=== PATIENT | male | born 1960 | race Caucasian/White ===

== ENCOUNTER 2020-06-16 15:20 | Emergency (ER) | payer BC, OTHER ==
[~2020-06-16] VITALS: Ht 190.5 cm; Wt 176.9 kg
--- OUTSIDE RECORDS SUMMARY | ~2020-06-16 | XMS | Encounter Summary ---
Demographics + + + | Address | [address] | | | [place] [address] | + + + | Home Phone | | + + + | Preferred Language | Unknown | + + + | Marital Status | Single | + + + | Jew Affiliation | CAT | + + + | Race | or | + + + | Ethnic Group | Not or | + + + Author + + + | Author | [facility] | + + + | Organization | [facility] | + + + | Address | Unknown | + + + | Phone | Unavailable | + + + Support + + + + + | Name | Relationship | Address | Phone | + + + + + | Ayde Benoit | ECON | Unknown | | + + + + + | Brian Benoit | ECON | [address] | | | | | [place] | | | | | [address] | | + + + + + Care Team Providers + +------+ + | Care Gritting Machine Operator Name | Role | Phone | + +------+ + | Dhruv Villalpando MD | PCP | Unavailable | + +------+ + Reason for Visit +--------+--------+ + | Reason | Onset | Comments | | | Date | | +--------+--------+ + | Fever | 03/25/ | | | | 2007 | | +--------+--------+ + Encounter Details +--------+ + + + + | Date | Type | Department | Care Team | Description | +--------+ + + + + | 03/25/ | Telephone | Dig[facility]ive Health | Omid Marie | Fever | | 2007 | | [place] [address] | MD [place] | | | | | [place] Mailcode: [address] | [place] [address] | | | | | [facility] | [address] | | | | | and Healing, | [place] [address] | | | | | [place] [address] | [phone] | | | | | [place], [place] | | | | | | [address] | | | | | | [phone] | | | +--------+ + + + + Social History + +-------+ +--------+------+ | Tobacco Use | Types | Packs/Day | Years | Date | | | | | Used | | + +-------+ +--------+------+ | Never Smoker | | | | | + +-------+ +--------+------+ + + +---------+ + | Alcohol Use | Drinks/Week | oz/Week | Comments | + + +---------+ + | Yes | | | 1 beer a day. | + + +---------+ + + + + | Sex Assigned at | Date Recorded | | | | + + + | Not on file | | + + + documented as of this encounter Miscellaneous Notes Telephone Encounter - Omid Marie V - 03/25/2008 8:56 PM JAZMYNMr Benoit called yessica at 20:08 with concern of the fever at 101. He also has some burning pain at the MATTHIEU drain si te. The drain output was about 150 cc, bloody as before the discharge per patient's report. Pain is under control, no nausea. Advised to take Tylenol 1000 mg now and 4-6 hrs later if t he fever persists. I asked him to let me know if his condition gets worse. He was asked to c all me anytime and in the am to report any changes. documented in this en counter Plan of Treatment Not on filedocumented as of this encounter Visit Diagnoses Not on filedocumented in this encounter"
--- OUTSIDE RECORDS SUMMARY | ~2020-06-16 | XMS | Encounter Summary ---
Demographics + + + | Address | [address] | | | [place] [address] | + + + | Home Phone | | + + + | Preferred Language | Unknown | + + + | Marital Status | Single | + + + | Holiness Affiliation | CAT | + + + | Race | or | + + + | Ethnic Group | Not or | + + + Author + + + | Author | [facility] | + + + | Organization | [facility] | + + + | [...] [address] | | | | | [address] | | | | | [address] | | + + + + + Care Team Providers + +------+ + | Care Systems Software Engineer Name | Role | Phone | + +------+ + PCP | Unavailable | + +------+ + Reason for Visit PROC - Inpatient Surgery (Routine) +--------+--------+ + + + + | Status | Reason | Specialty | Diagnoses / | Referred By | Referred To | | | | | Procedures | Contact | Contact | +--------+--------+ + + + + | Closed | | Gastroenterol | Diagnoses | Non-[facility] | Devjesus, | | | | ogy | | Epic Dept | MD Grey | | | | | Posttraumati | | [address] | | | | | c wound | | [address] | | | | | infection | | [address] [place], | | | | | not | | [place] | | | | | elsewhere | | [address] | | | | | classified | | Phone: | | | | | Procedures | | [phone] | | | | | [place] | | Fax: | | | | | ADJ GST | | [phone] | | | | | BND/[place] | | | +--------+--------+ + + + + Encounter Details +--------+---------+ + + + | Date | Type | Department | Care Team | Description | +--------+---------+ + + + | 09/10/ | Office | Dig[facility]ive Health | Deveney, Grey, | Morbid Obesity | | 2006 | Visit | Center [address] | [address] | ([facility]); DVT of Leg | | | | Ave Mail[address]: [address] | [address] | (Deep Venous | | | | [place] for [facility] | [place], [place] | Thrombosis) ([facility]); | | | | and Healing, | [address] | Follow-Up | | | | Building | [phone] | Examination | | | | Floor [place], [place] | | Following Surgery | | | | [address] | | | | | | [phone] | | | +--------+---------+ + + + Social History + +-------+ +--------+------+ | Tobacco Use | Types | Packs/Day | Years | Date | | | | | Used | | + +-------+ +--------+------+ | Never Assessed | | | | | + +-------+ +--------+------+ + + + | Sex Assigned at | Date Recorded | | | | + + + | Not on file | | + + + documented as of this encounter Last Filed Vital Signs + + + + + | Vital Sign | Reading | Time Taken | Comments | + + + + + | Blood Pressure | 151/77 | 09/10/2007 2:50 PM | | | | | PST | | + + + + + | Pulse | 90 | 09/10/2007 2:50 PM | | | | | PST | | + + + + + | Temperature | 36.5 C (97.7 F) | 09/10/2007 2:50 PM | | | | | PST | | + + + + + | Respiratory Rate | 16 | 09/10/2007 2:50 PM | | | | | PST | | + + + + + | Oxygen Saturation | - | - | | + + + + + | Inhaled Oxygen | - | - | | | Concentration | | | | + + + + + | Weight | 175.3 kg (386 lb 8 | 09/10/2007 2:50 PM | | | | oz) | PST | | + + + + + | Height | - | - | | + + + + + | Body Mass Index | 49.62 | 08/13/2007 4:32 PM | | | | | PST | | + + + + + documented in this encounter Progress Notes Grey Gaspar - 10/16/2007 2:22 PM PSTI performed a history and physical examination o f the patient and discussed his management with the resident. I reviewed the resident s n ote and agree with the documented findings and plan of care. ichael Conway - 12/2006 3:44 PM PST Cc: f/u lap band removal S: Pt is a 47 yo M s/p Lap-Band removal on 08/27/2007 for an infected lap band that had be en performed in [place]. His surgery was complicated by post-op L rectus bleed which was reex plored and ligated on 08/30/07 . He initially complained of one day of night sweats/chills a fter discharge, but this resolved after that night. He continues to pack his three wounds BI D, and states that the discharge is becoming progressively less "pus-like." He completed a c ourse of augmentin. His blood sugars have been managed (115-130s) taking only 6 U of fast ac ting insulin TID before meals, without taking his 44U of lantus qHS. He is eating well, and is disappointed to learn that he is gaining some weight. His bowel movements are normal, and he denies nausea. Denies fevers/chills currently. O: Filed Vitals: 09/10/2007 2:50 PM BP: 151/77 Pulse: 90 Temp: 97.7 F (36.5 C) TempSrc: Oral Resp: 16 Weight: 175.315 kg (386 lbs 8.0 oz) PEx: Gen: NAD, alert Neuro: A&Ox3, normal gait Psych: normal affect, speech HEENT: Anicteric Cor: RRR no murmurs Pulm: Clear to Auscultation Bilaterally Abd: soft, nt, nondistended, 3 abd wounds open with good granulation tissue on removal of d ressing. Dressing with mostly serosanguinous drainage. No erythema. + resolving ecchymosis o jessica mid-abd incision. Extr: warm, no edema A: 47 yo M s/p lap band removal and exploration of wounds for post-op hematoma, healing wel l, afebrile. CBGs well controlled with pre-meal short acting insulin. --Cont wet to dry dressings BID --RTC in 2-4 weeks --Cont fast acting insulin with meals, continue to hold long-acting insulin at present. 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 documented in this enco unter Plan of Treatment Not on filedocumented as of this encounter Visit Diagnoses + + | Diagnosis | + + | Morbid obesity (HCC) Morbid obesity | + + | DVT of leg (deep venous thrombosis) (HCC) Acute venous embolism and thrombosis of | | unspecified deep vessels of lower extremity | + + | Follow-up examination following surgery Follow-up examination, following unspecified | | surgery | + + documented in this encounter
--- OUTSIDE RECORDS SUMMARY | ~2020-06-16 | XMS | Encounter Summary ---
Demographics + + + | Address | [address] | | | [place] [address] | + + + | Home Phone | | + + + | Preferred Language | Unknown | + + + | Marital Status | Single | + + + | Episcopalian Affiliation | CAT | + + + | Race | or | + + + | Ethnic Group | Not or | + + + Author + + + | Author | [facility] | + + + | Organization | [facility] | + + + | Address | [...] [address] | | | | | [address] | | + + + + + Care Team Providers + +------+ + | Care Circuit Breaker Assembler Name | Role | Phone | + [...] + + + | Closed | | Surgery | Diagnoses | [facility] | [place], | | | | | Morbid | Epic Dept | MD Grey | | | | | obesity | | [address] | | | | | ([facility]) | | [address] | | | | | Procedures | | [address] [place], | | | | | [place] | | [place] | | | | | GASTRIC | | [address] | | | | | [address]- | | Phone: | | | | | EN-Y | | [phone] | | | | | | | Fax: | | | | | | | [phone] | +--------+--------+ + + + + Encounter Details +--------+---------+ + + + | Date | Type | Department | Care Team | Description | +--------+---------+ + + + | 03/31/ | Office | Dig[facility]ive Health | Deveney, Grey, | DVT of Leg (Deep | | 2007 | Visit | [place] [address] | [address] [facility] | Venous Thrombosis) | | | | Ave Mailcode: [address] | [address] | ([facility]); Morbid | | | | [facility] | [place], [place] | Obesity ([facility]); | | | | and Healing, | [address] | Status Post Gastric | | | | Building | [phone] | Bypass for Obesity | | | | Floor [place], [place] | | | | | | [address] | | | | | | [phone] | | | +--------+---------+ + + + [...] + + + | Blood Pressure | 146/66 | 03/31/2008 2:49 PM | | | | | PDT | | + + + + + | Pulse | 84 | 03/31/2008 2:49 PM | | | | | PDT | | + + + + + | Temperature | 36.9 C (98.4 F) | 03/31/2008 2:49 PM | | | | | PDT | | + + + + + | Respiratory Rate | 16 | 03/31/2008 2:49 PM | | | | | PDT | | + + + + + | Oxygen Saturation | - | - | | + + + + + | Inhaled Oxygen | - | - | | | Concentration | | | | + + + + + | Weight | 199.2 kg (439 lb 1.6 | 03/31/2008 2:49 PM | | | | oz) | PDT | | + + + + + | Height | - | - | | + + + + + | Body Mass Index | 58.2 | 03/19/2008 6:00 AM | | | | | PDT | | + + + + + documented in this encounter Progress Notes Camille Martin, Kaylan Lawrence - 04/01/2008 12:46 PM PDTFormatting of this note might be different from ole degroot. 04/01/2008 BARIATRIC FOLLOW-UP Ghassan Benoit is a 48 y.o. male who underwent a gastric bypass procedure on 03/19/08. Hx Lap Band removal s/t infection. Pt states he is doing well. Pain controlled with oxycodone 5 mg two tablets every 4-6 hrs. Was given 80 a week ago and believes he has ~16 left--request s another Rx. Drain with minimal output. Tolerating clear liquids well. Is off Lovenox an d therapeutic on coumadin. Protime drawn here today at request of managing PCP. Medications: MVI: yes Calcium supplement: yes Vit D: yes B12: yes Actigall: yes Ranitidine : yes Narcotics: yes Symptoms: Nausea: None Dysphagia: None Vomiting: None Heartburn: None Abd Pain: See above Constipation: None Diarrhea: None Physical exam: Last 1 Encounter Wt Readings: Date Wt 03/31/2008 199.174 kg (439 lbs 1.6 oz) There is no height on file for this encounter. General appearance: healthy, alert and cooperative Lungs: negative Cardiac: Rate, rhythm, regular, no murmur, gallop or bruits. No peripheral edema. Abdomen:obese, soft, mild tender, nondistended, no masses Incision: healing well without signs of infection Impression: 1 wk s/p gastric bypass doing well Plan: Dr. Gaspar in to see pt and remove MATTHIEU drain. Mobile removed. Reviewed s/s of infection for pt to call or return to clinic. Reviewed activity limitations. Will remain off work fo r next week. Will remain on [place] diet for next week and be seen next week with plan to advanc e diet at that time. Rx given for oxycodone 5 mg x 60 with instructions for how to wean off of them as pain lessons. PT/INR elevated at 3.5. Pt has been taking 10 mg warfarin daily. Instructed him to try to reach his PCP for directions. If unable to reach PCP, he is to t reji 5 mg tonight then reduce dose to 7.5 mg daily and recheck PT/INR in 3-4 days. documented in this encoun ter Plan of Treatment Not on filedocumented as of this encounter Visit Diagnoses + + | Diagnosis | + + | DVT of leg (deep venous thrombosis) (HCC) Acute venous embolism and thrombosis of | | unspecified deep vessels of lower extremity | + + | Morbid obesity (HCC) Morbid obesity | + + | Status post gastric bypass for obesity Bariatric surgery status | + + documented in this encounter"
--- OUTSIDE RECORDS SUMMARY | ~2020-06-16 | XMS | Encounter Summary ---
Demographics + + + | Address | [address] | | | [place] [address] | + + + | Home Phone | | + + + | Preferred Language | Unknown | + + + | Marital Status | Single | + + + | Religion Affiliation | CAT | + + + | Race | or | + + + | Ethnic Group | Not or | + + + Author + + + | Author | [facility] [employer] [facility] | + + + | Organization | [facility] | + + + | Address | [...] [address] [place] | | | | | [address] | | + + + + + Care Team Providers + +------+ + | Care Retail Department Supervisor Name | Role | Phone | + +------+ + | Dhruv Villalpando MD | PCP | Unavailable | + +------+ + Reason for Referral Consultation (Routine) +--------+--------+ + + + + | Status | Reason | Specialty | Diagnoses / | Referred By | Referred To | | | | | Procedures | Contact | Contact | +--------+--------+ + + + + | Closed | | Gastroenterol | Diagnoses | Ruthy Castorena, | Gas Endo | | | | ogy | Status post | MD [address] | | | | | gastric | [address] | [address] | | | | | bypass for | [address] | [place] | | | | | obesity | [place], [place] | [address] | | | | | Procedures | [address] | floor | | | | | CONSULT TO | Phone: | [place], [place] | | | | | GI PROCEDURE | [phone] | [address] | | | | | UNIT: EGD | Fax: | Phone: | | | | | [facility] | [phone] | [phone] | | | | | ENDOSCOPY | | Fax: | | | | | | | [phone] | +--------+--------+ + + + + Reason for Visit AUTH/CERT +--------+--------+ + + + + | Status | Reason | Specialty | Diagnoses / | Referred By | Referred To | | | | | Procedures | Contact | Contact | +--------+--------+ + + + + | Closed | | | | | [address] | | | | | | | Short Stay | | | | | | | [address] | | | | | | | [address] | | | | | | | [address] | | | | | | | [address] | | | | | | | [place] | | | | | | | [facility] | | | | | | | ([facility]) | | | | | | | [place], | | | | | | | [place] [address] | | | | | | | Phone: | | | | | | | [phone] | | | | | | | Fax: | | | | | | | [phone] | +--------+--------+ + + + + Encounter Details +--------+ + + + + | Date | Type | Department | Care Team | Description | +--------+ + + + + | 08/18/ | Hospital | [facility] [address] | Ruthy Castorena MD | | | 2007 | Encounter | [address] | [address] | | | | | [address] | [address] [place], | | | | | Christy [place] | [place] [address] | | | | | ([facility]) | [phone] | | | | | [place], [place] | | | | | | [address] | Dhruv Graves | | | | | [phone] | MD [address] | | | | | | [address] [place], | | | | | | [place] [address] | | | | | | [phone] | | | | | | | | +--------+ + + + [...] + + + | Blood Pressure | 109/71 | 08/18/2008 12:26 PM | | | | | PST | | + + + + + | Pulse | 58 | 08/18/2008 12:26 PM | | | | | PST | | + + + + + | Temperature | 36.2 C (97.2 F) | 08/18/2008 12:07 PM | | | | | PST | | + + + + + | Respiratory Rate | 16 | 08/18/2008 12:26 PM | | | | | PST | | + + + + + | Oxygen Saturation | 100% | 08/18/2008 12:26 PM | | | | | PST | | + + + + + | Inhaled Oxygen | - | - | | | Concentration | | | | + + + + + | Weight | 161 kg (354 lb 15.1 | 08/18/2008 11:33 AM | | | | oz) | PST | | + + + + + | Height | 188 cm (6' 2") | 08/18/2008 8:12 AM | | | | | PST | | + + + + + | Body Mass Index | 45.57 | 08/18/2008 8:12 AM | | | | | PST | | + + + + + documented in this encounter Discharge Summaries Bhakti, Faculty - 08/18/2008 12:50 PM PST documented in this encounter Discharge Instructions Instructions Misti Steinberg RN - 08/18/2008Formatting of this note might be different from t ivon degroot. [facility] [address] Toll Free ext: [phone] Home Care Instructions after EGD (Upper Endoscopy) Medications You have received sedation medications. These medications can cause you to be forgetful and drowsy and will take the remainder of the day to wear off. DO NOT drink alcohol, drive, ope rate heavy machinery, sign legal documents, or make major decisions until tomorrow. Common After Effects Mild abdominal pain, bloating, and gas. Sore throat. You may treat it with throat lozenges and/or gargle with warm salt water. You may bruise at your IV site. If you have pain, redness, or swelling at your IV site, amrit ly a warm compress. Diet You may resume eating, but start with small meals of soft foods and liquids. Scrambled eggs and mashed potatoes are good examples. If you tolerate small, soft meals, then you may res ume your usual diet. Activity With the exception of driving and operating heavy machinery, you may resume your usual leve l of activity. Complications Call your GI doctor if you have: Abnormal pain or any new unexplained symptoms. Shortness of breath, chest or neck pain. Vomiting blood or rectal bleeding. Fever above 101.5 Redness, pain, or swelling at your IV site that is not relieved with warm compress. For any questions related to your procedure, call: Monday- Monday 8:00- 4:30 Endoscopy After business hours, or on weekends and holidays Hospital Biomedical Technician and have the GI doctor auto adjudication specialist paged. The provider who performed your procedure is: Dr. Castorena You have a stricture which will require dilation. We were unable to perform this dilation at this time due to the fact that you still have food in your stomach. Follow up Appointments with: Your primary care provider Your primary care provider or referring provider will receive copies of the procedure repor t and all pathology reports with recommendations for treatment Current Medication List Name Sig CALCIUM 500 WITH D ORAL None Entered FLONASE 50 MCG/ACTUATION NASAL SPRAY as needed INSULIN REGULAR (HUMAN) BUFFERED 100 UNIT/ML INJECTION inject by subcutaneous route per ins ulin sliding scale protocol as needed LISINOPRIL 40 MG TAB take 1 tablet (40 mg) by oral route once daily METOPROLOL 25 MG TAB 1 Tab Oral TWO TIMES DAILY MULTIVITAMIN TAB take 1 tablet by oral route once daily with food OMEPRAZOLE 20 MG TAB, DELAYED RELEASE one by mouth once daily 30 minutes before breakfast ZANTAC OR 2x daily documented in this encounter Medications at Time of Discharge + + + +---------+ + + | Medication | Sig | Dispensed | Refills | Start | End Date | | | | | | Date | | + + + +---------+ + + | CALCIUM 500 WITH D | None Entered | | 0 | | | | ORAL | | | | | | + + + +---------+ + + | fluticasone | as needed | | 0 | | | | (FLONASE) 50 | | | | | | | mcg/Actuation Nasal | | | | | | | [place], Suspension | | | | | | + + + +---------+ + + | Insulin Reg | inject by | | 0 | | | | (Human) Buffered 100 | subcutaneous route | | | | | | unit/mL Injection | per insulin sliding | | | | | | Solution | scale protocol as | | | | | | | needed | | | | | + + + +---------+ + + | lisinopril 40 mg | take 1 tablet (40 | | 0 | | | | Oral Tablet | mg) by oral route | | | | | | | once daily | | | | | + + + +---------+ + + | metoprolol 25 mg | 1 Tab Oral TWO TIMES | 60 | 0 | 03/20/20 | | | Oral Tablet | DAILY | | | 08 | | + + + +---------+ + + | multivitamin Oral | take 1 tablet by | | 0 | | | | Tablet | oral route once | | | | | | | daily with food | | | | | + + + +---------+ + + | Omeprazole 20 mg | one by mouth once | 30 | 2 | 06/30/20 | | | Oral Tablet, Delayed | daily 30 minutes | | | 08 | | | Release (E.C.) | before breakfast | | | | | + + + +---------+ + + | ZANTAC OR | 2x daily | | 0 | | | + + + +---------+ + + documented as of this encounter Procedure Notes Other, Faculty - 08/18/2008 12:50 PM PST Other, Faculty - 08/18/2008 12:50 PM PST Other, Faculty - 08/18/2008 12:50 PM PSTAssociated Order(s): ANESTHESIA/SEDATION; ANESTHESIA/SEDATI ON Other, Faculty - 08/18/2008 12:50 PM PSTAssociated Order(s): ANESTHESIA/SEDATION; ANESTH ESIA/SEDATION Ruthy Castorena - 08/18/2008 8:40 AM PSTAssociated Order(s): PROCEDURE NOTEFormatt ing of this note might be different from the original. PROCEDURE NOTE: Subjective: Ghassan Benoit is a 48 y.o. male MR# [id number] presents today for EGD with suzanne fam. PARQ held and all questions addressed. Objective: Vital Signs: Blood pressure 108/48, pulse 55, temperature 36.1 C (97 F), resp. rate 16, height 1.88 m (6' 2"), weight 161.027 kg (355 lb), SpO2 99%. Neuro: patient is Patient oriented X3. Mental status clear and intact Mallampati Score: II Neck negative Respiratory Lungs clear to auscultation bilaterally with good air exchange Cardiac Regular Rate and Rhythm. Abdomen: soft, normal active bowel sounds, nontender, no masses, no organomegaly Medications: Meds reviewed Allergies: Allergies as of 08/15/2008 - reviewed 08/05/2008 Allergen Reaction Noted Adhesive tape Hives 08/13/2007 See procedure note 08/18/2008 documented in this encounter Miscellaneous Notes Scan - Other, Faculty - 08/18/2008 12:50 PM PST Scan - Other, Faculty - 08/18/2008 12:50 P M PST documented in this encounter Plan of Treatment Not on filedocumented as of this encounter Procedures + +--------+ + + + | Procedure Name | Priori | Date/Time | Associated Diagnosis | Comments | | | ty | | | | + +--------+ + + + | PROCEDURE NOTE | Routin | 11/13/2015 | | Results for this | | | e | 2:27 PM | | procedure are in the | | | | PST | | results section. | + +--------+ + + + | ANESTHESIA/SEDATION | | 08/18/2008 | | Results for this | | | | 12:50 PM | | procedure are in the | | | | PST | | results section. | + +--------+ + + + | ANESTHESIA/SEDATION | | 08/18/2008 | | Results for this | | | | 12:50 PM | | procedure are in the | | | | PST | | results section. | + +--------+ + + + documented in this encounter Results PROCEDURE NOTE (11/13/2015 2:27 PM PST)ANESTHESIA/SEDATION (08/18/2008 12:50 PM PST) + + + | Narrative | Performed At | + + + | | | + + + + + | Procedure Note | + + | Other, Faculty - 08/18/2008 12:50 PM PST | + + ANESTHESIA/SEDATION (08/18/2008 12:50 PM PST) + + + | Narrative | Performed At | + + + | | | + + + + + | Procedure Note | + + | Mayela Ya - 08/18/2008 12:50 PM PST | + + documented in this encounter Visit Diagnoses + + | Diagnosis | + + | Status post gastric bypass for obesity Bariatric surgery status | + + documented in this encounter Administered Medications + +--------+ +---------+------+--------+ | Medication Order | MAR | Action | Dose | Rate | Site | | | Action | Date | | | | + +--------+ +---------+------+--------+ | fentanyl (aka SUBLIMAZE) | Given | 08/18/20 | 100 mcg | | Right | | injection 1 dose, Starting Mon | | 08 8:15 | | | Hand | | 08/18/08 at 0801, Until Mon | | AM PST | | | | | 08/18/08 at 0908 | | | | | | + +--------+ +---------+------+--------+ +---+---+ | | | +---+---+ + +-------+ +------+---+--------+ | midazolam (aka VERSED) | Given | 08/18/20 | 4 mg | | Right | | injection 1 dose, Starting Mon | | 08 8:15 | | | Hand | | 08/18/08 at 0800, Until Mon | | AM PST | | | | | 08/18/08 at 0909 | | | | | | + +-------+ +------+---+--------+ +---+---+ | | | +---+---+ documented in this encounter
--- OUTSIDE RECORDS SUMMARY | ~2020-06-16 | XMS | Encounter Summary ---
Demographics + + + | Address | [address] | | | [place] [address] | + + + | Home Phone | | + + + | Preferred Language | Unknown | + + + | Marital Status | Single | + + + | Zoroastrianism Affiliation | CAT | + + + | Race | or | + + + | Ethnic Group | Not or | + + + Author + + + | Author | [facility] | + + + | Organization | [...] [address] [place] | | | | | [address] | | + + + + + Care Team Providers + +------+ + | Care Psychiatric Arnp Name | Role | Phone | + +------+ + | Dhruv Villalpando MD | PCP | Unavailable | + +------+ + Reason for Visit AUTH/CERT +--------+--------+ + [...] | | | | | | | [facility] | | | | | | | [place] | | | | | | | [facility] | | | | | | | ([facility]) | | | | | | | [place], | | | | | | | [place] [address] | | | | | | | Phone: | | | | | | | [phone] | | | | | | | Fax: | | | | | | | [phone] | +--------+--------+ + + + + Encounter Details +--------+ + + + + | Date | Type | Department | Care Team | Description | +--------+ + + + + | 11/07/ | Hospital | [facility] [address] | Yvette Wolfe, | | | 2008 | Encounter | [address] | MD | | | | | [facility] | | | | | | [facility] | | | | | | ([facility]) | | | | | | [place], [place] | | | | | | [address] | | | | | | [phone] | | | +--------+ + + + + Social History + +-------+ +--------+------+ | Tobacco Use | Types | Packs/Day | Years | Date | | | | | Used | | + +-------+ +--------+------+ | Never Smoker | | | | | + +-------+ +--------+------+ + + | Comments: snuff | + + + + +---------+ + | Alcohol Use [...] + + + | Blood Pressure | 128/74 | 11/07/2008 3:57 PM | | | | | PST | | + + + + + | Pulse | 61 | 11/07/2008 3:57 PM | | | | | PST | | + + + + + | Temperature | 35.9 C (96.6 F) | 11/07/2008 3:29 PM | | | | | PST | | + + + + + | Respiratory Rate | 16 | 11/07/2008 3:57 PM | | | | | PST | | + + + + + | Oxygen Saturation | 100% | 11/07/2008 3:57 PM | | | | | PST | | + + + + + | Inhaled Oxygen | - | - | | | Concentration | | | | + + + + + | Weight | 154 kg (339 lb 8.1 | 11/07/2008 11:30 AM | | | | oz) | PST | | + + + + + | Height | 185.4 cm (6' 1") | 11/07/2008 11:30 AM | | | | | PST | | + + + + + | Body Mass Index | 44.79 | 11/07/2008 11:30 AM | | | | | PST | | + + + + + documented in this encounter Discharge Summaries Bhakti, Faculty - 11/07/2008 4:05 PM PST documented in this encounter Discharge Instructions Instructions Arelis Triplett RN - 11/07/2008Formatting of this note might be different from venu degroot. [facility] End[facility] [place] [address] Toll Free ext: [phone] Home Care Instructions after EGD (Upper Endoscopy) [...] hours, or on weekends and holidays Hospital Residential Support Specialist and have the GI doctor fellmongering machine operator paged. The provider who performed your procedure is: Dr Yung Your primary care provider or referring provider [...] mouth once daily 30 minutes before breakfast SYRINGE WITH NEEDLE (DISP) 3 ML 22 X 1 1/2" to be used with vitamin B12 injections ZANTAC OR 2x daily documented in this [...] | | | | | | | [place], Suspension | | | | | | [...] + + + +---------+ + + | Syringe with | to be used with | 1 | 11 | /08/28 | | | Needle (Disp) 3 mL | vitamin B12 | | | 08 | | | 22 x 1 1/2" Syringe | injections | | | | | + + + +---------+ + + | ZANTAC OR | 2x daily | | 0 | | | + + + +---------+ + + documented as of this encounter Procedure Notes Other, Faculty - 11/07/2008 4:05 PM PST Other, Faculty - 11/07/2008 4:05 PM PSTAssociate d Order(s): ANESTHESIA/SEDATION; ANESTHESIA/SEDATION Other, Faculty - 11/07/2008 2:[address] documented in this encounter Miscellaneous Notes Scan - Other, Faculty - 11/07/2008 4:05 PM PST Scan - Other, Faculty - 11/07/2008 4:05 P M PST Scan - Other, Faculty - 11/07/2008 4:05 PM PST documented in this encounter Plan of Treatment Not on filedocumented as of this encounter Procedures + +--------+ + + + | Procedure Name | Priori | Date/Time | Associated Diagnosis | Comments | | | ty | | | | + +--------+ + + + | ANESTHESIA/SEDATION | | 11/07/2008 | | Results for this | | | | 4:05 PM | | procedure are in the | | | | PST | | results section. | + +--------+ + + + documented in this encounter Results ANESTHESIA/SEDATION (11/07/2008 4:05 PM PST) + + + | Narrative | Performed At | + + + | | | + + + + + | Procedure Note | + + | Mayela Ya - 11/07/2008 4:05 PM PST | + + documented in this encounter Visit Diagnoses Not on filedocumented in this encounter
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
--- OUTSIDE RECORDS SUMMARY | ~2020-06-16 | XMS | Encounter Summary ---
Demographics + + + | Address | [address] | | | [place] [address] | + + + | Home Phone | | + + + | Preferred Language | Unknown | + + + | Marital Status | Single | + + + | Zoroastrian Affiliation | CAT | + + + | Race | or | + + + | Ethnic Group | Not or | + + + Author + + + | Author | [facility] | + + + | Organization | [facility] | + + + | Address [...] [address] [place] | | | | | [address] | | + + + + + Care Team Providers + +------+ + | Care Tunnel Elastic Operator Lockstitch Name | Role | Phone | + +------+ + | Dhruv Villalpando MD | PCP | Unavailable | + +------+ + Encounter Details +--------+ + + + + | Date | Type | Department | Care Team | Description | +--------+ + + + + | 03/17/ | Hospital | Cardiac | Sjh, Car Ecg Tech | | | 2008 | Encounter | Non-Invasive Testing | [address] | | | | | at [facility] | [facility] | | | | | [address] | [place] [address] | | | | | [address] [facility] [place] | | | | | | [place] floor | | | | | | [place], [place] | | | | | | [address] | | | | | | [phone] | | | +--------+ + + + [...] + + documented as of this encounter Medications at Time of Discharge [...] + + + +---------+ + + | cyanocobalamin | once a month | 1 | 6 | 03/24/20 | | | (VITAMIN B-12) 1,000 | injection | | | 08 | 8 | | mcg/mL Injection | subcutaneously or | | | | | | Solution | intramuscular | | | | | + + + +---------+ + + documented as of this encounter Plan of Treatment Not on filedocumented as of this encounter Procedures + +--------+ + + + | Procedure Name | Priori | Date/Time | Associated Diagnosis | Comments | | | ty | | | | + +--------+ + + + | 12 LEAD ECG | Routin | 03/17/2008 | Other specified | Results for this | | | e | 2:55 PM | pre-operative | procedure are in the | | | | PDT | examination | results section. | + +--------+ + + + documented in this encounter Results 12 LEAD ECG (03/17/2008 2:55 PM PDT) + + + + + + | Component | Value | Ref Range | Performed | Pathologist | | | | | At | Signature | + + + + + + | VENTRICULAR | 75 | BPM | [facility] | | | RATE | | | OF | | | | | | CARDIOLOGY | | + + + + + + | ATRIAL RATE | 75 | BPM | [facility] | | | | | | OF | | | | | | CARDIOLOGY | | + + + + + + | P-R | 154 | ms | [facility] | | | INTERVAL | | | OF | | | | | | CARDIOLOGY | | + + + + + + | QRS | 84 | ms | [facility] | | | DURATION | | | OF | | | | | | CARDIOLOGY | | + + + + + + | QT | 374 | ms | [facility] | | | | | | OF | | | | | | CARDIOLOGY | | + + + + + + | QTC | 418 | ms | [facility] | | | | | | OF | | | | | | CARDIOLOGY | | + + + + + + | P AXIS | 27 | degrees | [facility] | | | | | | OF | | | | | | CARDIOLOGY | | + + + + + + | R AXIS | 8 | degrees | [facility] | | | | | | OF | | | | | | CARDIOLOGY | | + + + + + + | T AXIS | 9 | degrees | [facility] | | | | | | OF | | | | | | CARDIOLOGY | | + + + + + + | EKG | Normal sinus | | [facility] | | | DIAGNOSIS | rhythmNormal ECG"I have | | OF | | | | personally interpreted | | CARDIOLOGY | | | | this report, either | | | | | | alone or with a | | | | | | trainee."Confirmed by | | | | | | SHANTI MARS ([id number]) on | | | | | | 20-Mar-2008 10:00:57 | | | | + + + + + + | LINK TO | | | [facility] | | | [facility] | | | OF | | | (ECG | | | CARDIOLOGY | | | VIEWER) | | | | | + + + + + + + + | Specimen | + + | | + + + + + | Narrative | Performed At | + + + | Please click | [facility] | | on view image for the detailed interpretation from [employer] results. | CARDIOLOGY | | | | + + + + + + + + | Performing | Address | City/State/Zipcode | Phone Number | | Organization | | | | + + + + + | [facility] | [address] | [place], [place] | | | CARDIOLOGY | [facility] | [phone] | | + + + + + | [facility] | [address] | [place], [place] | | | CARDIOLOGY | [facility] | [address] | | + + + + + documented in this encounter Visit Diagnoses + + | Diagnosis | + + | Other specified pre-operative examination | + + documented in this encounter
--- OUTSIDE RECORDS SUMMARY | ~2020-06-16 | XMS | Encounter Summary ---
Demographics + + + | Address | [address] | | | [place] [address] | + + + | Home Phone | | + + + | Preferred Language | Unknown | + + + | Marital Status | Single | + + + | Congregation Affiliation | CAT | + + + | Race | or | + + + | Ethnic Group | Not or | + + + Author + + + | Author | [facility] | + + + | Organization | [facility] | + + + | Address [...] [address] | | | | | [address] | | + + + + + Care Team Providers + +------+ + | Care Warehouse Representative Name | Role | Phone | + +------+ + | Dhruv Villalpando MD | PCP | Unavailable | + +------+ + Encounter Details +--------+ + + + + | Date | Type | Department | Care Team | Description | +--------+ + + + + | 08/05/ | Procedure - | [facility] Division of | Endoscopy, Gi | EGD | | 2007 | | Gastroenterology/Hep | | (esophagogastroduode | | | Transcribed | atology [address] | | noscopy) | | | | [address] | | | | | | Mailcode: [id number] | | | | | | [facility] | | | | | | [address] | | | | | | [place], [place] | | | | | | [address] | | | | | | [phone] | | | +--------+ + + + [...] documented as of this encounter Procedure Notes Endoscopy, Gi - 08/05/2008 8:41 AM PDTAssociated Order(s): EGD PROCEDURES:PANENDOSCOPY (EGD) CPT: 33342. WITH BALLOON DILATION. CPT: 98483. PERSONNEL:THE ATTENDING PHYSICIAN WAS PRESENT DURING THE ENTIRE PROCEDURE. ENDOSCOPIST: EMBER DREW MD. MANAGER TRANSPORTATION PLANNING: KENDRA GOOD. NURSE: EMILIA YAÑEZ R.N. REFERRED BY:GETACHEW GIANG MD. EXAM LOCATION:EXAM PERFORMED IN ENDOSCOPY SUITE. OUTPATIENT PATIENT CONSENT:PROCEDURE, ALTERNATIVES, RISKS AND BENEFITS DISCUSSED, CONSENT OBTAINED, FROM PATIENT. CONSENT WAS OBTAINED BY THE PHYSICIAN. CONSENT TO BE CONTACTED WAS NOT REQUESTED. SYMPTOMS:VOMITING. CURRENT MEDICATIONS:PATIENT IS NOT CURRENTLY TAKING COUMADIN. MEDICAL/SURGICAL HISTORY:GASTRIC BYPASS, ALLERGIES:NO KNOWN ALLERGIES. COMMENTS:S/P RUTH ANN-Y GASTRIC BYPASS WITH N&V PRE-EXAM PHYSICAL:PERFORMED AUG 05, 2008 CARDIO-PULMONARY EXAM, HEENT EXAM, ABDOMINAL EXAM, MENTAL STATUS EXAM WNL. ABNORMAL PE FINDINGS INCLUDE: MORBID OBESITY. EXAM INFO:MAXIMUM DEPTH OF INSERTION JEJUNUM, INTENDED JEJUNUM. PATIENT POSITION: ON LEFT SIDE. DURATION OF EXAM: 30 MINUTES. VOCAL CORDS NOT VISUALIZED. GASTRIC RETROFLEXION PERFORMED. IMAGES TAKEN. ASA CLASSIFICATION: III. TOLERANCE: EXCELLENT. SEDATION MEDS:PATIENT ASSESSED AND FOUND TO BE APPROPRIATE FOR MODERATE (CONSCIOUS) SEDATION. SEDATION WAS MANAGED BY THE ENDOSCOPIST. MIDAZOLAM 5 MG. GIVEN IV. FENTANYL 100 MCG. GIVEN IV. HURRICAINE SPRAY 1 SPRAYS GIVEN AEROSOLIZED. MONITORING:BP AND PULSE MONITORING DONE. OXIMETRY USED. INSTRUMENT(S):GIF 140. - FOREIGN BODY / RETAINED FOOD: RETAINED FOOD, FOUND IN FUNDUS. NOT REMOVED. ICD9: FOREIGN BODY, GI NOS: 938. STRICTURE / STENOSIS: BODY. CONSTRICTION: PARTIAL. THIS AN ANASTAMOSIS SITE. LUMEN DIAMETER IS 8 MM. - DILATION: BODY. FOR ANASTAMOTIC STRICTURE. BALLOON/MICROVASIVE DILATOR USED, DIAMETER: 10 MM, BALLOON/MICROVASIVE DILATOR USED, DIAMETER: 11 MM, BALLOON/MICROVASIVE DILATOR USED, DIAMETER: 12 MM, 3 TOTAL DILATORS USED. PATIENT TOLERANCE EXCELLENT. OUTCOME: SUCCESSFUL. - PRIOR SURGERY: GASTRIC BYPASS. COMMENTS:THERE IS A LARGE AMOUNT OF RETAINED FOOD IN THE GASTRIC POUCH. THERE IS ALSO GE REFLUX. THERE IS ANASTAMOTIC STRICTURE MEASURIONG ABOUT 6-8 MM IN DIAMATER. THE SCOPE COULD NOT BE PASSED THROUGH THE STRICTURE. A 10-12 MM CRE BALLOON WAS USED TO DILATE THE STRICTURE. FOLLOWING DILATION, THE SCOPE COULD BE PASSED INTO NORMAL SMALL BOWEL. NO ULCER SEEN. DUE TO THE RETAINED FOOD IN THE STOMACH, ELECTED NOT TO PERFORM ADDITIONAL DILATION AT THIS TIME. ABNORMAL EXAMINATION, SEE FINDINGS ABOVE. DIAGNOSES: 938: FOREIGN BODY, GI NOS. COMMENTS:ANASTAMOTIC STRICTURE CAUSING GASTRIC OUTLET OBSTRUCTION, S/P SUCCESSFUL DILATION TO 12 MM. UNPLANNED INTERVENTION:NO UNPLANNED INTERVENTIONS WERE REQUIRED. UNPLANNED EVENTS:THERE WERE NO COMPLICATIONS. INSTRUCTIONS:POST SEDATION INSTRUCTIONS GIVEN. COMMENTS:REPEAT EGD WITH DILATION TO 15 MM IN 2 WEEKS. NEEDS TO BE ON CLEAR LIQUIDS FOR 24 HOURS PRIOR TO NEXT EGD. DISPOSITION:AFTER PROCEDURE PATIENT SENT TO SHORT STAY UNIT. AFTER RECOVERY PATIENT SENT HOME. SCHEDULING:EGD, AROUND AUG 19, 2008. REPORT ENTERED BY: EMBER DREW, MDdocumented in this encounter Plan of Treatment Not on filedocumented as of this encounter Procedures + +--------+ + + + | Procedure Name | Priori | Date/Time | Associated Diagnosis | Comments | | | ty | | | | + +--------+ + + + | EGD | | 08/05/2008 | | Results for this | | | | 8:41 AM | | procedure are in the | | | | PDT | | results section. | + +--------+ + + + documented in this encounter Results EGD (08/05/2008 8:41 AM PDT) + + + | Narrative | Performed At | + + + | PROCEDURES:PANENDOSCOPY (EGD) CPT: 79660. WITH BALLOON | | | DILATION. CPT: 53948. PERSONNEL:THE ATTENDING PHYSICIAN WAS PRESENT | | | DURING THE ENTIRE PROCEDURE. ENDOSCOPIST: EMBER DREW MD. | | | MANAGER TRANSPORTATION PLANNING: KENDRA GOOD. NURSE: EMILIA YAÑEZ R.N. REFERRED | | | BY:GETACHEW GIANG MD. EXAM LOCATION:EXAM PERFORMED IN ENDOSCOPY | | | SUITE. OUTPATIENT PATIENT CONSENT:PROCEDURE, ALTERNATIVES, RISKS AND | | | BENEFITS DISCUSSED, CONSENT OBTAINED, FROM PATIENT. CONSENT WAS | | | OBTAINED BY THE PHYSICIAN. CONSENT TO BE CONTACTED WAS NOT | | | REQUESTED. SYMPTOMS:VOMITING. CURRENT MEDICATIONS:PATIENT IS NOT | | | CURRENTLY TAKING COUMADIN. MEDICAL/SURGICAL HISTORY:GASTRIC BYPASS, | | | ALLERGIES:NO KNOWN ALLERGIES. COMMENTS:S/P RUTH ANN-Y GASTRIC BYPASS WITH | | | N&V PRE-EXAM PHYSICAL:PERFORMED AUG 05, 2008 CARDIO-PULMONARY | | | EXAM, HEENT EXAM, ABDOMINAL EXAM, MENTAL STATUS EXAM WNL. ABNORMAL | | | PE FINDINGS INCLUDE: MORBID OBESITY. EXAM INFO:MAXIMUM DEPTH OF | | | INSERTION JEJUNUM, INTENDED JEJUNUM. PATIENT POSITION: ON LEFT | | | SIDE. DURATION OF EXAM: 30 MINUTES. VOCAL CORDS NOT VISUALIZED. | | | GASTRIC RETROFLEXION PERFORMED. IMAGES TAKEN. ASA CLASSIFICATION: | | | III. TOLERANCE: EXCELLENT. SEDATION MEDS:PATIENT ASSESSED AND FOUND | | | TO BE APPROPRIATE FOR MODERATE (CONSCIOUS) SEDATION. SEDATION WAS | | | MANAGED BY THE ENDOSCOPIST. MIDAZOLAM 5 MG. GIVEN IV. FENTANYL 100 | | | MCG. GIVEN IV. HURRICAINE SPRAY 1 SPRAYS GIVEN AEROSOLIZED. | | | MONITORING:BP AND PULSE MONITORING DONE. OXIMETRY USED. | | | INSTRUMENT(S):GIF 140. - FOREIGN BODY / RETAINED FOOD: RETAINED FOOD, | | | FOUND IN FUNDUS. NOT REMOVED. ICD9: FOREIGN BODY, GI NOS: 938. | | | STRICTURE / STENOSIS: BODY. CONSTRICTION: PARTIAL. THIS AN | | | ANASTAMOSIS SITE. LUMEN DIAMETER IS 8 MM. - DILATION: BODY. FOR | | | ANASTAMOTIC STRICTURE. BALLOON/MICROVASIVE DILATOR USED, DIAMETER: | | | 10 MM, BALLOON/MICROVASIVE DILATOR USED, DIAMETER: 11 MM, | | | BALLOON/MICROVASIVE DILATOR USED, DIAMETER: 12 MM, 3 TOTAL | | | DILATORS USED. PATIENT TOLERANCE EXCELLENT. OUTCOME: SUCCESSFUL. - | | | PRIOR SURGERY: GASTRIC BYPASS. COMMENTS:THERE IS A LARGE AMOUNT OF | | | RETAINED FOOD IN THE GASTRIC POUCH. THERE IS ALSO GE REFLUX. THERE | | | IS ANASTAMOTIC STRICTURE MEASURIONG ABOUT 6-8 MM IN DIAMATER. THE | | | SCOPE COULD NOT BE PASSED THROUGH THE STRICTURE. A 10-12 MM CRE | | | BALLOON WAS USED TO DILATE THE STRICTURE. FOLLOWING DILATION, THE | | | SCOPE COULD BE PASSED INTO NORMAL SMALL BOWEL. NO ULCER SEEN. DUE | | | TO THE RETAINED FOOD IN THE STOMACH, ELECTED NOT TO PERFORM | | | ADDITIONAL DILATION AT THIS TIME. ABNORMAL EXAMINATION, SEE FINDINGS | | | ABOVE. DIAGNOSES: 938: FOREIGN BODY, GI NOS. COMMENTS:ANASTAMOTIC | | | STRICTURE CAUSING GASTRIC OUTLET OBSTRUCTION, S/P SUCCESSFUL | | | DILATION TO 12 MM. UNPLANNED INTERVENTION:NO UNPLANNED INTERVENTIONS | | | WERE REQUIRED. UNPLANNED EVENTS:THERE WERE NO COMPLICATIONS. | | | INSTRUCTIONS:POST SEDATION INSTRUCTIONS GIVEN. COMMENTS:REPEAT EGD | | | WITH DILATION TO 15 MM IN 2 WEEKS. NEEDS TO BE ON CLEAR LIQUIDS FOR | | | 24 HOURS PRIOR TO NEXT EGD. DISPOSITION:AFTER PROCEDURE PATIENT SENT | | | TO SHORT STAY UNIT. AFTER RECOVERY PATIENT SENT HOME. | | | SCHEDULING:EGD, AROUND AUG 19, 2008. REPORT ENTERED BY: EMBER Lennon | | | MD VIKI | | + + + + + | Procedure Note | + + | 08/05/2008 8:41 AM PDT | | PROCEDURES:PANENDOSCOPY (EGD) CPT: [id number]. | | WITH BALLOON DILATION. CPT: 81202. | | PERSONNEL:THE ATTENDING PHYSICIAN WAS PRESENT DURING THE ENTIRE PROCEDURE. | | ENDOSCOPIST: EMBER DREW MD. MANAGER TRANSPORTATION PLANNING: KENDRA GOOD. NURSE: | | EMILIA YAÑEZ R.N. | | REFERRED BY:GETACHEW GIANG MD. | | EXAM LOCATION:EXAM PERFORMED IN ENDOSCOPY SUITE. OUTPATIENT | | PATIENT CONSENT:PROCEDURE, ALTERNATIVES, RISKS AND BENEFITS DISCUSSED, | | CONSENT OBTAINED, FROM PATIENT. CONSENT WAS OBTAINED BY THE PHYSICIAN. | | CONSENT TO BE CONTACTED WAS NOT REQUESTED. | | SYMPTOMS:VOMITING. | | CURRENT MEDICATIONS:PATIENT IS NOT CURRENTLY TAKING COUMADIN. | | MEDICAL/SURGICAL HISTORY:GASTRIC BYPASS, | | ALLERGIES:NO KNOWN ALLERGIES. | | COMMENTS:S/P RUTH ANN-Y GASTRIC BYPASS WITH N&V | | PRE-EXAM PHYSICAL:PERFORMED AUG 05, 2008 CARDIO-PULMONARY EXAM, HEENT | | EXAM, ABDOMINAL EXAM, MENTAL STATUS EXAM WNL. ABNORMAL PE FINDINGS | | INCLUDE: MORBID OBESITY. | | EXAM INFO:MAXIMUM DEPTH OF INSERTION JEJUNUM, INTENDED JEJUNUM. PATIENT | | POSITION: ON LEFT SIDE. DURATION OF EXAM: 30 MINUTES. VOCAL CORDS NOT | | VISUALIZED. GASTRIC RETROFLEXION PERFORMED. IMAGES TAKEN. ASA | | CLASSIFICATION: III. TOLERANCE: EXCELLENT. | | SEDATION MEDS:PATIENT ASSESSED AND FOUND TO BE APPROPRIATE FOR MODERATE | | (CONSCIOUS) SEDATION. SEDATION WAS MANAGED BY THE ENDOSCOPIST. MIDAZOLAM | | 5 MG. GIVEN IV. FENTANYL 100 MCG. GIVEN IV. HURRICAINE SPRAY 1 SPRAYS | | GIVEN AEROSOLIZED. | | MONITORING:BP AND PULSE MONITORING DONE. OXIMETRY USED. | | INSTRUMENT(S):GIF 140. | | - FOREIGN BODY / RETAINED FOOD: RETAINED FOOD, FOUND IN FUNDUS. NOT | | REMOVED. ICD9: FOREIGN BODY, GI NOS: 938. | | STRICTURE / STENOSIS: BODY. CONSTRICTION: PARTIAL. THIS AN ANASTAMOSIS | | SITE. LUMEN DIAMETER IS 8 MM. | | - DILATION: BODY. FOR ANASTAMOTIC STRICTURE. BALLOON/MICROVASIVE DILATOR | | USED, DIAMETER: 10 MM, BALLOON/MICROVASIVE DILATOR USED, DIAMETER: 11 MM, | | BALLOON/MICROVASIVE DILATOR USED, DIAMETER: 12 MM, 3 TOTAL DILATORS USED. | | PATIENT TOLERANCE EXCELLENT. OUTCOME: SUCCESSFUL. | | - PRIOR SURGERY: GASTRIC BYPASS. | | COMMENTS:THERE IS A LARGE AMOUNT OF RETAINED FOOD IN THE GASTRIC POUCH. | | THERE IS ALSO GE REFLUX. THERE IS ANASTAMOTIC STRICTURE MEASURIONG ABOUT | | 6-8 MM IN DIAMATER. THE SCOPE COULD NOT BE PASSED THROUGH THE STRICTURE. | | A 10-12 MM CRE BALLOON WAS USED TO DILATE THE STRICTURE. FOLLOWING | | DILATION, THE SCOPE COULD BE PASSED INTO NORMAL SMALL BOWEL. NO ULCER | | SEEN. | | DUE TO THE RETAINED FOOD IN THE STOMACH, ELECTED NOT TO PERFORM ADDITIONAL | | DILATION AT THIS TIME. | | ABNORMAL EXAMINATION, SEE FINDINGS ABOVE. | | DIAGNOSES: 938: FOREIGN BODY, GI NOS. | | COMMENTS:ANASTAMOTIC STRICTURE CAUSING GASTRIC OUTLET OBSTRUCTION, S/P | | SUCCESSFUL DILATION TO 12 MM. | | UNPLANNED INTERVENTION:NO UNPLANNED INTERVENTIONS WERE REQUIRED. | | UNPLANNED EVENTS:THERE WERE NO COMPLICATIONS. | | INSTRUCTIONS:POST SEDATION INSTRUCTIONS GIVEN. | | COMMENTS:REPEAT EGD WITH DILATION TO 15 MM IN 2 WEEKS. NEEDS TO BE ON | | CLEAR LIQUIDS FOR 24 HOURS PRIOR TO NEXT EGD. | | DISPOSITION:AFTER PROCEDURE PATIENT SENT TO SHORT STAY UNIT. AFTER | | RECOVERY PATIENT SENT HOME. | | SCHEDULING:EGD, AROUND AUG 19, 2008. | | REPORT ENTERED BY: EMBER DREW MD | + + documented in this encounter Visit Diagnoses Not on filedocumented in this encounter"
--- OUTSIDE RECORDS SUMMARY | ~2020-06-16 | XMS | Encounter Summary ---
Demographics + + + | Address | [address] | | | [place] [address] | + + + | Home Phone | | + + + | Preferred Language | Unknown | + + + | Marital Status | Single | + + + | Restorationism Affiliation | CAT | + + + | Race | or | + + + | Ethnic Group | Not or | + + + Author + + + | Author | [facility] | + + + | Organization | [facility] | + + + | [...] [address] | | | | | [address] [place] | | | | | [address] | | + + + + + Care Team Providers + +------+ + | Care Hazardous Materials Tanker Driver Name | Role | Phone | + +------+ + PCP | Unavailable | + +------+ + Reason for Visit + + + | Reason | Comments | + + + | Return Patient | | + + + Office Visit - E/M Services (Routine) +--------+--------+ + + + + | Status | Reason | Specialty | Diagnoses / | Referred By | Referred To | | | | | Procedures | Contact | Contact | +--------+--------+ + + + + | Closed | | Surgery | Diagnoses | Non-[facility] | [facility] | | | | | Morbid | Epic Dept | MD Grey | | | | | obesity | | [address] | | | | | ([facility]) | | [address] | | | | | | | [place], | | | | | | | [place] | | | | | | | [address] | | | | | | | Phone: | | | | | | | [phone] | | | | | | | Fax: | | | | | | | [phone] | +--------+--------+ + + + + Encounter Details +--------+---------+ + + + | Date | Type | Department | Care Team | Description | +--------+---------+ + + + | 12/16/ | Office | Digestive Health | EfrainjesusGrey, | DVT of Leg (Deep | | 2007 | Visit | Center [address] | [address] | Venous Thrombosis) | | | | Ave Mailcode: CH4S | [address] | ([facility]); Morbid | | | | [place] for [facility] | [place], [place] | Obesity ([facility]) | | | | and Healing, | [address] | | | | | [facility] | [phone] | | | | | Floor [place], [place] | | | | | | [address] | | | | | | [phone] | | | +--------+---------+ + + + [...] + + + | Blood Pressure | 162/75 | 12/17/2007 3:42 PM | | | | | PDT | | + + + + + | Pulse | 76 | 12/17/2007 3:42 PM | | | | | PDT | | + + + + + | Temperature | 36 C (96.8 F) | 12/17/2007 3:42 PM | | | | | PDT | | + + + + + | Respiratory Rate | 16 | 12/17/2007 3:42 PM | | | | | PDT | | + + + + + | Oxygen Saturation | - | - | | + + + + + | Inhaled Oxygen | - | - | | | Concentration | | | | + + + + + | Weight | 196 kg (432 lb) | 12/17/2007 3:42 PM | | | | | PDT | | + + + + + | Height | 189.2 cm (6' 2.5") | 12/17/2007 3:42 PM | | | | | PDT | | + + + + + | Body Mass Index | 54.72 | 12/17/2007 3:42 PM | | | | | PDT | | + + + + + documented in this encounter Progress Notes Camille Martin, Kaylan Lawrence - 12/18/2007 10:28 AM PDT~ 3.5 mos s/p removal of infected lap band system. Wounds now completely closed and healed. Pt has now regained almost all of the 177 lbs he lost with the lap band. He is pursuing gastric bypass, but has not been able to get insura nce auth. Comorbidities include insulin dependent type 2 diabetes mellitus, hypertension an d hyperlipidemia. His current weight is 432 with BMI of 55. He has gained 28 lbs since 10/15 office visit. States his appetite is never satisfied. Tries to make good food choices, but eats too much. Is limited in exercise due to pain and swelling it causes in LLE which has DVT. Request appetite suppressant. A&O 47 yo man in NAD, BP 162/75, HR 76, WT 432 BMI 55 Abd: obese, soft, NT, all surgical scars well healed Morbid obesity s/p removal of infected lap band, DVT Letter sent to insurer re: necessity of surgery. Pt encouraged to keep a food journal and try to stay at 1800 tiara/day. Be as active as possible. Cont f/u with anticoag clinic. F/u here 3/6 mos. documented i n this encounter Plan of Treatment Not on filedocumented as of this encounter Visit Diagnoses + + | Diagnosis | + + | DVT of leg (deep venous thrombosis) (HCC) Acute venous embolism and thrombosis of | | unspecified deep vessels of lower extremity | + + | Morbid obesity (HCC) Morbid obesity | + + documented in this encounter
--- OUTSIDE RECORDS SUMMARY | ~2020-06-16 | XMS | Encounter Summary ---
Demographics + + + | Address | [address] | | | [place] [address] | + + + | Home Phone | | + + + | Preferred Language | Unknown | + + + | Marital Status | Single | + + + | Anabaptism Affiliation | CAT | + + + | Race | or | + + + | Ethnic Group | Not or | + + + Author + + + | Author | [facility] | + + + | Organization | [facility] | + + + | Address [...] [address] [place] | | | | | [address] | | + + + + + Care Team Providers + +------+ + | Care Solar System Installer Name | Role | Phone | + +------+ + | Dhruv Villalpando MD | PCP | Unavailable | + +------+ + Reason for Visit + + + | Reason | Comments | + + + | Discussion | | + + + Encounter Details +--------+ + + + + | Date | Type | Department | Care Team | Description | +--------+ + + + + | 03/27/ | Telephone | Dig[facility]ive Health | Grey [place], | Discussion | | 2007 | | [place] [address] | [address] [facility] | | | | | [place] Mailcode: CH4S | [facility] | | | | | [facility] | [place], [place] | | | | | and [place], | [address] | | | | | [place] [address], [facility] | [phone] | | | | | [place], [place] | | | | | | [address] | | | | | | [phone] | | | +--------+ + + + [...] this encounter Miscellaneous Notes Telephone Encounter - ElsakanuBlairOmid V - 03/28/2008 9:52 AM PDTI have talked to the sophia spann last night about his care. He is followed by PCP. His last INR on 03/27/08 was 3.2 and h e has stopped his lovenox and decreased coumadin to 10mg from 15mg daily. He will have an ap pointment with us on Monday and we can have his INR levels checked in the clinic and have it sent to the PCP. The patient states that he is feeling well. Ambulates. Tolerates his diet. No fevers. elephone E nicole - Michelle Reardon - 03/27/2008 3:[address] Marie. Electronical ly signed by Michelle Reardon at 03/27/2008 3:43 PM PDTTelephone Encounter - Kavita Myrick - 03/27/2008 1:12 PM PDTDOS 03-19-08. Clarify where levels should be for therapeutic range o n blood thinners, etc. Protime is going up since taking Coumadin and Lovenox. Als if bloodwo rk is needed over the weekend, needs orders for [facility] in [place] (if he sh ould continue). , Attn: Dr. Helms. Scheduled for another blood test today at 2pm, and f/u with Mario on 03-31. 08 1:13 PM PDTdocumented in this encounter Plan of Treatment Not on filedocumented as of this encounter Visit Diagnoses Not on filedocumented in this encounter"
--- OUTSIDE RECORDS SUMMARY | ~2020-06-16 | XMS | Encounter Summary ---
Demographics + + + | Address | [address] | | | [place] [address] | + + + | Home Phone | | + + + | Preferred Language | Unknown | + + + | Marital Status | Single | + + + | Protestant Affiliation | CAT | + + + | Race | or | + + + | Ethnic Group | Not or | + + + Author + + + | Author | [facility] [employer] [facility] | + + + | Organization | [facility] | + + + | Address [...] [address] [place] | | | | | [address] | | + + + + + Care Team Providers + +------+ + | Care Drafter Electronic Name | Role | Phone | + +------+ + | Dhruv Villalpando MD | PCP | Unavailable | + +------+ + Encounter Details +--------+ + + + + | Date | Type | Department | Care Team | Description | +--------+ + + + + | 03/14/ | Education Consultant | Dig[facility]ive Health | Kaylan Obrien ANP | DVT of Leg (Deep | | 2007 | | Center [address] | | Venous Thrombosis) | | | | [address] | | (HCC); Morbid | | | | Mailcode: PGW960 | | Obesity (HCC); [facility] | | | | [facility] | | (Obstructive Sleep | | | | [place], [place] | | Apnea) | | | | [address] | | | | | | [phone] | | | +--------+ + + + [...] this encounter Miscellaneous Notes Telephone Encounter - Kaylan Obrien Rn - 03/17/2008 2:08 PM PDT Addended by: KAYLAN OBRIEN n: 03/17/2008 2:08:59 PM Modules accepted: Orders documented in this enco unter Plan of Treatment Not on filedocumented as of this encounter Visit Diagnoses + + | Diagnosis | + + | DVT of leg (deep venous thrombosis) (HCC) Acute venous embolism and thrombosis of | | unspecified deep vessels of lower extremity | + + | Morbid obesity (HCC) Morbid obesity | + + | SOC[facility] (obstructive sleep apnea) Obstructive sleep apnea (adult) (pediatric) | + + documented in this encounter"
--- OUTSIDE RECORDS SUMMARY | ~2020-06-16 | XMS | Encounter Summary ---
Demographics + + + | Address | [address] | | | [place] [address] | + + + | Home Phone [...] + + + | Author | [facility] | + + + | Organization | [facility] | + + + | [...] [address] | | | | | [address] | | + + + + + Care Team Providers + +------+ + | Care Supervisor Hot Dip Tinning Name | Role | Phone | + +------+ + | Dhruv Villalpando MD | PCP | Unavailable | + +------+ + Encounter Details +--------+------+ + + + | Date | Type | Department | Care Team | Description | +--------+------+ + + + | 03/31/ | Lab | Laboratory at [facility] | | DVT of Leg (Deep | | 2007 | | [address] | | Venous Thrombosis) | | | | [facility] | | ([facility]) | | | | and Healing, | | | | | | [address] | | | | | | [place], [place] | | | | | | [address] | | | | | | [phone] | | | +--------+------+ + + + Social History + +-------+ [...] | + +--------+ + + + | [facility] - INR | Routin | 03/31/2008 | DVT of Leg (Deep | Results for this | | FINGERSTICK | e | 1:48 PM | Venous Thrombosis) | procedure are in the | | | | PDT | ([facility]) | results section. | + +--------+ + + + documented in this encounter Results [facility] - INR (PROTHROMBINTIME) (03/31/2008 1:48 PM PDT) + + + + + + | Component | Value | Ref Range | Performed | Pathologist | | | | | At | Signature | + + + + + + | INR-[facility] | 3.50 (H)Comment: | 0.98 - 1.20 INR | [facility] | | | | PT INR Therapeutic | | DEPARTMENT | | | | ranges for full | | OF | | | | anticoagulation: | | PATHOLOGY | | | | INR for | | | | | | Venous Thromboembolism | | | | | | | | | | | | (2.0-3.0) INR | | | | | | INR for most | | | | | | patients with mech. | | | | | | valves (2.5-3.5) | | | | | | INR | | | | + + + + + + + + | Specimen | + + | Blood | + + + + + + + | Performing | Address | City/State/Zipcode | Phone Number | | Organization | | | | + + + + + | [facility] DEPARTMENT | [address] [facility] | [place] [address] | | | PATHOLOGY | [address] | | | + + + + + | [facility] DEPARTMENT OF | [facility] [facility] | [place] [address] | | | PATHOLOGY | [address] | | | + + + + + documented in this encounter Visit Diagnoses + + | Diagnosis | + + | DVT of leg (deep venous thrombosis) (HCC) Acute venous embolism and thrombosis of | | unspecified deep vessels of lower extremity | + + documented in this encounter"
--- OUTSIDE RECORDS SUMMARY | ~2020-06-16 | XMS | Encounter Summary ---
Demographics + + + | Address | [address] | | | [place] [address] | + + + | Home Phone | | + + + | Preferred Language | Unknown | + + + | Marital Status | Single | + + + | Confucianism Affiliation | CAT | + + + | Race | or | + + + | Ethnic Group | Not or | + + + Author + + + | Author | [facility] [employer] [facility] | + + + | Organization | [facility] | + + + | Address [...] [address] | | | | | [address] | | + + + + + Care Team Providers + +------+ + | Care Offal Trimmer Name | Role | Phone | + +------+ + | Dhruv Villalpando MD | PCP | Unavailable | + +------+ + Reason for Visit + +--------+ + | Reason | Onset | Comments | | | Date | | + +--------+ + | Vomiting | 05/01/ | | | | 2007 | | + +--------+ + | Abdominal pain | | | + +--------+ + Encounter Details +--------+ + + + + | Date | Type | Department | Care Team | Description | +--------+ + + + + | 05/01/ | Telephone | [facility] | Grey Gaspar, | Vomiting; Abdominal | | 2007 | | Center [address] | [address] | pain | | | | Ave Mailcode: CH4S | [facility] | | | | | [place] [facility] | [place], [place] | | | | | and Healing, | [address] | | | | | [facility] | [phone] | | | | | Floor [place], [place] | | | | | | [address] | | | | | | [phone] | | | +--------+ + + + [...] this encounter Miscellaneous Notes Telephone Encounter - Michael Jarrell - 04/23/2012 10:51 AM PDTThis encounter has been admin istratively closed with the authorization of the [employer] Committee. elephone Encounter - Mercedez Heredia - 05/02/2008 5:42 PM PDTBilly is reporting a fullness in his pouch, some naus ea. We discussed that eating a hot dog over 25 minutes is too much volume most likely for h is gastric pouch. He is afraid that he is not getting enough fluids. We discussed decreasi ng his portions to 1/3 and having smaller meals more ofte. He will most likely be able to i ncrease his fluid intake, looking to not drink 15" before and 30" after eating. He was comf ortable with these instructions. He will call back to see if he is tolerating his new food p ortions and selection of food. elephone Encounter - Kaylan Obrien Rn - 05/01/2008 5:54 PM PDTSpoke with mother. Pt at work. Hard, red, tender spot where surgical drain was. No fevers. Vomits once a night, clear saliva, after work. Could not reach pt on cell phone. Advised mother to have him ca rigo Mao in the morning, may need to be seen in clinic on Monday. Natasha Mao not ified. elephone Encounter - Kavita Myrick - 05/01/2008 10:36 AM PDTPatient c/o pain by drainage tube incision, and v omiting x3-4 days. Dos 03-19-08, discharged 03-26-08. Mostly clear watery vomit. Patient appro ves confidential and detailed messages left on answering machine and voicemail. documented in this encoun ter Plan of Treatment Not on filedocumented as of this encounter Visit Diagnoses Not on filedocumented in this encounter
--- OUTSIDE RECORDS SUMMARY | ~2020-06-16 | XMS | Encounter Summary ---
Demographics + + + | Address | [address] | | | [place] [address] | + + + | Home Phone | | + + + | Preferred Language | Unknown | + + + | Marital Status | Single | + + + | Christian Affiliation | CAT | + + + | Race | or | + + + | Ethnic Group | Not or | + + + Author + + + | Author | [facility] | + + + | Organization | [facility] | + + + | [...] [address] | | | | | [address] | | + + + + + Care Team Providers + +------+ + | Care Manager Hris Name | Role | Phone | + +------+ + | Dhruv Villalpando MD | PCP | Unavailable | + +------+ + Reason for Visit + +--------+ + | Reason | Onset | Comments | | | Date | | + +--------+ + | Management Of | 03/29/ | | | Anticoagulation | 2007 | | + +--------+ + Encounter Details +--------+ + + + + | Date | Type | Department | Care Team | Description | +--------+ + + + + | 03/29/ | Telephone | [facility] | Omid Marie | Management Of | | 2007 | | [place] [address] | [facility] | Anticoagulation | | | | [place] Mailcode: CH4S | [address] [place] [address] | | | | | [facility] | [address] | | | | | and Healing, | [place] [address] | | | | | [place] [address] | [phone] | | | | | [place], [place] | | | | | | [address] | | | | | | [phone] | | | +--------+ + + + [...] this encounter Miscellaneous Notes Telephone Encounter - Cynthia Omid V - 03/29/2008 3:33 PM Sloan Benoit called today w ith the report that his INR today was 1.8. His INR was reported 3.7 yesterday abd 3.2 the da y before yesterday. He has taken 10mg of coumadin in the last two days and was on 15mg befor e that. Advised to continue on 10mg through the weekend and have his INR rechecked on Monday before clinic's appointment. documented in this encounter Plan of Treatment Not on filedocumented as of this encounter Visit Diagnoses Not on filedocumented in this encounter"
--- OUTSIDE RECORDS SUMMARY | ~2020-06-16 | XMS | Encounter Summary ---
Demographics + + + | Address | [address] | | | [place] [address] | + + + | Home Phone | | + + + | Preferred Language | Unknown | + + + | Marital Status | Single | + + + | Gnosticist Affiliation | CAT | + + + | Race | or | + + + | Ethnic Group | Not or | + + + Author + + + | Author | [facility] | + + + | Organization | [facility] | + + + | Address [...] [address] | | | | | [address] | | + + + + + Care Team Providers + +------+ + | Care Barley Steeper Name | Role | Phone | + [...] Closed | | Gastroenterol | Diagnoses | Deveney, | Gas Endo | | | | ogy | Status post | MD Grey | [facility] | | | | | gastric | [address] | | | | | bypass for | [place] | [place] | | | | | obesity N&V | [address] | [address] | | | | | - nausea | [place], [place] | floor | | | | | and vomiting | [address] | [place], [place] | | | | | Procedures | Phone: | [phone] | | | | | CONSULT TO | [phone] | Phone: | | | | | GI | Fax: | [phone] | | | | | PROCEDURE | [phone] | Fax: | | | | | UNIT: EGD | | [phone] | +--------+--------+ + + + + Reason for Visit + + + | Reason | Comments | + + + | Follow-up visit | | + + + Encounter Details +--------+---------+ + + + | Date | Type | Department | Care Team | Description | +--------+---------+ + + + | 06/30/ | Office | [facility] | Grey Gaspar, | Status Post Gastric | | 2007 | Visit | [place] [address] | [address] | Bypass for Obesity; | | | | Ave Mailcode: [facility] | [address] | N&V - Nausea and | | | | [place] [facility] | [place], [place] | Vomiting | | | | and Healing, | [address] | | | | | [place] [address] [facility] | [phone] | | | | | Floor [place], [place] | | | | | | [address] | | | | | | [phone] | | | +--------+---------+ + + + [...] + + + | Blood Pressure | 143/68 | 06/30/2008 2:40 PM | | | | | PDT | | + + + + + | Pulse | 64 | 06/30/2008 2:40 PM | | | | | PDT | | + + + + + | Temperature | 36.6 C (97.8 F) | 06/30/2008 2:40 PM | | | | | PDT | | + + + + + | Respiratory Rate | 16 | 06/30/2008 2:40 PM | | | | | PDT | | + + + + + | Oxygen Saturation | - | - | | + + + + + | Inhaled Oxygen | - | - | | | Concentration | | | | + + + + + | Weight | 171.5 kg (378 lb) | 06/30/2008 2:40 PM | | | | | PDT | | + + + + + | Height | - | - | | + + + + + | Body Mass Index | 50.1 | 03/19/2008 6:00 AM | | | | | PDT | | + + + + + documented in this encounter Progress Grey Weiss - 07/05/2008 12:00 PM PDTSaw the patietn with MS Berry. Patient should have endoscopy and possible dilitation. 08 12:00 PM PDTJosemanuel Berry - 06/30/2008 5:00 PM PDTFormatting of this note might be diffe rent from the original. June 30, 2008 Colorectal Surgery Clinic Follow-up Patient Consultation Reason for consultation: GERD with projectile vomiting secondary to open danette-en-Y gastric bypass. HPI: The patient has lifelong weight problems. He weighed 100 lbs. in Kindergarten and began hi s first diet in grade school. His maximum weight was 752 lbs. on 12-07-1990. In 1994, he was diagnosed with diabetes mellitus. In 2004, Dr. Zarate in [place] conducted laparoscopic band surgery. His body reacted to the port incisions. He required multiple follow-up surgeries , and he developed infection. In August 2007, he had surgery for band removal and infecti on treatment. He developed DVT on 10-03-2007. He still occasionally has leg swelling and n eeds to wear prophylactic stockings. He was on warfarin until May 2008. On 03-19-2008, burt bond had open danette-en-Y gastric bypass. His diabetes and sleep apnea resolved. He still check s his blood sugar daily, and they are in the 97-101 range. Since the surgery he has had pro jectile vomiting 3-4 times per week. It is aggrevated by larger meals and spicy food. It h appens with liquid consumption. He vomits the liquid first. Finally, he vomits the food, a nd then the nausea and vomiting resolves. He associates this with his chronic GERD. He als o thinks that when he has flatulence, which is seldom, he has less GERD and vomiting. He sl eeps on an incline 1-2 times per week for his GERD. He has had for 2 weeks a small painless sore at the bottom of his danette-en-Y incision without active bleeding, but with a ronnie of bl ood and a clear discharge (not sweat). Overall, he feels better since his surgery with more energy. He weighs 378 lbs., is 6'2", and has a BMI of 48.5. He is still losing 2-3 lbs. p er week. He eats a regular diet, including beef, mashed potatoes, tuna, and chicken. He ju st started working out at a gym. He could not exercise before because the surgeries gave hi m chronic fatigue, which has resolved recently. He denies dizziness, pain, syncope, fever, chills, headaches, and shortness of breath. He has not had endoscopy since his surgeries. PMH: He has joint pain, and would like to restart tramadol for [place]. Past Medical History Diagnosis Date Morbid Obesity (BMI 40.0 or Higher) DM (Diabetes Mellitus) HTN (Hypertension) Hyperlipidemia DVT (Deep Venous Thrombosis) Chronic Sinusitis PSH: He had right elbow surgery in 1984 with a complication of ulnar nerve damage and chron ic pain radiating to his shoulder. Also in 1984, he had his tonsills removed. MED: Current outpatient prescriptions prior to encounter Medication Sig Dispense Refill CALCIUM 500 WITH D ORAL None Entered fluticasone (FLONASE) 50 mcg/Actuation Nasal [place], Suspension as needed lisinopril 40 mg Oral Tablet take 1 tablet (40 mg) by oral route once daily metoprolol 25 mg Oral Tablet 1 Tab Oral TWO TIMES DAILY 60 0 multivitamin Oral Tablet take 1 tablet by oral route once daily with food ranitidine 150 mg Oral Tablet one tab twice per day for 3 months 60 2 He gets B-12 shots each month. ALL: adhesive tape, seasonal SH: He lives alone in [place]. He has never or had children. He runs a [employer]. He never smoked. He does not currently drink alcohol. He used cocaine in the . H e only used methamphetamines once very long ago. He never used heroin. FH: His parents are alive. His mother has diabetes mellitus. His father had renal cell ca rcinoma. His 2 brothers had morbid obesity and danette-en-Y gastric bypass surgeries. His gra ndmother from lung cancer. ROS: All others negative other than HPI Exam BP 143/68 | Pulse 64 | Temp (Src) 36.6 C (97.8 F) (Oral) | Resp 16 | Wt 171.46 kg (378 lbs) Gen: Alert, energetic, NAD Neuro: A&O, normal gait Psych: normal affect, speech HEENT: Anicteric Cor: RRR, without murmur Pulm: CTAB Abd: soft, nt. He has a small sore on his lower abdomen midline. Extr: warm Impression: 48 yo man with possible stricture secondary to danette-en-Y gastric bypass. Recommendations: 1. Begin omeprazole 30 minutes before breakfast daily. 2. Have an EGD with possible stricture dilation on 08-05-2008 at 7:30 am. 3. Continue exercise, medications, and moderate diet. Josemanuel Berry [id number] signed by Josemanuel Berry at 06/30/2008 5:00 PM PDTdocumented in this enc nter Plan of Treatment Not on filedocumented as of this encounter Visit Diagnoses + + | Diagnosis | + + | Status post gastric bypass for obesity Bariatric surgery status | + + | N&V - nausea and vomiting Nausea with vomiting | + + documented in this encounter
--- OUTSIDE RECORDS SUMMARY | ~2020-06-16 | XMS | Encounter Summary ---
Demographics + + + | Address | [address] | | | [place] [address] | + + + | Home Phone | | + + + | Preferred Language | Unknown | + + + | Marital Status | Single | + + + | Buddhist Affiliation | CAT | + + + | Race | or | + + + | Ethnic Group | Not or | + + + Author + + + | Author | [facility] | + + + | Organization | [facility] | + + [...] [address] | | | | | [address] | | + + + + + Care Team Providers + +------+ + | Care Manager Drug Safety Name | Role | Phone | + [...] | +--------+ + + + + | 03/12/ | Telephone | [facility] | Grey Gaspar, | Fever | | 2007 | | [place] [address] | [address] [facility] | | | | | [place] Mailcode: CH4S | [address] | | | | | [facility] | [place], [place] | | | | | and Healing, | [address] | | | | | [place] [address] [facility] | [phone] | | | | | [place], [place] | | | | | | [address] | | | | | | [phone] | | | +--------+ + + + [...] Encounter - Omid Marie V - 03/25/2008 8:53 PM Sloan Benoit called yessica at 20:08 with concern [...] in the am to report any changes. elephone Encounter - Kaylan Obrien Rn - 03/12/2008 6:09 PM PDT Pt will use cpap every night. Will hold coumadin starting 03/15. elephone Encounter - Alyssa Negrete - 03/12/2008 2:1 7 PM PDTBilly Benoit calling to speak with Kaylan Sampson Patient states he is currently taking " 15mg of coumadin", should he discontinue the coumadin and when, he is also being fitted for a cpap - should he start using the cpap, please call Pain Scale: na Recent Surgery or Procedure: future Pharmacy: Pharmacy Preferences: No preferred pharmacy on file. Contact information: [phone] (home) documented in this encoun ter Plan of Treatment Not on filedocumented as of this encounter Visit Diagnoses Not on filedocumented in this encounter
--- OUTSIDE RECORDS SUMMARY | ~2020-06-16 | XMS | Encounter Summary ---
Demographics + + + | Address | [address] | | | [place] [address] | + + + | Home Phone | | + + + | Preferred Language | Unknown | + + + | Marital Status | Single | + + + | Voodoo Affiliation | CAT | + + + | Race | or | + + + | Ethnic Group | Not or | + + + Author + + + | Author | [facility] | + + + | Organization | [facility] | + + + | Address [...] [address] | | | | | [address] | | + + + + + Care Team Providers + +------+ + | Care Cutting Table Operator First Name | Role | Phone | + +------+ + | Dhruv Villalpando MD | PCP | Unavailable | + +------+ + Encounter Details +--------+ + + + + | Date | Type | Department | Care Team | Description | +--------+ + + + + | 10/16/ | Telephone | Dig[facility] | Grey Gaspar, | | | 2007 | | Center [address] | [address] | | | | | [place] Mailcode: CH6D | [address] | | | | | [facility] | [place], [place] | | | | | and Healing, | [address] | | | | | [facility] | [phone] | | | | | Floor [place], [place] | | | | | | [address] | | | | | | [phone] | | | +--------+ + + + [...] Telephone Encounter - Kaylan Obrien Rn - 10/16/2007 5:02 PM PSTSpoke with pt to let him debeatrice freedman request in review with lpn medical assistant at [facility]. elephone Encounter - Kingston Smith - 10/16/2007 2:39 PM PSTP T can be reached at [phone] pt calling returning kaylan mitchell call not sure what the call was about please call him at home. documented in this encounter Plan of Treatment Not on filedocumented as of this encounter Visit Diagnoses Not on filedocumented in this encounter"
--- OUTSIDE RECORDS SUMMARY | ~2020-06-16 | XMS | Encounter Summary ---
Demographics + + + | Address | [address] | | | [place] [address] | + + + | Home Phone | | + + + | Preferred Language | Unknown | + + + | Marital Status | Single | + + + | Jainism Affiliation | CAT | + + + | Race | or | + + + | Ethnic Group | Not or | + + + Author + + + | Author | [facility] | + + + | Organization | [facility] | + + + | [...] [address] | | | | | [address] | | + + + + + Care Team Providers + +------+ + | Care Safety Engineer Pressure Vessels Name | Role | Phone | + +------+ + | Dhruv Villalpando MD | PCP | Unavailable | + +------+ + Reason for Visit + + + | Reason | Comments | + + + | Return Patient | | + + + PROC - Inpatient Surgery (Routine) +--------+--------+ + + + + | Status | Reason | Specialty | Diagnoses / | Referred By | Referred To | | | | | Procedures | Contact | Contact | +--------+--------+ + + + + | Closed | | Surgery | Diagnoses | Non-[facility] | Hubert, | | | | | Morbid | Epic Dept | MD Getachew | | | | | obesity | | [address] | | | | | ([facility]) | | [address] | | | | | Procedures | | [address] [place], | | | | | [place] | | [place] | | | | | GASTRIC | | [address] | | | | | [address]- | | Phone: | | | | | EN-Y | | [phone] | | | | | | | Fax: | | | | | | | [phone] | +--------+--------+ + + + + Encounter Details +--------+---------+ + + + | Date | Type | Department | Care Team | Description | +--------+---------+ + + + | 05/12/ | Office | Dig[facility]ive Health | Getachew Giang, | Status Post | | 2007 | Visit | [place] [address] | [address] | Bariatric Surgery | | | | [place] Mailcode: CH[address] | [address] | (Primary Dx) | | | | [facility] | [place], [place] | | | | | and [place], | [address] | | | | | [facility] | [phone] | | | | | [place], [place] | | | | | | [address] | | | | | | [phone] | | | +--------+---------+ + + + [...] + + + | Blood Pressure | 128/72 | 05/12/2008 3:35 PM | | | | | PDT | | + + + + + | Pulse | 68 | 05/12/2008 3:35 PM | | | | | PDT | | + + + + + | Temperature | 36.9 C (98.4 F) | 05/12/2008 3:35 PM | | | | | PDT | | + + + + + | Respiratory Rate | 16 | 05/12/2008 3:35 PM | | | | | PDT | | + + + + + | Oxygen Saturation | - | - | | + + + + + | Inhaled Oxygen | - | - | | | Concentration | | | | + + + + + | Weight | 180 kg (396 lb 14.4 | 05/12/2008 3:35 PM | | | | oz) | PDT | | + + + + + | Height | - | - | | + + + + + | Body Mass Index | 52.6 | 03/19/2008 6:00 AM | | | | | PDT | | + + + + + documented in this encounter Progress Getachew Weiss - 05/13/2008 11:40 AM JAZMYNI performed a history and physical examination o f the patient and discussed his management with the resident. I reviewed the resident kanchan poole and agree with the documented findings and plan of care. GETACHEW GIANG MD [facility] [address] [place] [address] And [facility], [address] [place] [address] ill Matthew - 05/12 3:55 PM PDT Pt is here 2 months postop gastric bypass. He is now off coumadin from a DVT. He is back to work. Gets tired at the end of the week. He has been swimming. Was having a lot of heart bu rn a week ago and stopped the actigall, which has resolved the symptoms. Has been having a l ot of burping and not having a lot of flatus. Having normal bowel movements, well formed. PE: Filed Vitals: 05/12/2008 3:35 PM BP: 128/72 Pulse: 68 Temp: 36.9 C (98.4 F) TempSrc: Oral Resp: 16 Weight: 180.033 kg (396 lbs 14.4 oz) PainSc: 0 - Zero Abdominal incision well healed. There are no incisional hernias. A/P: Pt is 2 months s/p gastric bypass. Has lost about 65 lbs. Will see him in about 4 week s. documented in this encou nter Plan of Treatment Not on filedocumented as of this encounter Visit Diagnoses + + | Diagnosis | + + | Status post bariatric surgery - Primary Bariatric surgery status | + + documented in this encounter"
--- OUTSIDE RECORDS SUMMARY | ~2020-06-16 | XMS | Encounter Summary ---
Demographics + + + | Address | [address] | | | [place] [address] | + + + | Home Phone | | + + + | Preferred Language | Unknown | + + + | Marital Status | Single | + + + | Christianity Affiliation | CAT | + + + | Race | or | + + + | Ethnic Group | Not or | + + + Author + + + | Author | [facility] | + + + | Organization | [facility] | + + + | Address | [...] [address] [place] | | | | | [address] | | + + + + + Care Team Providers + +------+ + | Care Continuous Mining Machine Coal Miner Name | Role | Phone | + +------+ + | Dhruv Villalpando MD | PCP | Unavailable | + +------+ + Reason for Visit + + + | Reason | Comments | + + + | Pre-op evaluation | | + + + AUTH/CERT +--------+--------+ + + + + | [...] | | | | | | | [facility] | | | | | | | [facility] | | | | | | | [facility] | | | | | | | ([facility]) | | | | | | | [place], | | | | | | | [place] [address] | | | | | | | Phone: | | | | | | | [phone] | | | | | | | Fax: | | | | | | | [phone] | +--------+--------+ + + + + Encounter Details +--------+---------+ + + + | Date | Type | Department | Care Team | Description | +--------+---------+ + + + | 11/07/ | Office | Preoperative | Geovanna Sahni, | Status Post Gastric | | 2008 | Visit | Medicine Clinic at | ANP [address] | Bypass for Obesity; | | | | MPV 4th Floor Day | [address] | DVT of Leg (Deep | | | | Stay [address] | [place], [place] | Venous Thrombosis) | | | | [address] | [address] | ([facility]); SOCO | | | | Mailcode: [id number] | [phone] | (Obstructive Sleep | | | | [facility] | | Apnea); HTN; Other | | | | [address] [place], [place] | | Specified | | | | [address] | | Pre-Operative | | | | [phone] | | Examination | +--------+---------+ + + + Social History [...] + + + | Blood Pressure | 124/75 | 11/07/2008 8:50 AM | | | | | PST | | + + + + + | Pulse | 68 | 11/07/2008 8:50 AM | | | | | PST | | + + + + + | Temperature | 36.3 C (97.3 F) | 11/07/2008 8:50 AM | | | | | PST | | + + + + + | Respiratory Rate | 16 | 11/07/2008 8:50 AM | | | | | PST | | + + + + + | Oxygen Saturation | 96% | 11/07/2008 8:50 AM | | | | | PST | | + + + + + | Inhaled Oxygen | - | - | | | Concentration | | | | + + + + + | Weight | 154.2 kg (340 lb) | 11/07/2008 8:50 AM | | | | | PST | | + + + + + | Height | 188 cm (6' 2") | 11/07/2008 8:50 AM | | | | | PST | | + + + + + | Body Mass Index | 43.65 | 11/07/2008 8:50 AM | | | | | PST | | + + + + + documented in this encounter Progress Geovanna Marquez - 11/07/2008 8:51 AM PSTSee Scanned H&P. documented in this e ncounter Plan of Treatment Not on filedocumented as of this encounter Procedures + +--------+ + + + | Procedure Name | Priori | Date/Time | Associated Diagnosis | Comments | | | ty | | | | + +--------+ + + + | 12 LEAD ECG | Routin | 11/07/2008 | Other specified | Results for this | | | e | 8:58 AM | pre-operative | procedure are in the | | | | PST | examination | results section. | + +--------+ + + + documented in this encounter Results 12 LEAD ECG (11/07/2008 8:58 AM PST) + + + + + + | Component | Value | Ref Range | Performed | Pathologist | | | | | At | Signature | + + + + + + | VENTRICULAR | 60 | BPM | [facility] | | | RATE | | | OF | | | | | | CARDIOLOGY | | + + + + + + | ATRIAL RATE | 60 | BPM | [facility] | | | | | | OF | | | | | | CARDIOLOGY | | + + + + + + | P-R | 150 | ms | [facility] | | | INTERVAL | | | OF | | | | | | CARDIOLOGY | | + + + + + + | QRS | 80 | ms | [facility] | | | DURATION | | | OF | | | | | | CARDIOLOGY | | + + + + + + | QT | 410 | ms | [facility] | | | | | | OF | | | | | | CARDIOLOGY | | + + + + + + | QTC | 410 | ms | [facility] | | | | | | OF | | | | | | CARDIOLOGY | | + + + + + + | P AXIS | 41 | degrees | [facility] | | | | | | OF | | | | | | CARDIOLOGY | | + + + + + + | R AXIS | 9 | degrees | [facility] | | | | | | OF | | | | | | CARDIOLOGY | | + + + + + + | T AXIS | 0 | degrees | [facility] | | | | | | OF | | | | | | CARDIOLOGY | | + + + + + + | EKG | Normal sinus | | [facility] | | | DIAGNOSIS | rhythmPossible Inferior | | OF | | | | infarct , age | | CARDIOLOGY | | | | undeterminedAbnormal | | | | | | ECG"I have personally | | | | | | interpreted this report, | | | | | | either alone or with a | | | | | | trainee."Confirmed by | | | | | | GAYATRI BARR ([id number]) on | | | | | | 07-Nov-2008 21:49:40 | | | | + + + [...] view image for the detailed interpretation from [employer] results. | CARDIOLOGY | | | | + + + + + + + + | Performing | Address | City/State/Zipcode | Phone Number | | Organization | | | | + + + + + | [facility] | [address] | [place] | | | CARDIOLOGY | [facility] | [address] | | + + + + + | [facility] | [address] | [place], [place] | | | CARDIOLOGY | [facility] | [address] | | + + + + + documented in this encounter Visit Diagnoses + + | Diagnosis | + + | Status post gastric bypass for obesity Bariatric surgery status | + + | DVT of leg (deep venous thrombosis) (HCC) Acute venous embolism and thrombosis of | | unspecified deep vessels of lower extremity | + + | SOCO (obstructive sleep apnea) Obstructive sleep apnea (adult) (pediatric) | + + | HTN Unspecified essential hypertension | + + | Other specified pre-operative examination | + + documented in this encounter
--- OUTSIDE RECORDS SUMMARY | ~2020-06-16 | XMS | Encounter Summary ---
Demographics + + + | Address | [address] | | | [place] [address] | + + + | Home Phone | | + + + | Preferred Language | Unknown | + + + | Marital Status | Single | + + + | Yazdanism Affiliation | CAT | + + + | Race | or | + + + | Ethnic Group | Not or | + + + Author + + + | Author | [facility] [employer] [facility] | + + + | Organization | [facility] | + + + | [...] [address] | | | | | [address] | | + + + + + Care Team Providers + +------+ + | Care Subsea Engineer Name | Role | Phone | + +------+ + PCP | Unavailable | + +------+ + Encounter Details +--------+ + + + + | Date | Type | Department | Care Team | Description | +--------+ + + + + | 08/24/ | Results | [facility] | Efrainjesus Grey, | | | 2006 | Only | Center at [facility] [address] | MD [address] | | | | | [facility] | [facility] | | | | | [facility] and | [place], [place] | | | | | [facility] [address] | [address] | | | | | [place], [place] | [phone] | | | | | [address] | | | | | | [phone] | | | +--------+ + + + [...] as of this encounter Plan of Treatment + +---------+--------+ + + | Name | Type | Priori | Associated Diagnoses | Date/Time | | | | ty | | | + +---------+--------+ + + | ENDOSCOP[facility] | Imaging | Routin | | 08/24/2007 1:29 PM | | | | e | | PST | + +---------+--------+ + + documented as of this encounter Procedures + +--------+ + + + | Procedure Name | Priori | Date/Time | Associated Diagnosis | Comments | | | ty | | | | + +--------+ + + + | TYPE AND SCREEN | Routin | 08/30/2007 | | Results for this | | | e | 8:55 AM | | procedure are in the | | | | PST | | results section. | + +--------+ + + + | PRODUCT - RED CELLS | Routin | 08/30/2007 | | Results for this | | LEUKOREDUCED | e | 8:21 AM | | procedure are in the | | | | PST | | results section. | + +--------+ + + + | PRODUCT - RED CELLS | Routin | 08/29/2007 | | Results for this | | LEUKOREDUCED | e | 6:08 PM | | procedure are in the | | | | PST | | results section. | + +--------+ + + + | PRODUCT - RED CELLS | Routin | 08/29/2007 | | Results for this | | LEUKOREDUCED | e | 12:27 PM | | procedure are in the | | | | PST | | results section. | + +--------+ + + + | TYPE AND SCREEN | Routin | 08/27/2007 | | Results for this | | | e | 11:54 AM | | procedure are in the | | | | PST | | results section. | + +--------+ + + + documented in this encounter Results TYPE AND SCREEN (08/30/2007 8:55 AM PST) + + + + + + | Component | Value | Ref Range | Performed | Pathologist | | | | | At | Signature | + + + + + + | ABO GROUP | O | | [facility] | | | | | | DEPARTMENT | | | | | | OF | | | | | | PATHOLOGY | | + + + + + + | RH TYPE | Positive | | [facility] | | | | | | DEPARTMENT | | | | | | OF | | | | | | PATHOLOGY | | + + + + + + | Antibody | Negative | | [facility] | | | Screen | | | DEPARTMENT | | | | | | OF | | | | | | PATHOLOGY | | + + + + + + + + | Specimen | + + | | + + + + + + + | Performing | Address | City/State/Zipcode | Phone Number | | Organization | | | | + + + + + | [facility] | [address] | [place] [address] | | | PATHOLOGY | [address] | | | + + + + + | [facility] | [address] | [place] [address] | | | PATHOLOGY | [address] | | | + + + + + RED CELLS, LEUKOREDUCED (08/30/2007 8:21 AM PST) + + + + + + | Component | Value | Ref Range | Performed | Pathologist | | | | | At | Signature | + + + + + + | PRODUCT | -1 RED BLOOD | | [facility] | | | DESCRIPTION | CELLS,ADENINE-SALINE | | DEPARTMENT | | | | ADDED,LEUKOCYTES REDUCED | | OF | | | | | | PATHOLOGY | | + + + + + + | PRODUCT | [id number] | | [facility] | | | UNIT # | | | DEPARTMENT | | | | | | OF | | | | | | PATHOLOGY | | + + + + + + | UNIT ABO | O | | [facility] | | | | | | DEPARTMENT | | | | | | OF | | | | | | PATHOLOGY | | + + + + + + | UNIT RH | POS | | [facility] | | | | | | DEPARTMENT | | | | | | OF | | | | | | PATHOLOGY | | + + + + + + | CROSSMATCH | Compatible | | [facility] | | | ANALYSIS | | | DEPARTMENT | | | | | | OF | | | | | | PATHOLOGY | | + + + + + + | STATUS OF | Released | | [facility] | | | UNIT | | | DEPARTMENT | | | | | | OF | | | | | | PATHOLOGY | | + + + + + + + + | Specimen | + + | | + + + + + + + | Performing | Address | City/State/Zipcode | Phone Number | | Organization | | | | + + + + + | [facility] | [address] | [place] [address] | | | PATHOLOGY | [address] | | | + + + + + | [facility] DE[facility] | [address] | [place] [address] | | | PATHOLOGY | [address] | | | + + + + + RED CELLS, LEUKOREDUCED (08/29/2007 6:08 PM PST) + + + + + + | Component | Value | Ref Range | Performed | Pathologist | | | | | At | Signature | + + + + + + | PRODUCT | -1 RED BLOOD | | [facility] | | | DESCRIPTION | CELLS,ADENINE-SALINE | | DEPARTMENT | | | | ADDED,LEUKOCYTES REDUCED | | OF | | | | | | PATHOLOGY | | + + + + + + | PRODUCT | [id number] | | [facility] | | | UNIT # | | | DEPARTMENT | | | | | | OF | | | | | | PATHOLOGY | | + + + + + + | UNIT ABO | O | | [facility] | | | | | | DEPARTMENT | | | | | | OF | | | | | | PATHOLOGY | | + + + + + + | UNIT RH | POS | | [facility] | | | | | | DEPARTMENT | | | | | | OF | | | | | | PATHOLOGY | | + + + + + + | CROSSMATCH | Compatible | | [facility] | | | ANALYSIS | | | DEPARTMENT | | | | | | OF | | | | | | PATHOLOGY | | + + + + + + | STATUS OF | Released | | [facility] | | | UNIT | | | DEPARTMENT | | | | | | OF | | | | | | PATHOLOGY | | + + + + + + + + | Specimen | + + | | + + + + + + + | Performing | Address | City/State/Zipcode | Phone Number | | Organization | | | | + + + + + | [facility] | [address] | [place] [address] | | | PATHOLOGY | [address] | | | + + + + + | [facility] | [facility] | [place] [address] | | | PATHOLOGY | [address] | | | + + + + + RED CELLS, LEUKOREDUCED (08/29/2007 12:27 PM PST) + + + + + + | Component | Value | Ref Range | Performed | Pathologist | | | | | At | Signature | + + + + + + | PRODUCT | -1 RED BLOOD | | [facility] | | | DESCRIPTION | CELLS,ADENINE-SALINE | | DEPARTMENT | | | | ADDED,LEUKOCYTES REDUCED | | OF | | | | | | PATHOLOGY | | + + + + + + | PRODUCT | [id number] | | [facility] | | | UNIT # | | | DEPARTMENT | | | | | | OF | | | | | | PATHOLOGY | | + + + + + + | UNIT ABO | O | | [facility] | | | | | | DEPARTMENT | | | | | | OF | | | | | | PATHOLOGY | | + + + + + + | UNIT RH | POS | | [facility] | | | | | | DEPARTMENT | | | | | | OF | | | | | | PATHOLOGY | | + + + + + + | CROSSMATCH | Compatible | | [facility] | | | ANALYSIS | | | DEPARTMENT | | | | | | OF | | | | | | PATHOLOGY | | + + + + + + | STATUS OF | Presumed Transfused | | [facility] | | | UNIT | | | DEPARTMENT | | | | | | OF | | | | | | PATHOLOGY | | + + + + + + + + | Specimen | + + | | + + + + + + + | Performing | Address | City/State/Zipcode | Phone Number | | Organization | | | | + + + + + | [facility] | [address] | [place] [address] | | | PATHOLOGY | [address] | | | + + + + + | [facility] | [address] | [place] [address] | | | PATHOLOGY | [address] | | | + + + + + TYPE AND SCREEN (08/27/2007 11:54 AM PST) + + + + + + | Component | Value | Ref Range | Performed | Pathologist | | | | | At | Signature | + + + + + + | ABO GROUP | O | | [facility] | | | | | | DEPARTMENT | | | | | | OF | | | | | | PATHOLOGY | | + + + + + + | RH TYPE | Positive | | [facility] | | | | | | DEPARTMENT | | | | | | OF | | | | | | PATHOLOGY | | + + + + + + | Antibody | Negative | | [facility] | | | Screen | | | DEPARTMENT | | | | | | OF | | | | | | PATHOLOGY | | + + + + + + + + | Specimen | + + | | + + + + + + + | Performing | Address | City/State/Zipcode | Phone Number | | Organization | | | | + + + + + | [facility] | [address] | [place] [address] | | | PATHOLOGY | [address] | | | + + + + + | [facility] | [address] | [place] [address] | | | PATHOLOGY | [address] | | | + + + + + documented in this encounter Visit Diagnoses Not on filedocumented in this encounter"
--- OUTSIDE RECORDS SUMMARY | ~2020-06-16 | XMS | Encounter Summary ---
Demographics + + + | Address | [address] | | | [place] [address] | + + + | Home Phone | | + + + | Preferred Language | Unknown | + + + | Marital Status | Single | + + + | Uatsdin Affiliation | CAT | + + + | Race | or | + + + | Ethnic Group | Not or | + + + Author + + + | Author | [facility] | + + + | Organization | [facility] | + + + | Address [...] [address] [place] | | | | | [address] | | + + + + + Care Team Providers + +------+ + | Care Machine Set Up Name | Role | Phone | + +------+ + | Dhruv Villalpando MD | PCP | Unavailable | + +------+ + Encounter Details +--------+ + + + + | Date | Type | Department | Care Team | Description | +--------+ + + + + | 08/18/ | Procedure - | [facility] Division of | Endoscopy, Gi | EGD | | 2007 | | Gastroenterology/Hep | | (esophagogastroduode | | | Transcribed | atology [address] | | noscopy) | | | | [address] | | | | | | Mailcode: [id number] | | | | | | [facility] | | | | | | [address] | | | | | | [place], [place] | | | | | | [address] | | | | | | [phone] | | | +--------+ + + + [...] this encounter Procedure Notes Endoscopy, Gi - 08/18/2008 11:15 AM PSTAssociated Order(s): EGD PROCEDURES:PANENDOSCOPY (EGD) CPT: 20818. WITH BALLOON DILATION. CPT: 36180. PERSONNEL:ENDOSCOPIST: DESIRAE MEADOWS MD. SOAPING DEPARTMENT SUPERVISOR: HAMILTON CLARKE. REFERRED BY:GETACHEW GIANG MD. EVALUATION PERSONNELASA CLASS ASSESSMENT BY DESIRAE MEADOWS MD ON AUG 18, 2008 EXAM LOCATION:EXAM PERFORMED IN ENDOSCOPY SUITE. OUTPATIENT PATIENT CONSENT:PROCEDURE, ALTERNATIVES, RISKS AND BENEFITS DISCUSSED, CONSENT OBTAINED, FROM PATIENT. CONSENT WAS OBTAINED BY THE PHYSICIAN. CONSENT TO BE CONTACTED WAS NOT REQUESTED. THERAPEUTICS:REASON FOR EXAM: DILATION OF ANASTOMOTIC STRICTURE. COMMENTS:PATIENT WAS ENDOSCOPED EARLIER BUT THE PROCEDURE WAS ABORTED DUE TO VOMITING OF RETAINED FOOD. NOW HAVING PROCEDURE PERFORMED WITH ANESTHESIA ASSISTANCE. CURRENT MEDICATIONS:PATIENT IS NOT CURRENTLY TAKING COUMADIN. MEDICAL/SURGICAL HISTORY:GASTRIC BYPASS, ALLERGIES:NO KNOWN ALLERGIES. PRE-EXAM PHYSICAL:PERFORMED AUG 05, 2008 CARDIO-PULMONARY EXAM, HEENT EXAM, ABDOMINAL EXAM, MENTAL STATUS EXAM WNL. ABNORMAL PE FINDINGS INCLUDE: MORBID OBESITY. EXAM INFO:MAXIMUM DEPTH OF INSERTION JEJUNUM, INTENDED JEJUNUM. PATIENT POSITION: ON LEFT SIDE. DURATION OF EXAM: 15 MINUTES. VOCAL CORDS NOT VISUALIZED. GASTRIC RETROFLEXION PERFORMED. IMAGES TAKEN. ASA CLASSIFICATION: II. TOLERANCE: EXCELLENT. SEDATION MEDS:PATIENT ASSESSED AND FOUND TO BE APPROPRIATE FOR GENERAL ANESTHESIA. SEDATION WAS MANAGED BY THE ANESTHESIOLOGIST. THE PATIENT WAS INTUBATED. MONITORING:BP AND PULSE MONITORING DONE. OXIMETRY USED. INSTRUMENT(S):GIF Q160. SERIAL #[id number]. - PRIOR SURGERY: GASTROENTEROSTOMY. ANASTAMOSIS: BODY. REASON FOR ANASTAMOSIS: GASTROENTEROSTOMY. 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 CONSTRICTION: PARTIAL. ETIOLOGY: BENIGN OTHER, SEE COMMENTS. THIS AN ANASTAMOSIS SITE. 50 CM FROM MOUTH. LUMEN DIAMETER IS 9 MM. COMMENT: THE ANASTOMOTIC SITE WAS AGAIN SEEN, AT AN ANGLE ALONG THE GASTRIC POUCH WHICH MAY INTUBATION OF THIS LUMEN DIFFICULT. MULTIPLE ATTEMPTS WERE MADE TO TRAVERSE THE LUMEN, BUT COULD NOT OVERCOME THE MINIMAL RESISTANCE, GIVEN THE ANGLE REQUIRED TO APPROACH THE LUMEN. THE LUMEN DIAMETER WAS LIKELY SIMILAR TO DIAMETER OF THE SCOPE. . - DILATION: BODY. FOR ANASTAMOTIC STRICTURE. BALLOON/MICROVASIVE DILATOR USED, DIAMETER: 10 MM, 2 TOTAL DILATORS USED. PATIENT TOLERANCE EXCELLENT. OUTCOME: SUCCESSFUL. COMMENTS: AFTER DILATION UP TO 12 MM, THE SCOPE WAS ABLE TO BE PASSED WITH SOME DIFFICULTY GIVEN THE POSITION OF THE LUMEN. AFTER DILATION TO UP TO 15 MM, ABLE TO PASS THE SCOPE FREELY THROUGH THE LUMEN. HOWEVER, THERE WAS STILL SOME MANEUVERING THAT HAD TO BE PERFORMED TO CROSS THIS ANGLE. NORMAL: JEJUNUM. COMMENTS: BLIND LOOP AND LUMEN OF ALIMENTARY LIMB WAS EXAMINED AND WAS GROSSLY NORMAL. ABNORMAL EXAMINATION, SEE FINDINGS ABOVE. UNPLANNED INTERVENTION:NO UNPLANNED INTERVENTIONS WERE REQUIRED. UNPLANNED EVENTS:THERE WERE NO COMPLICATIONS. COMMENTS:REPEAT EGD WITH ANESTHESIA IN 2 WEEKS (GIVEN THE POSSIBILITY OF RETAINED FOOD ON NEXT EXAM AGAIN). ASSESS LUMEN AND THAT TIME AND NEED FOR REPEAT ENDOSCOPY. PATIENT INSTRUCTED TO STAY UPRIGHT AFTER EATING TO ALLOW POSITION-RELATED DOWNFLOW OF PO INTAKE. DISPOSITION:AFTER PROCEDURE PATIENT SENT TO SHORT STAY UNIT. AFTER RECOVERY PATIENT SENT HOME. REPORT ENTERED BY: DESIRAE MEADOWS MDEndoscopy, Gi - 08/18/2008 10:39 AM PSTAssociated Order(s): EGD PROCEDURES:PANENDOSCOPY (EGD) CPT: [id number]. PERSONNEL:ENDOSCOPIST: DESIRAE MEADOWS MD. SOAPING DEPARTMENT SUPERVISOR: HAMILTON CLARKE. NURSE: EMILIA YAÑEZ R.N. NURSE: MIKI BURRELL. REFERRED BY:GETACHEW GIANG MD. EVALUATION PERSONNELASA CLASS ASSESSMENT BY DESIRAE MEADOWS MD ON AUG 18, 2008 EXAM LOCATION:EXAM PERFORMED IN ENDOSCOPY SUITE. OUTPATIENT PATIENT CONSENT:PROCEDURE, ALTERNATIVES, RISKS AND BENEFITS DISCUSSED, CONSENT OBTAINED, FROM PATIENT. CONSENT WAS OBTAINED BY THE PHYSICIAN. CONSENT TO BE CONTACTED WAS NOT REQUESTED. THERAPEUTICS:REASON FOR EXAM: DILATION OF ANASTOMOTIC STRICTURE. SYMPTOMS:NAUSEA. VOMITING. CURRENT MEDICATIONS:PATIENT IS NOT CURRENTLY TAKING COUMADIN. MEDICAL/SURGICAL HISTORY:GASTRIC BYPASS, ALLERGIES:NO KNOWN ALLERGIES. PRE-EXAM PHYSICAL:PERFORMED AUG 05, 2008 CARDIO-PULMONARY EXAM, HEENT EXAM, ABDOMINAL EXAM, MENTAL STATUS EXAM WNL. ABNORMAL PE FINDINGS INCLUDE: MORBID OBESITY. EXAM INFO:MAXIMUM DEPTH OF INSERTION STOMACH, INTENDED JEJUNUM. PATIENT POSITION: ON LEFT SIDE. DURATION OF EXAM: 10 MINUTES. VOCAL CORDS NOT VISUALIZED. GASTRIC RETROFLEXION PERFORMED. IMAGES TAKEN. ASA CLASSIFICATION: II. TOLERANCE: FAIR, EXAM COMPROMISED. SEDATION MEDS:PATIENT ASSESSED AND FOUND TO BE APPROPRIATE FOR MODERATE (CONSCIOUS) SEDATION. SEDATION WAS MANAGED BY THE ENDOSCOPIST. FENTANYL 100 MCG. GIVEN IV. MIDAZOLAM 4 MG. GIVEN IV. HURRICAINE SPRAY 1 SPRAYS GIVEN IV. MONITORING:BP AND PULSE MONITORING DONE. OXIMETRY USED. FLUOROSCOPY:FLUOROSCOPY WAS NOT USED. INSTRUMENT(S):GIF Q160. SERIAL #[id number]. NORMAL: DISTAL ESOPHAGUS. COMMENTS: GEJ AT 45 CM. - FOREIGN BODY / RETAINED FOOD: RETAINED FOOD, FOUND IN CARDIA. COMMENTS: MUCH RETAINED FOOD IN STOMACH DESPITE PATIENT BEING ON CLEARS FOR 24 HOURS. WE WERE ATTEMPTING DILATION, THE PATIENT BEGAN TO VOMITING THIS RETAINED FOOD, AND THEREFORE THE SCOPE WAS REMOVED AND PROCEDURE WAS ABORTED. 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 CONSTRICTION: PARTIAL. ETIOLOGY: BENIGN OTHER, SEE COMMENTS. THIS AN ANASTAMOSIS SITE. 50 CM FROM MOUTH. LUMEN DIAMETER IS 7 MM. COMMENT: ANASTOMOTIC STRICTURE, UNABLE TO PASS SCOPE THROUGH THE LUMEN DUE TO ANGLE OF OPENING. ABNORMAL EXAMINATION, SEE FINDINGS ABOVE. UNPLANNED INTERVENTION:NO UNPLANNED INTERVENTIONS WERE REQUIRED. UNPLANNED EVENTS:THERE WERE NO COMPLICATIONS. COMMENTS:REPEAT UPPER ENDOSCOPY FOR DILATION WITH ANESTHESIA ASSISTANCE TO MONITOR AIRWAY. DISPOSITION:AFTER PROCEDURE PATIENT SENT TO SHORT STAY UNIT. AFTER RECOVERY PATIENT SENT HOME. REPORT ENTERED BY: DESIRAE MEADOWS MDdocumented in this encounter Plan of Treatment Not on filedocumented as of this encounter Procedures + +--------+ + + + | Procedure Name | Priori | Date/Time | Associated Diagnosis | Comments | | | ty | | | | + +--------+ + + + | EGD | | 08/18/2008 | | Results for this | | | | 11:15 AM | | procedure are in the | | | | PST | | results section. | + +--------+ + + + | EGD | | 08/18/2008 | | Results for this | | | | 10:39 AM | | procedure are in the | | | | PST | | results section. | + +--------+ + + + documented in this encounter Results EGD (08/18/2008 11:15 AM PST) + + + | Narrative | Performed At | + + + | PROCEDURES:PANENDOSCOPY (EGD) CPT: [id number]. WITH BALLOON | | | DILATION. CPT: [id number]. PERSONNEL:ENDOSCOPIST: DESIRAE MEADOWS MD. SOAPING DEPARTMENT SUPERVISOR: | | | HAMILTON CLARKE. REFERRED BY:GETACHEW GIANG MD. EVALUATION | | | PERSONNELASA CLASS ASSESSMENT BY DESIRAE MEADOWS MD ON AUG 18, 2008 EXAM | | | LOCATION:EXAM PERFORMED IN ENDOSCOPY SUITE. OUTPATIENT PATIENT | | | CONSENT:PROCEDURE, ALTERNATIVES, RISKS AND BENEFITS DISCUSSED, | | | CONSENT OBTAINED, FROM PATIENT. CONSENT WAS OBTAINED BY THE | | | PHYSICIAN. CONSENT TO BE CONTACTED WAS NOT REQUESTED. | | | THERAPEUTICS:REASON FOR EXAM: DILATION OF ANASTOMOTIC STRICTURE. | | | COMMENTS:PATIENT WAS ENDOSCOPED EARLIER BUT THE PROCEDURE WAS | | | ABORTED DUE TO VOMITING OF RETAINED FOOD. NOW HAVING PROCEDURE | | | PERFORMED WITH ANESTHESIA ASSISTANCE. CURRENT MEDICATIONS:PATIENT | | | IS NOT CURRENTLY TAKING COUMADIN. MEDICAL/SURGICAL HISTORY:GASTRIC | | | BYPASS, ALLERGIES:NO KNOWN ALLERGIES. PRE-EXAM PHYSICAL:PERFORMED | | | AUG 05, 2008 CARDIO-PULMONARY EXAM, HEENT EXAM, ABDOMINAL EXAM, | | | MENTAL STATUS EXAM WNL. ABNORMAL PE FINDINGS INCLUDE: MORBID | | | OBESITY. EXAM INFO:MAXIMUM DEPTH OF INSERTION JEJUNUM, INTENDED | | | JEJUNUM. PATIENT POSITION: ON LEFT SIDE. DURATION OF EXAM: 15 | | | MINUTES. VOCAL CORDS NOT VISUALIZED. GASTRIC RETROFLEXION | | | PERFORMED. IMAGES TAKEN. ASA CLASSIFICATION: II. TOLERANCE: | | | EXCELLENT. SEDATION MEDS:PATIENT ASSESSED AND FOUND TO BE APPROPRIATE | | | FOR GENERAL ANESTHESIA. SEDATION WAS MANAGED BY THE | | | ANESTHESIOLOGIST. THE PATIENT WAS INTUBATED. MONITORING:BP AND | | | PULSE MONITORING DONE. OXIMETRY USED. INSTRUMENT(S):GIF Q160. SERIAL | | | #[id number]. - PRIOR SURGERY: GASTROENTEROSTOMY. ANASTAMOSIS: BODY. | | | REASON FOR ANASTAMOSIS: GASTROENTEROSTOMY. STRICTURE / STENOSIS: | | | STRICTURE IN BODY. CONSTRICTION: PARTIAL. ETIOLOGY: BENIGN OTHER, | | | SEE COMMENTS. THIS AN ANASTAMOSIS SITE. 50 CM FROM MOUTH. LUMEN | | | DIAMETER IS 9 MM. COMMENT: THE ANASTOMOTIC SITE WAS AGAIN SEEN, AT | | | AN ANGLE ALONG THE GASTRIC POUCH WHICH MAY INTUBATION OF THIS LUMEN | | | DIFFICULT. MULTIPLE ATTEMPTS WERE MADE TO TRAVERSE THE LUMEN, BUT | | | COULD NOT OVERCOME THE MINIMAL RESISTANCE, GIVEN THE ANGLE REQUIRED | | | TO APPROACH THE LUMEN. THE LUMEN DIAMETER WAS LIKELY SIMILAR TO | | | DIAMETER OF THE SCOPE. . - DILATION: BODY. FOR ANASTAMOTIC | | | STRICTURE. BALLOON/MICROVASIVE DILATOR USED, DIAMETER: 10 MM, 2 | | | TOTAL DILATORS USED. PATIENT TOLERANCE EXCELLENT. OUTCOME: | | | SUCCESSFUL. COMMENTS: AFTER DILATION UP TO 12 MM, THE SCOPE WAS | | | ABLE TO BE PASSED WITH SOME DIFFICULTY GIVEN THE POSITION OF THE | | | LUMEN. AFTER DILATION TO UP TO 15 MM, ABLE TO PASS THE SCOPE | | | FREELY THROUGH THE LUMEN. HOWEVER, THERE WAS STILL SOME MANEUVERING | | | THAT HAD TO BE PERFORMED TO CROSS THIS ANGLE. NORMAL: JEJUNUM. | | | COMMENTS: BLIND LOOP AND LUMEN OF ALIMENTARY LIMB WAS EXAMINED AND | | | WAS GROSSLY NORMAL. ABNORMAL EXAMINATION, SEE FINDINGS ABOVE. | | | UNPLANNED INTERVENTION:NO UNPLANNED INTERVENTIONS WERE REQUIRED. | | | UNPLANNED EVENTS:THERE WERE NO COMPLICATIONS. COMMENTS:REPEAT EGD | | | WITH ANESTHESIA IN 2 WEEKS (GIVEN THE POSSIBILITY OF RETAINED FOOD | | | ON NEXT EXAM AGAIN). ASSESS LUMEN AND THAT TIME AND NEED FOR | | | REPEAT ENDOSCOPY. PATIENT INSTRUCTED TO STAY UPRIGHT AFTER EATING TO | | | ALLOW POSITION-RELATED DOWNFLOW OF PO INTAKE. DISPOSITION:AFTER | | | PROCEDURE PATIENT SENT TO SHORT STAY UNIT. AFTER RECOVERY PATIENT | | | SENT HOME. REPORT ENTERED BY: DESIRAE MEADOWS MD | | + + + + + | Procedure Note | + + | 08/18/2008 11:15 AM PST | | PROCEDURES:PANENDOSCOPY (EGD) CPT: [id number]. | | WITH BALLOON DILATION. CPT: 30902. | | PERSONNEL:ENDOSCOPIST: DESIRAE MEADOWS MD. SOAPING DEPARTMENT SUPERVISOR: HAMILTON CLARKE. | | REFERRED BY:GETACHEW GIANG MD. | | EVALUATION PERSONNELASA CLASS ASSESSMENT BY DESIRAE MEADOWS MD ON AUG 18, 2008 | | EXAM LOCATION:EXAM PERFORMED IN ENDOSCOPY SUITE. OUTPATIENT | | PATIENT CONSENT:PROCEDURE, ALTERNATIVES, RISKS AND BENEFITS DISCUSSED, | | CONSENT OBTAINED, FROM PATIENT. CONSENT WAS OBTAINED BY THE PHYSICIAN. | | CONSENT TO BE CONTACTED WAS NOT REQUESTED. | | THERAPEUTICS:REASON FOR EXAM: DILATION OF ANASTOMOTIC STRICTURE. | | COMMENTS:PATIENT WAS ENDOSCOPED EARLIER BUT THE PROCEDURE WAS ABORTED DUE | | TO VOMITING OF RETAINED FOOD. NOW HAVING PROCEDURE PERFORMED WITH | | ANESTHESIA ASSISTANCE. | | CURRENT MEDICATIONS:PATIENT IS NOT CURRENTLY TAKING COUMADIN. | | MEDICAL/SURGICAL HISTORY:GASTRIC BYPASS, | | ALLERGIES:NO KNOWN ALLERGIES. | | PRE-EXAM PHYSICAL:PERFORMED AUG 05, 2008 CARDIO-PULMONARY EXAM, HEENT | | EXAM, ABDOMINAL EXAM, MENTAL STATUS EXAM WNL. ABNORMAL PE FINDINGS | | INCLUDE: MORBID OBESITY. | | EXAM INFO:MAXIMUM DEPTH OF INSERTION JEJUNUM, INTENDED JEJUNUM. PATIENT | | POSITION: ON LEFT SIDE. DURATION OF EXAM: 15 MINUTES. VOCAL CORDS NOT | | VISUALIZED. GASTRIC RETROFLEXION PERFORMED. IMAGES TAKEN. ASA | | CLASSIFICATION: II. TOLERANCE: EXCELLENT. | | SEDATION MEDS:PATIENT ASSESSED AND FOUND TO BE APPROPRIATE FOR GENERAL | | ANESTHESIA. SEDATION WAS MANAGED BY THE ANESTHESIOLOGIST. THE PATIENT WAS | | INTUBATED. | | MONITORING:BP AND PULSE MONITORING DONE. OXIMETRY USED. | | INSTRUMENT(S):GIF Q160. SERIAL #[id number]. | | - PRIOR SURGERY: GASTROENTEROSTOMY. | | ANASTAMOSIS: BODY. REASON FOR ANASTAMOSIS: GASTROENTEROSTOMY. 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 CONSTRICTION: PARTIAL. ETIOLOGY: | | BENIGN OTHER, SEE COMMENTS. THIS AN ANASTAMOSIS SITE. 50 CM FROM MOUTH. | | LUMEN DIAMETER IS 9 MM. COMMENT: THE ANASTOMOTIC SITE WAS AGAIN SEEN, AT | | AN ANGLE ALONG THE GASTRIC POUCH WHICH MAY INTUBATION OF THIS LUMEN | | DIFFICULT. MULTIPLE ATTEMPTS WERE MADE TO TRAVERSE THE LUMEN, BUT COULD | | NOT OVERCOME THE MINIMAL RESISTANCE, GIVEN THE ANGLE REQUIRED TO APPROACH | | THE LUMEN. THE LUMEN DIAMETER WAS LIKELY SIMILAR TO DIAMETER OF THE | | SCOPE. . | | - DILATION: BODY. FOR ANASTAMOTIC STRICTURE. BALLOON/MICROVASIVE DILATOR | | USED, DIAMETER: 10 MM, 2 TOTAL DILATORS USED. PATIENT TOLERANCE | | EXCELLENT. OUTCOME: SUCCESSFUL. COMMENTS: AFTER DILATION UP TO 12 MM, THE | | SCOPE WAS ABLE TO BE PASSED WITH SOME DIFFICULTY GIVEN THE POSITION OF | | THE LUMEN. AFTER DILATION TO UP TO 15 MM, ABLE TO PASS THE SCOPE FREELY | | THROUGH THE LUMEN. HOWEVER, THERE WAS STILL SOME MANEUVERING THAT HAD TO | | BE PERFORMED TO CROSS THIS ANGLE. | | NORMAL: JEJUNUM. COMMENTS: BLIND LOOP AND LUMEN OF ALIMENTARY LIMB WAS | | EXAMINED AND WAS GROSSLY NORMAL. | | ABNORMAL EXAMINATION, SEE FINDINGS ABOVE. | | UNPLANNED INTERVENTION:NO UNPLANNED INTERVENTIONS WERE REQUIRED. | | UNPLANNED EVENTS:THERE WERE NO COMPLICATIONS. | | COMMENTS:REPEAT EGD WITH ANESTHESIA IN 2 WEEKS (GIVEN THE POSSIBILITY OF | | RETAINED FOOD ON NEXT EXAM AGAIN). ASSESS LUMEN AND THAT TIME AND NEED | | FOR REPEAT ENDOSCOPY. | | PATIENT INSTRUCTED TO STAY UPRIGHT AFTER EATING TO ALLOW POSITION-RELATED | | DOWNFLOW OF PO INTAKE. | | DISPOSITION:AFTER PROCEDURE PATIENT SENT TO SHORT STAY UNIT. AFTER | | RECOVERY PATIENT SENT HOME. | | REPORT ENTERED BY: DESIRAE MEADOWS MD | + + EGD (08/18/2008 10:39 AM PST) + + + | Narrative | Performed At | + + + | PROCEDURES:PANENDOSCOPY (EGD) CPT: [id number]. | | | PERSONNEL:ENDOSCOPIST: DESIRAE MEADOWS MD. SOAPING DEPARTMENT SUPERVISOR: HAMILTON CLARKE. | | | NURSE: EMILIA YAÑEZ R.N. NURSE: MIKI BURRELL. REFERRED BY:GETACHEW | | | MD RAHAT. EVALUATION PERSONNELASA CLASS ASSESSMENT BY DESIRAE MEADOWS MD | | | ON AUG 18, 2008 EXAM LOCATION:EXAM PERFORMED IN ENDOSCOPY SUITE. | | | OUTPATIENT PATIENT CONSENT:PROCEDURE, ALTERNATIVES, RISKS AND | | | BENEFITS DISCUSSED, CONSENT OBTAINED, FROM PATIENT. CONSENT WAS | | | OBTAINED BY THE PHYSICIAN. CONSENT TO BE CONTACTED WAS NOT | | | REQUESTED. THERAPEUTICS:REASON FOR EXAM: DILATION OF ANASTOMOTIC | | | STRICTURE. SYMPTOMS:NAUSEA. VOMITING. CURRENT MEDICATIONS:PATIENT IS | | | NOT CURRENTLY TAKING COUMADIN. MEDICAL/SURGICAL HISTORY:GASTRIC | | | BYPASS, ALLERGIES:NO KNOWN ALLERGIES. PRE-EXAM PHYSICAL:PERFORMED | | | AUG 05, 2008 CARDIO-PULMONARY EXAM, HEENT EXAM, ABDOMINAL EXAM, | | | MENTAL STATUS EXAM WNL. ABNORMAL PE FINDINGS INCLUDE: MORBID | | | OBESITY. EXAM INFO:MAXIMUM DEPTH OF INSERTION STOMACH, INTENDED | | | JEJUNUM. PATIENT POSITION: ON LEFT SIDE. DURATION OF EXAM: 10 | | | MINUTES. VOCAL CORDS NOT VISUALIZED. GASTRIC RETROFLEXION | | | PERFORMED. IMAGES TAKEN. ASA CLASSIFICATION: II. TOLERANCE: FAIR, | | | EXAM COMPROMISED. SEDATION MEDS:PATIENT ASSESSED AND FOUND TO BE | | | APPROPRIATE FOR MODERATE (CONSCIOUS) SEDATION. SEDATION WAS MANAGED | | | BY THE ENDOSCOPIST. FENTANYL 100 MCG. GIVEN IV. MIDAZOLAM 4 MG. | | | GIVEN IV. HURRICAINE SPRAY 1 SPRAYS GIVEN IV. MONITORING:BP AND | | | PULSE MONITORING DONE. OXIMETRY USED. FLUOROSCOPY:FLUOROSCOPY WAS NOT | | | USED. INSTRUMENT(S):GIF Q160. SERIAL #[id number]. NORMAL: DISTAL | | | ESOPHAGUS. COMMENTS: GEJ AT 45 CM. - FOREIGN BODY / RETAINED FOOD: | | | RETAINED FOOD, FOUND IN CARDIA. COMMENTS: MUCH RETAINED FOOD IN | | | STOMACH DESPITE PATIENT BEING ON CLEARS FOR 24 HOURS. WE WERE | | | ATTEMPTING DILATION, THE PATIENT BEGAN TO VOMITING THIS RETAINED | | | FOOD, AND THEREFORE THE SCOPE WAS REMOVED AND PROCEDURE WAS | | | ABORTED. 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 CONSTRICTION: | | | PARTIAL. ETIOLOGY: BENIGN OTHER, SEE COMMENTS. THIS AN ANASTAMOSIS | | | SITE. 50 CM FROM MOUTH. LUMEN DIAMETER IS 7 MM. COMMENT: | | | ANASTOMOTIC STRICTURE, UNABLE TO PASS SCOPE THROUGH THE LUMEN DUE | | | TO ANGLE OF OPENING. ABNORMAL EXAMINATION, SEE FINDINGS ABOVE. | | | UNPLANNED INTERVENTION:NO UNPLANNED INTERVENTIONS WERE REQUIRED. | | | UNPLANNED EVENTS:THERE WERE NO COMPLICATIONS. COMMENTS:REPEAT UPPER | | | ENDOSCOPY FOR DILATION WITH ANESTHESIA ASSISTANCE TO MONITOR | | | AIRWAY. DISPOSITION:AFTER PROCEDURE PATIENT SENT TO SHORT STAY UNIT. | | | AFTER RECOVERY PATIENT SENT HOME. REPORT ENTERED BY: DESIRAE MEADOWS MD | | + + + + + | Procedure Note | + + | 08/18/2008 10:39 AM PST | | PROCEDURES:PANENDOSCOPY (EGD) CPT: [id number]. | | PERSONNEL:ENDOSCOPIST: DESIRAE MEADOWS MD. SOAPING DEPARTMENT SUPERVISOR: HAMILTON CLARKE. NURSE: | | EMILIA YAÑEZ R.N. NURSE: MIKI BURRELL. | | REFERRED BY:GETACHEW GIANG MD. | | EVALUATION PERSONNELASA CLASS ASSESSMENT BY DESIRAE MEADOWS MD ON AUG 18, 2008 | | EXAM LOCATION:EXAM PERFORMED IN ENDOSCOPY SUITE. OUTPATIENT | | PATIENT CONSENT:PROCEDURE, ALTERNATIVES, RISKS AND BENEFITS DISCUSSED, | | CONSENT OBTAINED, FROM PATIENT. CONSENT WAS OBTAINED BY THE PHYSICIAN. | | CONSENT TO BE CONTACTED WAS NOT REQUESTED. | | THERAPEUTICS:REASON FOR EXAM: DILATION OF ANASTOMOTIC STRICTURE. | | SYMPTOMS:NAUSEA. VOMITING. | | CURRENT MEDICATIONS:PATIENT IS NOT CURRENTLY TAKING COUMADIN. | | MEDICAL/SURGICAL HISTORY:GASTRIC BYPASS, | | ALLERGIES:NO KNOWN ALLERGIES. | | PRE-EXAM PHYSICAL:PERFORMED AUG 05, 2008 CARDIO-PULMONARY EXAM, HEENT | | EXAM, ABDOMINAL EXAM, MENTAL STATUS EXAM WNL. ABNORMAL PE FINDINGS | | INCLUDE: MORBID OBESITY. | | EXAM INFO:MAXIMUM DEPTH OF INSERTION STOMACH, INTENDED JEJUNUM. PATIENT | | POSITION: ON LEFT SIDE. DURATION OF EXAM: 10 MINUTES. VOCAL CORDS NOT | | VISUALIZED. GASTRIC RETROFLEXION PERFORMED. IMAGES TAKEN. ASA | | CLASSIFICATION: II. TOLERANCE: FAIR, EXAM COMPROMISED. | | SEDATION MEDS:PATIENT ASSESSED AND FOUND TO BE APPROPRIATE FOR MODERATE | | (CONSCIOUS) SEDATION. SEDATION WAS MANAGED BY THE ENDOSCOPIST. FENTANYL | | 100 MCG. GIVEN IV. MIDAZOLAM 4 MG. GIVEN IV. HURRICAINE SPRAY 1 SPRAYS | | GIVEN IV. | | MONITORING:BP AND PULSE MONITORING DONE. OXIMETRY USED. | | FLUOROSCOPY:FLUOROSCOPY WAS NOT USED. | | INSTRUMENT(S):GIF Q160. SERIAL #[id number]. | | NORMAL: DISTAL ESOPHAGUS. COMMENTS: GEJ AT 45 CM. | | - FOREIGN BODY / RETAINED FOOD: RETAINED FOOD, FOUND IN CARDIA. COMMENTS: | | MUCH RETAINED FOOD IN STOMACH DESPITE PATIENT BEING ON CLEARS FOR 24 | | HOURS. WE WERE ATTEMPTING DILATION, THE PATIENT BEGAN TO VOMITING | | THIS RETAINED FOOD, AND THEREFORE THE SCOPE WAS REMOVED AND PROCEDURE WAS | | ABORTED. 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 CONSTRICTION: PARTIAL. | | ETIOLOGY: BENIGN OTHER, SEE COMMENTS. THIS AN ANASTAMOSIS SITE. 50 CM | | FROM MOUTH. LUMEN DIAMETER IS 7 MM. COMMENT: ANASTOMOTIC STRICTURE, | | UNABLE TO PASS SCOPE THROUGH THE LUMEN DUE TO ANGLE OF OPENING. | | ABNORMAL EXAMINATION, SEE FINDINGS ABOVE. | | UNPLANNED INTERVENTION:NO UNPLANNED INTERVENTIONS WERE REQUIRED. | | UNPLANNED EVENTS:THERE WERE NO COMPLICATIONS. | | COMMENTS:REPEAT UPPER ENDOSCOPY FOR DILATION WITH ANESTHESIA ASSISTANCE TO | | MONITOR AIRWAY. | | DISPOSITION:AFTER PROCEDURE PATIENT SENT TO SHORT STAY UNIT. AFTER | | RECOVERY PATIENT SENT HOME. | | REPORT ENTERED BY: DESIRAE MEADOWS MD | + + documented in this encounter Visit Diagnoses Not on filedocumented in this encounter"
--- OUTSIDE RECORDS SUMMARY | ~2020-06-16 | XMS | Encounter Summary ---
Demographics + + + | Address | [address] | | | [place] [address] | + + + | Home Phone | | + + + | Preferred Language | Unknown | + + + | Marital Status | Single | + + + | Islam Affiliation | CAT | + + + | Race | or | + + + | Ethnic Group | Not or | + + + Author + + + | Author | [facility] [employer] [facility] | + + + | Organization | [facility] | + + + | Address [...] [address] [place] | | | | | [address] | | + + + + + Care Team Providers + +------+ + | Care Commercial Construction Project Manager Name | Role | Phone | + [...] Closed | | Gastroenterol | Diagnoses | Fee, Kaylan | Gas Endo | | | | ogy | 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, 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 | [id number] | [place] | | | | | Procedures | | [address] | | | | | CONSULT TO | | floor | | | | | GI PROCEDURE | | [place], [place] | | | | | UNIT: EGD | | [address] | | | | | | | Phone: | | | | | | | [phone] | | | | | | | Fax: | | | | | | | [phone] | +--------+--------+ + + + + Encounter Details +--------+ + + + + | Date | Type | Department | Care Team | Description | +--------+ + + + + | 09/18/ | Press Machine Operator | [facility] | Kaylan Obrien ANP | Gastric Anastomotic | | 2007 | | [address] | | Stricture (Primary | | | | [address] | | Dx) | | | | Mailcode: [id number] | | | | | | [facility] | | | | | | [place], [place] | | | | | | [address] | | | | | | [phone] | | | +--------+ + + + [...] + | Diagnosis | + + | 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
--- OUTSIDE RECORDS SUMMARY | ~2020-06-16 | XMS | Encounter Summary ---
Demographics + + + | Address | [address] | | | [place] [address] | + + + | Home Phone | | + + + | Preferred Language | Unknown | + + + | Marital Status | Single | + + + | Denominational Affiliation | CAT | + + + | Race | or | + + + | Ethnic Group | Not or | + + + Author + + + | Author | [facility] [employer] [facility] | + + + | Organization | [facility] | + + + | Address [...] [address] | | | | | [address] | | + + + + + Care Team Providers + +------+ + | Care Sports Fitness And Wellness Director Name | Role | Phone | + +------+ + | Dhruv Villalpando MD | PCP | Unavailable | + +------+ + Encounter Details +--------+ + + + + | Date | Type | Department | Care Team | Description | +--------+ + + + + | 07/19/ | Ancillary | Registration [id number] | | | | 2006 | Registratio | [address] | | | | | [address] | [address] Mailcode: [id number] | | | | | | [place], [place] | | | | | | [address] | | | | | | [phone] | | | +--------+ + + + [...]
--- OUTSIDE RECORDS SUMMARY | ~2020-06-16 | XMS | Encounter Summary ---
Demographics + + + | Address | [address] | | | [place] [address] | + + + | Home Phone [...] Author + + + | Author | Pending [facility] To [facility] | + + + | Organization | [facility] | + + + | Address [...] [address] [place] | | | | | [address] | | + + + + + Care Team Providers + +------+ + | Care Full Roll Inspector Name | Role | Phone | + +------+ + | Dhruv Villalpando MD | PCP | Unavailable | + +------+ + Reason for Visit + +--------+ + | Reason | Onset | Comments | | | Date | | + +--------+ + | Management Of | 03/28/ | | | Anticoagulation | 2007 | | + +--------+ + Encounter Details +--------+ + + + + | Date | Type | Department | Care Team | Description | +--------+ + + + + | 03/28/ | Telephone | [facility] | Omid Marie | Management Of | | 2007 | | [address] | MD [facility] | Anticoagulation | | | | [place] Mailcode: CH4S | [facility] [address] | | | | | [facility] | [address] | | | | | and Healing, | [place] [address] | | | | | [place] [address] | [phone] | | | | | [place], [place] | | | | | | [address] | | | | | | [phone] | | | +--------+ + + + [...] this encounter Miscellaneous Notes Telephone Encounter - ElsacareyJohn pruittbrandan Pruitt - 03/28/2008 9:56 AM PDTI have talked to the pat zana last night about his care. He is followed by PCP. His last INR on 03/27/08 was 3.2 and burt bond has stopped his lovenox and decreased coumadin to 10mg from 15mg daily following advice of his PCP. He will have an appointment with us on Monday and we can have his INR levels check ed in the clinic and have it sent to the PCP. The patient states that he is feeling well. Am bulates. Tolerates his diet. No fevers. documented in this en counter Plan of Treatment Not on filedocumented as of this encounter Visit Diagnoses Not on filedocumented in this encounter"
--- OUTSIDE RECORDS SUMMARY | ~2020-06-16 | XMS | Clinical Summary ---
Demographics + + + | Address | [address] | | | [place] [address] | + + + | Home Phone | | + + + | Preferred Language | Unknown | + + + | Marital Status | Unknown | + + + | Restorationism Affiliation | Unknown | + + + | Race | Unknown | + + + | Ethnic Group | Unknown | + + + Author + + + | Author | [facility] | | | [facility] | + + + | Organization | [facility] | | | and [place] | + + + | Address | Unknown | + + + | Phone | Unavailable | + + + Care Team Providers + +------+ + | Care Ehs Manager Name | Role | Phone | + +------+ + PCP | Unavailable | + +------+ + Allergies Not on File Medications Not on file Active Problems Not on file Social History + +-------+ +--------+------+ | Tobacco [...] on file | | + + + Last Filed Vital Signs Not on file Plan of Treatment + + +-------+ + | Health Maintenance | Due Date | Last | Comments | | | | Done | | + + +-------+ + | Vaccine: | | | | | Dtap/Tdap/Td (1 - | 1 | | | | Tdap) | | | | + + +-------+ + | Vaccine: Zoster (1 | | | | | of 2) | 2 | | | + + +-------+ + | Vaccine: Influenza | | | | | (#1) | 0 | | | + + +-------+ + Results Not on filefrom Last 3 Months"
--- OUTSIDE RECORDS SUMMARY | ~2020-06-16 | XMS | Encounter Summary ---
Demographics + + + | Address | [address] | | | [place] [address] | + + + | Home Phone | | + + + | Preferred Language | Unknown | + + + | Marital Status | Single | + + + | Mu-Ism Affiliation | CAT | + + + | Race | or | + + + | Ethnic Group | Not or | + + + Author + + + | Author | [facility] | + + + | Organization [...] [address] [place] | | | | | [address] | | + + + + + Care Team Providers + +------+ + | Care Record Keeper Name | Role | Phone | + +------+ + | Dhruv Villalpando MD | PCP | Unavailable | + +------+ + Encounter Details +--------+------+ + + + | Date | Type | Department | Care Team | Description | +--------+------+ + + + | 02/18/ | Lab | Laboratory at [facility] | | Morbid Obesity | | 2007 | | [address] | | ([facility]); DVT of Leg | | | | [facility] | | (Deep Venous | | | | and Healing, | | Thrombosis) ([facility]) | | | | [address] | | | | | | [place], [place] | | | | | | [address] | | | | | | [phone] | | | +--------+------+ + + + [...] + documented as of this encounter Progress Kaylan Garcia Rn - 02/22/2008 4:23 PM PDT Quick Note: Please call pt and ask him to start vitamin D 800 IU twice daily documented in this enco unter Plan of Treatment Not on filedocumented as of this encounter Procedures + +--------+ + + + | Procedure Name | Priori | Date/Time | Associated Diagnosis | Comments | | | ty | | | | + +--------+ + + + | INR | Routin | 02/19/2008 | Morbid Obesity | Results for this | | | e | 4:38 PM | ([facility]) DVT of Leg | procedure are in the | | | | PDT | (Deep Venous | results section. | | | | | Thrombosis) ([facility]) | | + +--------+ + + + | VITAMIN D, | Routin | 02/19/2008 | Morbid Obesity | Results for this | | 25-HYDROXY, SERUM | e | 4:38 PM | ([facility]) DVT of Leg | procedure are in the | | | | PDT | (Deep Venous | results section. | | | | | Thrombosis) ([facility]) | | + +--------+ + + + | PTH, SERUM | Routin | 02/19/2008 | Morbid Obesity | Results for this | | | e | 4:38 PM | ([facility]) DVT of Leg | procedure are in the | | | | PDT | (Deep Venous | results section. | | | | | Thrombosis) ([facility]) | | + +--------+ + + + documented in this encounter Results VITAMIN D, 25-HYDROXY, SERUM (02/19/2008 4:38 PM PDT) + + + + + + | Component | Value | Ref Range | Performed | Pathologist | | | | | At | Signature | + + + + + + | VITAMIN D | 13 (L)Comment: TEST | 30 - 80 ng/mL | | | | 25 HYDROXY | INFORMATION: VITAMIN D, | | | | | | 25-HYDROXYThis assay | | | | | | accurately quantifies | | | | | | the sum of vitamin | | | | | | D3,25-hydroxy and | | | | | | vitamin D2, 25-hydroxy. | | | | | | Deficiency: Less than | | | | | | 20 ng/mLInsufficiency: | | | | | | 20-29 ng/mLOptimum | | | | | | Level: 30-80 | | | | | | ng/mLPossible Toxicity: | | | | | | Greater than 80 | | | | | | ng/mLPerformed by [facility] | | | | | | [facility], | | | | | | | | | | | | [address], | | | | | | [place] [address] | | | | | | [phone] | | | | | | | | | | | | [email or web address], | | | | | | Zack Real MD | | | | | | - Lab. Director | | | | | | Reference range change | | | | | | effective 10/22/07. | | | | + + + + + + + + | Specimen | + + | Blood - Blood | + + + + + + + | Performing | Address | City/State/Zipcode | Phone Number | | Organization | | | | + + + + + | [facility] | [address] | [place], [place] | | | [facility] | | [address] | | + + + + + PTH, SERUM (02/19/2008 4:38 PM PDT) + + + + + + | Component | Value | Ref Range | Performed | Pathologist | | | | | At | Signature | + + + + + + | PTH, SERUM | 44.0Comment: Test | 15.0 - 75.0 | | | | | performed by [facility] | pg/mL | | | | | [facility]. | | | | + + + + + + + + | Specimen | + + | Blood - Blood | + + + + + + + | Performing | Address | City/State/Zipcode | Phone Number | | Organization | | | | + + + + + | [facility] | [address] | [place] [address] | | | LABORATORY | | | | + + + + + INR (PT) (02/19/2008 4:38 PM PDT) + + + + + + | Component | Value | Ref Range | Performed | Pathologist | | | | | At | Signature | + + + + + + | INR | 3.14 (H)Comment: | 0.90 - 1.20 INR | [facility] | | [...] | Specimen | + + | Blood - Blood | + + + + + + + | Performing | Address | City/State/Zipcode | Phone Number | | Organization | | | | + + + + + | [facility] | [facility] | [place] [address] | | | PATHOLOGY | [address] | | | + + + + + | [facility] DEPARTMENT [facility] | [facility] | [place] [address] | | | PATHOLOGY | [address] [...]
--- OUTSIDE RECORDS SUMMARY | ~2020-06-16 | XMS | Encounter Summary ---
Demographics + + + | Address | [address] | | | [place] [address] | + + + | Home Phone | | + + + | Preferred Language | Unknown | + + + | Marital Status | Single | + + + | Orthodox Affiliation | CAT | + + + | Race | or | + + + | Ethnic Group | Not or | + + + Author + + + | Author | [facility] | + + + | Organization | [facility] | + + + | Address | [...] [address] | | | | | [place] | | | | | [address] | | + + + + + Care Team Providers + +------+ + | Care Cash Management Associate Name | Role | Phone | + +------+ + PCP | Unavailable | + +------+ + Encounter Details +--------+ + + + + | Date | Type | Department | Care Team | Description | +--------+ + + + + | 08/30/ | Procedure - | UNKNOWN DEPARTMENT | Record, Operation | Operative Report | | 2006 | | [address] | | | | | Transcribed | [address] | | | | | | [place], [place] | | | | | | [address] | | | +--------+ + + + [...] documented as of this encounter Procedure Notes Record, Operation - 08/30/2007 12:00 AM PSTAssociated Order(s): OPERATION RECORD [id number] CH[place]IS [place] [id number] Date: 08/30/2007 Attending Surgeon: Surendra Escobar M.D. Wind Tunnel Engineer(s): Jarek Orellana M.D. Preoperative Diagnosis(es): Postoperative bleeding. Postoperative Diagnosis(es): Postoperative bleeding. Procedures Performed: Exploration of surgical wound and ligation of bleeding vessel. Anesthesia: General endotracheal. Estimated Blood Loss: Minimal during the time of the procedure. Indications: Mr. Benoit is a 47-year-old man who underwent a Lap-Band removal on 08/27/2007 which was uncomplicated at that time. One day postoperatively, he was noted to have a drop in hematocrit which did not respond appropriately to 2 units of packed red blood cells. CT scan was obtained which showed possible collection in the anterior abdominal wall, so we are taking him to the operating room for exploration of his wounds with presumed diagnosis of bleeding vessel in the anterior abdominal wall. Procedure: The patient was brought to the operating room, placed supine on the operating table and general anesthesia was induced without incident. The abdomen was prepped and draped in the usual sterile fashion. A left upper quadrant incision from his previous surgery was opened with a scalpel, and there was some old blood noted immediately under the wound. The wound was extended 1 cm in either direction. The subcutaneous tissue was divided electrocautery. We found the fascial defect created by the trocar from the previous surgery. At the base of this, there was a pumping vessel noted. It was grasped with a grasper and a fnrzet-un-[id number] suture was placed in the tissue which subsequently stopped bleeding. We then oversew the fascial edges and closed the fascial defect and did not notice any more bleeding from the site. The overlying tissues were also approximated with a 0 Vicryl suture, and the wound was left open. He had ecchymosis noted at one of the 12 mm port sites. This port site was opened and also clearly explored. We did not notice any active bleeding at the base of this wound. This wound was also left open and packed with wet Kerlix. The patient was awakened from general anesthesia without any incident and was brought to the PACU in stable condition. Needle and sponge counts were correct at the end of the case. Dr. Surendra Escobar was present throughout the surgical procedure and directed the surgical care of Mr. Benoit. Italo Freeman M.D. Surendra Escobar M.D. / [id number] / [id number] / [id number] / Reviewed or Edited By Italo Freeman on 09-05-2007 Electronically signed by Surendra Escobar 09-16-2007 08:07:35 AM documented in this encou nter Plan of Treatment Not on filedocumented as of this encounter Procedures + +--------+ + + + | Procedure Name | Priori | Date/Time | Associated Diagnosis | Comments | | | ty | | | | + +--------+ + + + | OPERATION RECORD | | 08/30/2007 | | Results for this | | | | 12:00 AM | | procedure are in the | | | | PST | | results section. | + +--------+ + + + documented in this encounter Results OPERATION RECORD (08/30/2007 12:00 AM PST) + + | Procedure Note | + + | 08/30/2007 12:00 AM PST | | [id number] | | [id number] CHRIS MCKINNON [id number] | | | | Date: 08/30/2007 | | | | Attending Surgeon: Surendra Escobar M.D. | | | | Wind Tunnel Engineer(s): Italo Freeman M.D. | | Daren Peña M.D. | | | | Preoperative Diagnosis(es): | | Postoperative bleeding. | | | | Postoperative Diagnosis(es): | | Postoperative bleeding. | | | | Procedures Performed: | | Exploration of surgical wound and ligation of bleeding vessel. | | | | Anesthesia: | | General endotracheal. | | | | Estimated Blood Loss: | | Minimal during the time of the procedure. | | | | Indications: | | Mr. Benoit is a 47-year-old man who underwent a Lap-Band removal on | | 08/27/2007 which was uncomplicated at that time. One day postoperatively, | | he was noted to have a drop in hematocrit which did not respond | | appropriately to 2 units of packed red blood cells. CT scan was obtained | | which showed possible collection in the anterior abdominal wall, so we are | | taking him to the operating room for exploration of his wounds with | | presumed diagnosis of bleeding vessel in the anterior abdominal wall. | | | | Procedure: | | The patient was brought to the operating room, placed supine on the | | operating table and general anesthesia was induced without incident. The | | abdomen was prepped and draped in the usual sterile fashion. A left upper | | quadrant incision from his previous surgery was opened with a scalpel, and | | there was some old blood noted immediately under the wound. The wound was | | extended 1 cm in either direction. The subcutaneous tissue was divided | | electrocautery. We found the fascial defect created by the trocar from the | | previous surgery. At the base of this, there was a pumping vessel noted. | | It was grasped with a grasper and a trvlno-uv-hqacj suture was placed in | | the tissue which subsequently stopped bleeding. We then oversew the | | fascial edges and closed the fascial defect and did not notice any more | | bleeding from the site. The overlying tissues were also approximated with | | a 0 Vicryl suture, and the wound was left open. He had ecchymosis noted at | | one of the 12 mm port sites. This port site was opened and also clearly | | explored. We did not notice any active bleeding at the base of this wound. | | This wound was also left open and packed with wet Kerlix. The patient was | | awakened from general anesthesia without any incident and was brought to | | the PACU in stable condition. Needle and sponge counts were correct at the | | end of the case. Dr. Surendra Escobar was present throughout the surgical | | procedure and directed the surgical care of Mr. Benoit. | | | | | | | | | | Italo Freeman M.D. | | | | | | | | Surendra Escobar M.D. | | | | CV / HS | | [id number] / [id number] / [id number] / | | | | | | | | | | | | Reviewed or Edited By Italo Freeman on 09-05-2007 | | Electronically signed by Surendra Escobar 09-16-2007 08:07:35 AM | | | | | + + documented in this encounter Visit Diagnoses Not on filedocumented in this encounter"
--- OUTSIDE RECORDS SUMMARY | ~2020-06-16 | XMS | Encounter Summary ---
Demographics + + + | Address | [address] | | | [place] [address] | + + + | Home Phone | | + + + | Preferred Language | Unknown | + + + | Marital Status | Single | + + + | Rastafari Affiliation | CAT | + + + | Race | or | + + + | Ethnic Group | Not or | + + + Author + + + | Author | [facility] | + + + | Organization | [facility] | + + + | Address | Unknown | + + + | Phone | Unavailable | + + + Support + + + + + | Name | Relationship | Address | Phone | + + + + + | Ayde Perez | ECON | Unknown | | + + + + + | Brian Perez | ECON | [address] | | | | | [place] | | | | | [address] | | + + + + + Care Team Providers + +------+ + | Care [employer] Machine Operator Name | Role | Phone [...] | Closed | | | | | [facility] | | | | | | | General Surg | | | | | | | [address] | | | | | | | [address] | | | | | | | [place], | | | | | | | [place] | | | | | | | [address] | | | | | | | Phone: | | | | | | | [phone] | | | | | | | Fax: | | | | | | | [phone] | +--------+--------+ + + + + Encounter Details +--------+ + + + + | Date | Type | Department | Care Team | Description | +--------+ + + + + | 03/19/ | Hospital | [facility] [address] | Grey Gaspar, | | | 2007 - | Encounter | [address] | MD [address] | | | | | [place], [place] | [address] | | | 03/24/ | | [address] | [place], [place] | | | 2007 | | [phone] | [address] | | | | | | [phone] | | | | | | | [...] + + + | Blood Pressure | 149/68 | 03/24/2008 8:46 AM | | | | | PDT | | + + + + + | Pulse | 78 | 03/24/2008 8:46 AM | | | | | PDT | | + + + + + | Temperature | 36.6 C (97.9 F) | 03/24/2008 8:46 AM | | | | | PDT | | + + + + + | Respiratory Rate | 18 | 03/24/2008 8:46 AM | | | | | PDT | | + + + + + | Oxygen Saturation | 98% | 03/24/2008 8:46 AM | | | | | PDT | | + + + + + | Inhaled Oxygen | - | - | | | Concentration | | | | + + + + + | Weight | 207.5 kg (457 lb 7.3 | 03/19/2008 6:00 AM | | | | oz) | PDT | | + + + + + | Height | 185 cm (6' 0.84") | 03/19/2008 6:00 AM | | | | | PDT | | + + + + + | Body Mass Index | 60.63 | 03/19/2008 6:00 AM | | | | | PDT | | + + + + + documented in this encounter Discharge Summaries Other, Faculty - 03/24/2008 12:34 PM PDT Other, Faculty - 03/24/2008 12:34 PM PDT Omid Marie V - 03/24/2008 10:16 AM PDTINPATIENT PROVIDER DISCHARGE SUMMARY Admission Date: March 14, 2008 Discharge Date: March 24, 2008 Service: Green You or your family member have been primarily hospitalized for: Weight loss surgery Principal Final Diagnosis: Morbid obesity, s/p lap band removal for erosion. Additional diagnoses: prior h/o LLE DVT on coumadin, hypertension, hyperlipidemia, Type 2 Diabetes You or your family had the following procedures: Open gastric bypass Principal Procedure: Open gastric bypass Additional Procedures: Insulin infusion, PT/OT, vascular duplex, BLOW TORCH OPERATOR, nutrition consult, Reason for Admission, Significant Findings, Treatment, and Complications Brief Hospital Course: 48 year old gentleman with BMI 60, weight 207 kg, with weight related comorbidities, wit h history of lap band removal for erosion. He presents for open danette en Ygastric bypass. He had no intraoperative complications, MATTHIEU was placed, no leak on dye study. Insulin drip cont inued and transitioned to SSI. Vascular duplex done of LE to assess DVT, prior LLE. Restar keith on Coumadin, INR checked, and received 150 mg Lovenox subcu q 12 hours. He tolerated hi s diet and was advanced slowly from clears to satya full liquids. Diet: Satya full liquids Activity: No driving for 10 days, while on narcotics, Limit lifting to 10 ounds for 6 weeks , Weight bearing limiting 10 pounds and Bathing limited to shower Special Instructions: (Treatment, Equipment, Supplies, Dressings, LAB follow-up) Weigh daily: no Willie Caballero drain care - empty and record twice daily, as needed. Keep a log of the amou nts out and bring to clinic. Keep the incision clean and dry. Your hosea and drain will be removed in the clinic during your next visit. Call: [facility] at If you have any of the following: Difficulty breathing or unusual shortness of breath Excessive bleeding, drainage at the operative site Fevers, chills, increased pain that is not relieved by pain medications Persistent nausea or vomiting Other SPECIFIC concerns, such as: Unable to drink 48-64 fluid ounces and feels dehydrated Follow Up Appointments: PCP: Dhruv Villalpando MD When, daily INR as needed for coumadin then less frequent, 1-2 weeks for medication management Other: Dr. Gaspar, March 31, 2008 at 2:20 Follow Up Tests: (Tests at [facility] must be entered into Epic) INR with your PCP Condition On Discharge: Good Vital Signs at discharge as appropriate: BP: 189/94 mmHg Pulse: 97 Resp: 18 Wt - Scale: 207.5 kg (457 lbs 7.3 oz) Discharge Patient To: Home Does patient have a planned readmission: No Discharge Summary Completed?: No Discharging Provider: MERCEDEZ STANLEY [facility] Date Completed: March 24, 2008 Time Completed: 10:00 Discharging Attending: Grey GasparElectronically signed by Grey Gaspar at 008 10:27 AM Mercedez Odom - 03/24/2008 12:00 AM JAZMYN [id number] CHRIS MCKINNON [id number] Admission Date: 03/19/2008 Discharge Date: 03/24/2008 Staff Physician: Grey Gaspar M.D. ADDENDUM This is a hospital addendum for medications. Discharge Medication(s): 1. Calcium citrate 500 mg b.i.d. 2. Vitamin B12, 500 mcg sublingual daily. 3. Colace 100 mg one twice daily, hold if loose stools. 4. Flonase 50 mcg actuation, one spray in each nostril by intranasal route daily. 5. Insulin regular, subcu before meals and bedtime as instructed. 6. Lisinopril 40 mg daily. 7. Metoprolol 25 mg b.i.d. 8. Multivitamins 2 p.o. daily. 9. Oxycodone 5 mg 2 tablets by oral route every 4 to 6 hours as needed for pain. 10. Ranitidine 150 mg twice per day for 3 months. 11. Tramadol 50 mg one tablet by oral route every 6 hours as needed. 12. Actigall 300 mg one twice daily for 6 months to prevent gallstones. 13. Warfarin 5 mg 1-1/2 tablets daily. 14. Lovenox 100 twenty mg subcu q.12 hours until therapeutic and as directed. Sohail Torres M.D. VJ / HS [id number] / [id number] / [id number] / documented in this en counter Discharge Instructions Instructions Marina Zhang - 2008 INPATIENT PROVIDER DISCHARGE AND INTERDISCIPLIN VERONIKA INSTRUCTIONS Discharge Date: March 24, 2008 Service: Jesús You or your family member have been primarily hospitalized for: Weight loss surgery Principal Final Diagnosis: Morbid obesity, s/p lap band removal for erosion. Additional diagnoses: prior h/o LLE DVT on coumadin, hypertension, hyperlipidemia, Type 2 Diabetes You or your family had the following procedures: Open gastric bypass Principal Procedure: Open gastric bypass Additional Procedures: Insulin infusion, PT/OT, vascular duplex, BLOW TORCH OPERATOR, nutrition consult, Reason for Admission, Significant Findings, Treatment, and Complications Brief Hospital Course: 48 year old gentleman with BMI 60, weight 207 kg, with weight related comorbidities, wi th history of lap band removal for erosion. He presents for open danette en Ygastric bypass. H e had no intraoperative complications, MATTHIEU was placed, no leak on dye study. Insulin drip con tinued and transitioned to SSI. Vascular duplex done of LE to assess DVT, prior LLE. Resta rted on Coumadin, INR checked, and received 150 mg Lovenox subcu q 12 hours. He tolerated h is diet and was advanced slowly from clears to satya full liquids. Diet: Satya full liquids Activity: No driving for 10 days, while on narcotics, Limit lifting to 10 ounds for 6 week s, Weight bearing limiting 10 pounds and Bathing limited to shower Special Instructions: (Treatment, Equipment, Supplies, Dressings, LAB follow-up) Weigh daily: no Willie Caballero drain care - empty and record twice daily, as needed. Keep a log of the mala unts out and bring to clinic. Keep the incision clean and dry. Your hosea and drain will b e removed in the clinic during your next visit. Call: [facility] at If you have any of the following: Difficulty breathing or unusual shortness of breath Excessive bleeding, drainage at the operative site Fevers, chills, increased pain that is not relieved by pain medications Persistent nausea or vomiting Other SPECIFIC concerns, such as: Unable to drink 48-64 fluid ounces and feels dehydrated Follow Up Appointments: PCP: Dhruv Villalpando MD When, daily INR as needed for coumadin then less frequent, 1- 2 weeks for medication management Other: Dr. Gaspar, March 31, 2008 at 2:20 Follow Up Tests: (Tests at [facility] must be entered into Epic) INR with your PCP Condition On Discharge: Good Vital Signs at discharge as appropriate: BP: 189/94 mmHg Pulse: 97 Resp: 18 Wt - Scale: 207.5 kg (457 lbs 7.3 oz) Discharge Patient To: Home Does patient have a planned readmission: No Discharge Summary Completed?: No Discharging Provider: MERCEDEZ STANLEY ACNP Date Completed: March 24, 2008 Time Completed: 10:00 Discharging Attending: Grey Gaspar INPATIENT NURSE ORDER FOR DISCHARGE AND INTERDISCIPLINARY INSTRUCTIONS DISCHARGE DATE: 03/24/2008 PATIENT EDUCATION: Patient given the following printed education materials Patient has the Bariatic packet Review with patient/family: Understanding of disease/injury/surgical repair Yes Signs/symptoms that they should report Yes Understanding of medications and side effects Yes Activity and diet instructions Yes Follow-up appointments Yes Any concerns/fears N/A Smoking Cessation Counseling/Information was given: N/A Additional Instructions: (ex: wound care, tube feeding, trach care, CBG monitoring etc.) Cover incision and drain if not in family home for showers. Do not soak in water. Personal Effects/Medications: Admit belongings list verified Discharged Via: Wheelchair Mode of Transportation: Car Accompanied by: Parents Transport Company Name: (when applicable) Discharge Nurse: Marina Zhang Date: 03/24/2008 Discharge Time: 11:07 AM documented in this encounter Medications at Time [...] documented as of this encounter Progress Notes Other, Faculty - 03/24/2008 12:34 PM PDT Italo Freeman - 03/24/2008 8:28 AM Rosalba carreon overnight. Comfortable, taking POs. AFVSS Abd soft, incision clean Stable --home today on lovenox --bariatric full liquid diet A M Major, Faculty - 03/24/2008 12:00 AM PDT Ghassan Perez [id number] [facility] REC NUMBER: [id number] NAME : Ghassan Perez DATE : 1960 DISCHARGE ASSESSMENT AND CASE MANAGEMENT NOTES Chart Reviewed: 2008 00:00:00 Initial assessment completed by: HEMANT Nicole Preadmission living situation: If facilty, name: Additional needs assessment: Case Management Initial Assessment and Ongoing Notes: Omid Marie V - 03/22/2008 1:01 PM PDTFormatting of this note might be different f rom the original. INPATIENT PROGRESS NOTE Hospital Day:3 Author; OMID MARIE MD Attending Physician: Grey Gaspar Hx: Tolerates clears, no nausea. Ambulates. Physical Exam: Last Vitals: BP 156/75 | Pulse 80 | Temp 36.6 C (97.9 F) | Resp 20 | Ht 1.85 m (6' 1") | Wt 207.5 kg (457 lbs 7.3 oz) | SpO2 96% O2 Delivery Device: None (room air) 24 Hour Vital Min/Max: Systolic (24hrs), Av mmHg, Min:135 mmHg, Max:167 mmHg Diastolic (24hrs), Av mmHg, Min:61 mmHg, Max:82 mmHg Pulse Av.5 Min: 80 Max: 90 Temp Av.8 C (98.3 F) Min: 36.6 C (97.9 F) Max: 37 C (98.6 F) Resp Av.0 Min: 20 Max: 20 SpO2 Av.8 % Min: 96 % Max: 98 % Intake/Output Summary (Last 24 hours) at 03/22 1301 Last data filed at 03/22 1000 Gross per 24 hour Intake 1770 ml Output 2192 ml Net -422 ml CBG Result Av.5 Min: 137 Max: 150 Last CBG Result: 150 CBC with diff last 72 hours (or 3 results) Recent Labs Basename 03/22/08 0100 03/21/08 0100 03/20/08 0430 WBC 6.7 9.5 12.4* HB 10.4* 11.5* 13.6 HCT 30.0* 32.5* 39.2* PLT 182 178 212 NEUTROPERC -- -- -- BANDPCT -- -- -- LYMPHPERC -- -- -- MONOPERC -- -- -- BASOPERC -- -- -- EOSPERC -- -- -- Chemistries: Last 72 Hours (or 3 results): Recent Labs Basename 03/22/08 0100 03/21/08 0100 03/20/08 0430 NA 137 135* 138 K 3.9 4.3 4.2 CL 102 101 102 BICARB 31* 29 31* BUN 15 14 19 CR 0.9 1.0 1.2 CA 7.9* 8.4* 8.3* MG 1.8 1.8 1.5* PO4 2.3* 1.9* 3.3 General Appearance: No distress Respiratory: CTAB s WRR Cardiovascular: RRR s MRG Gastrointestinal: Soft, NT, ND, incision is clean. There is drainage of the serosang fluid around the MATTHIEU drain. Neurologic: A&O, Grossly intact Tubes/lines/drips: MATTHIEU 70 cc, serosang. Assessment:48 yo m POD 3, s/p lap danette en Y. INR is still subtherapeutic. Pain is under co ntrol. Tolerates clears without nausea. Plan: Ambulate, Advance diet to fulls. Continue lovenox and warfarin. Italo Bhatia - 0 03/22/2008 9:55 AM PDTHaving trouble sleeping, but otherwise well. Taking clears without di fficulty, pain well controlled. Abdomen soft, wound clean, MATTHIEU with some serosanguinous drai nage. Bariatric fulls Saline lock IV OOB Cont coumadin, re-check INR tomorrow Deepak Ventura 2008 2:12 PM PDT03/21/08 Initial Case Management Asssessm ent and Plan: Reviewed medical record: yes Interviewed patient and/or caregiver: Yes, pt. Pre-hospital functional status: Independent living in [facility]. Pre-hospital services in place: none Anticipated discharge needs: none Family/Caregiver wishes: Stay with parents upon discharge. Transportation plans upon discharge: Parents to transport in private car. Met with pt. He will stay with his parents for a few days upon discharge in their single l evel home. 2-3 steps into house with handrails. Mother is a retired RN. Parents will vail sport home. No discharge needs identified at this time. Will continue to follow and update if needs arise. JENIFER Solorzano [id number]. MEDICATION UPDATE: Rx faxed to Yuliya @ [facility] for Lovenox 15 0 mg sc q 12 hours. She will get MD to approve this rx and get it to [facility] in [facility]. Pt should brick picker his rx @ [facility] in [place] upon discharge.Electronically si gned by Deepak Morse at 2008 4:08 PM Mercedez Odom - 2008 10:12 AM PDTFo rmatting of this note might be different from the original. INPATIENT PROGRESS NOTE Hospital Day:2 Author; MERCEDEZ STANLEY ACNP Attending Physician: Grey Gaspar Interval Hx: Feeling better, no flatus, no nausea. See prior note this morning for additio nal history, including pain rating. Has intermittent saliva that goes up into his mouth. J ust taking water for now, broth is too salty. Has thick phlegm at times, taking in more serena er and IS Physical Exam: Last Vitals: BP 140/83 | Pulse 110 | Temp 36.7 C (98.1 F) | Resp 18 | Ht 1.85 m (6' 1") | Wt 207.5 kg (457 lbs 7.3 oz) | SpO2 93% O2 Delivery Device: None (room air) 24 Hour Vital Min/Max: Systolic (24hrs), Av mmHg, Min:140 mmHg, Max:207 mmHg Diastolic (24hrs), Av mmHg, Min:70 mmHg, Max:100 mmHg Pulse Av.9 Min: 86 Max: 110 Temp Av.9 C (98.4 F) Min: 36.7 C (98.1 F) Max: 37 C (98.6 F) Resp Av.7 Min: 16 Max: 18 SpO2 Av.2 % Min: 92 % Max: 100 % Intake/Output Summary (Last 24 hours) at 03/21 1012 Last data filed at 03/21 0900 Gross per 24 hour Intake 6296.6 ml Output 3130 ml Net 3166.6 ml General Appearance: alert and oriented X3 HEENT: eomi's, PERRLA, moist mucosa Neck: central line has no erythema right neck, no swelling Respiratory: CTA bilaterally Cardiovascular: RRR Gastrointestinal: Obese, soft, ND, slightly tender midline stapled incision Lymphatic: left leg with swelling, prior DVT markings on leg Musculoskeletal: DELA CRUZ's, up in room, 5/5 strength Skin: warm, well perfused. Left lower leg with venous stasis and pigmentation changes, rig ht LE with ecchymosis, stasis changes. DVT marked on leg for extension, lower leg to mid - inner thigh, slightly cool feet, circulation intact, nailbeds pink Neurologic: intact Psychiatric: no problems noted Assessment and Plan: POD 2 Heme - plan for therapeutic DVT prophylaxis until therapeutic on restart of Coumadin last n ite, 15 mg. Did not have preop Lovenox after stopping the Coumadin. Lovenox 150 mg q 12 ho urs. - urinating in good amts after Rousseau d/c, creatinine normal Pain - keep BLOW TORCH OPERATOR going at lower dose as needed, start Oxycodne elixer today, no preop pain m eds taken. Ketoralac ordered IV (last outpt pain med was percocet in October) GI - post of ileus, continue with clears today, start satya fulls in a.m. Elec - give oral phosphorous today. Decrease IV fluid to 75 mls per hour, d/c LR and go to D5.45 NS with 20 meq KCL. Mercedez Odom - 9:57 AM PDTINPATIENT progress note Author: MERCEDEZ STANLEY ACNP Attending Physician: Grey Gaspar HPI: Slept so good last nite with the new bed. Gets tired more easily. Taking water due t o nausea yesterday (due to the salt in the soup, few bites of jello). Rousseau out, doing wel l and urinating a lot. Burping, no flatus yet. Is not uncomfortable with gas in his belly. Was off of Coumadin for 3 days before surgery, INR was 1.7 going into surgery, no Lovenox at home while he was off the Coumadin. The BLOW TORCH OPERATOR is helping to lower the incisional pain, 3/4 rating now, it was 8-9/10 first couple of days, but now is better. Back pain is better. H e likes really cold milk so satya full liquids tomorrow is a good plan Physical Exam: BP 140/83 | Pulse 110 | Temp 36.7 C (98.1 F) | Resp 18 | Ht 1.85 m (6' 1") | Wt 207.5 k g (457 lbs 7.3 oz) | SpO2 93% Systolic (24hrs), Av mmHg, Min:140 mmHg, Max:207 mmHg Diastolic (24hrs), Av mmHg, Min:70 mmHg, Max:100 mmHg Pulse Av.9 Min: 86 Max: 110 Temp Av.9 C (98.4 F) Min: 36.7 C (98.1 F) Max: 37 C (98.6 F) Resp Av.7 Min: 16 Max: 18 SpO2 Av.2 % Min: 92 % Max: 100 % LymphatiData: Assessment and Plan: See next note for assess and plan ; Italo Bhatia - 3:49 PM PDTSome pain overnight along with itching. Highly motivated, ambulating. Urine output is OK, but Hct is at pre-op level and Cr is slightly up, so I suspect he is in travascularly dry. Abd soft, wound OK, minimal output from MATTHIEU. Doing well --fluid bolus --cont BLOW TORCH OPERATOR --begin Coumadin --therapeutic Lovenox to begin tomorrow --begin Toradol tomorrow if Cr lower --sips of clears Rochelle Jin - 03/20/2008 12:02 PM PDTFormatting of this note might be different from the orig inal. INPATIENT PROGRESS NOTE Hospital Day:1 Author; MERCEDEZ STANLEY ACNP Attending Physician: Deveney,Grey Interval Hx: POD 1, after open danette en Y gastric bypass, s/p lap band removal August 15 f or lap band port infection. Complaints of back pain, ready to get the rousseau out. Has kaitlin ble itching with the BLOW TORCH OPERATOR pain medication, on Hydromorphone. On insulin drip, 3 units per ho ur now - on Lanuts 32 units once a day at 1600. Coumadin was held on Monday, he had Loven ox bridging preop Physical Exam: Last Vitals: BP 207/83 | Pulse 98 | Temp 36.9 C (98.4 F) | Resp 16 | Ht 1.85 m (6' 1") | Wt 207.5 kg (457 lbs 7.3 oz) | SpO2 93% O2 Delivery Device: Nasal cannula 24 Hour Vital Min/Max: Systolic (24hrs), Av mmHg, Min:130 mmHg, Max:207 mmHg Diastolic (24hrs), Av mmHg, Min:46 mmHg, Max:94 mmHg Pulse Av.8 Min: 69 Max: 119 Temp Av.7 C (98.0 F) Min: 36 C (96.8 F) Max: 37.1 C (98.8 F) Resp Av.2 Min: 14 Max: 20 SpO2 Av.9 % Min: 93 % Max: 100 % Intake/Output Summary (Last 24 hours) at 03/20 1202 Last data filed at 03/20 1057 Gross per 24 hour Intake 6099 ml Output 1960 ml Net 4139 ml General Appearance: alert and oriented, up in large cardiac bariatric chair HEENT: central line in right neck has no erythema, mild drainage, dressing intact, no swell ing Respiratory: clear to auscultation, 93 % O2 Sat on Room air Cardiovascular: 104 beats per minute, regular Gastrointestinal: Obese, soft, dressing changed due to mild bleeding, MATTHIEU bulb with S/S drai nage, tender midline incision. Musculoskeletal: Walked with PT, DELA CRUZ's Skin: brawny skin changes LE's, 2+ edema, swellling LLE with clot present, WWP Neurologic: intact Psychiatric: no abnormalties noted Assessment and Plan: POD 1 - open Gastric bypass for weight loss, history of weight regain after removal of infe cted lap band port and gastric band 7 months ago Endo - continues on drip at 3.5 units per hour, 170-180 range, on lantus subcu at home once daily Heme- surgical dressing changed for mod bleeding at incisional site, Hct 39.4, WBC 12.4 Car - BP elevated last measurement - upper extrem large amt redundant skin, recheck for acc uracy IV's running at 250 mls per hour (dextrose for insulin drip 50 mls per hr, 200 on MIV w ith 20 meq KCL History of LLE DVT (thigh to calf extensive) - was on coumadin 15 mg at 4 pm daily. Res tart Coumadin per Dr. Gaspar. He took his Lisinopril 40 mg day before surgery, may hav e intravascular spacing, and hence lower output. Will check on necessary IV hydration rates . Pulm - has CPAP at bedside, on pulse ox (will keep since on BLOW TORCH OPERATOR, has some drops in Saturati ons) Gu - ready for cath removal, is walking, adequate output (400-500 out) Pain - currently on BLOW TORCH OPERATOR Hydromorphone, itching, needs Benadryl IV, consider changing to Fen tanyl. Will talk to Dr. Torres. hiteLee - 03/20 10:52 AM PDT Nutrition Consult Consult received for Ghassan Chris pereira 47 y.o. Male s/p open Danette en Y Gastric Bypass PMH DM2, HTN, Lap Band removal 08/27/07 Diet:Satya CL I/O 3259/1959 BMx 0 CBG 64-170 Pert Meds : Insulin gtt Lab Results Lab Test Name Results Date/Time NA 138 03/20/08 K 4.2 03/20/08 CL 102 03/20/08 BICARB 31 03/20/08 BUN 19 03/20/08 CR 1.2 03/20/08 GLU 130 03/20/08 CA 8.3 03/20/08 MG 1.5 03/20/08 PO4 3.3 03/20/08 AST 44 03/17/08 ALT 38 03/17/08 AP 66 03/17/08 TBILI 1.2 03/17/08 ALB 3.4 03/17/08 Nutrition Diagnosis Problem: Pt with food and nutrition knowledge deficit and potential for inadequate nutrient utilization Etiology r/t need for modified diet and bypass nutrient absorption site As shown by in ability to millicent large portions after gastric bypass Nutrition Goals Ht. 74" Wt 207.5 kg AdjBW 116.7 kg UBW 147.7 kg DBW 86.4 k BMI 58.6 wt gain 82 # Over 7 Months Unintentional Energy needs:8159-5961 Kcal( 18-22 Kcal/kgABW) Protein needs: 130-173 Gm Pro ( 1.5-2 Gm pro/kg DBW) Assessment Pt well known from prior hospitalization when former Lap Band removed. Pt has regained 82 # . Said he was"in it to win it" when he got his Lap Band and was compliant and had success of 175# wt loss. Pt has all recommmended ingredients and supplements, but says he would rather have monthly B12 shots than take pills. Reviewed all diet principles eventhough he and his mother received same ed last Nov. Seems to understand diet principles and motivated to follo w. Plan Rec follow up with outpt RD in 3-4 weeks for reinforcement of diet principles Has handout x [address] info. Note pt with low Mg and rec repletion. #[id number] Electronically sign ed by Lee Day at 03/20/2008 11:12 AM PDTdocumented in this encounter Procedure Notes Other, Faculty - 03/24/2008 12:34 PM PDTAssociated Order(s): ANESTHESIA/SEDATION OtherDaniel - 03/24/2008 12:34 PM PDTAssociated Order(s): ANESTHESIA/SEDATION Other, Faculty - 12:34 PM PDT Other, Faculty - 03/23/2008 4:54 PM PDTAssociated Order(s): ANESTHES IA/SEDATION Italo Freeman E - 03/19/2008 12:00 AM PDTAssociated Order(s): OPERATION RECOR D [id number] CHRIS MCKINNON [id number] Date: 03/19/2008 Attending Surgeon: Grey Gaspar M.D. Protective Signal Repairer Helper(s): Italo Freeman M.D. Preoperative Diagnosis(es): Morbid obesity. Postoperative Diagnosis(es): Morbid obesity. Procedures Performed: Attempted laparoscopic converted to open gastric bypass. Estimated Blood Loss: Approximately 300 mL. Complications: None. Specimens: None. Drains: A #10 MATTHIEU drain was placed in the upper abdomen. Indications: Mr. Perez is a 47-year-old man with a BMI of 61 and other comorbidities associated with morbid obesity including diabetes, hypertension, he has a chronic deep venous thrombosis in his left lower extremity. He is here to undergo a gastric bypass in an attempt to lose weight. The risks and benefits of the procedure were explained to him, and he agrees to proceed. Procedure: The patient was brought to the operating room and placed supine on the operating room table. General anesthesia was induced without incident. The patient was brought lower on the table and his feet were secured to the table footboards. His ankles were taped for support. His arms were thoroughly secured to the armboards. A reverse Trendelenburg test was performed on the table to ensure that he was adequately secured. The abdomen was prepped and draped in the usual sterile fashion. A surgical pause was then performed to ensure the correct procedure was being done on the patient. We gained access to the abdomen using a Veress needle and inserted in the midline above the umbilicus. The placement was tested with a water drop test, and the abdomen was insufflated to 15 mm of CO2 pressure. We placed an 11 mm trocar to the right of the umbilicus approximately 15 cm below the xiphoid process and inserted a 30 degree laparoscope in the abdomen. There were extensive adhesions from his previous operations. We spent approximately 20 minutes taking down the adhesions, but once we approached the upper abdomen, it was felt that there were too many dense adhesions to safely create a gastric pouch laparoscopically. Given that we had very little visualization, so the decision was made to complete the operation as an open operation. We then made an incision from the xiphoid process to the top of the umbilicus, divided the flap tissues with electrocautery. We entered the abdomen sharply and then extended our division of the fascia with electrocautery. We placed an Omni retractor in the upper abdomen to assist in visualization of the surgical field. We then elevated the transverse mesocolon and identified the ligament of Treitz. We marched approximately 50 cm along the small intestine and divided it with two firings of an Endo EFRN white load stapler. We then marked the distal end with a 4 Czech Elton drain and then marched to approximately 150 cm below this. At this point, the proximal end of the small intestine was attached to this distal most point. We then using 2 interrupted 0 Vicryl sutures, we then made 2 small enterotomies in either limb, inserted each limb of a white Endo-FERN load stapler into each limb of the suture anastomosis and fired it, thus creating jejunojejunostomy. We closed the anterior defect using a running 2-0 Maxon and then placed serial interrupted 2-0 Vicryl Lemberts. We then turned our attention to the upper abdomen and the creation of the gastric pouch. Due to his previous Lap-Band placement, there was extensive scarring and adhesions. We created a window along the lesser curvature of the stomach in order to make a 20 mL pouch. This area was very firm and scarred. Because we could not enter the lesser sac easily from this point, we then created a window along the greater curvature of the stomach and entered the lesser sac that way, and then we were able to connect our dissection on the lesser curvature to the lesser sac using a window on the greater curvature as a guide. We then used serial firings of an Endo-FERN green-load stapler to create gastric pouch which was approximately 20 cc in volume. Because the tissue was so inflamed and scarred, we oversewed the staple line of the gastric remnant with a running 2-0 Maxon suture to reinforce it. We then brought up the Danette limb, ensuring it was not twisted, and joined the Danette limb to good gastric pouch using interrupted 2-0 silk sutures. Using electrocautery, we then opened the stomach and the small intestine, and then created a handsewn anastomosis using first a running 2-0 Maxon and then reinforcing with interrupted 2-0 silk sutures. This was done over an orogastric tube to ensure a patent lumen was created. We then withdrew the orogastric tube to just proximal to the anastomosis, clamped the Danette, and infused approximately 75 mL of methylene blue. No spillage was noted into the surgical field. The tube was then withdrawn, and then we placed a #10 MATTHIEU in the area of the anastomosis and brought it out through the anterior abdominal wall. We briefly inspected the abdomen for any bleeding or injury, none were noted, and the fascia was then closed with a running #1 PDS, and the skin was closed with hosea after irrigation with normal saline. The incision was then sterile dressed. The patient was awakened from general anesthesia and brought to the recovery room in stable condition. All sponge, needle, and instrument counts were all correct at the end of the case, and Dr. Grey Gaspar was present throughout the entire case and made all surgical decisions regarding Mr. Perez. Italo Freeman M.D. Grey Gaspar M.D. / [id number] / [id number] / [id number] / ther, Faculty - 03/09 3:57 PM PDT Other, Faculty - 03/17/2008 7:39 PM PDT Other, - 03/17/2008 7:39 PM PDT Other, - 03/17/2008 7:39 PM PDT documented in this encounter Miscellaneous Notes Scan - Other, Faculty - 03/24/2008 12:34 PM PDT Scan - Other, - 03/24/2008 12:34 P M PDT Scan - Other, - 03/24/2008 12:34 PM PDT Scan - Other, - 03/24/2008 1 2:34 PM PDT Scan - Other, - 03/24/2008 12:34 PM PDT Scan - Other, - 2007 12:34 PM PDT Scan - Other, - 03/24/2008 12:34 PM PDT Scan - Other, - 03/24/2008 12:34 PM PDT Scan - Other, - 03/24/2008 12:34 PM PDT documented in this encounter Plan of Treatment Not on filedocumented as of this encounter Procedures + +--------+ + + + | Procedure Name | Priori | Date/Time | Associated Diagnosis | Comments | | | ty | | | | + +--------+ + + + | ANESTHESIA/SEDATION | | 03/24/2008 | | Results for this | | | | 12:34 PM | | procedure are in the | | | | PDT | | results section. | + +--------+ + + + | ANESTHESIA/SEDATION | | 03/24/2008 | | Results for this | | | | 12:34 PM | | procedure are in the | | | | PDT | | results section. | + +--------+ + + + | RESP CARE THERAPY | Routin | 03/24/2008 | | Results for this | | | e | 5:19 AM | | procedure are in the | | | | PDT | | results section. | + +--------+ + + + | INR | Routin | 03/24/2008 | | Results for this | | | e | 3:30 AM | | procedure are in the | | | | PDT | | results section. | + +--------+ + + + | CBC ONLY | Routin | 03/24/2008 | | Results for this | | | e | 3:30 AM | | procedure are in the | | | | PDT | | results section. | + +--------+ + + + | PHOSPHORUS, PLASMA | Routin | 03/24/2008 | | Results for this | | | e | 3:30 AM | | procedure are in the | | | | PDT | | results section. | + +--------+ + + + | MAGNESIUM, PLASMA | Routin | 03/24/2008 | | Results for this | | | e | 3:30 AM | | procedure are in the | | | | PDT | | results section. | + +--------+ + + + | ANESTHESIA/SEDATION | | 03/23/2008 | | Results for this | | | | 4:54 PM | | procedure are in the | | | | PDT | | results section. | + +--------+ + + + | RESP CARE THERAPY | Routin | 03/23/2008 | | Results for this | | | e | 3:00 AM | | procedure are in the | | | | PDT | | results section. | + +--------+ + + + | INR | Routin | 03/23/2008 | | Results for this | | | e | 2:00 AM | | procedure are in the | | | | PDT | | results section. | + +--------+ + + + | BASIC METABOLIC SET | Urgent | 03/23/2008 | | Results for this | | (NA, K, CL, TCO2, | | 2:00 AM | | procedure are in the | | BUN, CR, GLU, CA) | | PDT | | results section. | + +--------+ + + + | CBC ONLY | Routin | 03/23/2008 | | Results for this | | | e | 2:00 AM | | procedure are in the | | | | PDT | | results section. | + +--------+ + + + | PHOSPHORUS, PLASMA | Urgent | 03/23/2008 | | Results for this | | | | 2:00 AM | | procedure are in the | | | | PDT | | results section. | + +--------+ + + + | MAGNESIUM, PLASMA | Urgent | 03/23/2008 | | Results for this | | | | 2:00 AM | | procedure are in the | | | | PDT | | results section. | + +--------+ + + + | RESP CARE THERAPY | Routin | 03/23/2008 | | Results for this | | | e | 1:44 AM | | procedure are in the | | | | PDT | | results section. | + +--------+ + + + | RESP CARE THERAPY | Routin | 03/22/2008 | | Results for this | | | e | 11:40 PM | | procedure are in the | | | | PDT | | results section. | + +--------+ + + + | RESP CARE THERAPY | Routin | 03/22/2008 | | Results for this | | | e | 3:10 AM | | procedure are in the | | | | PDT | | results section. | + +--------+ + + + | RESP CARE THERAPY | Routin | 03/22/2008 | | Results for this | | | e | 2:55 AM | | procedure are in the | | | | PDT | | results section. | + +--------+ + + + | INR | Routin | 03/22/2008 | | Results for this | | | e | 1:00 AM | | procedure are in the | | | | PDT | | results section. | + +--------+ + + + | BASIC METABOLIC SET | Urgent | 03/22/2008 | | Results for this | | (NA, K, CL, TCO2, | | 1:00 AM | | procedure are in the | | BUN, CR, GLU, CA) | | PDT | | results section. | + +--------+ + + + | CBC ONLY | Routin | 03/22/2008 | | Results for this | | | e | 1:00 AM | | procedure are in the | | | | PDT | | results section. | + +--------+ + + + | PHOSPHORUS, PLASMA | Urgent | 03/22/2008 | | Results for this | | | | 1:00 AM | | procedure are in the | | | | PDT | | results section. | + +--------+ + + + | MAGNESIUM, PLASMA | Urgent | 03/22/2008 | | Results for this | | | | 1:00 AM | | procedure are in the | | | | PDT | | results section. | + +--------+ + + + | RESP CARE THERAPY | Routin | 2008 | | Results for this | | | e | 10:30 PM | | procedure are in the | | | | PDT | | results section. | + +--------+ + + + | VASC LAB VENOUS | Routin | 2008 | | Results for this | | DUPLEX LOWER | e | 3:04 PM | | procedure are in the | | EXTREMITY BILAT COMP | | PDT | | results section. | + +--------+ + + + | RESP CARE THERAPY | Routin | 2008 | | Results for this | | | e | 2:27 AM | | procedure are in the | | | | PDT | | results section. | + +--------+ + + + | BASIC METABOLIC SET | Urgent | 2008 | | Results for this | | (NA, K, CL, TCO2, | | 1:00 AM | | procedure are in the | | BUN, CR, GLU, CA) | | PDT | | results section. | + +--------+ + + + | CBC ONLY | Routin | 2008 | | Results for this | | | e | 1:00 AM | | procedure are in the | | | | PDT | | results section. | + +--------+ + + + | PHOSPHORUS, PLASMA | Urgent | 2008 | | Results for this | | | | 1:00 AM | | procedure are in the | | | | PDT | | results section. | + +--------+ + + + | MAGNESIUM, PLASMA | Urgent | 2008 | | Results for this | | | | 1:00 AM | | procedure are in the | | | | PDT | | results section. | + +--------+ + + + | BASIC METABOLIC SET | Urgent | 03/20/2008 | | Results for this | | (NA, K, CL, TCO2, | | 4:30 AM | | procedure are in the | | BUN, CR, GLU, CA) | | PDT | | results section. | + +--------+ + + + | CBC ONLY | Urgent | 03/20/2008 | | Results for this | | | | 4:30 AM | | procedure are in the | | | | PDT | | results section. | + +--------+ + + + | PHOSPHORUS, PLASMA | Urgent | 03/20/2008 | | Results for this | | | | 4:30 AM | | procedure are in the | | | | PDT | | results section. | + +--------+ + + + | MAGNESIUM, PLASMA | Urgent | 03/20/2008 | | Results for this | | | | 4:30 AM | | procedure are in the | | | | PDT | | results section. | + +--------+ + + + | RESP CARE THERAPY | Routin | 03/20/2008 | | Results for this | | | e | 4:14 AM | | procedure are in the | | | | PDT | | results section. | + +--------+ + + + | RESP CARE THERAPY | Routin | 03/20/2008 | | Results for this | | | e | 4:14 AM | | procedure are in the | | | | PDT | | results section. | + +--------+ + + + | RESP CARE THERAPY | Routin | 03/19/2008 | | Results for this | | | e | 11:00 PM | | procedure are in the | | | | PDT | | results section. | + +--------+ + + + | X-RAY PORTABLE CHEST | Urgent | 03/19/2008 | | Results for this | | 1 VIEW | | 1:32 PM | | procedure are in the | | | | PDT | | results section. | + +--------+ + + + | INR | Urgent | 03/19/2008 | | Results for this | | | | 6:20 AM | | procedure are in the | | | | PDT | | results section. | + +--------+ + + + | OPERATION RECORD | | 03/19/2008 | | Results for this | | | | 12:00 AM | | procedure are in the | | | | PDT | | results section. | + +--------+ + + + documented in this encounter Results ANESTHESIA/SEDATION (03/24/2008 12:34 PM PDT) + + + | Narrative | Performed At | + + + | | | + + + + + | Procedure Note | + + | [facility] Faculty - 03/24/2008 12:34 PM PDT | + + ANESTHESIA/SEDATION (03/24/2008 12:34 PM PDT) + + + | Narrative | Performed At | + + + | | | + + + + + | Procedure Note | + + | Other, Faculty - 03/24/2008 12:34 PM PDT | + + RESP CARE THERAPY (03/24/2008 5:19 AM PDT) + + + + + + | Component | Value | Ref Range | Performed | Pathologist | | | | | At | Signature | + + + + + + | RESPIRATORY | Oxygen device on | | [facility] | | | CARE | standby, nasal | | RESPIRATORY | | | | canula.Electronically | | THERAPY | | | | Signed by: Pepe Montano, | | | | + + + + + + + + | Specimen | + + | | + + + + + | Narrative | Performed At | + + + | Ordered by an unspecified provider. | [facility] | | | RESPIRATORY | | | THERAPY | + + + + + + + + | Performing | Address | City/State/Zipcode | Phone Number | | Organization | | | | + + + + + | [facility] | [address] | [place], [place] | | | THERAPY | [facility] | [phone] | | + + + + + | [facility] | [address] | [place], [place] | | | THERAPY | [facility] | [address] | | + + + + + INR (PT) (03/24/2008 3:30 AM PDT) + + + + + + | Component | Value | Ref Range | Performed | Pathologist | | | | | At | Signature | + + + + + + | INR | 1.62 (H)Comment: | 0.90 - 1.20 INR | [...] | + + + + + | [facility] | [address] [facility] | [place] [address] | | | PATHOLOGY | [address] | | | + + + + + | [facility] DE[facility] | [address] [facility] | [place] [address] | | | PATHOLOGY | [address] | | | + + + + + PHOSPHORUS, PLASMA (03/24/2008 3:30 AM PDT) + +-------+ + + + | Component | Value | Ref Range | Performed | Pathologist | | | | | At | Signature | + +-------+ + + + | PHOSPHORUS, | 2.9 | 2.4 - 4.7 mg/dL | [facility] | | | PLASMA | | | DEPARTMENT | | | (LAB) | | | OF | | | | | | PATHOLOGY | | + +-------+ + + + + + | Specimen | + + | Blood - Blood | + + + + + + + | Performing | Address | City/State/Zipcode | Phone Number | | Organization | | | | + + + + + | [facility] | [address] | [place] [address] | | | PATHOLOGY | [address] | | | + + + + + | [facility] DE[facility] | [address] | [place] [address] | | | PATHOLOGY | [address] | | | + + + + + MAGNESIUM, PLASMA (03/24/2008 3:30 AM PDT) + +-------+ + + + | Component | Value | Ref Range | Performed | Pathologist | | | | | At | Signature | + +-------+ + + + | MAGNESIUM,P | 1.9 | 1.8 - 2.5 mg/dL | [facility] | | | LASMA | | | DEPARTMENT | | | | | | OF | | | | | | PATHOLOGY | | + +-------+ + + + + + | Specimen | + + | Blood - Blood | + + + + + + + | Performing | Address | City/State/Zipcode | Phone Number | | Organization | | | | + + + + + | [facility] | [address] | [place] [address] | | | PATHOLOGY | [address] | | | + + + + + | [facility] | [address] | [place] [address] | | | PATHOLOGY | [address] | | | + + + + + CBC ONLY (03/24/2008 3:30 AM PDT) + + + + + + | Component | Value | Ref Range | Performed | Pathologist | | | | | At | Signature | + + + + + + | WHITE CELL | 7.1 | 4.4 - 11.0 K/cu | [facility] | | | COUNT | | mm | DEPARTMENT | | | | | | OF | | | | | | PATHOLOGY | | + + + + + + | RED CELL | 3.70 (L) | 4.50 - 5.90 | [facility] | | | COUNT | | M/cu mm | DEPARTMENT | | | | | | OF | | | | | | PATHOLOGY | | + + + + + + | HEMOGLOBIN | 11.8 (L) | 13.5 - 17.5 | [facility] | | | | | g/dL | DEPARTMENT | | | | | | OF | | | | | | PATHOLOGY | | + + + + + + | HEMATOCRIT | 33.8 (L) | 41.0 - 53.0 % | [facility] | | | | | | DEPARTMENT | | | | | | OF | | | | | | PATHOLOGY | | + + + + + + | MCV | 91.4 | 80.0 - 96.0 fL | [facility] | | | | | | DEPARTMENT | | | | | | OF | | | | | | PATHOLOGY | | + + + + + + | MCHC | 34.8 | 33.4 - 35.5 | [facility] | | | | | g/dL | DEPARTMENT | | | | | | OF | | | | | | PATHOLOGY | | + + + + + + | RDW | 13.9 | 11.5 - 15.0 % | [facility] | | | | | | DEPARTMENT | | | | | | OF | | | | | | PATHOLOGY | | + + + + + + | PLATELET | 228 | 150 - 400 K/cu | [facility] | | | COUNT | | mm | DEPARTMENT | | | | | [...] + + + + + | [facility] | [facility] [facility] | [place] [address] | | | PATHOLOGY | [address] | | | + + + + + | [facility] DEPARTMENT [facility] | [facility] [facility] | [place] [address] | | | PATHOLOGY | [address] | | | + + + + + ANESTHESIA/SEDATION (03/23/2008 4:54 PM PDT) + + + | Narrative | Performed At | + + + | | | + + + + + | Procedure Note | + + | Other, Faculty - 03/23/2008 4:54 PM PDT | + + RESP CARE THERAPY (03/23/2008 3:00 AM PDT) + + + + + + | Component | Value | Ref Range | Performed | Pathologist | | | | | At | Signature | + + + + + + | RESPIRATORY | Order_ Bipap Noc PT's | | [facility] | | | CARE | OWN EQUIP therapy | | RESPIRATORY | | | | omitted.Reason : | | THERAPY | | | | Therapy was not given | | | | | | because patient or | | | | | | caregiver refused. -Time | | | | | | due:Electronically | | | | | | Signed by: Pepe Montano, | | | | + + + + + + + + | Specimen | + + | | + + + + + | Narrative | Performed At | + + + | Ordered by an unspecified provider. | [facility] | | | RESPIRATORY | | | THERAPY | + + + + + + + + | Performing | Address | City/State/Zipcode | Phone Number | | Organization | | | | + + + + + | [facility] | [address] | [place], [place] | | | THERAPY | [address] | [address] | | + + + + + | [facility] | [address] | [place], [place] | | | THERAPY | [address] | [address] | | + + + + + INR (PT) (03/23/2008 2:00 AM PDT) + + + + + + | Component | Value | Ref Range | Performed | Pathologist | | | | | At | Signature | + + + + + + | INR | 1.32 (H)Comment: | 0.90 - 1.20 INR | [...] + + + + + | [facility] | [address] [facility] | [place] [address] | | | PATHOLOGY | [address] | | | + + + + + | [facility] | [address] [place] [address] | [place] [address] | | | PATHOLOGY | [address] | | | + + + + + PHOSPHORUS, PLASMA (03/23/2008 2:00 AM PDT) + +-------+ + + + | Component | Value | Ref Range | Performed | Pathologist | | | | | At | Signature | + +-------+ + + + | PHOSPHORUS, | 2.7 | 2.4 - 4.7 mg/dL | [facility] | | | PLASMA | | | DEPARTMENT | | | (LAB) | | | OF | | | | | | PATHOLOGY | | + +-------+ + + + + + | Specimen | + + | Blood - Blood | + + + + + + + | Performing | Address | City/State/Zipcode | Phone Number | | Organization | | | | + + + + + | [facility] | [address] | [place] [address] | | | PATHOLOGY | [address] | | | + + + + + | [facility] DEPARTMENT | [address] | [place] [address] | | | PATHOLOGY | [address] | | | + + + + + MAGNESIUM, PLASMA (03/23/2008 2:00 AM PDT) + +-------+ + + + | Component | Value | Ref Range | Performed | Pathologist | | | | | At | Signature | + +-------+ + + + | MAGNESIUM,P | 2.0 | 1.8 - 2.5 mg/dL | [facility] | | | LASMA | | | DEPARTMENT | | | | | | OF | | | | | | PATHOLOGY | | + +-------+ + + + + + | Specimen | + + | Blood - Blood | + + + + + + + | Performing | Address | City/State/Zipcode | Phone Number | | Organization | | | | + + + + + | [facility] | [facility] | [place] [address] | | | PATHOLOGY | [address] | | | + + + + + | [facility] | [address] [place] [address] | [place] [address] | | | PATHOLOGY | [address] | | | + + + + + CBC ONLY (03/23/2008 2:00 AM PDT) + + + + + + | Component | Value | Ref Range | Performed | Pathologist | | | | | At | Signature | + + + + + + | WHITE CELL | 6.8 | 4.4 - 11.0 K/cu | [facility] | | | COUNT | | mm | DEPARTMENT | | | | | | OF | | | | | | PATHOLOGY | | + + + + + + | RED CELL | 3.47 (L) | 4.50 - 5.90 | [facility] | | | COUNT | | M/cu mm | DEPARTMENT | | | | | | OF | | | | | | PATHOLOGY | | + + + + + + | HEMOGLOBIN | 11.1 (L) | 13.5 - 17.5 | [facility] | | | | | g/dL | DEPARTMENT | | | | | | OF | | | | | | PATHOLOGY | | + + + + + + | HEMATOCRIT | 31.5 (L) | 41.0 - 53.0 % | [facility] | | | | | | DEPARTMENT | | | | | | OF | | | | | | PATHOLOGY | | + + + + + + | MCV | 90.8 | 80.0 - 96.0 fL | [facility] | | | | | | DEPARTMENT | | | | | | OF | | | | | | PATHOLOGY | | + + + + + + | MCHC | 35.3 | 33.4 - 35.5 | [facility] | | | | | g/dL | DEPARTMENT | | | | | | OF | | | | | | PATHOLOGY | | + + + + + + | RDW | 13.6 | 11.5 - 15.0 % | [facility] | | | | | | DEPARTMENT | | | | | | OF | | | | | | PATHOLOGY | | + + + + + + | PLATELET | 215 | 150 - 400 K/cu | [facility] | | | COUNT | | mm | DEPARTMENT | | | | | [...] + + + + + | [facility] | [address] [address] | [place] [address] | | | PATHOLOGY | [address] | | | + + + + + | [facility] | [address] | [place] [address] | | | PATHOLOGY | [address] | | | + + + + + BASIC METABOLIC SET (NA, K, CL, TCO2, BUN, CR, GLU, CA) (03/23/2008 2:00 AM PDT) + +---------+ + + + | Component | Value | Ref Range | Performed | Pathologist | | | | | At | Signature | + +---------+ + + + | GLUCOSE, | 131 (H) | 60 - 99 mg/dL | [facility] | | | PLASMA | | | DEPARTMENT | | | (LAB) | | | OF | | | | | | PATHOLOGY | | + +---------+ + + + | BUN, PLASMA | 9 | 6 - 20 mg/dL | [facility] | | | (LAB) | | | DEPARTMENT | | | | | | OF | | | | | | PATHOLOGY | | + +---------+ + + + | CREATININE | 0.9 | 0.7 - 1.3 mg/dL | [facility] | | | PLASMA | | | DEPARTMENT | | | (LAB) | | | OF | | | | | | PATHOLOGY | | + +---------+ + + + | SODIUM, | 136 | 136 - 145 | [facility] | | | PLASMA | | mmol/L | DEPARTMENT | | | (LAB) | | | OF | | | | | | PATHOLOGY | | + +---------+ + + + | POTASSIUM, | 4.1 | 3.5 - 5.1 | [facility] | | | PLASMA | | mmol/L | DEPARTMENT | | | (LAB) | | | OF | | | | | | PATHOLOGY | | + +---------+ + + + | CHLORIDE, | 101 | 98 - 107 mmol/L | [facility] | | | PLASMA | | | DEPARTMENT | | | (LAB) | | | OF | | | | | | PATHOLOGY | | + +---------+ + + + | TOTAL CO2, | 30 (H) | 23 - 29 mmol/L | [facility] | | | PLASMA | | | DEPARTMENT | | | (LAB) | | | OF | | | | | | PATHOLOGY | | + +---------+ + + + | CALCIUM, | 8.2 (L) | 8.5 - 10.5 | [facility] | | | PLASMA | | mg/dL | DEPARTMENT | | | (LAB) | | | OF | | | | | | PATHOLOGY | | + +---------+ + + + + + | Specimen | + + | Blood - Blood | + + + + + + + | Performing | Address | City/State/Zipcode | Phone Number | | Organization | | | | + + + + + | [facility]MENT [facility] | [address] | [place] [address] | | | PATHOLOGY | [address] | | | + + + + + | [facility] | [address] | [place] [address] | | | PATHOLOGY | [address] | | | + + + + + RESP CARE THERAPY (03/23/2008 1:44 AM PDT) + + + + + + | Component | Value | Ref Range | Performed | Pathologist | | | | | At | Signature | + + + + + + | RESPIRATORY | Oxygen device on | | [facility] | | | CARE | standby, nasal | | RESPIRATORY | | | | canula.Electronically | | THERAPY | | | | Signed by: Pepe Montano, | | | | + + + + + + + + | Specimen | + + | | + + + + + | Narrative | Performed At | + + + | Ordered by an unspecified provider. | [facility] | | | RESPIRATORY | | | THERAPY | + + + + + + + + | Performing | Address | City/State/Zipcode | Phone Number | | Organization | | | | + + + + + | [facility] | [address] | [place], [place] | | | THERAPY | [address] | [address] | | + + + + + | [facility] | [address] [facility] | [place], [place] | | | THERAPY | [facility] | [address] | | + + + + + RESP CARE THERAPY (03/22/2008 11:40 PM PDT) + + + + + + | Component | Value | Ref Range | Performed | Pathologist | | | | | At | Signature | + + + + + + | RESPIRATORY | Home CPAP/BiLevel check | | [facility] | | | CARE | and patient | | RESPIRATORY | | | | assesment::This is a | | THERAPY | | | | routine check of the | | | | | | home CPAP device. The | | | | | | device is not in useat | | | | | | this time. Patient was | | | | | | talked to extensively | | | | | | about his cpap | | | | | | andencouraged greatly to | | | | | | wear it he has decided | | | | | | not to wear it. Will not | | | | | | begoing on it the rest | | | | | | of the | | | | | | night.Electronically | | | | | | Signed by: Pepe Montano, | | | | + + + + + + + + | Specimen | + + | | + + + + + | Narrative | Performed At | + + + | Ordered by an unspecified provider. | [facility] | | | RESPIRATORY | | | THERAPY | + + + + + + + + | Performing | Address | City/State/Zipcode | Phone Number | | Organization | | | | + + + + + | [facility] | [address] | [place], [place] | | | THERAPY | [facility] | [address] | | + + + + + | [facility] | [address] | [place], [place] | | | THERAPY | [facility] | [address] | | + + + + + RESP CARE THERAPY (03/22/2008 3:10 AM PDT) + + + + + + | Component | Value | Ref Range | Performed | Pathologist | | | | | At | Signature | + + + + + + | RESPIRATORY | Oxygen device on | | [facility] | | | CARE | standby, nasal | | RESPIRATORY | | | | canula.Electronically | | THERAPY | | | | Signed by: Yrn | | | | | | ANIRUDH Jackson | | | | + + + + + + + + | Specimen | + + | | + + + + + | Narrative | Performed At | + + + | Ordered by an unspecified provider. | [facility] | | | RESPIRATORY | | | THERAPY | + + + + + + + + | Performing | Address | City/State/Zipcode | Phone Number | | Organization | | | | + + + + + | [facility] | [address] | [place], [place] | | | THERAPY | [facility] | [address] | | + + + + + | [facility] | [address] | [place], [place] | | | THERAPY | [facility] | [address] | | + + + + + RESP CARE THERAPY (03/22/2008 2:55 AM PDT) + + + + + + | Component | Value | Ref Range | Performed | Pathologist | | | | | At | Signature | + + + + + + | RESPIRATORY | Home CPAP/BiLevel check | | [facility] | | | CARE | and patient | | RESPIRATORY | | | | assesment::This is a | | THERAPY | | | | routine check of the | | | | | | home CPAP device. The | | | | | | device is not in useat | | | | | | this time, The patient | | | | | | is not yet ready to go | | | | | | to sleep.Electronically | | | | | | Signed by: Yrn | | | | | | ANIRUDH Jackson | | | | + + + + + + + + | Specimen | + + | | + + + + + | Narrative | Performed At | + + + | Ordered by an unspecified provider. | [facility] | | | RESPIRATORY | | | THERAPY | + + + + + + + + | Performing | Address | City/State/Zipcode | Phone Number | | Organization | | | | + + + + + | [facility] | [address] | [place], [place] | | | THERAPY | [address] | [address] | | + + + + + | [facility] | [address] | [place], [place] | | | THERAPY | [address] | [address] | | + + + + + INR (PT) (03/22/2008 1:00 AM PDT) + + + + + + | Component | Value | Ref Range | Performed | Pathologist | | | | | At | Signature | + + + + + + | INR | 1.27 (H)Comment: | 0.90 - 1.20 INR | [...] + + + + + | [facility] | [address] [facility] | [place] [address] | | | PATHOLOGY | [address] | | | + + + + + | [facility] | [address] [facility] | [place] [address] | | | PATHOLOGY | [address] | | | + + + + + PHOSPHORUS, PLASMA (03/22/2008 1:00 AM PDT) + +---------+ + + + | Component | Value | Ref Range | Performed | Pathologist | | | | | At | Signature | + +---------+ + + + | PHOSPHORUS, | 2.3 (L) | 2.4 - 4.7 mg/dL | [facility] | | | PLASMA | | | DEPARTMENT | | | (LAB) | | | OF | | | | | | PATHOLOGY | | + +---------+ + + + + + | Specimen | + + | Blood - Blood | + + + + + + + | Performing | Address | City/State/Zipcode | Phone Number | | Organization | | | | + + + + + | [facility] DE[facility] | [address] | [place] [address] | | | PATHOLOGY | [address] | | | + + + + + | [facility] DEPART[facility] | [address] | [place] [address] | | | PATHOLOGY | [address] | | | + + + + + MAGNESIUM, PLASMA (03/22/2008 1:00 AM PDT) + +-------+ + + + | Component | Value | Ref Range | Performed | Pathologist | | | | | At | Signature | + +-------+ + + + | MAGNESIUM,P | 1.8 | 1.8 - 2.5 mg/dL | [facility] | | | LASMA | | | DEPARTMENT | | | | | | OF | | | | | | PATHOLOGY | | + +-------+ + + + + + | Specimen | + + | Blood - Blood | + + + + + + + | Performing | Address | City/State/Zipcode | Phone Number | | Organization | | | | + + + + + | [facility] DEPARTMENT [facility] | [address] | [place] [address] | | | PATHOLOGY | [address] | | | + + + + + | [facility] | [address] | [place] [address] | | | PATHOLOGY | [address] | | | + + + + + CBC ONLY (03/22/2008 1:00 AM PDT) + + + + + + | Component | Value | Ref Range | Performed | Pathologist | | | | | At | Signature | + + + + + + | WHITE CELL | 6.7 | 4.4 - 11.0 K/cu | [facility] | | | COUNT | | mm | DEPARTMENT | | | | | | OF | | | | | | PATHOLOGY | | + + + + + + | RED CELL | 3.30 (L) | 4.50 - 5.90 | [facility] | | | COUNT | | M/cu mm | DEPARTMENT | | | | | | OF | | | | | | PATHOLOGY | | + + + + + + | HEMOGLOBIN | 10.4 (L) | 13.5 - 17.5 | [facility] | | | | | g/dL | DEPARTMENT | | | | | | OF | | | | | | PATHOLOGY | | + + + + + + | HEMATOCRIT | 30.0 (L) | 41.0 - 53.0 % | [facility] | | | | | | DEPARTMENT | | | | | | OF | | | | | | PATHOLOGY | | + + + + + + | MCV | 90.9 | 80.0 - 96.0 fL | [facility] | | | | | | DEPARTMENT | | | | | | OF | | | | | | PATHOLOGY | | + + + + + + | MCHC | 34.6 | 33.4 - 35.5 | [facility] | | | | | g/dL | DEPARTMENT | | | | | | OF | | | | | | PATHOLOGY | | + + + + + + | RDW | 13.6 | 11.5 - 15.0 % | [facility] | | | | | | DEPARTMENT | | | | | | OF | | | | | | PATHOLOGY | | + + + + + + | PLATELET | 182 | 150 - 400 K/cu | [facility] | | | COUNT | | mm | DEPARTMENT | | | | | [...] + + + + + | [facility] | [address] [facility] | [place] [address] | | | PATHOLOGY | [address] | | | + + + + + | [facility] | [address] [facility] | [place] [address] | | | PATHOLOGY | [address] | | | + + + + + BASIC METABOLIC SET (NA, K, CL, TCO2, BUN, CR, GLU, CA) (03/22/2008 1:00 AM PDT) + +---------+ + + + | Component | Value | Ref Range | Performed | Pathologist | | | | | At | Signature | + +---------+ + + + | GLUCOSE, | 121 (H) | 60 - 99 mg/dL | [facility] | | | PLASMA | | | DEPARTMENT | | | (LAB) | | | OF | | | | | | PATHOLOGY | | + +---------+ + + + | BUN, PLASMA | 15 | 6 - 20 mg/dL | [facility] | | | (LAB) | | | DEPARTMENT | | | | | | OF | | | | | | PATHOLOGY | | + +---------+ + + + | CREATININE | 0.9 | 0.7 - 1.3 mg/dL | [facility] | | | PLASMA | | | DEPARTMENT | | | (LAB) | | | OF | | | | | | PATHOLOGY | | + +---------+ + + + | SODIUM, | 137 | 136 - 145 | [facility] | | | PLASMA | | mmol/L | DEPARTMENT | | | (LAB) | | | OF | | | | | | PATHOLOGY | | + +---------+ + + + | POTASSIUM, | 3.9 | 3.5 - 5.1 | [facility] | | | PLASMA | | mmol/L | DEPARTMENT | | | (LAB) | | | OF | | | | | | PATHOLOGY | | + +---------+ + + + | CHLORIDE, | 102 | 98 - 107 mmol/L | [facility] | | | PLASMA | | | DEPARTMENT | | | (LAB) | | | OF | | | | | | PATHOLOGY | | + +---------+ + + + | TOTAL CO2, | 31 (H) | 23 - 29 mmol/L | [facility] | | | PLASMA | | | DEPARTMENT | | | (LAB) | | | OF | | | | | | PATHOLOGY | | + +---------+ + + + | CALCIUM, | 7.9 (L) | 8.5 - 10.5 | [facility] | | | PLASMA | | mg/dL | DEPARTMENT | | | (LAB) | | | OF | | | | | | PATHOLOGY | | + +---------+ + + + + + | Specimen | + + | Blood - Blood | + + + + + + + | Performing | Address | City/State/Zipcode | Phone Number | | Organization | | | | + + + + + | [facility] DEPARTMENT [facility] | [address] [facility] | [place] [address] | | | PATHOLOGY | [address] | | | + + + + + | [facility] DEPARTMENT [facility] | [address] [facility] | [place] [address] | | | PATHOLOGY | [address] | | | + + + + + RESP CARE THERAPY (2008 10:30 PM PDT) + + + + + + | Component | Value | Ref Range | Performed | Pathologist | | | | | At | Signature | + + + + + + | RESPIRATORY | Home CPAP/BiLevel check | | [facility] | | | CARE | and patient | | RESPIRATORY | | | | assesment::This is a | | THERAPY | | | | routine check of the | | | | | | home CPAP device. The | | | | | | device is not in useat | | | | | | this time, The patient | | | | | | is not yet ready to go | | | | | | to sleep.Electronically | | | | | | Signed by: Yrn | | | | | | ANIRUDH Jackson | | | | + + + + + + + + | Specimen | + + | | + + + + + | Narrative | Performed At | + + + | Ordered by an unspecified provider. | [facility] | | | RESPIRATORY | | | THERAPY | + + + + + + + + | Performing | Address | City/State/Zipcode | Phone Number | | Organization | | | | + + + + + | [facility] | [address] | [place], [place] | | | THERAPY | [address] | [address] | | + + + + + | [facility] | [address] | [place], [place] | | | THERAPY | [facility] | [address] | | + + + + + VASC LAB VENOUS DUPLEX LOWER EXTREMITY BILAT COMP (2008 3:04 PM PDT) + + + + + + | Component | Value | Ref Range | Performed | Pathologist | | | | | At | Signature | + + + + + + | VASC LAB | Med Rec No:[id number] | | | | | VENOUS | Name: | | | | | DUPLEX | GHASSAN PEREZ | | | | | LOWER | Birthday: 1960 | | | | | EXTREMITY | Sex: M | | | | | BILATERAL | Alias:Patient Location: | | | | | COMPLETE | 14AStatus: Inpatient | | | | | | ActiveOrdering | | | | | | Physician: | | | | | | CLIFFORDDEVENEY, | | | | | | M.D.VDLEBVL VENOUS DUP | | | | | | BILAT CMP LE completed | | | | | | on 2008 4:07 | | | | | | PMAccession | | | | | | #[id number]:LOWER | | | | | | EXTREMITY VENOUS | | | | | | EVALUATION: 2008 | | | | | | Dictated | | | | | | 03/24/2008INDICATION: | | | | | | Followup DVT.FINDINGS: | | | | | | The deep and | | | | | | superficial veins of | | | | | | both lower | | | | | | extremitieswere examined | | | | | | with the duplex | | | | | | scanner. There are | | | | | | normal flows | | | | | | andresponses to | | | | | | augmentation and | | | | | | compression in the deep | | | | | | and superficialveins of | | | | | | the right lower | | | | | | extremity. There is | | | | | | occlusive deep | | | | | | venousthrombosis seen in | | | | | | the distal femoral | | | | | | vein, the popliteal | | | | | | vein, inthe | | | | | | iwitxdss-ta-pfy | | | | | | posterior tibial, and | | | | | | peroneal | | | | | | veins.IMPRESSION:Abnorma | | | | | | l lower extremity venous | | | | | | examination. There is | | | | | | extensive leftlower | | | | | | extremity venous | | | | | | thrombosis extending | | | | | | from the femoral vein | | | | | | tothe tibial veins.END | | | | | | IMPRESSIONI have | | | | | | personally viewed this | | | | | | procedure/exam and | | | | | | reviewed this | | | | | | report.STATUS FINAL / | | | | | | Dr. SHERMAN LNAE | | | | | | L.STATUS PRELIMINARY - | | | | | | UNSIGNED / Halina | | | | | | Naye | | | | + + + + + + + + | Specimen | + + | | + + + +---------+ + + | Performing | Address | City/State/Zipcode | Phone Number | | Organization | | | | + +---------+ + + | [facility] DE[facility]MENT [facility] | | | | | RADIOLOGY | | | | + +---------+ + + RESP CARE THERAPY (2008 2:27 AM PDT) + + + + + + | Component | Value | Ref Range | Performed | Pathologist | | | | | At | Signature | + + + + + + | RESPIRATORY | Home CPAP/BiLevel check | | [facility] | | | CARE | and patient | | RESPIRATORY | | | | assesment::This is a | | THERAPY | | | | routine check of the | | | | | | home BiLevel device. The | | | | | | breath sounds | | | | | | arediminished . | | | | | | Supplemental 02 is in | | | | | | use at 2 LPM HR = 78 | | | | | | RR= 20 SPO2= 98 | | | | | | %Electronically Signed | | | | | | by: Vimal Chan, | | | | + + + + + + + + | Specimen | + + | | + + + + + | Narrative | Performed At | + + + | Ordered by an unspecified provider. | [facility] | | | RESPIRATORY | | | THERAPY | + + + + + + + + | Performing | Address | City/State/Zipcode | Phone Number | | Organization | | | | + + + + + | [facility] | [address] | [place], [place] | | | THERAPY | [address] | [address] | | + + + + + | [facility] | [address] | [place], [place] | | | THERAPY | [facility] [facility] | [address] | | + + + + + PHOSPHORUS, PLASMA (2008 1:00 AM PDT) + +---------+ + + + | Component | Value | Ref Range | Performed | Pathologist | | | | | At | Signature | + +---------+ + + + | PHOSPHORUS, | 1.9 (L) | 2.4 - 4.7 mg/dL | [facility] | | | PLASMA | | | DEPARTMENT | | | (LAB) | | | OF | | | | | | PATHOLOGY | | + +---------+ + + + + + | Specimen | + + | Blood - Blood | + + + + + + + | Performing | Address | City/State/Zipcode | Phone Number | | Organization | | | | + + + + + | [facility] | [address] | [place] [address] | | | PATHOLOGY | [address] | | | + + + + + | [facility] DEPARTMENT OF | [address] | [place] [address] | | | PATHOLOGY | [address] | | | + + + + + MAGNESIUM, PLASMA (2008 1:00 AM PDT) + +-------+ + + + | Component | Value | Ref Range | Performed | Pathologist | | | | | At | Signature | + +-------+ + + + | MAGNESIUM,P | 1.8 | 1.8 - 2.5 mg/dL | [facility] | | | LASMA | | | DEPARTMENT | | | | | | OF | | | | | | PATHOLOGY | | + +-------+ + + + + + | Specimen | + + | Blood - Blood | + + + + + + + | Performing | Address | City/State/Zipcode | Phone Number | | Organization | | | | + + + + + | [facility] DE[facility]MENT [facility] | [facility] | [place] [address] | | | PATHOLOGY | [address] | | | + + + + + | [facility] | [facility] | [place] [address] | | | PATHOLOGY | [address] | | | + + + + + CBC ONLY (2008 1:00 AM PDT) + + + + + + | Component | Value | Ref Range | Performed | Pathologist | | | | | At | Signature | + + + + + + | WHITE CELL | 9.5 | 4.4 - 11.0 K/cu | [facility] | | | COUNT | | mm | DEPARTMENT | | | | | | OF | | | | | | PATHOLOGY | | + + + + + + | RED CELL | 3.57 (L) | 4.50 - 5.90 | [facility] | | | COUNT | | M/cu mm | DEPARTMENT | | | | | | OF | | | | | | PATHOLOGY | | + + + + + + | HEMOGLOBIN | 11.5 (L) | 13.5 - 17.5 | [facility] | | | | | g/dL | DEPARTMENT | | | | | | OF | | | | | | PATHOLOGY | | + + + + + + | HEMATOCRIT | 32.5 (L) | 41.0 - 53.0 % | [facility] | | | | | | DEPARTMENT | | | | | | OF | | | | | | PATHOLOGY | | + + + + + + | MCV | 90.9 | 80.0 - 96.0 fL | [facility] | | | | | | DEPARTMENT | | | | | | OF | | | | | | PATHOLOGY | | + + + + + + | MCHC | 35.4 | 33.4 - 35.5 | [facility] | | | | | g/dL | DEPARTMENT | | | | | | OF | | | | | | PATHOLOGY | | + + + + + + | RDW | 14.3 | 11.5 - 15.0 % | [facility] | | | | | | DEPARTMENT | | | | | | OF | | | | | | PATHOLOGY | | + + + + + + | PLATELET | 178 | 150 - 400 K/cu | [facility] | | | COUNT | | mm | DEPARTMENT | | | | | [...] | + + + + + | [facility] DE[facility]MENT [facility] | [address] | [place] [address] | | | PATHOLOGY | [address] | | | + + + + + | [facility] | [address] [facility] | [place] [address] | | | PATHOLOGY | [address] | | | + + + + + BASIC METABOLIC SET (NA, K, CL, TCO2, BUN, CR, GLU, CA) (2008 1:00 AM PDT) + +---------+ + + + | Component | Value | Ref Range | Performed | Pathologist | | | | | At | Signature | + +---------+ + + + | GLUCOSE, | 134 (H) | 60 - 99 mg/dL | [facility] | | | PLASMA | | | DEPARTMENT | | | (LAB) | | | OF | | | | | | PATHOLOGY | | + +---------+ + + + | BUN, PLASMA | 14 | 6 - 20 mg/dL | [facility] | | | (LAB) | | | DEPARTMENT | | | | | | OF | | | | | | PATHOLOGY | | + +---------+ + + + | CREATININE | 1.0 | 0.7 - 1.3 mg/dL | [facility] | | | PLASMA | | | DEPARTMENT | | | (LAB) | | | OF | | | | | | PATHOLOGY | | + +---------+ + + + | SODIUM, | 135 (L) | 136 - 145 | [facility] | | | PLASMA | | mmol/L | DEPARTMENT | | | (LAB) | | | OF | | | | | | PATHOLOGY | | + +---------+ + + + | POTASSIUM, | 4.3 | 3.5 - 5.1 | [facility] | | | PLASMA | | mmol/L | DEPARTMENT | | | (LAB) | | | OF | | | | | | PATHOLOGY | | + +---------+ + + + | CHLORIDE, | 101 | 98 - 107 mmol/L | [facility] | | | PLASMA | | | DEPARTMENT | | | (LAB) | | | OF | | | | | | PATHOLOGY | | + +---------+ + + + | TOTAL CO2, | 29 | 23 - 29 mmol/L | [facility] | | | PLASMA | | | DEPARTMENT | | | (LAB) | | | OF | | | | | | PATHOLOGY | | + +---------+ + + + | CALCIUM, | 8.4 (L) | 8.5 - 10.5 | [facility] | | | PLASMA | | mg/dL | DEPARTMENT | | | (LAB) | | | OF | | | | | | PATHOLOGY | | + +---------+ + + + + + | Specimen | + + | Blood - Blood | + + + + + + + | Performing | Address | City/State/Zipcode | Phone Number | | Organization | | | | + + + + + | [facility] DEPARTMENT [facility] | [address] | [place] [address] | | | PATHOLOGY | [address] | | | + + + + + | [facility] DEPARTMENT OF | [address] | [place] [address] | | | PATHOLOGY | [address] | | | + + + + + PHOSPHORUS, PLASMA (03/20/2008 4:30 AM PDT) + +-------+ + + + | Component | Value | Ref Range | Performed | Pathologist | | | | | At | Signature | + +-------+ + + + | PHOSPHORUS, | 3.3 | 2.4 - 4.7 mg/dL | [facility] | | | PLASMA | | | DEPARTMENT | | | (LAB) | | | OF | | | | | | PATHOLOGY | | + +-------+ + + + + + | Specimen | + + | Blood - Blood | + + + + + + + | Performing | Address | City/State/Zipcode | Phone Number | | Organization | | | | + + + + + | [facility] DEPARTMENT [facility] | [facility] | [place] [address] | | | PATHOLOGY | [address] | | | + + + + + | [facility] | [facility] | [place] [address] | | | PATHOLOGY | [address] | | | + + + + + MAGNESIUM, PLASMA (03/20/2008 4:30 AM PDT) + +---------+ + + + | Component | Value | Ref Range | Performed | Pathologist | | | | | At | Signature | + +---------+ + + + | MAGNESIUM,P | 1.5 (L) | 1.8 - 2.5 mg/dL | [facility] | | | LASMA | | | DEPARTMENT | | | | | | OF | | | | | | PATHOLOGY | | + +---------+ + + + + + | Specimen | + + | Blood - Blood | + + + + + + + | Performing | Address | City/State/Zipcode | Phone Number | | Organization | | | | + + + + + | [facility] DEPARTMENT [facility] | [address] [facility] | [place] [address] | | | PATHOLOGY | [address] | | | + + + + + | [facility] DEPARTMENT OF | [address] [facility] | [place] [address] | | | PATHOLOGY | [address] | | | + + + + + CBC ONLY (03/20/2008 4:30 AM PDT) + + + + + + | Component | Value | Ref Range | Performed | Pathologist | | | | | At | Signature | + + + + + + | WHITE CELL | 12.4 (H) | 4.4 - 11.0 K/cu | [facility] | | | COUNT | | mm | DEPARTMENT | | | | | | OF | | | | | | PATHOLOGY | | + + + + + + | RED CELL | 4.29 (L) | 4.50 - 5.90 | [facility] | | | COUNT | | M/cu mm | DEPARTMENT | | | | | | OF | | | | | | PATHOLOGY | | + + + + + + | HEMOGLOBIN | 13.6 | 13.5 - 17.5 | [facility] | | | | | g/dL | DEPARTMENT | | | | | | OF | | | | | | PATHOLOGY | | + + + + + + | HEMATOCRIT | 39.2 (L) | 41.0 - 53.0 % | [facility] | | | | | | DEPARTMENT | | | | | | OF | | | | | | PATHOLOGY | | + + + + + + | MCV | 91.5 | 80.0 - 96.0 fL | [facility] | | | | | | DEPARTMENT | | | | | | OF | | | | | | PATHOLOGY | | + + + + + + | MCHC | 34.8 | 33.4 - 35.5 | [facility] | | | | | g/dL | DEPARTMENT | | | | | | OF | | | | | | PATHOLOGY | | + + + + + + | RDW | 14.3 | 11.5 - 15.0 % | [facility] | | | | | | DEPARTMENT | | | | | | OF | | | | | | PATHOLOGY | | + + + + + + | PLATELET | 212 | 150 - 400 K/cu | [facility] | | | COUNT | | mm | DEPARTMENT | | | | | [...] + + + + + | [facility] | [address] | [place] [address] | | | PATHOLOGY | [address] | | | + + + + + | [facility] | [address] [place] [address] [address] | [place] [address] | | | PATHOLOGY | [address] | | | + + + + + BASIC METABOLIC SET (NA, K, CL, TCO2, BUN, CR, GLU, CA) (03/20/2008 4:30 AM PDT) + +---------+ + + + | Component | Value | Ref Range | Performed | Pathologist | | | | | At | Signature | + +---------+ + + + | GLUCOSE, | 130 (H) | 60 - 99 mg/dL | [facility] | | | PLASMA | | | DEPARTMENT | | | (LAB) | | | OF | | | | | | PATHOLOGY | | + +---------+ + + + | BUN, PLASMA | 19 | 6 - 20 mg/dL | [facility] | | | (LAB) | | | DEPARTMENT | | | | | | OF | | | | | | PATHOLOGY | | + +---------+ + + + | CREATININE | 1.2 | 0.7 - 1.3 mg/dL | [facility] | | | PLASMA | | | DEPARTMENT | | | (LAB) | | | OF | | | | | | PATHOLOGY | | + +---------+ + + + | SODIUM, | 138 | 136 - 145 | [facility] | | | PLASMA | | mmol/L | DEPARTMENT | | | (LAB) | | | OF | | | | | | PATHOLOGY | | + +---------+ + + + | POTASSIUM, | 4.2 | 3.5 - 5.1 | [facility] | | | PLASMA | | mmol/L | DEPARTMENT | | | (LAB) | | | OF | | | | | | PATHOLOGY | | + +---------+ + + + | CHLORIDE, | 102 | 98 - 107 mmol/L | [facility] | | | PLASMA | | | DEPARTMENT | | | (LAB) | | | OF | | | | | | PATHOLOGY | | + +---------+ + + + | TOTAL CO2, | 31 (H) | 23 - 29 mmol/L | [facility] | | | PLASMA | | | DEPARTMENT | | | (LAB) | | | OF | | | | | | PATHOLOGY | | + +---------+ + + + | CALCIUM, | 8.3 (L) | 8.5 - 10.5 | [facility] | | | PLASMA | | mg/dL | DEPARTMENT | | | (LAB) | | | OF | | | | | | PATHOLOGY | | + +---------+ + + + + + | Specimen | + + | Blood - Blood | + + + + + + + | Performing | Address | City/State/Zipcode | Phone Number | | Organization | | | | + + + + + | [facility] DEPARTMENT OF | [address] | [place] [address] | | | PATHOLOGY | [address] | | | + + + + + | [facility] | [address] | [place] [address] | | | PATHOLOGY | [address] | | | + + + + + RESP CARE THERAPY (03/20/2008 4:14 AM PDT) + + + + + + | Component | Value | Ref Range | Performed | Pathologist | | | | | At | Signature | + + + + + + | RESPIRATORY | Home CPAP/BiLevel check | | [facility] | | | CARE | and patient | | RESPIRATORY | | | | assesment::This is a | | THERAPY | | | | routine check of the | | | | | | home CPAP device. The | | | | | | patient is asleep butnot | | | | | | using their | | | | | | non-invasive device at | | | | | | this time HR = 78 RR= 10 | | | | | | SPO2= 96 | | | | | | %Electronically Signed | | | | | | by: Javier Tapia III, | | | | + + + + + + + + | Specimen | + + | | + + + + + | Narrative | Performed At | + + + | Ordered by an unspecified provider. | [facility] | | | RESPIRATORY | | | THERAPY | + + + + + + + + | Performing | Address | City/State/Zipcode | Phone Number | | Organization | | | | + + + + + | [facility] | [address] [address] | [place], [place] | | | THERAPY | [address] | [address] | | + + + + + | [facility] | [address] [facility] [address] [facility] | [place], [place] | | | THERAPY | [address] | [address] | | + + + + + RESP CARE THERAPY (03/20/2008 4:14 AM PDT) + + + + + + | Component | Value | Ref Range | Performed | Pathologist | | | | | At | Signature | + + + + + + | RESPIRATORY | Nasal cannula at 2 | | [facility] | | | CARE | LPM.Electronically | | RESPIRATORY | | | | Signed by: Javier | | THERAPY | | | | Willie DUNBAR, | | | | + + + + + + + + | Specimen | + + | | + + + + + | Narrative | Performed At | + + + | Ordered by an unspecified provider. | [facility] | | | RESPIRATORY | | | THERAPY | + + + + + + + + | Performing | Address | City/State/Zipcode | Phone Number | | Organization | | | | + + + + + | [facility] | [address] [facility] | [place], [place] | | | THERAPY | [address] | [address] | | + + + + + | [facility] | [address] [facility] | [place], [place] | | | THERAPY | [address] | [address] | | + + + + + RESP CARE THERAPY (03/19/2008 11:00 PM PDT) + + + + + + | Component | Value | Ref Range | Performed | Pathologist | | | | | At | Signature | + + + + + + | RESPIRATORY | Home CPAP/BiLevel check | | [facility] | | | CARE | and patient | | RESPIRATORY | | | | assesment::This is a | | THERAPY | | | | routine check of the | | | | | | home CPAP device. The | | | | | | device is not in useat | | | | | | this time, The patient | | | | | | is not yet ready to go | | | | | | to sleep.Electronically | | | | | | Signed by: Javier | | | | | | Willie DUNBAR, | | | | + + + + + + + + | Specimen | + + | | + + + + + | Narrative | Performed At | + + + | Ordered by an unspecified provider. | [facility] | | | RESPIRATORY | | | THERAPY | + + + + + + + + | Performing | Address | City/State/Zipcode | Phone Number | | Organization | | | | + + + + + | [facility] | [address] | [place] | | | THERAPY | [address] | [address] | | + + + + + | [facility] | [address] | [place], [place] | | | THERAPY | ACCESS [facility] | [phone] | | + + + + + X-RAY PORTABLE CHEST 1 VIEW (03/19/2008 1:32 PM PDT) + + + + + + | Component | Value | Ref Range | Performed | Pathologist | | | | | At | Signature | + + + + + + | X-RAY | STUDY: AP chest | | | | | PORTABLE | 03/19/08.COMPARISON: | | | | | CHEST 1 | None.FINDINGS:The tip of | | | | | VIEW | a right internal | | | | | | jugular line projected | | | | | | in the medialright | | | | | | clavicle. This is a | | | | | | relatively apical | | | | | | lordotic | | | | | | chestradiograph. | | | | | | Subsegmental | | | | | | atelectasis is observed | | | | | | within the rightmidlung | | | | | | zone. No pneumothorax | | | | | | is observed.There is | | | | | | prominence of the | | | | | | cardiac and mediastinal | | | | | | contours, likelyfrom the | | | | | | apical lordotic | | | | | | positioning and probably | | | | | | | | | | | | mediastinallipomatosis | | | | | | .IMPRESSION:Tip of right | | | | | | internal jugular line | | | | | | seen projected of the | | | | | | right apex,likely within | | | | | | the distal right | | | | | | internal jugular vein. | | | | | | Suggest | | | | | | repeatradiograph with | | | | | | true AP positioning.I | | | | | | have personally viewed | | | | | | this procedure/exam and | | | | | | reviewed this | | | | | | report.STATUS FINAL / | | | | | | Dr. LUIS GOINS | | | | + + + + + + + + | Specimen | + + | | + + + +---------+ + + | Performing | Address | City/State/Zipcode | Phone Number | | Organization | | | | + +---------+ + + | [facility] | | | | | RADIOLOGY | | | | + +---------+ + + INR (PT) (03/19/2008 6:20 AM PDT) + + + + + + | Component | Value | Ref Range | Performed | Pathologist | | | | | At | Signature | + + + + + + | INR | 1.30 (H)Comment: | 0.90 - 1.20 INR | [...] | + + + + + | [facility] DE[facility]MENT [facility] | [facility] | [place] [address] | | | PATHOLOGY | [address] | | | + + + + + | [place] DEPARTMENT OF | [facility] | [place] [address] | | | PATHOLOGY | [address] | | | + + + + + OPERATION RECORD (03/19/2008 12:00 AM PDT) + + | Procedure Note | + + | Italo Freeman MD - 03/19/2008 12:00 AM PDT [id number] | | [id number] CHRIS MCKINNON [id number] | | Date: 03/19/2008 Attending Surgeon: Grey Gaspar M.D. Protective Signal Repairer Helper(s): | | Italo Freeman M.D. Preoperative Diagnosis(es): Morbid obesity. | | Postoperative Diagnosis(es): Morbid obesity. Procedures Performed: Attempted | | laparoscopic converted to open gastric bypass. Estimated Blood Loss: Approximately | | 300 mL. Complications: None. Specimens: None. Drains: A #10 MATTHIEU drain was | | placed in the upper abdomen. Indications: Mr. Perez is a 47-year-old man with a BMI | | of 61 and other comorbidities associated with morbid obesity including diabetes, | | hypertension, he has a chronic deep venous thrombosis in his left lower extremity. He is | | here to undergo a gastric bypass in an attempt to lose weight. The risks and benefits | | of the procedure were explained to him, and he agrees to proceed. Procedure: The | | patient was brought to the operating room and placed supine on the operating room table. | | General anesthesia was induced without incident. The patient was brought lower on the | | table and his feet were secured to the table footboards. His ankles were taped for | | support. His arms were thoroughly secured to the armboards. A reverse Trendelenburg test | | was performed on the table to ensure that he was adequately secured. The abdomen was | | prepped and draped in the usual sterile fashion. A surgical pause was then performed to | | ensure the correct procedure was being done on the patient. We gained access to the | | abdomen using a Veress needle and inserted in the midline above the umbilicus. The | | placement was tested with a water drop test, and the abdomen was insufflated to 15 mm of | | CO2 pressure. We placed an 11 mm trocar to the right of the umbilicus approximately 15 | | cm below the xiphoid process and inserted a 30 degree laparoscope in the abdomen. There | | were extensive adhesions from his previous operations. We spent approximately 20 minutes | | taking down the adhesions, but once we approached the upper abdomen, it was felt that | | there were too many dense adhesions to safely create a gastric pouch laparoscopically. | | Given that we had very little visualization, so the decision was made to complete the | | operation as an open operation. We then made an incision from the xiphoid process to the | | top of the umbilicus, divided the flap tissues with electrocautery. We entered the | | abdomen sharply and then extended our division of the fascia with electrocautery. We | | placed an Omni retractor in the upper abdomen to assist in visualization of the surgical | | field. We then elevated the transverse mesocolon and identified the ligament of Treitz. | | We marched approximately 50 cm along the small intestine and divided it with two | | firings of an Endo FERN white load stapler. We then marked the distal end with a 4 Czech | | Stinnett drain and then marched to approximately 150 cm below this. At this point, the | | proximal end of the small intestine was attached to this distal most point. We then | | using 2 interrupted 0 Vicryl sutures, we then made 2 small enterotomies in either limb, | | inserted each limb of a white Endo-FERN load stapler into each limb of the suture | | anastomosis and fired it, thus creating jejunojejunostomy. We closed the anterior defect | | using a running 2-0 Maxon and then placed serial interrupted 2-0 Vicryl Lemberts. We | | then turned our attention to the upper abdomen and the creation of the gastric pouch. | | Due to his previous Lap-Band placement, there was extensive scarring and adhesions. We | | created a window along the lesser curvature of the stomach in order to make a 20 mL | | pouch. This area was very firm and scarred. Because we could not enter the lesser sac | | easily from this point, we then created a window along the greater curvature of the | | stomach and entered the lesser sac that way, and then we were able to connect our | | dissection on the lesser curvature to the lesser sac using a window on the greater | | curvature as a guide. We then used serial firings of an [employer]-FERN green-load stapler to | | create gastric pouch which was approximately 20 cc in volume. Because the tissue was so | | inflamed and scarred, we oversewed the staple line of the gastric remnant with a running | | 2-0 Maxon suture to reinforce it. We then brought up the Danette limb, ensuring it was not | | twisted, and joined the Danette limb to good gastric pouch using interrupted 2-0 silk | | sutures. Using electrocautery, we then opened the stomach and the small intestine, and | | then created a handsewn anastomosis using first a running 2-0 Maxon and then reinforcing | | with interrupted 2-0 silk sutures. This was done over an orogastric tube to ensure a | | patent lumen was created. We then withdrew the orogastric tube to just proximal to the | | anastomosis, clamped the Danette, and infused approximately 75 mL of methylene blue. No | | spillage was noted into the surgical field. The tube was then withdrawn, and then we | | placed a #10 MATTHIEU in the area of the anastomosis and brought it out through the anterior | | abdominal wall. We briefly inspected the abdomen for any bleeding or injury, none were | | noted, and the fascia was then closed with a running #1 PDS, and the skin was closed | | with hosea after irrigation with normal saline. The incision was then sterile dressed. | | The patient was awakened from general anesthesia and brought to the recovery room in | | stable condition. All sponge, needle, and instrument counts were all correct at the end | | of the case, and Dr. Grey Gaspar was present throughout the entire case and made | | all surgical decisions regarding Mr. Perez. Italo Freeman M.D. | | Grey Gaspar M.D. / [id number] / [id number] / [id number] / T: | | 03/25/2008 | | previous operations. We spent approximately 20 minutes taking down the | | adhesions, but once we approached the upper abdomen, it was felt that there | | were too many dense adhesions to safely create a gastric pouch | | laparoscopically. Given that we had very little visualization, so the | | decision was made to complete the operation as an open operation. We then | | made an incision from the xiphoid process to the top of the umbilicus, | | divided the flap tissues with electrocautery. We entered the abdomen | | sharply and then extended our division of the fascia with electrocautery. | | We placed an Omni retractor in the upper abdomen to assist in visualization | | of the surgical field. We then elevated the transverse mesocolon and | | identified the ligament of Treitz. We marched approximately 50 cm along | | the small intestine and divided it with two firings of an Endo FERN white | | load stapler. We then marked the distal end with a 4 Czech Stinnett drain | | and then marched to approximately 150 cm below this. At this point, the | | proximal end of the small intestine was attached to this distal most point. | | We then using 2 interrupted 0 Vicryl sutures, we then made 2 small | | enterotomies in either limb, inserted each limb of a white Endo-FERN load | | stapler into each limb of the suture anastomosis and fired it, thus | | creating jejunojejunostomy. We closed the anterior defect using a running | | 2-0 Maxon and then placed serial interrupted 2-0 Vicryl Lemberts. We then | | turned our attention to the upper abdomen and the creation of the gastric | | pouch. Due to his previous Lap-Band placement, there was extensive | | scarring and adhesions. We created a window along the lesser curvature of | | the stomach in order to make a 20 mL pouch. This area was very firm and | | scarred. Because we could not enter the lesser sac easily from this point, | | we then created a window along the greater curvature of the stomach and | | entered the lesser sac that way, and then we were able to connect our | | dissection on the lesser curvature to the lesser sac using a window on the | | greater curvature as a guide. We then used serial firings of an Endo-FERN | | green-load stapler to create gastric pouch which was approximately 20 cc in | | volume. Because the tissue was so inflamed and scarred, we oversewed the | | staple line of the gastric remnant with a running 2-0 Maxon suture to | | reinforce it. We then brought up the Danette limb, ensuring it was not | | twisted, and joined the Danette limb to good gastric pouch using interrupted | | 2-0 silk sutures. Using electrocautery, we then opened the stomach and the | | small intestine, and then created a handsewn anastomosis using first a | | running 2-0 Maxon and then reinforcing with interrupted 2-0 silk sutures. | | This was done over an orogastric tube to ensure a patent lumen was created. | | We then withdrew the orogastric tube to just proximal to the anastomosis, | | clamped the Danette, and infused approximately 75 mL of methylene blue. No | | spillage was noted into the surgical field. The tube was then withdrawn, | | and then we placed a #10 MATTHIEU in the area of the anastomosis and brought it | | out through the anterior abdominal wall. We briefly inspected the abdomen | | for any bleeding or injury, none were noted, and the fascia was then closed | | with a running #1 PDS, and the skin was closed with hosea after | | irrigation with normal saline. The incision was then sterile dressed. The | | patient was awakened from general anesthesia and brought to the recovery | | room in stable condition. All sponge, needle, and instrument counts were | | all correct at the end of the case, and Dr. Grey Gaspar was present | | throughout the entire case and made all surgical decisions regarding Mr. Lucas | Chris. | | | | | | | | | | | | | | | | | | Italo Freeman M.D. | | | | | | | | | | | | | | Grey Gaspar M.D. | | | | | | CV / HS | | [id number] / [id number] / [id number] / | | | | | | | | | | | | | | | | | | | | | | | + + documented in this encounter Visit Diagnoses Not on filedocumented in this encounter Administered Medications + +---------+ +------+ +------+ | Medication Order | MAR | Action | Dose | Rate | Site | | | Action | Date | | | | + +---------+ +------+ +------+ | dextrose 5%-NaCl 0.45%-KCl 20 | New Bag | 03/21/20 | | 50 mL/hr | | | mEq/L IV infusion intravenous, | | 08 5:01 | | | | | CONTINUOUS, Starting Mon03/19/08 | | AM PDT | | | | | at 1430, Until Mon03/21/08 at | | | | | | | 1041, at 50 mL/hr | | | | | | + +---------+ +------+ +------+ +---------+ +---+ +---+ | New Bag | 03/20/20 | | 50 mL/hr | | | | 08 11:00 | | | | | | AM PDT | | | | +---------+ +---+ +---+ | New Bag | 03/19/20 | | 50 mL/hr | | | | 08 2:00 | | | | | | PM PDT | | | | +---------+ +---+ +---+ +---+---+ | | | +---+---+ + +---------+ +---+ +---+ | dextrose 5%-NaCl 0.45%-KCl 20 | New Bag | 03/21/20 | | 75 mL/hr | | | mEq/L IV infusion intravenous, | | 08 8:54 | | | | | CONTINUOUS, Starting 03/21/08 | | PM PDT | | | | | at 1045, Until 03/22/08 at | | | | | | | 1000, at 75 mL/hr | | | | | | + +---------+ +---+ +---+ + + +---+ +---+ | Rate/Dose Change | 03/21/20 | | 75 mL/hr | | | | 08 11:13 | | | | | | AM PDT | | | | + + +---+ +---+ +---+---+ | | | +---+---+ + +-------+ +-------+---+---+ | diphenhydrAMINE (aka BENADRYL) | Given | 03/20/20 | 25 mg | | | | injection 25 mg 25 mg, | | 08 1:18 | | | | | intravenous, EVERY 6 HOURS | | PM PDT | | | | | NEEDED, Starting Brenda 03/20/08 at | | | | | | | 1222, Until 03/24/08 at 1835, | | | | | | | itching | | | | | | + +-------+ +-------+---+---+ +---+---+ | | | +---+---+ + +-------+ +--------+---+---+ | enoxaparin (aka LOVENOX) | Given | 03/24/20 | 150 mg | | | | injection 150 mg 150 mg, | | 08 11:02 | | | | | subcutaneous, EVERY 12 HOURS, | | AM PDT | | | | | First dose on Mon03/21/08 at | | | | | | | 1030, Until Discontinued | | | | | | + +-------+ +--------+---+---+ +-------+ +--------+---+---+ | Given | 03/23/20 | 150 mg | | | | | 08 10:30 | | | | | | PM PDT | | | | +-------+ +--------+---+---+ | Given | 03/23/20 | 150 mg | | | | | 08 12:16 | | | | | | PM PDT | | | | +-------+ +--------+---+---+ +---+---+ | | | +---+---+ + +-------+ +-------+---+---+ | enoxaparin (aka LOVENOX) | Given | 03/21/20 | 30 mg | | | | injection 30 mg 30 mg, | | 08 8:36 | | | | | subcutaneous, EVERY 12 HOURS, | | AM PDT | | | | | First dose on Mon03/19/08 at | | | | | | | 2100, Until Discontinued | | | | | | + +-------+ +-------+---+---+ +-------+ +-------+---+---+ | Given | 03/20/20 | 30 mg | | | | | 08 9:00 | | | | | | PM PDT | | | | +-------+ +-------+---+---+ | Given | 03/20/20 | 30 mg | | | | | 08 9:03 | | | | | | AM PDT | | | | +-------+ +-------+---+---+ +---+---+ | | | +---+---+ + +-------+ +---------+---+---+ | fentanyl (aka SUBLIMAZE) | Given | 03/19/20 | 100 mcg | | | | injection 1 dose, Starting Mon | | 08 1:00 | | | | | 03/19/08 at 1249, Until Wed | | PM PDT | | | | | 03/19/08 at 1417 | | | | | | + +-------+ +---------+---+---+ +---+---+ | | | +---+---+ + +-------+ +-------+---+---+ | heparin lock flush IV 1 dose, | Given | 03/22/20 | Units | | | | Starting 03/22/08 at 1058, | | 08 11:00 | | | | | Until 03/22/08 at 1210 | | AM PDT | | | | + +-------+ +-------+---+---+ +---+---+ | | | +---+---+ + +-------+ +-------+---+---+ | heparin lock flush IV 1 dose, | Given | 03/23/20 | Units | | | | Starting 03/23/08 at 0157, | | 08 2:00 | | | | | Until 03/23/08 at 0151 | | AM PDT | | | | + +-------+ +-------+---+---+ +---+---+ | | | +---+---+ + +-------+ +------+---+---+ | HYDROmorphone (aka DILAUDID) | Given | 03/19/20 | 1 mg | | | | injection 1 dose, Starting Wed | | 08 1:00 | | | | | 03/19/08 at 1249, Until Wed | | PM PDT | | | | | 03/19/08 at 1313 | | | | | | + +-------+ +------+---+---+ +---+---+ | | | +---+---+ + + + +---+---------+---+ | HYDROmorphone 0.5 mg/mL BLOW TORCH OPERATOR | Rate/Dos | 03/20/20 | | 3 mL/hr | | | infusion (ADULT, Pyxis) | e Change | 08 4:16 | | | | | intravenous, CONTINUOUS, Starting | | PM PDT | | | | | 03/19/08 at 1515, Until Fri | | | | | | | 03/21/08 at 1041 | | | | | | + + + +---+---------+---+ + + +---+--------+---+ | New Bag | 03/20/20 | | mL/hr | | | | 08 9:46 | | | | | | AM PDT | | | | + + +---+--------+---+ | Rate/Dose Change | 03/20/20 | | 0.5 | | | | 08 12:43 | | mL/hr | | | | AM PDT | | | | + + +---+--------+---+ +---+---+ | | | +---+---+ + + + +---+-------+---+ | HYDROmorphone 0.5 mg/mL BLOW TORCH OPERATOR | Rate/Dos | 03/22/20 | | 0.3 | | | infusion (ADULT, Pyxis) | e Change | 08 6:16 | | mL/hr | | | intravenous, CONTINUOUS, Starting | | AM PDT | | | | | 03/21/08 at 1045, Until Sat | | | | | | | 03/22/08 at 1000 | | | | | | + + + +---+-------+---+ + + +---+--------+---+ | Rate/Dose Change | 03/22/20 | | 0.4 | | | | 08 5:22 | | mL/hr | | | | AM PDT | | | | + + +---+--------+---+ | Rate/Dose Change | 03/21/20 | | mL/hr | | | | 08 11:21 | | | | | | AM PDT | | | | + + +---+--------+---+ +---+---+ | | | +---+---+ + +-------+ +-------+---+---+ | HYDROmorphone BLOW TORCH OPERATOR infusion 1 | Given | 03/19/20 | 25 mg | | | | dose, Starting Mon03/19/08 at | | 08 1:00 | | | | | 1250, Until Mon03/19/08 at 1308 | | PM PDT | | | | + +-------+ +-------+---+---+ +---+---+ | | | +---+---+ + + + + +-------+---+ | insulin regular 1 unit/mL in | Rate/Dos | 03/21/20 | 0.1 | 0.1 | | | NaCl 0.9% IV infusion (Pyxis) | e Change | 08 6:08 | Units/hr | mL/hr | | | 0.25-40 Units/hr (rounded to | | AM PDT | | | | | 0.25-40 mL/hr), intravenous, | | | | | | | CONTINUOUS, Starting Mon03/19/08 | | | | | | | at 1430, Until Mon03/21/08 at | | | | | | | 0620 | | | | | | + + + + +-------+---+ + + + +-------+---+ | Rate/Dose Change | 03/21/20 | 0.1 | 0.1 | | | | 08 5:00 | Units/hr | mL/hr | | | | AM PDT | | | | + + + +-------+---+ | Rate/Dose Change | 03/21/20 | 0.1 | 0.1 | | | | 08 2:05 | Units/hr | mL/hr | | | | AM PDT | | | | + + + +-------+---+ +---+---+ | | | +---+---+ + +-------+ +-------+---+---+ | ketorolac (aka TORADOL) | Given | 03/23/20 | 15 mg | | | | injection 15 mg 15 mg, | | 08 12:16 | | | | | intravenous, EVERY 8 HOURS, 6 | | PM PDT | | | | | doses, First dose on Mon03/21/08 | | | | | | | at 1800, Last dose on 03/23/08 | | | | | | | at 1000 | | | | | | + +-------+ +-------+---+---+ +-------+ +-------+---+---+ | Given | 03/23/20 | 15 mg | | | | | 08 2:00 | | | | | | AM PDT | | | | +-------+ +-------+---+---+ | Given | 03/22/20 | 15 mg | | | | | 08 6:00 | | | | | | PM PDT | | | | +-------+ +-------+---+---+ +---+---+ | | | +---+---+ + +-------+ +-------+---+---+ | ketorolac (aka TORADOL) | Given | 03/21/20 | 30 mg | | | | injection 30 mg 30 mg, | | 08 10:27 | | | | | intravenous, ONCE, 1 dose, Fri | | AM PDT | | | | | 03/21/08 at 1015 | | | | | | + +-------+ +-------+---+---+ +---+---+ | | | +---+---+ + +-------+ +--------+---+---+ | lactated ringers IV bolus 500 | Given | 03/20/20 | 500 mL | | | | mL, intravenous, ONCE, 1 dose, | | 08 9:02 | | | | | Brenda 03/20/08 at 0745 | | AM PDT | | | | + +-------+ +--------+---+---+ +---+---+ | | | +---+---+ + +---------+ +-------+-------+---+ | lactated ringers IV infusion | New Bag | 03/20/20 | 100 | 100 | | | 100 mL/hr, intravenous, | | 08 10:00 | mL/hr | mL/hr | | | CONTINUOUS, Starting 03/19/08 | | AM PDT | | | | | at 1430, Until 03/21/08 at | | | | | | | 1041 | | | | | | + +---------+ +-------+-------+---+ +---------+ +-------+-------+---+ | New Bag | 03/19/20 | 100 | 100 | | | | 08 1:30 | mL/hr | mL/hr | | | | PM PDT | | | | +---------+ +-------+-------+---+ +---+---+ | | | +---+---+ + +-------+ +-------+---+---+ | magnesium hydroxide (aka MILK | Given | 03/23/20 | 30 mL | | | | OF MAGNESIA) suspension 30 mL 30 | | 08 10:43 | | | | | mL, oral, DAILY NEEDED, | | PM PDT | | | | | Starting 03/22/08 at 1309, | | | | | | | Until 03/24/08 at 1835, | | | | | | | constipation | | | | | | + +-------+ +-------+---+---+ +---+---+ | | | +---+---+ + +-------+ +-----+---+---+ | magnesium sulfate IV (premade) | Given | 03/20/20 | 2 g | | | | 2 g 2 g, intravenous, ONCE, 1 | | 08 9:02 | | | | | dose, Brenda 03/20/08 at 0700 | | AM PDT | | | | + +-------+ +-----+---+---+ +---+---+ | | | +---+---+ + +-------+ +-------+---+---+ | metoprolol (aka LOPRESSOR) | Given | 03/20/20 | 25 mg | | | | tablet 25 mg 25 mg, oral, TWICE | | 08 9:00 | | | | | DAILY, First dose on Mon03/19/08 | | AM PDT | | | | | at 1900, Until Discontinued | | | | | | + +-------+ +-------+---+---+ +---+---+ | | | +---+---+ + +-------+ +-------+---+---+ | metoprolol (aka LOJOSE) | Given | 03/24/20 | 25 mg | | | | tablet 25 mg 25 mg, oral, THREE | | 08 9:49 | | | | | TIMES DAILY, First dose (after | | AM PDT | | | | | last modification) on Brenda 03/20/08 | | | | | | | at 2200, Until Discontinued | | | | | | + +-------+ +-------+---+---+ +-------+ +-------+---+---+ | Given | 03/23/20 | 25 mg | | | | | 08 9:10 | | | | | | PM PDT | | | | +-------+ +-------+---+---+ | Given | 03/23/20 | 25 mg | | | | | 08 4:00 | | | | | | PM PDT | | | | +-------+ +-------+---+---+ +---+---+ | | | +---+---+ + +-------+ +-------+---+---+ | metoprolol (aka LOPRESSOR) | Given | 03/20/20 | 25 mg | | | | tablet 25 mg 25 mg, oral, ONCE, | | 08 6:53 | | | | | 1 dose, Brenda 03/20/08 at 1800 | | PM PDT | | | | + +-------+ +-------+---+---+ +---+---+ | | | +---+---+ + +-------+ +------+---+---+ | ondansetron (aka ZOFRJOE) | Given | 03/20/20 | 4 mg | | | | injection 4 mg 4 mg, | | 08 6:40 | | | | | intravenous, EVERY 12 HOURS | | AM PDT | | | | | NEEDED, Starting Brenda 03/20/08 at | | | | | | | 0622, Until Mon08 at 1835, | | | | | | | nausea/vomiting | | | | | | + +-------+ +------+---+---+ +---+---+ | | | +---+---+ + +-------+ +-------+---+---+ | oxycodone (aka ROXICODONE) oral | Given | 03/23/20 | 10 mg | | | | solution 5-20 mg 5-20 mg, oral, | | 08 9:04 | | | | | EVERY 3 HOURS NEEDED, | | PM PDT | | | | | Starting 03/21/08 at 1040, | | | | | | | Until 03/24/08 at 1835, | | | | | | | moderate pain | | | | | | + +-------+ +-------+---+---+ +-------+ +-------+---+---+ | Given | 03/23/20 | 10 mg | | | | | 08 3:45 | | | | | | AM PDT | | | | +-------+ +-------+---+---+ | Given | 03/23/20 | 10 mg | | | | | 08 12:26 | | | | | | AM PDT | | | | +-------+ +-------+---+---+ +---+---+ | | | +---+---+ + +-------+ + +---+---+ | potassium & sodium phosphates | Given | 03/21/20 | 1 packet | | | | (aka NEUTRA-PHOS) [phone] mg | | 08 10:00 | | | | | packet 1 Packet 1 packet, oral, | | PM PDT | | | | | FOUR TIMES DAILY, 4 doses, First | | | | | | | dose on Mon03/21/08 at 1015, Last | | | | | | | dose on Mon03/21/08 at 2200 | | | | | | + +-------+ + +---+---+ +-------+ + +---+---+ | Given | 03/21/20 | 1 packet | | | | | 08 3:26 | | | | | | PM PDT | | | | +-------+ + +---+---+ | Given | 03/21/20 | 1 packet | | | | | 08 11:48 | | | | | | AM PDT | | | | +-------+ + +---+---+ +---+---+ | | | +---+---+ + +-------+ +-------+---+---+ | ranitidine (aka ZANTAC) IV 50 | Given | 03/20/20 | 50 mg | | | | mg 50 mg, intravenous, EVERY 8 | | 08 4:22 | | | | | HOURS, First dose on Mon03/19/08 | | PM PDT | | | | | at 1600, Until Discontinued | | | | | | + +-------+ +-------+---+---+ +-------+ +-------+---+---+ | Given | 03/20/20 | 50 mg | | | | | 08 10:52 | | | | | | AM PDT | | | | +-------+ +-------+---+---+ | Given | 03/20/20 | 50 mg | | | | | 08 12:00 | | | | | | AM PDT | | | | +-------+ +-------+---+---+ +---+---+ | | | +---+---+ + +-------+ +--------+---+---+ | ranitidine (aka ZANTAC) liquid | Given | 03/24/20 | 150 mg | | | | 150 mg 150 mg, oral, TWICE | | 08 9:49 | | | | | DAILY, First dose on Mon03/20/08 | | AM PDT | | | | | at 2100, Until Discontinued | | | | | | + +-------+ +--------+---+---+ +-------+ +--------+---+---+ | Given | 03/23/20 | 150 mg | | | | | 08 9:10 | | | | | | PM PDT | | | | +-------+ +--------+---+---+ | Given | 03/23/20 | 150 mg | | | | | 08 8:33 | | | | | | AM PDT | | | | +-------+ +--------+---+---+ +---+---+ | | | +---+---+ + +-------+ + +---+---+ | senna-docusate (aka SENTISHOT S) | Given | 03/24/20 | 1 tablet | | | | 8.6-50 mg 1 Tab 1 tablet, oral, | | 08 9:49 | | | | | DAILY, First dose on 03/22/08 | | AM PDT | | | | | at 1315, Until Discontinued | | | | | | + +-------+ + +---+---+ +-------+ + +---+---+ | Given | 03/23/20 | 1 tablet | | | | | 08 8:33 | | | | | | AM PDT | | | | +-------+ + +---+---+ | Given | 03/22/20 | 1 tablet | | | | | 08 3:09 | | | | | | PM PDT | | | | +-------+ + +---+---+ +---+---+ | | | +---+---+ + +-------+ +-------+---+---+ | warfarin (aka COUMADIN) tablet | Given | 03/23/20 | 15 mg | | | | 15 mg 15 mg, oral, EVERY | | 08 9:10 | | | | | EVENING, First dose on Mon | | PM PDT | | | | | 03/20/08 at 2100, Until | | | | | | | Discontinued | | | | | | + +-------+ +-------+---+---+ +-------+ +-------+---+---+ | Given | 03/22/20 | 15 mg | | | | | 08 9:00 | | | | | | PM PDT | | | | +-------+ +-------+---+---+ | Given | 03/21/20 | 15 mg | | | | | 08 9:00 | | | | | | PM PDT | | | | +-------+ +-------+---+---+ +---+---+ | | | +---+---+ documented in this encounter
--- OUTSIDE RECORDS SUMMARY | ~2020-06-16 | XMS | Encounter Summary ---
Demographics + + + | Address | [address] | | | [place] [address] | + + + | Home Phone | | + + + | Preferred Language | Unknown | + + + | Marital Status | Single | + + + | Shinto Affiliation | CAT | + + + | Race | or | + + + | Ethnic Group | Not or | + + + Author + + + | Author | [facility] | + + + | Organization | [facility] | + + + | Address [...] [address] [place] | | | | | [address] | | + + + + + Care Team Providers + +------+ + | Care Engineered Wood Designer Name | Role | Phone | + +------+ + | Dhruv Villalpando MD | PCP | Unavailable | + +------+ + Reason for Visit + + + | Reason | Comments | + + + | Follow-up visit | | + + + Office Visit - E/M Services (Routine) +--------+--------+ + + + + | Status | Reason | Specialty | Diagnoses / | Referred By | Referred To | | | | | Procedures | Contact | Contact | +--------+--------+ + + + + | Closed | | Surgery | | Non-[facility] | [place], | | | | | | [facility] Dept | MD Grey | | | | | | | [address] | | | | | | | [place] | | | | | | | [place], | | | | | | | [place] | | | | | | | [address] | | | | | | | Phone: | | | | | | | [phone] | | | | | | | Fax: | | | | | | | [phone] | +--------+--------+ + + + + Encounter Details +--------+---------+ + + + | Date | Type | Department | Care Team | Description | +--------+---------+ + + + | 04/13/ | Office | Dig[facility]ive [facility] | Grey Gaspar, | Status Post Gastric | | 2008 | Visit | [place] [address] | [address] | [address] | | | | Ave Mailcode: [address] | [address] | (Primary Dx) | | | | [facility] | [place], [place] | | | | | and Healing, | [address] | | | | | [place] [address] [facility] | [phone] | | | | | Floor [place], [place] | | | | | | [address] | | | | | | [phone] | | | +--------+---------+ + + + [...] + + + | Blood Pressure | 144/68 | 04/13/2009 4:16 PM | | | | | PDT | | + + + + + | Pulse | 67 | 04/13/2009 4:16 PM | | | | | PDT | | + + + + + | Temperature | 36.4 C (97.6 F) | 04/13/2009 4:16 PM | | | | | PDT | | + + + + + | Respiratory Rate | 16 | 04/13/2009 4:16 PM | | | | | PDT | | + + + + + | Oxygen Saturation | - | - | | + + + + + | Inhaled Oxygen | - | - | | | Concentration | | | | + + + + + | Weight | 143.1 kg (315 lb 6.4 | 04/13/2009 4:16 PM | | | | oz) | PDT | | + + + + + | Height | - | - | | + + + + + | Body Mass Index | 41.61 | 11/07/2008 11:30 AM | | | | | PST | | + + + + + documented in this encounter Progress Notes Mercedez Mao ACNP - 04/13/2009 5:38 PM PDTPlan: Do labs today as annual followup. His PCP is not performing this function. RTC 1 year. 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 He has lost 160 lbs since his surgery. 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 The patient does have some ludy yed gastric emptying as seen by retained food in stomach on multiple EGDs. He continues to m onitor his diet for foods that are not well tolerated. He reports no recent nausea, vomiting , or diarrhea. Since his last visit he has resumed working out and now states that he excerc ises and daily, including weights and swimming. His current weight is 315 lbs and he states no additional weight loss since he has resumed execise. He eats multiple small meals a day. Exam: BP 144/68, Pulse 67, Temperature 36.4 C (97.6 F), Temperature source Oral, RR 16, Wt 14 3.065 kg (315 lbs 6.4 oz)( < 3 %ile). General: Alert, oriented, pleasant and cooperative HEENT: PERRL, EOMI CVS: RRR Chest: CTAB Abdomen: BS present, pannus present, incisions are well healed, defect in abdominal wall i n the LUQ, no herniation of abdominal contents felt at rest or when bearing down, soft and n ontender. Extremities: No c/c/e, wwp Current outpatient prescriptions: CALCIUM 500 WITH D ORAL, None Entered, Disp: , Rfl: fluticasone (FLONASE) 50 mcg/Actuation Nasal [place], Suspension, as needed, Disp: , Rfl: Insulin Reg (Human) Buffered 100 unit/mL Injection Solution, inject by subcutaneous route p er insulin sliding scale protocol as needed, Disp: , Rfl: lisinopril 40 mg Oral Tablet, take 1 tablet (40 mg) by oral route once daily, Disp: , Rfl: metoprolol 25 mg Oral Tablet, 1 Tab Oral TWO TIMES DAILY, Disp: 60, Rfl: 0 multivitamin Oral Tablet, take 1 tablet by oral route once daily with food, Disp: , Rfl: Omeprazole 20 mg Oral Tablet, Delayed Release (E.C.), one by mouth once daily 30 minutes be fore breakfast, Disp: 30, Rfl: 2 Syringe with Needle (Disp) 3 mL 22 x 1 1/2" Syringe, to be used with vitamin B12 injection s , Disp: 1, Rfl: 11 ZANTAC OR, 2x daily, Disp: , Rfl: Assessment/Plan: 12 months s/p open RYGBP. Doing well. Cont diet as tolerated. Cont exercise regimen. - F/u in clinic This patient was seen and examined with Dr. Grey Gaspar. documented in this encounter Miscellaneous Notes Scan - Other, Faculty - 07/01/2009 7:51 AM PDT documented in t his encounter Plan of Treatment Not on filedocumented as of this encounter Results FERRITIN, SERUM (04/13/2009 5:26 PM PDT) + + + + + + | Component | Value | Ref Range | Performed | Pathologist | | | | | At | Signature | + + + + + + | FERRITIN | 293Comment: New | 18 - 460 ng/mL | | | | | reference ranges | | | | | | effective 04/01/09. | | | | | | Ferritin reference | | | | | | intervals based on study | | | | | | performed [facility] | | | | | | [place], [place]. | | | | + + + + + + + + | Specimen | + + | Blood - Blood | + + + + + | Narrative | Performed At | + + + | [facility] | CAR | | [place] [place] [address] [facility] | DEPARTMENT | | [place] [address] | PATHOLOGY | + + + + + + + + | Performing | Address | City/State/Zipcode | Phone Number | | Organization | | | | + + + + + | [facility] DEPARTMENT | [facility] [facility] | [place] [address] | | | PATHOLOGY | [address] | | | + + + + + | [facility] | [address] [place] [address] | [place] [address] | | | PATHOLOGY | [address] | | | + + + + + PTH, SERUM (04/13/2009 5:26 PM PDT) + +-------+ + + + | Component | Value | Ref Range | Performed | Pathologist | | | | | At | Signature | + +-------+ + + + | PTH, SERUM | 35.0 | 15.0 - 75.0 | | | | | | pg/mL | | | + +-------+ + + + + + | Specimen | + + | Blood - Blood | + + + + + | Narrative | Performed At | + + + | [facility] | CAR | | [facility] [address] | DEPARTMENT OF | | [place] [address] | PATHOLOGY | + + + + + + + + | Performing | Address | City/State/Zipcode | Phone Number | | Organization | | | | + + + + + | [facility] | [address] | [place] [address] | | | PATHOLOGY | [address] | | | + + + + + | [facility] | [address] [place] [address] | [place] [address] | | | PATHOLOGY | [address] | | | + + + + + VITAMIN B-12, SERUM (04/13/2009 5:26 PM PDT) + +-------+ + + + | Component | Value | Ref Range | Performed | Pathologist | | | | | At | Signature | + +-------+ + + + | VITAMIN | 590 | 180 - 914 pg/ml | | | | B12, SERUM | | | | | + +-------+ + + + + + | Specimen | + + | Blood - Blood | + + + + + | Narrative | Performed At | + + + | [facility] | CAR | | [place] [address] | DEPARTMENT OF | | [place] [address] | PATHOLOGY | + + + + + + + + | Performing | Address | City/State/Zipcode | Phone Number | | Organization | | | | + + + + + | [facility] DEPARTMENT | [address] [place] [address] | [place] [address] | | | PATHOLOGY | [address] | | | + + + + + | [facility] DEPARTMENT OF | [address] | [place] [address] | | | PATHOLOGY | [address] | | | + + + + + VITAMIN D, 25-HYDROXY, SERUM (04/13/2009 5:26 PM PDT) + + + + + + | Component | Value | Ref Range | Performed | Pathologist | | | | | At | Signature | + + + + + + | VITAMIN D | 25 (L)Comment: TEST | 30 - 80 ng/mL [...] | | | | | | 20 ng/mL Insufficiency: | | | | | | 20-29 ng/mL Optimum | | | | | | Level: 30-80 ng/mL | | | | | | Possible Toxicity: | | | | | | Greater than 80 | | | | | | ng/mLPerformed by [facility] | | | | | | Lb,Edmundo Walker | | | | | | [place] [address] | | | | | | [phone] | | | | | | Zack coughlin, | | | | | | MD [facility]. Director | | | | + + + + + + + + | Specimen | + + | Blood - Blood | + + + + + + + | Performing | Address | City/State/Zipcode | Phone Number | | Organization | | | | + + + + + | [facility] | [address] | [place] [address] | | | PATHOLOGY | [address] | | | + + + + + COMPLETE METABOLIC SET (NA,K,CL,CO2,BUN,CREAT,GLUC,CA,AST,ALT,BILI TOTAL,ALK PHOS,ALB,PROT TOTAL) (04/13/2009 5:26 PM PDT) + +---------+ + + + | Component | Value | Ref Range | Performed | Pathologist | | | | | At | Signature | + +---------+ + + + | GLUCOSE, | 116 (H) | 60 - 99 mg/dL | [facility] | | | PLASMA | | | DEPARTMENT | | | (LAB) | | | OF | | | | | | PATHOLOGY | | + +---------+ + + + | BUN, PLASMA | 10 | 6 - 20 mg/dL | [facility] | | | (LAB) | | | DEPARTMENT | | | | | | OF | | | | | | PATHOLOGY | | + +---------+ + + + | CREATININE | 0.91 | 0.70 - 1.30 | [facility] | | | PLASMA | | mg/dL | DEPARTMENT | | | (LAB) | | | OF | | | | | | PATHOLOGY | | + +---------+ + + + | TOTAL | 6.4 | 6.1 - 7.9 g/dL | [facility] | | | PROTEIN, | | | DEPARTMENT | | | PLASMA | | | OF | | | (LAB) | | | PATHOLOGY | | + +---------+ + + + | ALBUMIN, | 3.6 | 3.5 - 4.7 g/dL | [facility] | | | PLASMA | | | DEPARTMENT | | | (LAB) | | | OF | | | | | | PATHOLOGY | | + +---------+ + + + | CALCIUM, | 9.2 | 8.6 - 10.2 | [facility] | | | PLASMA | | mg/dL | DEPARTMENT | | | (LAB) | | | OF | | | | | | PATHOLOGY | | + +---------+ + + + | BILIRUBIN | 1.4 (H) | 0.3 - 1.2 mg/dL | [facility] | | | TOTAL | | | DEPARTMENT | | | | | | OF | | | | | | PATHOLOGY | | + +---------+ + + + | ALK PHOS | 52 (L) | 53 - 128 U/L | [facility] | | | | | | DEPARTMENT | | | | | | OF | | | | | | PATHOLOGY | | + +---------+ + + + | AST(SGOT) | 31 | 15 - 41 U/L | [facility] | | | | | | DEPARTMENT | | | | | | OF | | | | | | PATHOLOGY | | + +---------+ + + + | SODIUM, | 138 | 134 - 143 | [facility] | | | PLASMA | | mmol/L | DEPARTMENT | | | (LAB) | | | OF | | | | | | PATHOLOGY | | + +---------+ + + + | POTASSIUM, | 4.3 | 3.4 - 5.0 | [facility] | | | PLASMA | | mmol/L | DEPARTMENT | | | (LAB) | | | OF | | | | | | PATHOLOGY | | + +---------+ + + + | CHLORIDE, | 102 | 97 - 108 mmol/L | [facility] | | | PLASMA | | | DEPARTMENT | | | (LAB) | | | OF | | | | | | PATHOLOGY | | + +---------+ + + + | TOTAL CO2, | 30 | 23 - 31 mmol/L | [facility] | | | PLASMA | | | DEPARTMENT | | | (LAB) | | | OF | | | | | | PATHOLOGY | | + +---------+ + + + | ALT (SGPT) | 21 | 13 - 48 U/L | [facility] | | | | | | DEPARTMENT | | | | | | OF | | | | | | PATHOLOGY | | + +---------+ + + + | AST CMNT | SL HEMO | | [facility] | | | | | | DEPARTMENT | | | | | | OF | | | | | | PATHOLOGY | | + +---------+ + + + + + | Specimen | + + | Blood - Blood | + + + + + | Narrative | Performed At | + + + | [id number] Estimated GFR > 60 mL/min/1.73 sq m if non- | [facility] | | [place] [id number] Estimated GFR > 60 mL/min/1.73 sq m if | DEPARTMENT OF | | [place] GFR is estimated using the MDRD equation recommended by | PATHOLOGY | | the National Kidney Disease Education Program. Estimated GFR | | | Interpretive Information: <60 mL/min/1.73 sq m Chronic Kidney | | | Disease <15 mL/mon/1.73 sq m Kidney Failure Estimated GFR | | | greater than 60mL/min/1.73 is of limited clinical Value. The MDRD | | | equation is not valid in the following situations: - Patients under | | | 18 years of age - Severe malnutrition or obesity - Vegetarian diet | | | - Rapidly changing kidney function Sample hemolyzed. Results for | | | K, Total Bili., Direct Bili., AST, LD, or HDL may be inaccurate. | | | Refer to comment under test result. | | + + + + + + + + | Performing | Address | City/State/Zipcode | Phone Number | | Organization | | | | + + + + + | [facility] DEPARTMENT OF | [address] | [place] [address] | | | PATHOLOGY | [address] | | | + + + + + | [facility] DEPARTMENT OF | [address] | [place] [address] | | | PATHOLOGY | [address] | | | + + + + + CBC ONLY (04/13/2009 5:26 PM PDT) + +-------+ + + + | Component | Value | Ref Range | Performed | Pathologist | | | | | At | Signature | + +-------+ + + + | WHITE CELL | 6.3 | 4.4 - 11.0 K/cu | [facility] | | | COUNT | | mm | DEPARTMENT | | | | | | OF | | | | | | PATHOLOGY | | + +-------+ + + + | RED CELL | 4.64 | 4.50 - 5.90 | [facility] | | | COUNT | | M/cu mm | DEPARTMENT | | | | | | OF | | | | | | PATHOLOGY | | + +-------+ + + + | HEMOGLOBIN | 14.8 | 13.5 - 17.5 | [facility] | | | | | g/dL | DEPARTMENT | | | | | | OF | | | | | | PATHOLOGY | | + +-------+ + + + | HEMATOCRIT | 44.3 | 41.0 - 53.0 % | [facility] | | | | | | DEPARTMENT | | | | | | OF | | | | | | PATHOLOGY | | + +-------+ + + + | MCV | 95.4 | 80.0 - 96.0 fL | [facility] | | | | | | DEPARTMENT | | | | | | OF | | | | | | PATHOLOGY | | + +-------+ + + + | MCHC | 33.5 | 33.4 - 35.5 | [facility] | | | | | g/dL | DEPARTMENT | | | | | | OF | | | | | | PATHOLOGY | | + +-------+ + + + | RDW | 13.4 | 11.5 - 15.0 % | [facility] | | | | | | DEPARTMENT | | | | | | OF | | | | | | PATHOLOGY | | + +-------+ + + + | PLATELET | 172 | 150 - 400 K/cu | [facility] [...] | + + + + + | [facility] | [address] | [place] [address] | | | PATHOLOGY | [address] | | | + + + + + | [facility] | [address] | [place] [address] | | | PATHOLOGY | [address] | | | + + + + + documented in this encounter Visit Diagnoses + + | Diagnosis | + + | Status post gastric bypass for obesity - Primary Bariatric surgery status | + + documented in this encounter
--- OUTSIDE RECORDS SUMMARY | ~2020-06-16 | XMS | Encounter Summary ---
Demographics + + + | Address | [address] | | | [place] [address] | + + + | Home Phone | | + + + | Preferred Language | Unknown | + + + | Marital Status | Single | + + + | Buddhism Affiliation | CAT | + + + | Race | or | + + + | Ethnic Group | Not or | + + + Author + + + | Author | [facility] | + + + | Organization | [facility] | + + + | [...] [address] [place] | | | | | [address] | | + + + + + Care Team Providers + +------+ + | Care Health Education Teacher Name | Role | Phone | + +------+ + | Dhruv Villalpando MD | PCP | Unavailable | + +------+ + Encounter Details +--------+ + + + + | Date | Type | Department | Care Team | Description | +--------+ + + + + | 11/07/ | Procedure - | [facility] Division of | Endoscopy, Gi | EGD | | 2008 | | Gastroenterology/Hep | | (esophagogastroduode | | | Transcribed | atology [address] | | noscopy) | | | | [address] | | | | | | Mailcode: [id number] | | | | | | [facility] | | | | | | Suite [facility] | | | | | | [place], [place] | | | | | | [address] | | | | | | [phone] | | | +--------+ + + + [...] this encounter Procedure Notes Endoscopy, Gi - 11/07/2008 3:43 PM PSTAssociated Order(s): EGD PROCEDURES:PANENDOSCOPY (EGD) CPT: 49991. PERSONNEL:ENDOSCOPIST: ILEANA FATIMA MD. SHOW CARD LETTERER: HANNA HARRIS. REFERRED BY:GETACHEW GIANG MD. EXAM LOCATION:EXAM PERFORMED IN ENDOSCOPY SUITE. OUTPATIENT PATIENT CONSENT:PROCEDURE, ALTERNATIVES, RISKS AND BENEFITS DISCUSSED, CONSENT OBTAINED, FROM PATIENT. CONSENT WAS OBTAINED BY THE PHYSICIAN. CONSENT TO BE CONTACTED WAS NOT REQUESTED. SYMPTOMS:HX OF STRICTURE. COMMENTS:PRIOR HX OF STRICTURE CURRENT MEDICATIONS:PATIENT IS NOT CURRENTLY TAKING COUMADIN. MEDICAL/SURGICAL HISTORY:GASTRIC BYPASS, ALLERGIES:NO KNOWN ALLERGIES. COMMENTS:PT WITH HX OF ANASTOMATIC STRICTURE LAST DILATED IN 08/16. TODAY REPORTS MINIMAL SYMPTOMS TO DYSPHAGIA WITH STEAK ONLY. PRE-EXAM PHYSICAL:PERFORMED AUG 05, 2008 CARDIO-PULMONARY EXAM, HEENT EXAM, ABDOMINAL EXAM, MENTAL STATUS EXAM WNL. ABNORMAL PE FINDINGS INCLUDE: MORBID OBESITY. EXAM INFO:MAXIMUM DEPTH OF INSERTION JEJUNUM, INTENDED JEJUNUM. GASTRIC RETROFLEXION PERFORMED. ASA CLASSIFICATION: II. TOLERANCE: EXCELLENT. SEDATION MEDS:PATIENT ASSESSED AND FOUND TO BE APPROPRIATE FOR GENERAL ANESTHESIA. SEDATION WAS MANAGED BY THE ANESTHESIOLOGIST. PROPOFOL GIVEN IV. MONITORING:BP AND PULSE MONITORING DONE. OXIMETRY USED. INSTRUMENT(S):GIF 140. - ESOPHAGEAL INFLAMMATION: A RESULT OF REFLUX. PROXIMAL MARGIN 44 CM FROM MOUTH, DISTAL MARGIN 45 CM. LOS KATARINA CLASSIFICATION: GRADE 0. - FOREIGN BODY / RETAINED FOOD: FOUND IN CARDIA. COMMENTS: RETAINED FOOD THROUGHOUT STOMACH AND SMALL JOHNNY. - PRIOR SURGERY: COMMENTS: GASTRIC BYPASS. - ANASTAMOSIS: DUODENAL BULB. COMMENT: NO STRICTURE, WIDELY PATENT, SCOPE PASSED WITHOUT DIFFICULTY. COMMENTS:ESOPHAGUS: MINIMAL ERYTHEMA AT GEJ AT 45 CM STOMACH: LARGE AMOUNT OF RETAINED FOOD IN THE STOMACH OBSCURING VIEW. THE ANASTOMATIC SITE IS WIDELY PATENT WITHOUT ULCERATION OR EDEMA SEEN. ENDOSCOPE IS PASSED WITH EASE. ANASTOMATIC LUMEN APPEARS TO BE 13-15 MM IN DIAMETER. SMALL INTESTINE: UNREMARKABLE COMMENTS:OVERALL INTERVAL IMPROVEMENT S/P SEQUENTIAL DILATIONS IN WINTER 2007. PATIENT DOES NOT HAVE ANY EVIDENCE OF STRICTURE AND THIS CORRELATES WITH HIM BEING ESSENTIALLY SYMPTOMS FREE. MULTIPLE EGD HAVE ALL SHOWED RETAINED FOOD IN HIS STOMACH. PT RELATES HE FASTED FOR 12 HOURS. TODAY PRIOR TO EGD PER ANESTHESIA PT DID RELATE HAD SMALL AMOUNT OF CANDY 1. RETAINED FOOD 2. MINIMAL GEJ ERYTHEMA LIKELY RELATED TO REFLUX IN SETTING OF RETAINED FOOD. UNPLANNED INTERVENTION:NO UNPLANNED INTERVENTIONS WERE REQUIRED. UNPLANNED EVENTS:THERE WERE NO COMPLICATIONS. COMMENTS:1. CONTINUE PPI 2. REFER BACK IF RECURRENT SYMPTOMS OF OBSTRUCTION. PLEASE NOTE IF EGD IS PURSUED WOULD ADVISE PROLONGED FAST GIVEN SIGNFICANT FOOD IN REMNANT STOMACH DISPOSITION:AFTER PROCEDURE PATIENT SENT TO SHORT STAY UNIT. AFTER RECOVERY PATIENT SENT HOME. SCHEDULING:REFERRING PROVIDER, TO GETACHEW GIANG MD, REPORT ENTERED BY: ILEANA FATIMA MDdocumented in this encounter Plan of Treatment Not on filedocumented as of this encounter Procedures + +--------+ + + + | Procedure Name | Priori | Date/Time | Associated Diagnosis | Comments | | | ty | | | | + +--------+ + + + | EGD | | 11/07/2008 | | Results for this | | | | 3:43 PM | | procedure are in the | | | | PST | | results section. | + +--------+ + + + documented in this encounter Results EGD (11/07/2008 3:43 PM PST) + + + | Narrative | Performed At | + + + | PROCEDURES:PANENDOSCOPY (EGD) CPT: [id number]. | | | PERSONNEL:ENDOSCOPIST: ILEANA FATIMA MD. SHOW CARD LETTERER: HANNA | | | STEVEN. REFERRED BY:GETACHEW GIANG MD. EXAM LOCATION:EXAM | | | PERFORMED IN ENDOSCOPY SUITE. OUTPATIENT PATIENT CONSENT:PROCEDURE, | | | ALTERNATIVES, RISKS AND BENEFITS DISCUSSED, CONSENT OBTAINED, FROM | | | PATIENT. CONSENT WAS OBTAINED BY THE PHYSICIAN. CONSENT TO BE | | | CONTACTED WAS NOT REQUESTED. SYMPTOMS:HX OF STRICTURE. | | | COMMENTS:PRIOR HX OF STRICTURE CURRENT MEDICATIONS:PATIENT IS NOT | | | CURRENTLY TAKING COUMADIN. MEDICAL/SURGICAL HISTORY:GASTRIC BYPASS, | | | ALLERGIES:NO KNOWN ALLERGIES. COMMENTS:PT WITH HX OF ANASTOMATIC | | | STRICTURE LAST DILATED IN 08/16. TODAY REPORTS MINIMAL SYMPTOMS TO | | | DYSPHAGIA WITH STEAK ONLY. PRE-EXAM PHYSICAL:PERFORMED AUG 05, 2008 | | | CARDIO-PULMONARY EXAM, HEENT EXAM, ABDOMINAL EXAM, MENTAL STATUS | | | EXAM WNL. ABNORMAL PE FINDINGS INCLUDE: MORBID OBESITY. EXAM | | | INFO:MAXIMUM DEPTH OF INSERTION JEJUNUM, INTENDED JEJUNUM. GASTRIC | | | RETROFLEXION PERFORMED. ASA CLASSIFICATION: II. TOLERANCE: | | | EXCELLENT. SEDATION MEDS:PATIENT ASSESSED AND FOUND TO BE APPROPRIATE | | | FOR GENERAL ANESTHESIA. SEDATION WAS MANAGED BY THE | | | ANESTHESIOLOGIST. PROPOFOL GIVEN IV. MONITORING:BP AND PULSE | | | MONITORING DONE. OXIMETRY USED. INSTRUMENT(S):GIF 140. - ESOPHAGEAL | | | INFLAMMATION: A RESULT OF REFLUX. PROXIMAL MARGIN 44 CM FROM | | | MOUTH, DISTAL MARGIN 45 CM. LOS KATARINA CLASSIFICATION: GRADE 0. | | | - FOREIGN BODY / RETAINED FOOD: FOUND IN CARDIA. COMMENTS: RETAINED | | | FOOD THROUGHOUT STOMACH AND SMALL JOHNNY. - PRIOR SURGERY: COMMENTS: | | | GASTRIC BYPASS. - ANASTAMOSIS: DUODENAL BULB. COMMENT: NO STRICTURE, | | | WIDELY PATENT, SCOPE PASSED WITHOUT DIFFICULTY. | | | COMMENTS:ESOPHAGUS: MINIMAL ERYTHEMA AT GEJ AT 45 CM STOMACH: LARGE | | | AMOUNT OF RETAINED FOOD IN THE STOMACH OBSCURING VIEW. THE | | | ANASTOMATIC SITE IS WIDELY PATENT WITHOUT ULCERATION OR EDEMA SEEN. | | | ENDOSCOPE IS PASSED WITH EASE. ANASTOMATIC LUMEN APPEARS TO BE | | | 13-15 MM IN DIAMETER. SMALL INTESTINE: UNREMARKABLE | | | COMMENTS:OVERALL INTERVAL IMPROVEMENT S/P SEQUENTIAL DILATIONS IN | | | WINTER 2007. PATIENT DOES NOT HAVE ANY EVIDENCE OF STRICTURE AND THIS | | | CORRELATES WITH HIM BEING ESSENTIALLY SYMPTOMS FREE. MULTIPLE EGD | | | HAVE ALL SHOWED RETAINED FOOD IN HIS STOMACH. PT RELATES HE FASTED | | | FOR 12 HOURS. TODAY PRIOR TO EGD PER ANESTHESIA PT DID RELATE HAD | | | SMALL AMOUNT OF CANDY 1. RETAINED FOOD 2. MINIMAL GEJ ERYTHEMA | | | LIKELY RELATED TO REFLUX IN SETTING OF RETAINED FOOD. UNPLANNED | | | INTERVENTION:NO UNPLANNED INTERVENTIONS WERE REQUIRED. UNPLANNED | | | EVENTS:THERE WERE NO COMPLICATIONS. COMMENTS:1. CONTINUE PPI 2. | | | REFER BACK IF RECURRENT SYMPTOMS OF OBSTRUCTION. PLEASE NOTE IF EGD | | | IS PURSUED WOULD ADVISE PROLONGED FAST GIVEN SIGNFICANT FOOD IN | | | REMNANT STOMACH DISPOSITION:AFTER PROCEDURE PATIENT SENT TO SHORT | | | STAY UNIT. AFTER RECOVERY PATIENT SENT HOME. SCHEDULING:REFERRING | | | PROVIDER, TO GETACHEW GIANG MD, REPORT ENTERED BY: ILEANA FATIMA, | | | | | + + + + + | Procedure Note | + + | 11/07/2008 3:43 PM PST | | PROCEDURES:PANENDOSCOPY (EGD) CPT: [id number]. | | PERSONNEL:ENDOSCOPIST: ILEANA FATIMA MD. SHOW CARD LETTERER: HANNA HARRIS. | | REFERRED BY:GETACHEW GIANG MD. | | EXAM LOCATION:EXAM PERFORMED IN ENDOSCOPY SUITE. OUTPATIENT | | PATIENT CONSENT:PROCEDURE, ALTERNATIVES, RISKS AND BENEFITS DISCUSSED, | | CONSENT OBTAINED, FROM PATIENT. CONSENT WAS OBTAINED BY THE PHYSICIAN. | | CONSENT TO BE CONTACTED WAS NOT REQUESTED. | | SYMPTOMS:HX OF STRICTURE. | | COMMENTS:PRIOR HX OF STRICTURE | | CURRENT MEDICATIONS:PATIENT IS NOT CURRENTLY TAKING COUMADIN. | | MEDICAL/SURGICAL HISTORY:GASTRIC BYPASS, | | ALLERGIES:NO KNOWN ALLERGIES. | | COMMENTS:PT WITH HX OF ANASTOMATIC STRICTURE LAST DILATED IN 08/16. TODAY | | REPORTS MINIMAL SYMPTOMS TO DYSPHAGIA WITH STEAK ONLY. | | PRE-EXAM PHYSICAL:PERFORMED AUG 05, 2008 CARDIO-PULMONARY EXAM, HEENT | | EXAM, ABDOMINAL EXAM, MENTAL STATUS EXAM WNL. ABNORMAL PE FINDINGS | | INCLUDE: MORBID OBESITY. | | EXAM INFO:MAXIMUM DEPTH OF INSERTION JEJUNUM, INTENDED JEJUNUM. GASTRIC | | RETROFLEXION PERFORMED. ASA CLASSIFICATION: II. TOLERANCE: EXCELLENT. | | SEDATION MEDS:PATIENT ASSESSED AND FOUND TO BE APPROPRIATE FOR GENERAL | | ANESTHESIA. SEDATION WAS MANAGED BY THE ANESTHESIOLOGIST. PROPOFOL GIVEN | | IV. | | MONITORING:BP AND PULSE MONITORING DONE. OXIMETRY USED. | | INSTRUMENT(S):GIF 140. | | - ESOPHAGEAL INFLAMMATION: A RESULT OF REFLUX. PROXIMAL MARGIN 44 CM | | FROM MOUTH, DISTAL MARGIN 45 CM. LOS KATARINA CLASSIFICATION: GRADE 0. | | - FOREIGN BODY / RETAINED FOOD: FOUND IN CARDIA. COMMENTS: RETAINED FOOD | | THROUGHOUT STOMACH AND SMALL JOHNNY. | | - PRIOR SURGERY: COMMENTS: GASTRIC BYPASS. | | - ANASTAMOSIS: DUODENAL BULB. COMMENT: NO STRICTURE, WIDELY PATENT, SCOPE | | PASSED WITHOUT DIFFICULTY. | | COMMENTS:ESOPHAGUS: MINIMAL ERYTHEMA AT GEJ AT 45 CM | | STOMACH: LARGE AMOUNT OF RETAINED FOOD IN THE STOMACH OBSCURING VIEW. THE | | ANASTOMATIC SITE IS WIDELY PATENT WITHOUT ULCERATION OR EDEMA SEEN. | | ENDOSCOPE IS PASSED WITH EASE. ANASTOMATIC LUMEN APPEARS TO BE 13-15 MM | | IN DIAMETER. | | SMALL INTESTINE: UNREMARKABLE | | COMMENTS:OVERALL INTERVAL IMPROVEMENT S/P SEQUENTIAL DILATIONS IN WINTER | | 2007. PATIENT DOES NOT HAVE ANY EVIDENCE OF STRICTURE AND THIS CORRELATES | | WITH HIM BEING ESSENTIALLY SYMPTOMS FREE. MULTIPLE EGD HAVE ALL SHOWED | | RETAINED FOOD IN HIS STOMACH. PT RELATES HE FASTED FOR 12 HOURS. TODAY | | PRIOR TO EGD PER ANESTHESIA PT DID RELATE HAD SMALL AMOUNT OF CANDY | | 1. RETAINED FOOD | | 2. MINIMAL GEJ ERYTHEMA LIKELY RELATED TO REFLUX IN SETTING OF RETAINED | | FOOD. | | UNPLANNED INTERVENTION:NO UNPLANNED INTERVENTIONS WERE REQUIRED. | | UNPLANNED EVENTS:THERE WERE NO COMPLICATIONS. | | COMMENTS:1. CONTINUE PPI | | 2. REFER BACK IF RECURRENT SYMPTOMS OF OBSTRUCTION. PLEASE NOTE IF EGD IS | | PURSUED WOULD ADVISE PROLONGED FAST GIVEN SIGNFICANT FOOD IN REMNANT | | STOMACH | | DISPOSITION:AFTER PROCEDURE PATIENT SENT TO SHORT STAY UNIT. AFTER | | RECOVERY PATIENT SENT HOME. | | SCHEDULING:REFERRING PROVIDER, TO GETACHEW GIANG MD, | | REPORT ENTERED BY: ILEANA FATIMA MD | + + documented in this encounter Visit Diagnoses Not on filedocumented in this encounter"
--- OUTSIDE RECORDS SUMMARY | ~2020-06-16 | XMS | Encounter Summary ---
Demographics + + + | Address | [address] | | | [place] [address] | + + + | Home Phone | | + + + | Preferred Language | Unknown | + + + | Marital Status | Single | + + + | Jehovah'S Witness Affiliation | CAT | + + + | Race | or | + + + | Ethnic Group | Not or | + + + Author + + + | Author | [facility] [address] [place] | | | | | [address] | | + + + + + Care Team Providers + +------+ + | Care Secretary Of Police Name | Role | Phone | + +------+ + | Dhruv Villalpando MD | PCP | Unavailable | + +------+ + Encounter Details +--------+ + + + + | Date | Type | Department | Care Team | Description | +--------+ + + + + | 12/18/ | Telephone | Dig[facility]ive Health | Manuel [place], | | | 2007 | | [place] [address] | [address] [facility] | | | | | [place] Mailcode: CH[address] | Willie Leanne | | | | | [facility] | [place], [place] | | | | | and Healing, | [address] | | | | | [facility] | [phone] | | | | | Floor [place], [place] | | | | | | [address] | | | | | | [phone] | | | +--------+ + + + [...] this encounter Miscellaneous Notes Telephone Encounter - Alyssa Negrete - 12/19/2007 2:19 PM PDTPatient calling to let Natasha Kimbrough & Dr Gaspar know that Dr Rodrigez of [facility] ) know that his "proth rombin last week was 1.7 and this week is 1.5" . Dr Rodrigez has increase his "coumadin from 10 mg to 12.5 mg to be taken on odd days (monday , and Monday)" this was started today. FOR YOUR INFORMATION documented in this encoun ter Plan of Treatment Not on filedocumented as of this encounter Visit Diagnoses Not on filedocumented in this encounter
--- OUTSIDE RECORDS SUMMARY | ~2020-06-16 | XMS | Encounter Summary ---
Demographics + + + | Address | [address] | | | [place] [address] | + + + | Home Phone | | + + + | Preferred Language | Unknown | + + + | Marital Status | Single | + + + | Yazidism Affiliation | CAT | + + + | Race | or | + + + | Ethnic Group | Not or | + + + Author + + + | Author | [facility] | + + + | Organization | [facility] | + + + | [...] [address] | | | | | [address] | | + + + + + Care Team Providers + +------+ + | Care Trouble Locater Name | Role | Phone | + +------+ + | Dhruv Villalpando MD | PCP | Unavailable | + +------+ + Encounter Details +--------+ + + + + | Date | Type | Department | Care Team | Description | +--------+ + + + + | 03/17/ | Results | Registration [id number] | | | 2008 | Only | [address] | [phone] | | | | | [address] Mailcode: [address] | | | | | | [place], [place] | | | | | | [address] | | | | | | [phone] | | | +--------+ + + + [...] | TYPE AND SCREEN | Routin | 03/17/2008 | | Results for this | | | e | 2:53 PM | | procedure are in the | | | | PDT | | results section. | + +--------+ + + + documented in this encounter Results TYPE AND SCREEN (03/17/2008 2:53 PM PDT) + + + + + [...] unspecified provider. | [facility] | | | DEPARTMENT OF | | | PATHOLOGY | + + + + + + + + | Performing | Address | City/State/Zipcode | Phone Number | | Organization | | | | + + + + + | [facility] DEPARTMENT OF | [address] | [place] [address] | | | PATHOLOGY | [address] | | | + + + + + | [facility] | [address] | [place] [address] | | | PATHOLOGY | [address] | | | + + + + + documented in this encounter Visit Diagnoses Not on filedocumented in this encounter"
--- OUTSIDE RECORDS SUMMARY | ~2020-06-16 | XMS | Encounter Summary ---
Demographics + + + | Address | [address] | | | [place] [address] | + + + | Home Phone [...] + + | Author | [facility] | + + + | Organization | [facility] | + + + | Address [...] [address] | | | | | [address] | | + + + + + Care Team Providers + +------+ + | Care Template Cutter Name | Role | Phone | + +------+ + PCP | Unavailable | + +------+ + Reason for Visit + + + | Reason | Comments | + + + | Surgical follow-up | | + + + Encounter Details +--------+ + + + + | Date | Type | Department | Care Team | Description | +--------+ + + + + | 07/08/ | Abstract | Digestive Health | Didier Justin, | Surgical follow-up | | 2010 | | Center at [facility] [address] | [place] [employer]HER OPERATOR [address] | | | | | [address] | [facility] [address] | | | | | [facility] and | [place], [place] | | | | | [place] [address] | [address] | | | | | [place], [place] | [phone] | | | | | [address] | | | | | | [phone] | | | +--------+ + + + [...] documented as of this encounter Progress Notes Tanner Salcedo - 07/08/2011 2:07 PM PDTFormatting of this note might be different fr om the original. Insurance will not give auth for him to fu here at [facility] ID: [id number] Status: New [10] Patient: GHASSAN PEREZ Visit Type: BAR RETURN [5441] Provider/Resource: DIDIER JUSTIN [[id number]] GETACHEW GIANG [[id number]] Department: [facility] [[id number]] [facility] [[id number]] Notification Date: 03/19/2011 Recall Date: 03/19/2011 Expiration Date Letter: Audit Tucker: User: Time: Status: Aishwarya Milton [CHRISTOPHER] 04/17/2008 4:51 PM New [10] Anabel Perera [BARNEY] 03/18/2011 3:45 PM Scheduled/Linked [30] Coleen Miles [RYLESC] 03/24/2011 4:05 PM New [10] Scheduling Instructions 5yr eliceo fu, schedule within 09.18.2010 - 09.17.2011 Appointment Notes 04.14.2011-tcb need to get pcp infopaperwork to pt @ check-in 5yr eliceo fu dos 03.19.2008 bypass zully Communication History User: ANABEL PERERA Date/time: 04/04/11 2:09 PM Context: Ana Laura Recall Report Outcome: Available Comment: pt did not want to sched until appt was approved by ins (pt stated we have to ask for referral), will check on ins & cb to sched Phone number: [phone] Phone type: Home Phone Comm. type: Telephone Call type: Outgoing Contact: Ghassan Perez Relation to patient: Self User: TANNER SALCEDO Date/time: 01/25/11 5:27 PM Context: Ana Laura Recall Report Outcome: Left Message Comment: Phone number: [phone] Phone type: Home Phone Comm. type: Telephone Call type: Outgoing Contact: Ghassan Perez Relation to patient: Self documented in this e ncounter Plan of Treatment Not on filedocumented as of this encounter Visit Diagnoses Not on filedocumented in this encounter"
--- OUTSIDE RECORDS SUMMARY | ~2020-06-16 | XMS | Encounter Summary ---
Demographics + + + | Address | [address] | | | [place] [address] | + + + | Home Phone | | + + + | Preferred Language | Unknown | + + + | Marital Status | Single | + + + | Yarsani Affiliation | CAT | + + + | Race | or | + + + | Ethnic Group | Not or | + + + Author + + + | Author | [facility] | + + + | Organization | [facility] | + + + | [...] [address] | | | | | [address] | | + + + + + Care Team Providers + +------+ + | Care Assistant Chief Train Dispatcher Name | Role | Phone | + +------+ + | Dhruv Villalpando MD | PCP | Unavailable | + +------+ + Encounter Details +--------+ + + + + | Date | Type | Department | Care Team | Description | +--------+ + + + + | 08/27/ | Hospital | Registration [address] | [place], | | | 2006 | Activity | [address] | [address] [facility] | | | | | Rd Mailcode: [id number] | [address] | | | | | [place], [place] | [place], [place] | | | | | [address] | [address] | | | | | [phone] | [phone] | | | | | | | [...] | + +--------+ + + + | DIFFERENTIAL | Routin | 08/31/2007 | | Results for this | | | e | 8:19 AM | | procedure are in the | | | | PST | | results section. | + +--------+ + + + | SLIDE REVIEW | Routin | 08/31/2007 | | Results for this | | | e | 8:19 AM | | procedure are in the | | | | PST | | results section. | + +--------+ + + + | CBC, WITH | Routin | 08/31/2007 | | Results for this | | DIFFERENTIAL | e | 8:19 AM | | procedure are in the | | | | PST | | results section. | + +--------+ + + + | BASIC METABOLIC SET | Routin | 08/31/2007 | | Results for this | | (NA, K, CL, TCO2, | e | 8:19 AM | | procedure are in the | | BUN, CR, GLU, CA) | | PST | | results section. | + +--------+ + + + | CBC ONLY | Routin | 08/31/2007 | | Results for this | | | e | 8:19 AM | | procedure are in the | | | | PST | | results section. | + +--------+ + + + | PHOSPHORUS, PLASMA | Routin | 08/31/2007 | | Results for this | | | e | 8:19 AM | | procedure are in the | | | | PST | | results section. | + +--------+ + + + | MAGNESIUM, PLASMA | Routin | 08/31/2007 | | Results for this | | | e | 8:19 AM | | procedure are in the | | | | PST | | results section. | + +--------+ + + + | INR | Routin | 08/30/2007 | | Results for this | | | e | 1:53 PM | | procedure are in the | | | | PST | | results section. | + +--------+ + + + | BASIC METABOLIC SET | Routin | 08/30/2007 | | Results for this | | (NA, K, CL, TCO2, | e | 1:53 PM | | procedure are in the | | BUN, CR, GLU, CA) | | PST | | results section. | + +--------+ + + + | CBC ONLY | Routin | 08/30/2007 | | Results for this | | | e | 1:53 PM | | procedure are in the | | | | PST | | results section. | + +--------+ + + + | APTT (ACT. PART. | Routin | 08/30/2007 | | Results for this | | THROMBO TIME) | e | 1:53 PM | | procedure are in the | | | | PST | | results section. | + +--------+ + + + | INR | Routin | 08/30/2007 | | Results for this | | | e | 7:27 AM | | procedure are in the | | | | PST | | results section. | + +--------+ + + + | BASIC METABOLIC SET | Routin | 08/30/2007 | | Results for this | | (NA, K, CL, TCO2, | e | 7:27 AM | | procedure are in the | | BUN, CR, GLU, CA) | | PST | | results section. | + +--------+ + + + | CBC ONLY | Routin | 08/30/2007 | | Results for this | | | e | 7:27 AM | | procedure are in the | | | | PST | | results section. | + +--------+ + + + | APTT (ACT. PART. | Routin | 08/30/2007 | | Results for this | | THROMBO TIME) | e | 7:27 AM | | procedure are in the | | | | PST | | results section. | + +--------+ + + + | PHOSPHORUS, PLASMA | Routin | 08/30/2007 | | Results for this | | | e | 7:27 AM | | procedure are in the | | | | PST | | results section. | + +--------+ + + + | MAGNESIUM, PLASMA | Routin | 08/30/2007 | | Results for this | | | e | 7:27 AM | | procedure are in the | | | | PST | | results section. | + +--------+ + + + | HEMATOCRIT | Urgent | 08/30/2007 | | Results for this | | | | 3:30 AM | | procedure are in the | | | | PST | | results section. | + +--------+ + + + | CT PELVIS W IV | Urgent | 08/30/2007 | | Results for this | | CONTRAST | | 2:25 AM | | procedure are in the | | | | PST | | results section. | + +--------+ + + + | CT ABDOMEN W IV | Urgent | 08/30/2007 | | Results for this | | CONTRAST | | 2:25 AM | | procedure are in the | | | | PST | | results section. | + +--------+ + + + | INR | Urgent | 08/29/2007 | | Results for this | | | | 10:25 PM | | procedure are in the | | | | PST | | results section. | + +--------+ + + + | HEMATOCRIT | Urgent | 08/29/2007 | | Results for this | | | | 10:25 PM | | procedure are in the | | | | PST | | results section. | + +--------+ + + + | INR | Routin | 08/29/2007 | | Results for this | | | e | 10:01 PM | | procedure are in the | | | | PST | | results section. | + +--------+ + + + | APTT (ACT. PART. | Routin | 08/29/2007 | | Results for this | | THROMBO TIME) | e | 10:01 PM | | procedure are in the | | | | PST | | results section. | + +--------+ + + + | HEMATOCRIT | Routin | 08/29/2007 | | Results for this | | | e | 10:01 PM | | procedure are in the | | | | PST | | results section. | + +--------+ + + + | INR | Routin | 08/29/2007 | | Results for this | | | e | 2:20 PM | | procedure are in the | | | | PST | | results section. | + +--------+ + + + | BASIC METABOLIC SET | Routin | 08/29/2007 | | Results for this | | (NA, K, CL, TCO2, | e | 9:25 AM | | procedure are in the | | BUN, CR, GLU, CA) | | PST | | results section. | + +--------+ + + + | CBC ONLY | Routin | 08/29/2007 | | Results for this | | | e | 9:25 AM | | procedure are in the | | | | PST | | results section. | + +--------+ + + + | PHOSPHORUS, PLASMA | Routin | 08/29/2007 | | Results for this | | | e | 9:25 AM | | procedure are in the | | | | PST | | results section. | + +--------+ + + + | MAGNESIUM, PLASMA | Routin | 08/29/2007 | | Results for this | | | e | 9:25 AM | | procedure are in the | | | | PST | | results section. | + +--------+ + + + | X-RAY JANI KNUTSON | Routin | 08/28/2007 | | Results for this | | | e | 2:31 PM | | procedure are in the | | | | PST | | results section. | + +--------+ + + + | BASIC METABOLIC SET | Routin | 08/28/2007 | | Results for this | | (NA, K, CL, TCO2, | e | 6:04 AM | | procedure are in the | | BUN, CR, GLU, CA) | | PST | | results section. | + +--------+ + + + | CBC ONLY | Routin | 08/28/2007 | | Results for this | | | e | 6:04 AM | | procedure are in the | | | | PST | | results section. | + +--------+ + + + | PHOSPHORUS, PLASMA | Routin | 08/28/2007 | | Results for this | | | e | 6:04 AM | | procedure are in the | | | | PST | | results section. | + +--------+ + + + | MAGNESIUM, PLASMA | Routin | 08/28/2007 | | Results for this | | | e | 6:04 AM | | procedure are in the | | | | PST | | results section. | + +--------+ + + + | INR | Urgent | 08/27/2007 | | Results for this | | | | 11:19 AM | | procedure are in the | | | | PST | | results section. | + +--------+ + + + | BASIC METABOLIC SET | Urgent | 08/27/2007 | | Results for this | | (NA, K, CL, TCO2, | | 11:19 AM | | procedure are in the | | BUN, CR, GLU, CA) | | PST | | results section. | + +--------+ + + + | CBC ONLY | Urgent | 08/27/2007 | | Results for this | | | | 11:19 AM | | procedure are in the | | | | PST | | results section. | + +--------+ + + + | APTT (ACT. PART. | Urgent | 08/27/2007 | | Results for this | | THROMBO TIME) | | 11:19 AM | | procedure are in the | | | | PST | | results section. | + +--------+ + + + | 12 LEAD ECG | Routin | 08/27/2007 | | Results for this | | | e | 11:12 AM | | procedure are in the | | | | PST | | results section. | + +--------+ + + + documented in this encounter Results SLIDE REVIEW (08/31/2007 8:19 AM PST) + + | Specimen | + + | | + + + + + | Narrative | Performed At | + + + | * Corrected 08/31/07 09:55: MEGANEL COMMENTS, prev report: Slide | [facility] | | review pending. | DEPARTMENT OF | | | PATHOLOGY | + + + + + + + + | Performing | Address | City/State/Zipcode | Phone Number | | Organization | | | | + + + + + | [facility] DEPARTMENT OF | [address] | [place] [address] | | | PATHOLOGY | [address] | | | + + + + + | [facility] DEPARTMENT OF | [address] | [place] [address] | | | PATHOLOGY | [address] | | | + + + + + PHOSPHORUS, PLASMA (08/31/2007 8:19 AM PST) + +-------+ + + + | Component | Value | Ref Range | Performed | Pathologist | | | | | At | Signature | + +-------+ + + + | PHOSPHORUS, | 3.1 | 2.4 - 4.7 mg/dL | [facility] | | | PLASMA | | | [...] | + + + + + | [facility] DEPARTMENT | [facility] | [place] [address] | | | PATHOLOGY | [address] | | | + + + + + | [facility] | [address] [place] [address] | [place] [address] | | | PATHOLOGY | [address] | | | + + + + + BASIC METABOLIC SET (08/31/2007 8:19 AM PST) + +---------+ + + + | Component | Value | Ref Range | Performed | Pathologist | | | | | At | Signature | + +---------+ + + + | GLUCOSE, | 133 (H) | 60 - 99 mg/dL | [facility] | | | PLASMA | | | DEPARTMENT | | | (LAB) | | | OF | | | | | | PATHOLOGY | | + +---------+ + + + | BUN, PLASMA | 11 | 6 - 20 mg/dL | [facility] | | | (LAB) | | | DEPARTMENT | | | | | | OF | | | | | | PATHOLOGY | | + +---------+ + + + | CREATININE | 0.8 | 0.7 - 1.3 mg/dL | [facility] [...] +---------+ + + + | CALCIUM, | 8.7 | 8.5 - 10.5 | [facility] | [...] | + + + + + | [facility] DEPARTMENT OF | [address] [facility] | [place] [address] | | | PATHOLOGY | [address] | | | + + + + + | [facility] DEPARTMENT OF | [facility] | [place] [address] | | | PATHOLOGY | [address] | | | + + + + + MAGNESIUM, PLASMA (08/31/2007 8:19 AM PST) + +-------+ + + + | Component | Value | Ref Range | Performed | Pathologist | | | | | At | Signature | + +-------+ + + + | MAGNESIUM,P | 2.1 | 1.8 - 2.5 mg/dL | [facility] [...] + | [facility] DEPARTMENT [facility] | [address] | [place] [address] | | | PATHOLOGY | [address] | | | + + + + + | [facility] DEPARTMENT OF | [address] | [place] [address] | | | PATHOLOGY | [address] | | | + + + + + CBC ONLY WITH PLATELET (08/31/2007 8:19 AM PST) + + + + + + | Component | Value | Ref Range | Performed | Pathologist | | | | | At | Signature | + + + + + + | WHITE CELL | 11.7 (H) | 4.4 - 11.0 K/cu | [facility] | | | COUNT | | mm | DEPARTMENT | | | | | | OF | | | | | | PATHOLOGY | | + + + + + + | RED CELL | 2.72 (L) | 4.50 - 5.90 | [facility] | | | COUNT | | M/cu mm | DEPARTMENT | | | | | | OF | | | | | | PATHOLOGY | | + + + + + + | HEMOGLOBIN | 9.0 (L) | 13.5 - 17.5 | [facility] | | | | | g/dL | DEPARTMENT | | | | | | OF | | | | | | PATHOLOGY | | + + + + + + | HEMATOCRIT | 25.5 (L) | 41.0 - 53.0 % | [facility] | | | | | | DEPARTMENT | | | | | | OF | | | | | | PATHOLOGY | | + + + + + + | MCV | 93.8 | 80.0 - 96.0 fL | [facility] [...] + + + + | RDW | 13.5 | 11.5 - 15.0 % | [facility] | | | | | | DEPARTMENT | | | | | | OF | | | | | | PATHOLOGY | | + + + + + + | PLATELET | 225 | 150 - 400 K/cu | [facility] | | | COUNT | | mm | DEPARTMENT | | | | | | OF | | | | | | PATHOLOGY | | + + + + + + | CBC | Final automated | | [facility] | | | COMMENTS | differential report. | | DEPARTMENT | | | | Smear reviewed. | | OF | | | | | | PATHOLOGY | | + + + + + + + + | Specimen | + + | | + + + + + | Narrative | Performed At | + + + | * Corrected 08/31/07 09:55: SHYANN REYES, prev report: Slide | [facility] | | review pending. | DEPARTMENT OF | | | PATHOLOGY | + + + + + + + + | Performing | Address | City/State/Zipcode | Phone Number | | Organization | | | | + + + + + | [facility] DEPARTMENT | [facility] | [place] [address] | | | PATHOLOGY | [address] | | | + + + + + | [facility] | [address] [place] [address] | [place] [address] | | | PATHOLOGY | [address] | | | + + + + + DIFFERENTIAL (08/31/2007 8:19 AM PST) + + + + + + | Component | Value | Ref Range | Performed | Pathologist | | | | | At | Signature | + + + + + + | NEUTROPHIL | 88 (H) | 50 - 70 % | [facility] | | | % | | | DEPARTMENT | | | | | | OF | | | | | | PATHOLOGY | | + + + + + + | LYMPHOCYTE | 7 (L) | 18 - 42 % | [facility] | | | % | | | DEPARTMENT | | | | | | OF | | | | | | PATHOLOGY | | + + + + + + | MONOCYTE % | 5 | 2 - 8 % | [facility] | | | | | | DEPARTMENT | | | | | | OF | | | | | | PATHOLOGY | | + + + + + + | EOS % | 0 (L) | 1 - 3 % | [facility] | | | | | | DEPARTMENT | | | | | | OF | | | | | | PATHOLOGY | | + + + + + + | BASO % | 0 | <3 % | [facility] | | | | | | DEPARTMENT | | | | | | OF | | | | | | PATHOLOGY | | + + + + + + | NEUTROPHIL | 10.3 (H) | 1.8 - 7.7 K/cu | [facility] | | | # | | mm | DEPARTMENT | | | | | | OF | | | | | | PATHOLOGY | | + + + + + + | LYMPHOCYTE | 0.8 (L) | 1.0 - 4.8 K/cu | [facility] | | | # | | mm | DEPARTMENT | | | | | | OF | | | | | | PATHOLOGY | | + + + + + + | MONOCYTE # | 0.6 | <0.9 K/cu mm | [facility] | | | | | | DEPARTMENT | | | | | | OF | | | | | | PATHOLOGY | | + + + + + + | EOS # | 0.0 | <0.6 K/cu mm | [facility] | | | | | | DEPARTMENT | | | | | | OF | | | | | | PATHOLOGY | | + + + + + + | BASO # | 0.0 | <0.2 | [facility] | | | | | | DEPARTMENT | | | | | | OF | | | | | | PATHOLOGY | | + + + + + + + + | Specimen | + + | | + + + + + | Narrative | Performed At | + + + | * Corrected 08/31/07 09:55: MEGANEL COMMENTS, prev report: Slide | [facility] | | review pending. | DEPARTMENT OF | | | PATHOLOGY | + + + + + + + + | Performing | Address | City/State/Zipcode | Phone Number | | Organization | | | | + + + + + | [facility] DEPARTMENT OF | [address] | [place] [address] | | | PATHOLOGY | [address] | | | + + + + + | [facility] DEPARTMENT OF | [address] | [place] [address] | | | PATHOLOGY | [address] | | | + + + + + CBC, WITH DIFFERENTIAL (08/31/2007 8:19 AM PST) + + + + + + | Component | Value | Ref Range | Performed | Pathologist | | | | | At | Signature | + + + + + + | WHITE CELL | 11.7 (H) | 4.4 - 11.0 K/cu | [facility] | | | COUNT | | mm | DEPARTMENT | | | | | | OF | | | | | | PATHOLOGY | | + + + + + + | RED CELL | 2.72 (L) | 4.50 - 5.90 | [facility] | | | COUNT | | M/cu mm | DEPARTMENT | | | | | | OF | | | | | | PATHOLOGY | | + + + + + + | HEMOGLOBIN | 9.0 (L) | 13.5 - 17.5 | [facility] | | | | | g/dL | DEPARTMENT | | | | | | OF | | | | | | PATHOLOGY | | + + + + + + | HEMATOCRIT | 25.5 (L) | 41.0 - 53.0 % | [facility] | | | | | | DEPARTMENT | | | | | | OF | | | | | | PATHOLOGY | | + + + + + + | MCV | 93.8 | 80.0 - 96.0 fL | [facility] [...] + + + + | RDW | 13.5 | 11.5 - 15.0 % | [facility] | | | | | | DEPARTMENT | | | | | | OF | | | | | | PATHOLOGY | | + + + + + + | PLATELET | 225 | 150 - 400 K/cu | [facility] | | | COUNT | | mm | DEPARTMENT | | | | | | OF | | | | | | PATHOLOGY | | + + + + + + | CBC | Final automated | | [facility] | | | COMMENTS | differential report. | | DEPARTMENT | | | | Smear reviewed. | | OF | | | | | | PATHOLOGY | | + + + + + + + + | Specimen | + + | | + + + + + | Narrative | Performed At | + + + | * Corrected 08/31/07 09:55: SHYANN COMMENTS, prev report: Slide | [facility] | | review pending. | DEPARTMENT OF | | | PATHOLOGY | + + + + + + + + | Performing | Address | City/State/Zipcode | Phone Number | | Organization | | | | + + + + + | [facility] DEPARTMENT OF | [address] | [place] [address] | | | PATHOLOGY | [address] | | | + + + + + | [facility] DEPARTMENT OF | [address] | [place] [address] | | | PATHOLOGY | [address] | | | + + + + + BASIC METABOLIC SET (08/30/2007 1:53 PM PST) + +---------+ + + + | Component | Value | Ref Range | Performed | Pathologist | | | | | At | Signature | + +---------+ + + + | GLUCOSE, | 164 (H) | 60 - 99 mg/dL | [facility] | | | PLASMA | | | DEPARTMENT | | | (LAB) | | | OF | | | | | | PATHOLOGY | | + +---------+ + + + | BUN, PLASMA | 7 | 6 - 20 mg/dL | [facility] [...] +---------+ + + + | CHLORIDE, | 103 | 98 - 107 mmol/L | [facility] | | | PLASMA | | | DEPARTMENT | | | (LAB) | | | OF | | | | | | PATHOLOGY | | + +---------+ + + + | TOTAL CO2, | 27 | 23 - 29 mmol/L | [facility] | | | PLASMA | | | DEPARTMENT | | | (LAB) | | | OF | | | | | | PATHOLOGY | | + +---------+ + + + | CALCIUM, | 8.0 (L) | 8.5 - 10.5 | [facility] [...] + | [facility] OF | [address] | [place] [address] | | | PATHOLOGY | [address] | | | + + + + + | [facility] DEPARTMENT OF | [address] | [place] [address] | | | PATHOLOGY | [address] | | | + + + + + CBC ONLY WITH PLATELET (08/30/2007 1:53 PM PST) + + + + + + | Component | Value | Ref Range | Performed | Pathologist | | | | | At | Signature | + + + + + + | WHITE CELL | 11.6 (H) | 4.4 - 11.0 K/cu | [facility] | | | COUNT | | mm | DEPARTMENT | | | | | | OF | | | | | | PATHOLOGY | | + + + + + + | RED CELL | 2.67 (L) | 4.50 - 5.90 | [facility] | | | COUNT | | M/cu mm | DEPARTMENT | | | | | | OF | | | | | | PATHOLOGY | | + + + + + + | HEMOGLOBIN | 8.6 (L) | 13.5 - 17.5 | [facility] | | | | | g/dL | DEPARTMENT | | | | | | OF | | | | | | PATHOLOGY | | + + + + + + | HEMATOCRIT | 24.9 (L) | 41.0 - 53.0 % | [facility] | | | | | | DEPARTMENT | | | | | | OF | | | | | | PATHOLOGY | | + + + + + + | MCV | 93.1 | 80.0 - 96.0 fL | [facility] | | | | | | DEPARTMENT | | | | | | OF | | | | | | PATHOLOGY | | + + + + + + | MCHC | 34.4 | 33.4 - 35.5 | [facility] | | | | | g/dL | DEPARTMENT | | | | | | OF | | | | | | PATHOLOGY | | + + + + + + | RDW | 13.5 | 11.5 - 15.0 % | [facility] | | | | | | DEPARTMENT | | | | | | OF | | | | | | PATHOLOGY | | + + + + + + | PLATELET | 213 | 150 - 400 K/cu | [facility] [...] | + + + + + | [facility] | [address] [facility] | [place] [address] | | | PATHOLOGY | [address] | | | + + + + + | [facility] | [address] [facility] | [place] [address] | | | PATHOLOGY | [address] | | | + + + + + PROTHROMBIN TIME (08/30/2007 1:53 PM PST) + + + + + + | Component | Value | Ref Range | Performed | Pathologist | | | | | At | Signature | + + + + + + | INR | 1.13Comment: | 0.90 - 1.20 INR | [facility] | | | | PT INR Therapeutic | | DEPARTMENT | | | | ranges for full | | OF | | | | anticoagulation: | | PATHOLOGY | | | | INR for | | | | | | Venous Thromboembolism | | | | | | | | | | | | (2.0-3.0)INR | | | | | | INR for most | | | | | | patients with mech. | | | | | | valves (2.5-3.5)INR | | | | + + + + + + + + | Specimen | + + | | + + + + + + + | Performing | Address | City/State/Zipcode | Phone Number | | Organization | | | | + + + + + | [facility] DEPARTMENT OF | [address] | [place] [address] | | | PATHOLOGY | [address] | | | + + + + + | [facility] | [address] | [place] [address] | | | PATHOLOGY | [address] | | | + + + + + APTT (ACT. PART. THROMBO TIME) (08/30/2007 1:53 PM PST) + + + + + + | Component | Value | Ref Range | Performed | Pathologist | | | | | At | Signature | + + + + + + | APTT | 33.0Comment: | 26.0 - 36.0 | [facility] | | | | APTT Therapeutic Range | seconds | DEPARTMENT | | | | | | OF | | | | | | PATHOLOGY | | | | (75-120)sec | | | | | | Heparin levels | | | | | | of 0.35-0.7 U/mL | | | | + + + + + + + + | Specimen | + + | | + + + + + + + | Performing | Address | City/State/Zipcode | Phone Number | | Organization | | | | + + + + + | [facility] | [address] | [place] [address] | | | PATHOLOGY | [address] | | | + + + + + | [facility] | [address] | [place] [address] | | | PATHOLOGY | [address] | | | + + + + + MAGNESIUM, PLASMA (08/30/2007 7:27 AM PST) + +---------+ + + + | Component | Value | Ref Range | Performed | Pathologist | | | | | At | Signature | + +---------+ + + + | MAGNESIUM,P | 1.7 (L) | 1.8 - 2.5 mg/dL | [...] | + + + + + | [facility] | [address] [facility] | [place] [address] | | | PATHOLOGY | [address] | | | + + + + + | [facility] | [address] [facility] | [place] [address] | | | PATHOLOGY | [address] | | | + + + + + PROTHROMBIN TIME (08/30/2007 7:27 AM PST) + + + + + + | Component | Value | Ref Range | Performed | Pathologist | | | | | At | Signature | + + + + + + | INR | 1.22 (H)Comment: | 0.90 - 1.20 INR | [facility] | | | | PT INR Therapeutic | | DEPARTMENT | | | | ranges for full | | OF | | | | anticoagulation: | | PATHOLOGY | | | | INR for | | | | | | Venous Thromboembolism | | | | | | | | | | | | (2.0-3.0)INR | | | | | | INR for most | | | | | | patients with mech. | | | | | | valves (2.5-3.5)INR | | | | + + + + + + + + | Specimen | + + | | + + + + + + + | Performing | Address | City/State/Zipcode | Phone Number | | Organization | | | | + + + + + | [facility] DEPARTMENT OF | [address] [facility] | [place] [address] | | | PATHOLOGY | [address] | | | + + + + + | [facility] DEPARTMENT OF | [address] [facility] | [place] [address] | | | PATHOLOGY | [address] | | | + + + + + PHOSPHORUS, PLASMA (08/30/2007 7:27 AM PST) + +-------+ + + + | Component | Value | Ref Range | Performed | Pathologist | | | | | At | Signature | + +-------+ + + + | PHOSPHORUS, | 3.0 | 2.4 - 4.7 mg/dL | [facility] [...] | + + + + + | [facility] DEPARTMENT OF | [address] [facility] | [place] [address] | | | PATHOLOGY | [address] | | | + + + + + | [facility] DEPARTMENT OF | [facility] [facility] | [place] [address] | | | PATHOLOGY | [address] | | | + + + + + BASIC METABOLIC SET (08/30/2007 7:27 AM PST) + +---------+ + + + | Component | Value | Ref Range | Performed | Pathologist | | | | | At | Signature | + +---------+ + + + | GLUCOSE, | 95 | 60 - 99 mg/dL | [facility] | | | PLASMA | | | DEPARTMENT | | | (LAB) | | | OF | | | | | | PATHOLOGY | | + +---------+ + + + | BUN, PLASMA | 5 (L) | 6 - 20 mg/dL | [facility] | | | (LAB) | | | DEPARTMENT | | | | | | OF | | | | | | PATHOLOGY | | + +---------+ + + + | CREATININE | 0.8 | 0.7 - 1.3 mg/dL | [facility] [...] +---------+ + + + | CHLORIDE, | 104 | 98 - 107 mmol/L | [facility] | | | PLASMA | | | DEPARTMENT | | | (LAB) | | | OF | | | | | | PATHOLOGY | | + +---------+ + + + | TOTAL CO2, | 28 | 23 - 29 mmol/L | [facility] [...] | + + + + + | [facility] DEPARTMENT OF | [address] | [place] [address] | | | PATHOLOGY | [address] | | | + + + + + | [facility] DEPARTMENT OF | [address] | [place] [address] | | | PATHOLOGY | [address] | | | + + + + + CBC ONLY WITH PLATELET (08/30/2007 7:27 AM PST) + + + + + + | Component | Value | Ref Range | Performed | Pathologist | | | | | At | Signature | + + + + + + | WHITE CELL | 9.2 | 4.4 - 11.0 K/cu | [facility] | | | COUNT | | mm | DEPARTMENT | | | | | | OF | | | | | | PATHOLOGY | | + + + + + + | RED CELL | 2.54 (L) | 4.50 - 5.90 | [facility] | | | COUNT | | M/cu mm | DEPARTMENT | | | | | | OF | | | | | | PATHOLOGY | | + + + + + + | HEMOGLOBIN | 8.3 (L) | 13.5 - 17.5 | [facility] | | | | | g/dL | DEPARTMENT | | | | | | OF | | | | | | PATHOLOGY | | + + + + + + | HEMATOCRIT | 23.6 (L) | 41.0 - 53.0 % | [facility] | | | | | | DEPARTMENT | | | | | | OF | | | | | | PATHOLOGY | | + + + + + + | MCV | 93.0 | 80.0 - 96.0 fL | [facility] | | | | | | DEPARTMENT | | | | | | OF | | | | | | PATHOLOGY | | + + + + + + | MCHC | 35.2 | 33.4 - 35.5 | [facility] | | | | | g/dL | DEPARTMENT | | | | | | OF | | | | | | PATHOLOGY | | + + + + + + | RDW | 13.4 | 11.5 - 15.0 % | [facility] | | | | | | DEPARTMENT | | | | | | OF | | | | | | PATHOLOGY | | + + + + + + | PLATELET | 197 | 150 - 400 K/cu | [facility] [...] DEPARTMENT OF | [address] | [place] [address] | | | PATHOLOGY | [address] | | | + + + + + | [facility] DEPARTMENT | [address] | [place] [address] | | | PATHOLOGY | [address] | | | + + + + + APTT (ACT. PART. THROMBO TIME) (08/30/2007 7:27 AM PST) + + + + + + | Component | Value | Ref Range | Performed | Pathologist | | | | | At | Signature | + + + + + + | APTT | 36.9 (H)Comment: | 26.0 - 36.0 | [facility] | | | | APTT Therapeutic | seconds | DEPARTMENT | | | | Range | | OF | | | | | | PATHOLOGY | | | | (75-120)sec | | | | | | Heparin levels | | | | | | of 0.35-0.7 U/mL | | | | + + + + + + + + | Specimen | + + | | + + + + + + + | Performing | Address | City/State/Zipcode | Phone Number | | Organization | | | | + + + + + | [facility] DEPARTMENT [facility] | [address] | [place] [address] | | | PATHOLOGY | [address] | | | + + + + + | [facility] DEPARTMENT OF | [address] | [place] [address] | | | PATHOLOGY | [address] | | | + + + + + HEMATOCRIT (08/30/2007 3:30 AM PST) + + + + + + | Component | Value | Ref Range | Performed | Pathologist | | | | | At | Signature | + + + + + + | HEMATOCRIT | 23.6 (L) | 41.0 - 53.0 % | [...] | + + + + + | [facility] | [address] | [place] [address] | | | PATHOLOGY | [address] | | | + + + + + | [facility] DEPARTMENT OF | [address] [facility] | [place] [address] | | | PATHOLOGY | [address] | | | + + + + + CT PELVIS W CONTRAST (08/30/2007 2:25 AM PST) + + + + + + | Component | Value | Ref Range | Performed | Pathologist | | | | | At | Signature | + + + + + + | CT PELVIS W | Radiologist 1: KENNY, | | | | | CONTRAST | Jarek ESPINALCT: ABDOMEN | | | | | | AND PELVIS WITH IV | | | | | | CONTRAST:CLINICAL: | | | | | | Status post gastric | | | | | | bypass | | | | | | takedownTECHNIQUE: | | | | | | Following intravenous | | | | | | contrast (Visipaque 320, | | | | | | 100 cc),helical | | | | | | scanning was performed | | | | | | from the diaphram | | | | | | through theabdomen and | | | | | | pelvis to the pubic | | | | | | symphysis.COMPARISONS: | | | | | | None.FINDINGS: In the | | | | | | visualized thorax, the | | | | | | mediastinum , | | | | | | pulmonaryparenchyma and | | | | | | chest wall are | | | | | | unremarkable.In the | | | | | | abdomen, a moderate | | | | | | hemoperitoneum is | | | | | | evident. Blood | | | | | | isevident anterior to | | | | | | the liver and clot is | | | | | | evident in the | | | | | | rightcolic gutter | | | | | | extending inferiorly | | | | | | into the pelvis with a | | | | | | clotmeasuring | | | | | | approximately 7 x 16 cm | | | | | | immediately cephalad to | | | | | | thebladder and extending | | | | | | into the posterior | | | | | | pelvis. In | | | | | | addition,clot is evident | | | | | | near the apparent | | | | | | trocar site in the left | | | | | | abdomen(image 110). | | | | | | There is associated | | | | | | thickening of a rectus | | | | | | musclewith hematoma | | | | | | within the rectus muscle | | | | | | measuring 10 x 4 cm. | | | | | | AJackson-Caballero drain | | | | | | is evident terminating | | | | | | cephalad to theinvolved | | | | | | area. An additional | | | | | | soft tissue defect is | | | | | | evident justlateral to | | | | | | the MATTHIEU tube, apparently | | | | | | secondary to the prior | | | | | | surgery.Moderate | | | | | | associated enter | | | | | | abdominal wall stranding | | | | | | as well asmesenteric | | | | | | stranding is noted. No | | | | | | hematoma is identified | | | | | | withinthe pannus.The | | | | | | liver, spleen, pancreas, | | | | | | stomach, duodenum, | | | | | | biliary and | | | | | | portalsystems are | | | | | | intact. The adrenal | | | | | | glands are unremarkable. | | | | | | Bilateralcortical renal | | | | | | lesions are identified, | | | | | | most likely cysts but | | | | | | areinadequately | | | | | | visualized due to the | | | | | | extensive barium within | | | | | | acolon.I see no evidence | | | | | | of portocaval or | | | | | | retroperitoneal | | | | | | adenopathy.In the | | | | | | pelvis, the pelvic | | | | | | organs are intact and I | | | | | | see no evidenceof | | | | | | adenopathy or mass | | | | | | lesions. The above | | | | | | described hematoma | | | | | | withinthe peritoneal | | | | | | cavity is again | | | | | | noted.Review of the | | | | | | osseous structures in | | | | | | the appropriate | | | | | | windowsreveals no | | | | | | significant | | | | | | abnormalities.IMPRESSION | | | | | | :1. Moderate | | | | | | hemoperitoneum with clot | | | | | | evident in the right | | | | | | colicgutter and | | | | | | extending into the | | | | | | pelvis. An additional | | | | | | mesentericclot is noted | | | | | | anteriorly in the left | | | | | | midabdomen. | | | | | | Postoperativestranding | | | | | | and minimal rectus | | | | | | hematoma is also | | | | | | present.These findings | | | | | | are concordant with | | | | | | report given by Mis | | | | | | Jarek Bartlett. to Dr. Shukla | | | | | | at the time of the | | | | | | study.END OF IMPRESSION: | | | | + + + + + + + + | Specimen | + + | | + + + +---------+ + + | Performing | Address | City/State/Zipcode | Phone Number | | Organization | | | | + +---------+ + + | [facility] DEPARTMENT OF | | | | | RADIOLOGY | | | | + +---------+ + + CT ABDOMEN W CONTRAST (08/30/2007 2:25 AM PST) + + + + + + | Component | Value | Ref Range | Performed | Pathologist | | | | | At | Signature | + + + + + + | CT ABDOMEN | Radiologist 1: KENNY, | | | | | W CONTRAST | Jarek ESPINALCT: ABDOMEN | | | | | | AND PELVIS WITH IV | | | | | | CONTRAST:CLINICAL: | | | | | | Status post gastric | | | | | | bypass | | | | | | takedownTECHNIQUE: | | | | | | Following intravenous | | | | | | contrast (Visipaque 320, | | | | | | 100 cc),helical | | | | | | scanning was performed | | | | | | from the diaphram | | | | | | through theabdomen and | | | | | | pelvis to the pubic | | | | | | symphysis.COMPARISONS: | | | | | | None.FINDINGS: In the | | | | | | visualized thorax, the | | | | | | mediastinum , | | | | | | pulmonaryparenchyma and | | | | | | chest wall are | | | | | | unremarkable.In the | | | | | | abdomen, a moderate | | | | | | hemoperitoneum is | | | | | | evident. Blood | | | | | | isevident anterior to | | | | | | the liver and clot is | | | | | | evident in the | | | | | | rightcolic gutter | | | | | | extending inferiorly | | | | | | into the pelvis with a | | | | | | clotmeasuring | | | | | | approximately 7 x 16 cm | | | | | | immediately cephalad to | | | | | | thebladder and extending | | | | | | into the posterior | | | | | | pelvis. In | | | | | | addition,clot is evident | | | | | | near the apparent | | | | | | trocar site in the left | | | | | | abdomen(image 110). | | | | | | There is associated | | | | | | thickening of a rectus | | | | | | musclewith hematoma | | | | | | within the rectus muscle | | | | | | measuring 10 x 4 cm. | | | | | | AJackson-Caballero drain | | | | | | is evident terminating | | | | | | cephalad to theinvolved | | | | | | area. An additional | | | | | | soft tissue defect is | | | | | | evident justlateral to | | | | | | the MATTHIEU tube, apparently | | | | | | secondary to the prior | | | | | | surgery.Moderate | | | | | | associated enter | | | | | | abdominal wall stranding | | | | | | as well asmesenteric | | | | | | stranding is noted. No | | | | | | hematoma is identified | | | | | | withinthe pannus.The | | | | | | liver, spleen, pancreas, | | | | | | stomach, duodenum, | | | | | | biliary and | | | | | | portalsystems are | | | | | | intact. The adrenal | | | | | | glands are unremarkable. | | | | | | Bilateralcortical renal | | | | | | lesions are identified, | | | | | | most likely cysts but | | | | | | areinadequately | | | | | | visualized due to the | | | | | | extensive barium within | | | | | | acolon.I see no evidence | | | | | | of portocaval or | | | | | | retroperitoneal | | | | | | adenopathy.In the | | | | | | pelvis, the pelvic | | | | | | organs are intact and I | | | | | | see no evidenceof | | | | | | adenopathy or mass | | | | | | lesions. The above | | | | | | described hematoma | | | | | | withinthe peritoneal | | | | | | cavity is again | | | | | | noted.Review of the | | | | | | osseous structures in | | | | | | the appropriate | | | | | | windowsreveals no | | | | | | significant | | | | | | abnormalities.IMPRESSION | | | | | | :1. Moderate | | | | | | hemoperitoneum with clot | | | | | | evident in the right | | | | | | colicgutter and | | | | | | extending into the | | | | | | pelvis. An additional | | | | | | mesentericclot is noted | | | | | | anteriorly in the left | | | | | | midabdomen. | | | | | | Postoperativestranding | | | | | | and minimal rectus | | | | | | hematoma is also | | | | | | present.These findings | | | | | | are concordant with | | | | | | report given by Mis | | | | | | Jarek Bartlett. to Dr. Shukla | | | | | | at the time of the | | | | | | study.END OF IMPRESSION: | | | | + + + + + + + + | Specimen | + + | | + + + +---------+ + + | Performing | Address | City/State/[facility] | Phone Number | | Organization | | | | + +---------+ + + | [facility] DEPARTMENT OF | | | | | RADIOLOGY | | | | + +---------+ + + HEMATOCRIT (08/29/2007 10:25 PM PST) + + + + + + | Component | Value | Ref Range | Performed | Pathologist | | | | | At | Signature | + + + + + + | HEMATOCRIT | 25.3 (L) | 41.0 - 53.0 % | [...] | + + + + + | [facility] DEPARTMENT OF | [address] | [place] [address] | | | PATHOLOGY | [address] | | | + + + + + | [facility] | [address] | [place] [address] | | | PATHOLOGY | [address] | | | + + + + + PROTHROMBIN TIME (08/29/2007 10:25 PM PST) + + + + + + | Component | Value | Ref Range | Performed | Pathologist | | | | | At | Signature | + + + + + + | INR | 1.11Comment: | 0.90 - 1.20 INR | [facility] | | | | PT INR Therapeutic | | DEPARTMENT | | | | ranges for full | | OF | | | | anticoagulation: | | PATHOLOGY | | | | INR for | | | | | | Venous Thromboembolism | | | | | | | | | | | | (2.0-3.0)INR | | | | | | INR for most | | | | | | patients with mech. | | | | | | valves (2.5-3.5)INR | | | | + + + + + + + + | Specimen | + + | | + + + + + + + | Performing | Address | City/State/Zipcode | Phone Number | | Organization | | | | + + + + + | [facility]MENT [facility] | [address] | [place] [address] | | | PATHOLOGY | [address] | | | + + + + + | [facility] DEPARTMENT OF | [address] [facility] | [place] [address] | | | PATHOLOGY | [address] | | | + + + + + HEMATOCRIT (08/29/2007 10:01 PM PST) + + + + + + | Component | Value | Ref Range | Performed | Pathologist | | | | | At | Signature | + + + + + + | HEMATOCRIT | See cmnt | 41.0 - 53.0 % | [facility] | | | | | | DEPARTMENT | | | | | | OF | | | | | | PATHOLOGY | | + + + + + + + + | Specimen | + + | | + + + + + | Narrative | Performed At | + + + | Patient unavailable, specimen not obtained | [facility] | | | DEPARTMENT OF | | | PATHOLOGY | + + + + + + + + | Performing | Address | City/State/Zipcode | Phone Number | | Organization | | | | + + + + + | [facility] DEPARTMENT OF | [address] | [place] [address] | | | PATHOLOGY | [address] | | | + + + + + | [facility] | [address] | [place] [address] | | | PATHOLOGY | [address] | | | + + + + + PROTHROMBIN TIME (08/29/2007 10:01 PM PST) + + + + + + | Component | Value | Ref Range | Performed | Pathologist | | | | | At | Signature | + + + + + + | INR | See cmnt | 0.90 - 1.20 INR | [facility] | | | | | | DEPARTMENT | | | | | | OF | | | | | | PATHOLOGY | | + + + + + + + + | Specimen | + + | | + + + + + | Narrative | Performed At | + + + | Patient unavailable, specimen not obtained | [facility] | | | DEPARTMENT OF | | | PATHOLOGY | + + + + + + + + | Performing | Address | City/State/Zipcode | Phone Number | | Organization | | | | + + + + + | [facility] DEPARTMENT OF | [address] | [place] [address] | | | PATHOLOGY | [address] | | | + + + + + | [facility] DEPARTMENT OF | [address] | [place] [address] | | | PATHOLOGY | [address] | | | + + + + + APTT (ACT. PART. THROMBO TIME) (08/29/2007 10:01 PM PST) + + + + + + | Component | Value | Ref Range | Performed | Pathologist | | | | | At | Signature | + + + + + + | APTT | See cmnt | 26.0 - 36.0 | [facility] | | | | | seconds | DEPARTMENT | | | | | | OF | | | | | | PATHOLOGY | | + + + + + + + + | Specimen | + + | | + + + + + | Narrative | Performed At | + + + | Patient unavailable, specimen not obtained | [facility] | | | DEPARTMENT OF | | | PATHOLOGY | + + + + + + + + | Performing | Address | City/State/Zipcode | Phone Number | | Organization | | | | + + + + + | [facility] DEPARTMENT OF | [address] | [place] [address] | | | PATHOLOGY | [address] | | | + + + + + | [facility] DEPARTMENT OF | [address] | [place] [address] | | | PATHOLOGY | [address] | | | + + + + + PROTHROMBIN TIME (08/29/2007 2:20 PM PST) + + + + + + | Component | Value | Ref Range | Performed | Pathologist | | | | | At | Signature | + + + + + + | INR | 1.08Comment: | 0.90 - 1.20 INR | [facility] | | | | PT INR Therapeutic | | DEPARTMENT | | | | ranges for full | | OF | | | | anticoagulation: | | PATHOLOGY | | | | INR for | | | | | | Venous Thromboembolism | | | | | | | | | | | | (2.0-3.0)INR | | | | | | INR for most | | | | | | patients with mech. | | | | | | valves (2.5-3.5)INR | | | | + + + + + + + + | Specimen | + + | | + + + + + + + | Performing | Address | City/State/Zipcode | Phone Number | | Organization | | | | + + + + + | [facility] DEPARTMENT | [address] | [place] [address] | | | PATHOLOGY | [address] | | | + + + + + | [facility] DEPARTMENT OF | [address] | [place] [address] | | | PATHOLOGY | [address] | | | + + + + + MAGNESIUM, PLASMA (08/29/2007 9:25 AM PST) + +---------+ + + + | Component | Value | Ref Range | Performed | Pathologist | | | | | At | Signature | + +---------+ + + + | MAGNESIUM,P | 1.6 (L) | 1.8 - 2.5 mg/dL | [facility] | | | LASMA | | [...] | + + + + + | [facility] DEPARTMENT OF | [address] | [place] [address] | | | PATHOLOGY | [address] | | | + + + + + | [facility] | [facility] | [place] [address] | | | PATHOLOGY | [address] | | | + + + + + PHOSPHORUS, PLASMA (08/29/2007 9:25 AM PST) + +-------+ + + + | Component | Value | Ref Range | Performed | Pathologist | | | | | At | Signature | + +-------+ + + + | PHOSPHORUS, | 2.6 | 2.4 - 4.7 mg/dL | [facility] [...] DEPARTMENT OF | [address] | [place] [address] | | | PATHOLOGY | [address] | | | + + + + + | [facility] DEPARTMENT OF | [address] | [place] [address] | | | PATHOLOGY | [address] | | | + + + + + CBC ONLY WITH PLATELET (08/29/2007 9:25 AM PST) + + + + + + | Component | Value | Ref Range | Performed | Pathologist | | | | | At | Signature | + + + + + + | WHITE CELL | 13.7 (H) | 4.4 - 11.0 K/cu | [facility] | | | COUNT | | mm | DEPARTMENT | | | | | | OF | | | | | | PATHOLOGY | | + + + + + + | RED CELL | 2.47 (L) | 4.00 - 5.20 | [facility] | | | COUNT | | M/cu mm | DEPARTMENT | | | | | | OF | | | | | | PATHOLOGY | | + + + + + + | HEMOGLOBIN | 8.2 (L) | 12.0 - 16.0 | [facility] | | | | | g/dL | DEPARTMENT | | | | | | OF | | | | | | PATHOLOGY | | + + + + + + | HEMATOCRIT | 23.2 (L) | 36.0 - 46.0 % | [facility] | | | | | | DEPARTMENT | | | | | | OF | | | | | | PATHOLOGY | | + + + + + + | MCV | 93.8 | 80.0 - 96.0 fL | [facility] | | | | | | DEPARTMENT | | | | | | OF | | | | | | PATHOLOGY | | + + + + + + | MCHC | 35.1 | 33.4 - 35.5 | [facility] | | | | | g/dL | DEPARTMENT | | | | | | OF | | | | | | PATHOLOGY | | + + + + + + | RDW | 13.4 [...] | + + + + + | [facility] DEPARTMENT OF | [address] | [place] [address] | | | PATHOLOGY | [address] | | | + + + + + | [facility] DEPARTMENT OF | [address] | [place] [address] | | | PATHOLOGY | [address] | | | + + + + + BASIC METABOLIC SET (08/29/2007 9:25 AM PST) + +---------+ + + + | Component | Value | Ref Range | Performed | Pathologist | | | | | At | Signature | + +---------+ + + + | GLUCOSE, | 156 (H) | 60 - 99 mg/dL | [facility] | | | PLASMA | | | DEPARTMENT | | | (LAB) | | | OF | | | | | | PATHOLOGY | | + +---------+ + + + | BUN, PLASMA | 12 | 6 - 20 mg/dL | [facility] | | | (LAB) | | | DEPARTMENT | | | | | | OF | | | | | | PATHOLOGY | | + +---------+ + + + | CREATININE | 1.0 | 0.6 - 1.1 mg/dL | [facility] | | | PLASMA [...] | + + + + + | [facility] | [address] | [place] [address] | | | PATHOLOGY | [address] | | | + + + + + | [facility] | [address] | [place] [address] | | | PATHOLOGY | [address] | | | + + + + + JANI KNUTSON (08/28/2007 2:31 PM PST) + + + + + + | Component | Value | Ref Range | Performed | Pathologist | | | | | At | Signature | + + + + + + | UGI W KUB | Radiologist 1: PEÑA, | | | | | | Arpit CHINO-soluble | | | | | | upper GI.Patient | | | | | | swallowed Visipaque | | | | | | during fluoroscopic | | | | | | observation andspot | | | | | | filming, demonstrating | | | | | | no leak or obstruction | | | | | | from thestomach | | | | | | following reported | | | | | | removal of band and | | | | | | port. There isdelayed | | | | | | gastric emptying with | | | | | | absence of peristalsis | | | | | | in thestomach, small and | | | | | | large bowel, and | | | | | | keeping with | | | | | | postoperativeadynamic | | | | | | ileus. Study is | | | | | | limited by patient body | | | | | | habitus.Impression:No | | | | | | leak or obstruction. | | | | | | Postoperative adynamic | | | | | | ileus. | | | | + + + + + + + + | Specimen | + + | | + + + +---------+ + + | Performing | Address | City/State/Zipcode | Phone Number | | Organization | | | | + +---------+ + + | [facility] DEPARTMENT OF | | | | | RADIOLOGY | | | | + +---------+ + + PHOSPHORUS, PLASMA (08/28/2007 6:04 AM PST) + +-------+ + + + | Component | Value | Ref Range | Performed | Pathologist | | | | | At | Signature | + +-------+ + + + | PHOSPHORUS, | 3.5 | 2.4 - 4.7 mg/dL | [facility] [...] | + + + + + | [facility] | [address] [facility] [facility] | [place] [address] | | | PATHOLOGY | [address] | | | + + + + + | [facility] | [address] [place] [address] | [place] [address] | | | PATHOLOGY | [address] | | | + + + + + CBC ONLY WITH PLATELET (08/28/2007 6:04 AM PST) + + + + + + | Component | Value | Ref Range | Performed | Pathologist | | | | | At | Signature | + + + + + + | WHITE CELL | 18.2 (H) | 4.4 - 11.0 K/cu | [facility] | | | COUNT | | mm | DEPARTMENT | | | | | | OF | | | | | | PATHOLOGY | | + + + + + + | RED CELL | 2.97 (L) | 4.00 - 5.20 | [facility] | | | COUNT | | M/cu mm | DEPARTMENT | | | | | | OF | | | | | | PATHOLOGY | | + + + + + + | HEMOGLOBIN | 9.9 (L) | 12.0 - 16.0 | [facility] | | | | | g/dL | DEPARTMENT | | | | | | OF | | | | | | PATHOLOGY | | + + + + + + | HEMATOCRIT | 27.7 (L) | 36.0 - 46.0 % | [facility] | | | | | | DEPARTMENT | | | | | | OF | | | | | | PATHOLOGY | | + + + + + + | MCV | 93.2 | 80.0 - 96.0 fL | [facility] | | | | | | DEPARTMENT | | | | | | OF | | | | | | PATHOLOGY | | + + + + + + | MCHC | 35.7 (H) | 33.4 - 35.5 | [facility] | | | | | g/dL | DEPARTMENT | | | | | | OF | | | | | | PATHOLOGY | | + + + + + + | RDW | 13.0 | 11.5 - 15.0 % | [facility] | | | | | | DEPARTMENT | | | | | | OF | | | | | | PATHOLOGY | | + + + + + + | PLATELET | 229 | 150 - 400 K/cu | [facility] [...] | + + + + + | [facility] DEPARTMENT OF | [address] [facility] | [place] [address] | | | PATHOLOGY | [address] | | | + + + + + | [facility] DEPARTMENT OF | [address] [facility] | [place] [address] | | | PATHOLOGY | [address] | | | + + + + + MAGNESIUM, PLASMA (08/28/2007 6:04 AM PST) + +---------+ + + + | Component | Value | Ref Range | Performed | Pathologist | | | | | At | Signature | + +---------+ + + + | MAGNESIUM,P | 1.6 (L) | 1.8 - 2.5 mg/dL | [...] | + + + + + | [facility] DEPARTMENT OF | [address] | [place] [address] | | | PATHOLOGY | [address] | | | + + + + + | [facility] | [address] | [place] [address] | | | PATHOLOGY | [address] | | | + + + + + BASIC METABOLIC SET (08/28/2007 6:04 AM PST) + +---------+ + + + | Component | Value | Ref Range | Performed | Pathologist | | | | | At | Signature | + +---------+ + + + | GLUCOSE, | 162 (H) | 60 - 99 mg/dL | [...] + + | CREATININE | 1.0 | 0.6 - 1.1 mg/dL | [facility] | | | PLASMA | | | DEPARTMENT | | | (LAB) | | | OF | | | | | | PATHOLOGY | | + +---------+ + + + | SODIUM, | 133 (L) | 136 - 145 | [facility] | | | PLASMA | | mmol/L | DEPARTMENT | | | (LAB) | | | OF | | | | | | PATHOLOGY | | + +---------+ + + + | POTASSIUM, | 4.4 | 3.5 - 5.1 | [facility] | [...] + + + | TOTAL CO2, | 26 | 23 - 29 mmol/L | [facility] [...] | + + + + + | [facility] | [address] [facility] | [place] [address] | | | PATHOLOGY | [address] | | | + + + + + | [facility] | [address] [facility] | [place] [address] | | | PATHOLOGY | [address] | | | + + + + + BASIC METABOLIC SET (08/27/2007 11:19 AM PST) + +---------+ + + + | Component | Value | Ref Range | Performed | Pathologist | | | | | At | Signature | + +---------+ + + + | GLUCOSE, | 109 (H) | 60 - 99 mg/dL | [...] +---------+ + + + | CREATININE | 0.8 | 0.6 - 1.1 mg/dL | [facility] | | | PLASMA | | | DEPARTMENT | | | (LAB) | | | OF | | | | | | PATHOLOGY | | + +---------+ + + + | SODIUM, | 139 | 136 - 145 | [facility] | [...] +---------+ + + + | CHLORIDE, | 104 | 98 - 107 mmol/L | [facility] [...] +---------+ + + + | CALCIUM, | 8.8 | 8.5 - 10.5 | [facility] | [...] | + + + + + | [facility] | [address] | [place] [address] | | | PATHOLOGY | [address] | | | + + + + + | [facility] | [address] | [place] [address] | | | PATHOLOGY | [address] | | | + + + + + CBC ONLY WITH PLATELET (08/27/2007 11:19 AM PST) + +-------+ + + + | Component | Value | Ref Range | Performed | Pathologist | | | | | At | Signature | + +-------+ + + + | WHITE CELL | 8.1 | 4.4 - 11.0 K/cu | [facility] | | | COUNT | | mm | DEPARTMENT | | | | | | OF | | | | | | PATHOLOGY | | + +-------+ + + + | RED CELL | 4.25 | 4.00 - 5.20 | [facility] | | | COUNT | | M/cu mm | DEPARTMENT | | | | | | OF | | | | | | PATHOLOGY | | + +-------+ + + + | HEMOGLOBIN | 13.7 | 12.0 - 16.0 | [facility] | | | | | g/dL | DEPARTMENT | | | | | | OF | | | | | | PATHOLOGY | | + +-------+ + + + | HEMATOCRIT | 39.8 | 36.0 - 46.0 % | [facility] | | | | | | DEPARTMENT | | | | | | OF | | | | | | PATHOLOGY | | + +-------+ + + + | MCV | 93.5 | 80.0 - 96.0 fL | [facility] | | | | | | DEPARTMENT | | | | | | OF | | | | | | PATHOLOGY | | + +-------+ + + + | MCHC | 34.4 | 33.4 - 35.5 | [facility] | | | | | g/dL | DEPARTMENT | | | | | | OF | | | | | | PATHOLOGY | | + +-------+ + + + | RDW | 13.3 | 11.5 - 15.0 % | [facility] | | | | | | DEPARTMENT | | | | | | OF | | | | | | PATHOLOGY | | + +-------+ + + + | PLATELET | 219 | 150 - 400 K/cu | [facility] [...] | + + + + + | [facility] | [id number] | [place] [address] | | | PATHOLOGY | [address] | | | + + + + + | [facility] | [address] [place] [address] | [place] [address] | | | PATHOLOGY | [address] | | | + + + + + PROTHROMBIN TIME (08/27/2007 11:19 AM PST) + + + + + + | Component | Value | Ref Range | Performed | Pathologist | | | | | At | Signature | + + + + + + | INR | 1.03Comment: | 0.90 - 1.20 INR | [facility] | | | | PT INR Therapeutic | | DEPARTMENT | | | | ranges for full | | OF | | | | anticoagulation: | | PATHOLOGY | | | | INR for | | | | | | Venous Thromboembolism | | | | | | | | | | | | (2.0-3.0)INR | | | | | | INR for most | | | | | | patients with mech. | | | | | | valves (2.5-3.5)INR | | | | + + + + + + + + | Specimen | + + | | + + + + + + + | Performing | Address | City/State/Zipcode | Phone Number | | Organization | | | | + + + + + | [facility] | [address] | [place] [address] | | | PATHOLOGY | [address] | | | + + + + + | [facility] | [address] | [place] [address] | | | PATHOLOGY | [address] | | | + + + + + APTT (ACT. PART. THROMBO TIME) (08/27/2007 11:19 AM PST) + + + + + + | Component | Value | Ref Range | Performed | Pathologist | | | | | At | Signature | + + + + + + | APTT | 29.0Comment: | 26.0 - 36.0 | [facility] | | | | APTT Therapeutic Range | seconds | DEPARTMENT | | | | | | OF | | | | | | PATHOLOGY | | | | (75-120)sec | | | | | | Heparin levels | | | | | | of 0.35-0.7 U/mL | | | | + + + + + + + + | Specimen | + + | | + + + + + + + | Performing | Address | City/State/Zipcode | Phone Number | | Organization | | | | + + + + + | [facility] DEPARTMENT OF | [address] | [place] [address] | | | PATHOLOGY | [address] | | | + + + + + | [place] DEPARTMENT | [address] | [place] [address] | | | PATHOLOGY | [address] | | | + + + + + 12 LEAD ECG (08/27/2007 11:12 AM PST) + + + + + + | Component | Value | Ref Range | Performed | Pathologist | | | | | At | Signature | + + + + + + | VENTRICULAR | 69 | BPM | [facility] | | | RATE | | | OF | | | | | | CARDIOLOGY | | + + + + + + | ATRIAL RATE | 69 | BPM | [facility] | | | | | | OF | | | | | | CARDIOLOGY | | + + + + + + | P-R | 164 | ms | [facility] | | | INTERVAL | | | OF | | | | | | CARDIOLOGY | | + + + + + + | QRS | 88 | ms | [facility] | | | DURATION | | | OF | | | | | | CARDIOLOGY | | + + + + + + | QT | 392 | ms | [facility] | | | | | | OF | | | | | | CARDIOLOGY | | + + + + + + | QTC | 420 | ms | [facility] | | | | | | OF | | | | | | CARDIOLOGY | | + + + + + + | P AXIS | 40 | degrees | [facility] | | | | | | OF | | | | | | CARDIOLOGY | | + + + + + + | R AXIS | 8 | degrees | [facility] | | | | | | OF | | | | | | CARDIOLOGY | | + + + + + + | T AXIS | 17 | degrees | [facility] | | | | | | OF | | | | | | CARDIOLOGY | | + + + + + + | EKG | Normal sinus | | [facility] | | | DIAGNOSIS | rhythmCannot rule out | | OF | | | | Anterior infarct , age | | CARDIOLOGY | [...] on | | | | | | 19-Nov-2007 13:20:13 | | | | + + + + + + | LINK TO | | | [facility] DEPT | | | MUSE WEB | [...] DEPT OF | [address] | [place], [place] | | | CARDIOLOGY | [facility] | [address] | | + + + + + | [facility] DE[facility] OF | [address] | [place], [place] | | | CARDIOLOGY | [facility] | [address] | | + + + + + documented in this encounter Visit Diagnoses Not on filedocumented in this encounter
--- OUTSIDE RECORDS SUMMARY | ~2020-06-16 | XMS | Encounter Summary ---
Demographics + + + | Address | [address] | | | [place] [address] | + + + | Home Phone | | + + + | Preferred Language | Unknown | + + + | Marital Status | Single | + + + | Sabianist Affiliation | CAT | + + + | Race | or | + + + | Ethnic Group | Not or | + + + Author + + + | Author | [facility] | + + + | Organization | [facility] | + + + | Address [...] [address] [place] | | | | | [address] | | + + + + + Care Team Providers + +------+ + | Care Etcher Enameling Name | Role | Phone | + [...] | +--------+ + + + + | 02/20/ | Telephone | [facility] | Kaylan Obrien ANP | Discussion | | 2007 | | Center [address] | | | | | | [place] Mailcode: CH4S | | | | | | [facility] | | | | | | and Healing, | | | | | | [facility] [address]th | | | | | | Floor [place], [place] | | | | | | [address] | | | | | | [phone] | | | +--------+ + + + [...] Telephone Encounter - Michael Jarrell - 04/23/2012 10:38 AM PDTThis encounter has been admin istratively closed with the authorization of the [facility] Committee. elephone Encounter - Kaylan Obrien Rn - 02/21/2008 3:58 PM PDTSpoke with pt and [facility]. Mild SOCO. Will have cpap titration tonight elephon e Encounter - Eleanor Scherer - 02/21/2008 11:07 AM PDTPt calling in again. States his phone elvis ps getting disconnected and apologises for the string of calls. He is in town and would like to speak with Kaylan fernandez about his sleep apnea test. Apparently it wasn't adequate, the doctors are concerned because toward the end of his sleep, he showed a few signs of sleep a pnea so they want him to repeat the exam tonight @ 7pm with a apnea machine. If a repeat is needed he will stay in town, if not he would like to go home. Please give him a call as soon as possible so he can know what he needs to do. Side note: He is hoping for a surgery date in early March. elephone Encoun ter - Kingston Smith - 02/21/2008 9:27 AM PDTPt says he is in [place] and lives in [facility] elephone Encounter - Kingston Villanueva - 02/21/2008 9:19 AM PDTBilly Benoit calling says he wants to discuss sleep stud y etc ... Because he is coming from so far away specifically Pain Scale: no Recent Surgery or Procedure: no Pharmacy: Pharmacy Preferences: No preferred pharmacy on file. Contact information: [phone] (home) elephone Encounter - Kavita Keene - 02/21/2008 9:17 AM PDTRegarding sleep study, wants to discuss your protocols f or when CPAP is needed. Approves confidential and detailed messages left on answering cassidy e and voicemail. documented in this encoun ter Plan of Treatment Not on filedocumented as of this encounter Visit Diagnoses Not on filedocumented in this encounter"
--- OUTSIDE RECORDS SUMMARY | ~2020-06-16 | XMS | Encounter Summary ---
Demographics + + + | Address | [address] | | | [place] [address] | + + + | Home Phone [...] + + | Author | [facility] [employer] [facility] | + + + | Organization | [facility] | + + + | [...] [address] [place] | | | | | [address] | | + + + + + Care Team Providers + +------+ + | Care Alteration Specialist Name | Role | Phone | + +------+ + | Dhruv Villalpando MD | PCP | Unavailable | + +------+ + Encounter Details +--------+ + + + + | Date | Type | Department | Care Team | Description | +--------+ + + + + | 08/31/ | Documentati | Anesthesiology | Unknown . | | | 2006 | on | [address] | | | | | | [place], | | | | | | [place] [address] | | | +--------+ + + + [...] documented as of this encounter Procedure Notes Unknown - 08/31/2007 11:11 AM PSTAssociated Order(s): ANESTHESIA/SEDATION Anesthesia PostO p Report Patient: PRATIBHA PEREZ Med Rec: [id number] Mary Stinson Bdate: 1960 Date/Time Data Entered Into [facility] Anesth PostOp Surgery Date [id number] 08/31/07 11:11 [id number] 08/28/07 11:51 Anesthesiologist ROMMEL BAXTER 08/31/07 11:11 RAMESH JOHNSON 08/28/07 11:51 Resident Anesthesiolog ASHLEE VELEZ 08/28/07 11:51 documented in this encounter Plan of Treatment Not on filedocumented as of this encounter Procedures + +--------+ + + + | Procedure Name | Priori | Date/Time | Associated Diagnosis | Comments | | | ty | | | | + +--------+ + + + | ANESTHESIA/SEDATION | | 08/31/2007 | | Results for this | | | | 11:11 AM | | procedure are in the | | | | PST | | results section. | + +--------+ + + + documented in this encounter Results ANESTHESIA/SEDATION (08/31/2007 11:11 AM PST) + + + | Narrative | Performed At | + + + | Ordered by an unspecified provider. | | + + + + + | Transcriptions | + + | 08/31/2007 11:11 AM [facility] Anesthesia PostOp Report | | | | Patient: PRATIBHA PEREZ [facility] Rec: [id number] Mary Stinson Bdate: 1960 | | Date/Time Data | | Entered Into [facility] | | Anesth PostOp | | Surgery Date [id number] 08/31/07 11:11 | | [id number] 08/28/07 11:51 | | Anesthesiologist ROMMEL BAXTER 08/31/07 11:11 | | RAMESH JOHNSON 08/28/07 11:51 | | Resident Anesthesiolog ASHLEE VELEZ 08/28/07 11:51 | | | + + documented in this encounter Visit Diagnoses Not on filedocumented in this encounter"
--- OUTSIDE RECORDS SUMMARY | ~2020-06-16 | XMS | Clinical Summary ---
Demographics + + + | Address | [address] | | | [place] [address] | + + + | Home Phone | | + + + | Preferred Language | Unknown | + + + | Marital Status | Single | + + + | Tenriism Affiliation | CAT | + + + | Race | or | + + + | Ethnic Group | Not or | + + + Author + + + | Author | [facility] | + + + | Organization | [facility] | + + + | Address | [...] [address] [place] | | | | | [address] | | + + + + + Care Team Providers + +------+ + | Care Reconciliation Analyst Name | Role | Phone | + +------+ + PCP | Unavailable | + +------+ + Source Comments CAR is fully live on both EpicCare Ambulatory and EpicCare InPatient.[facility] Allergies + + + + + + | Active Allergy | Reactions | Severity | Noted | Comments | | | | | Date | | + + + + + + | Adhesive Tape | Hives | | 08/13/20 | | | | | | 07 | | + + + + + + Medications + + + +---------+------+------+-------+ | Medication | Sig | Dispensed | Refills | Star | End | Statu | | | | | | t | Date | s | | | | | | Date | | | + + + +---------+------+------+-------+ | lisinopril 40 mg | take 1 tablet (40 | | 0 | | | Activ | | Oral Tablet | mg) by oral route | | | | | e | | | once daily | | | | | | + + + +---------+------+------+-------+ | multivitamin Oral | take 1 tablet by | | 0 | | | Activ | | Tablet | oral route once | | | | | e | | | daily with food | | | | | | + + + +---------+------+------+-------+ | CALCIUM 500 WITH D | None Entered | | 0 | | | Activ | | ORAL | | | | | | e | + + + +---------+------+------+-------+ | metoprolol 25 mg | 1 Tab Oral TWO TIMES | 60 | 0 | 06/1 | | Activ | | Oral Tablet | DAILY | | | 2/20 | | e | | | | | | 08 | | | + + + +---------+------+------+-------+ | fluticasone | as needed | | 0 | | | Activ | | (FLONASE) 50 | | | | | | e | | mcg/Actuation Nasal | | | | | | | | [place], Suspension | | | | | | | + + + +---------+------+------+-------+ | Insulin Reg | inject by | | 0 | | | Activ | | (Human) Buffered 100 | subcutaneous route | | | | | e | | unit/mL Injection | per insulin sliding | | | | | | | Solution | scale protocol as | | | | | | | | needed | | | | | | + + + +---------+------+------+-------+ | ZANTAC OR | 2x daily | | 0 | | | Activ | | | | | | | | e | + + + +---------+------+------+-------+ | Omeprazole 20 mg | one by mouth once | 30 | 2 | 09/2 | | Activ | | Oral Tablet, Delayed | daily 30 minutes | | | /20 | | e | | Release (E.C.) | before breakfast | | | 08 | | | + + + +---------+------+------+-------+ | Syringe with | to be used with | 1 | 11 | 12/1 | | Activ | | Needle (Disp) 3 mL | vitamin B12 | | | 10/28 | | e | | 22 x 1 1/2" Syringe | injections | | | 08 | | | + + + +---------+------+------+-------+ Active Problems + + + | Problem | Noted Date | + + + | Status post gastric bypass for obesity | 04/01/2008 | + + + | SOCO (obstructive sleep apnea) | 03/14/2008 | + + + | DVT of leg (deep venous thrombosis) | 10/15/2007 | + + + | Morbid obesity | 10/15/2007 | + + + Family History + + +------+ + | Medical History | Relation | Name | Comments | + + +------+ + | Additional Family | Brother | | x2 obesity | | History | | | | + + +------+ + | Cancer | Father | | renal cell | + + +------+ + | Heart Disease | Father | | artificial valve | + + +------+ + | Diabetes | Mother | | | + + +------+ + | Additional Family | Sister | | obesity | | History | | | | + + +------+ + + +------+--------+ + | Relation | Name | Status | Comments | + +------+--------+ + | Brother | | | | + +------+--------+ + | Father | | | | + +------+--------+ + | Mother | | | | + +------+--------+ + | Sister | | | | + +------+--------+ + Social History + +-------+ +--------+------+ | [...] + + + Last Filed Vital Signs + + + [...] | | + + + + + Plan of Treatment + + +-------+ + | Health Maintenance | Due Date | Last | Comments | | | | Done | | + + +-------+ + | Influenza (Flu) | | | | | vaccination (#1) | 0 | | | + + +-------+ + | Pneumococcal | Aged Out | | No longer eligible based on patient's age | | vaccination | | | to complete this topic | + + +-------+ + Results Not on filefrom Last 3 Months Insurance + +--------+ +--------+-------+---------+--------+ | Payer | Benefi | Subscriber | Effect | Phone | Address | Type | | | t Plan | ID | cristiano | | | | | | / | | Dates | | | | | | Group | | | | | | + +--------+ +--------+-------+---------+--------+ | [facility] | | [id number] | Effect | | | Agency | | SERVICE | | | cristiano | | | | | | HEALTH | | for | | | | | | | | all | | | | | | SERVIC | | dates | | | | | | E | | | | | | + +--------+ +--------+-------+---------+--------+ + +--------+ +--------+ + + | Guarantor Name | Accoun | Relation to | Date | Phone | Billing Address | | | t Type | Patient | of | | | | | | | | | | + +--------+ +--------+ + + | PRATIBHA PEREZ | Person | Self [birth year] | [address] | | | al/Fam | | 1960 | [phone] | [place] [address] | | | adan | | | 1 (Home) | | + +--------+ +--------+ + + Advance Directives + + + + + | Type | Date Recorded | Patient | Explanation | | | | Water Resources Technical Officer | | + + + + + | Advance | | | | | Directives and | | | | | Living Will | | | | + + + + + | Power of | | | | | Bed And Breakfast Operator | | | | + + + + + + + + + + | Code Status | Date | Date | Comments | | | Activated | Inactivated | | + + + + + | Full Code | 03/19/2008 | 03/24/2008 | | | | 3:00 PM | 6:35 PM | | + + + + +
--- OUTSIDE RECORDS SUMMARY | ~2020-06-16 | XMS | Encounter Summary ---
Demographics + + + | Address | [address] | | | [place] [address] | + + + | Home Phone | | + + + | Preferred Language | Unknown | + + + | Marital Status | Single | + + + | Taoism Affiliation | CAT | + + + | Race | or | + + + | Ethnic Group | Not or | + + + Author + + + | Author | [facility] | + + + | Organization | [facility] | + + + | [...] [address] [place] | | | | | [address] | | + + + + + Care Team Providers + +------+ + | Care Oiling Machine Operator Name | Role | Phone | + +------+ + | Dhruv Villalpando MD | PCP | Unavailable | + +------+ + Encounter Details +--------+ + + + + | Date | Type | Department | Care Team | Description | +--------+ + + + + | 10/05/ | Telephone | [facility] | Manuel [place], | | | 2006 | | Center [address] | [address] [facility] | | | | | [place] Mailcode: CH6D | [address] | | | | | [facility] | [place], [place] | | | | | and Healing, | [address] | | | | | [facility] | [phone] | | | | | Floor [place], [place] | | | | | | [address] | | | | | | [phone] | | | +--------+ + + + [...] this encounter Miscellaneous Notes Telephone Encounter - Lou Shearer - 10/08/2007 10:43 AM PSTPt called back because he hasnt heard back. Can be reached at [phone] signed by Lou Shearer at 10/08/20 10:43 AM PSTTelephone Encounter - Kingston Smith - 10/05/2007 1:03 PM PSTPT calling he ys he is in the hospital with blood clot in his lower left leg he is calling concerning prog ress on the gastric bypass procedure. Please call him back at home. And Electronically michael d by Kingston Smith at 10/05/2007 1:03 PM PSTdocumented in this encounter Plan of Treatment Not on filedocumented as of this encounter Visit Diagnoses Not on filedocumented in this encounter"
--- OUTSIDE RECORDS SUMMARY | ~2020-06-16 | XMS | Encounter Summary ---
Demographics + + + | Address | [address] | | | [place] [address] | + + + | Home Phone | | + + + | Preferred Language | Unknown | + + + | Marital Status | Single | + + + | Adventism Affiliation | CAT | + + + | Race | or | + + + | Ethnic Group | Not or | + + + Author + + + | Author | [facility] | + + + | Organization | [...] [address] [place] | | | | | [address] | | + + + + + Care Team Providers + +------+ + | Care Skelp Processor Name | Role | Phone | + [...] | Gastroenterol | Diagnoses | [facility] | [place], | | | | ogy | | Epic Dept | [facility] | | | | | Posttraumati | | [address] | | | | | c wound | | [place] | | | | | infection | | [address] [place], | | | | | not | | [place] | | | | | elsewhere | | [address] | | | | | classified | | Phone: | | | | | Procedures | | [phone] | | | | | RI LAP RMV | | Fax: | | | | | ADJ GST | | [phone] | | | | | BND/RI | | | +--------+--------+ + + + + Encounter Details +--------+---------+ + + + | Date | Type | Department | Care Team | Description | +--------+---------+ + + + | 09/25/ | Office | [facility] | Kaylan Obrien ANP | Follow-Up | | 2006 | Visit | Center [address] | | Examination | | | | [place] Mailcode: CH6D | | Following Surgery | | | | [facility] | | (Primary Dx) | | | | and Healing, | | | | | | Building [address] | | | | | | Floor [place], [place] | | | | | | [address] | | | | | | [phone] | | | +--------+---------+ + + + [...] + + + | Blood Pressure | 159/85 | 09/25/2007 11:46 AM | | | | | PST | | + + + + + | Pulse | 76 | 09/25/2007 11:46 AM | | | | | PST | | + + + + + | Temperature | 35.4 C (95.7 F) | 09/25/2007 11:46 AM | | | | | PST | | + + + + + | Respiratory Rate | 16 | 09/25/2007 11:46 AM | | | | | PST | | + + + + + | Oxygen Saturation | - | - | | + + + + + | Inhaled Oxygen | - | - | | | Concentration | | | | + + + + + | Weight | 182 kg (401 lb 3.2 | 09/25/2007 11:46 AM | | | | oz) | PST | | + + + + + | Height | 189.2 cm (6' 2.5") | 09/25/2007 11:46 AM | | | | | PST | | + + + + + | Body Mass Index | 50.82 | 09/25/2007 11:46 AM | | | | | PST | | + + + + + documented in this encounter Progress Notes Camille Martin, Kaylan Lawrence - 09/26/2007 8:58 AM PSTPt s/p removal of infected lap band 08/27/07 and e x lap and ligation bleeding vessel 08/30/07. Has been doing BID wound packing at home. Had question of increased bright red blood from wound and wondered about need for silver nitrat e. Otherwise no increase in drainage or pain. No fevers. Concerned about gaining weight. Wants to pursue gastric bypass. Is not tracking calories. Wants to know about resuming ex ercise. A&O 47 yo man in NAD, VSS, afebrile Abd: obese, soft, nontender Surg inc: midline below umbilicus well granulated 2-3 mm in depth. LLQ distal inc 3 cm dep th, proximal inc 2.5 cm depth. Both are well granulating. No active bleeding or drainage. No erythema. Post op check, healing well Cont BID dressing changes. Recommended keeping track of calories on [employer]. Recommend goal of 2463-2488/day max. OK to resume walking. Will request auth from insurance for pt to begin gastric bypass process. F/u 2-[address] Gaspar. documented in this encoun ter Plan of Treatment Not on filedocumented as of this encounter Visit Diagnoses + + | Diagnosis | + + | Follow-up examination following surgery - Primary Follow-up examination, following | | unspecified surgery | + + documented in this encounter
--- OUTSIDE RECORDS SUMMARY | ~2020-06-16 | XMS | Encounter Summary ---
Demographics + + + | Address | [address] | | | [place] [address] | + + + | Home Phone [...] + + | Author | [facility] | + + + | Organization | [facility] | + + + | Address | [...] [address] | | | | | [address] | | + + + + + Care Team Providers + +------+ + | Care Fuel Cell Systems Engineer Name | Role | Phone | + +------+ + PCP | Unavailable | + +------+ + Encounter Details +--------+ + + + + | Date | Type | Department | Care Team | Description | +--------+ + + + + | 08/27/ | Procedure - | UNKNOWN DEPARTMENT | Record, Operation | Operative Report | | 2006 | | [address] | | | | | Transcribed | [address] | | | | | | [place], [place] | | | | | | [address] | | | +--------+ + + + [...] this encounter Procedure Notes Record, Operation - 08/27/2007 12:00 AM PSTAssociated Order(s): OPERATION RECORD [id number] CHRIS MCKINNON [id number] Date: 08/27/2007 Attending Surgeon: Grey Gaspar M.D. Material Requirements Worker(s): Italo Freeman M.D. Preoperative Diagnosis(es): Infected lap band. Postoperative Diagnosis(es): Infected lap band. Anesthesia: General endotracheal. Estimated Blood Loss: Minimal. Indications: This is 47-year-old male who had a lap band placed in [place] with several subsequent port site port infections who has had his port moved several times, and each time, it has become infected. He has come to us for removal of the actual band apparatus and the port. The risks and benefits of the procedure were thoroughly explained to him, and he agrees to proceed. Procedure: The patient was brought to the operating room, properly identified, placed supine on the operative table, and general anesthesia was induced without incident. An #11 blade was used to make a small incision above the umbilicus, and a Veress needle was inserted into the abdomen. Placement was tested with a water drop test. The abdomen was insufflated to 15 cm of CO2 pressure. Using the Step trocar system, we placed two 12 ports and one 5 port in the usual lap band trocar arrangement. There was copious scar tissue surrounding the lap band tubing and the lap band itself. The lap band tubing was freed from the scar tissue laparoscopically, and it was followed down to the lap band apparatus. The buckle of the lap band was uncovered from underneath the copious scar tissue and freed a centimeter on either side. We then cut the buckle of the lap band, and the lap band easily pulled free from the superior most aspect of the stomach. A 15 mm cutting trocar was then placed in the right upper quadrant to retrieve the lap band since it would not come through either of the 12 mm trocars. The lap band was removed in its entirety from the abdominal cavity, and the abdominal cavity was briefly inspected. There was no bleeding noted. Of note, we did notice some bleeding from the 15 mm trocar site right after the trocar insertion, but this was controlled with a suture, and no further bleeding was noted. The abdomen was then desufflated, and an incision was made over the port site. The subcutaneous tissues were divided. The lap port was identified. It was secured to the anterior fascia with one 0 Prolene suture which was cut and removed. The entire port was removed along with the residual tubing connected to it. The wound was then copiously irrigated and packed open. The remaining port sites were closed with a 4-0 Biosyn. The patient was then awakened from anesthesia without incident and taken to the PACU in stable condition. Sponge and needle counts were correct, and Dr. Grey Gaspar was present for the entire procedure and directed all surgical care for Mr. Benoit. Italo Freeman M.D. Grey Gaspar M.D. CV / HS [id number] / [id number] / [id number] / Electronically signed by Italo Freeman 09-05-2007 04:26:53 PM Electronically signed by Grey Gaspar 09-18-2007 03:51:50 PM documented in this encou nter Plan of Treatment Not on filedocumented as of this encounter Procedures + +--------+ + + + | Procedure Name | Priori | Date/Time | Associated Diagnosis | Comments | | | ty | | | | + +--------+ + + + | OPERATION RECORD | | 08/27/2007 | | Results for this | | | | 12:00 AM | | procedure are in the | | | | PST | | results section. | + +--------+ + + + documented in this encounter Results OPERATION RECORD (08/27/2007 12:00 AM PST) + + | Procedure Note | + + | 08/27/2007 12:00 AM PST | | [id number] | | [id number] CHRIS MCKINNON [id number] | | | | Date: 08/27/2007 | | | | Attending Surgeon: Grey Gaspar M.D. | | | | | | Material Requirements Worker(s): Italo Freeman M.D. | | | | | | Preoperative Diagnosis(es): | | Infected lap band. | | | | Postoperative Diagnosis(es): | | Infected lap band. | | | | Anesthesia: | | General endotracheal. | | | | Estimated Blood Loss: | | Minimal. | | | | Indications: | | This is 47-year-old male who had a lap band placed in [place] with several | | subsequent port site port infections who has had his port moved several | | times, and each time, it has become infected. He has come to us for | | removal of the actual band apparatus and the port. The risks and benefits | | of the procedure were thoroughly explained to him, and he agrees to | | proceed. | | | | Procedure: | | The patient was brought to the operating room, properly identified, placed | | supine on the operative table, and general anesthesia was induced without | | incident. An #11 blade was used to make a small incision above the | | umbilicus, and a Veress needle was inserted into the abdomen. Placement | | was tested with a water drop test. The abdomen was insufflated to 15 cm of | | CO2 pressure. Using the Step trocar system, we placed two 12 ports and one | | 5 port in the usual lap band trocar arrangement. There was copious scar | | tissue surrounding the lap band tubing and the lap band itself. The lap | | band tubing was freed from the scar tissue laparoscopically, and it was | | followed down to the lap band apparatus. The buckle of the lap band was | | uncovered from underneath the copious scar tissue and freed a centimeter on | | either side. We then cut the buckle of the lap band, and the lap band | | easily pulled free from the superior most aspect of the stomach. A 15 mm | | cutting trocar was then placed in the right upper quadrant to retrieve the | | lap band since it would not come through either of the 12 mm trocars. The | | lap band was removed in its entirety from the abdominal cavity, and the | | abdominal cavity was briefly inspected. There was no bleeding noted. Of | | note, we did notice some bleeding from the 15 mm trocar site right after | | the trocar insertion, but this was controlled with a suture, and no further | | bleeding was noted. The abdomen was then desufflated, and an incision was | | made over the port site. The subcutaneous tissues were divided. The lap | | port was identified. It was secured to the anterior fascia with one 0 | | Prolene suture which was cut and removed. The entire port was removed | | along with the residual tubing connected to it. The wound was then | | copiously irrigated and packed open. The remaining port sites were closed | | with a 4-0 Biosyn. The patient was then awakened from anesthesia without | | incident and taken to the PACU in stable condition. Sponge and needle | | counts were correct, and Dr. Grey Gaspar was present for the entire | | procedure and directed all surgical care for Mr. Benoit. | | | | | | | | | | Italo Freeman M.D. | | | | | | | | Grey Gaspar M.D. | | | | CV / HS | | [id number] / [id number] / [id number] / | | | | | | | | | | | | Electronically signed by Italo Freeman 09-05-2007 04:26:53 PM | | Electronically signed by Grey Gaspar 09-18-2007 03:51:50 PM | | | | | + + documented in this encounter Visit Diagnoses Not on filedocumented in this encounter"
--- OUTSIDE RECORDS SUMMARY | ~2020-06-16 | XMS | Encounter Summary ---
Demographics + + + | Address | [address] | | | [place] [address] | + + + | Home Phone [...] [address] [facility] | + + + | [...] [address] | | | | | [address] | | + + + + + Care Team Providers + +------+ + | Care Speeder Worker Name | Role | Phone | + +------+ + | Dhruv Villalpando MD | PCP | Unavailable | + +------+ + Reason for Visit + + + | Reason | Comments | + + + | History and physical | | | examination | | + + + PROC - [...] | | | obesity | | [address] [facility] | | | | | (HCC) | | [address] | | | | | Procedures | | [address] [place], | | | | | [place] | | [place] | | | | | GASTRIC | | [address] | | | | | [facility]PASS/[place]UTH [place]- | | Phone: | | | | | EN-Y | | [phone] | | | | | | | Fax: | | | | | | | [phone] | +--------+--------+ + + + + Encounter Details +--------+---------+ + + + | Date | Type | Department | Care Team | Description | +--------+---------+ + + + | 03/17/ | Office | Digestive Health | Getachew Giang, | DVT of Leg (Deep | | 2007 | Visit | [place] [address] | [address] | Venous Thrombosis) | | | | Ave Mailcode: CH4S | [address] | ([facility]) (Primary Dx); | | | | [facility] | [place], [place] | Morbid Obesity | | | | and Healing, | [address] | ([facility]); Status Post | | | | [facility] | [phone] | Bariatric Surgery | | | | Floor [place], [place] | | | | | | [address] | | | | | | [phone] | | | +--------+---------+ + + + [...] + + + | Blood Pressure | 176/80 | 03/17/2008 1:26 PM | | | | | PDT | | + + + + + | Pulse | 80 | 03/17/2008 1:26 PM | | | | | PDT | | + + + + + | Temperature | 36.8 C (98.3 F) | 03/17/2008 1:26 PM | | | | | PDT | | + + + + + | Respiratory Rate | 12 | 03/17/2008 1:26 PM | | | | | PDT | | + + + + + | Oxygen Saturation | - | - | | + + + + + | Inhaled Oxygen | - | - | | | Concentration | | | | + + + + + | Weight | 210.8 kg (464 lb | 03/17/2008 1:26 PM | | | | 11.2 oz) | PDT | | + + + + + | Height | 185.4 cm (6' 1") | 03/17/2008 1:26 PM | | | | | PDT | | + + + + + | Body Mass Index | 61.31 | 03/17/2008 1:26 PM | | | | | PDT | | + + + + + documented in this encounter Progress Notes Getachew Giang - 03/20/2008 12:11 PM JAZMYNI performed a history and physical examination o f the patient and discussed his management with the resident. I reviewed the resident s n ote and agree with the documented findings and plan of care. GETACHEW GIANG MD [facility] [address] [facility]th [place] [phone] an Italo Go E - 06/2008 2:12 PM PDT [facility] Patient Name: Ghassan Benoit MR#: [id number] : 1960 47 y.o. Man with BMI of 61 who underwent Lap Band removal in 08/15 after chronic port-site infections. His surgery was complicated by an episode of abdominal wall bleeding which was treated surgically. After discharge, he was diagnosed with a lower extremity DVT by his [facility] provider which has been treated with coumadin, now on a stable dose. He is now requestin g gastric bypass surgery for weight loss. He denies any new complaints from his previous ho spitalization, but has gained over 80 pounds since the removal of his Lap Band. Past Medical History Diagnosis Date Morbid Obesity (BMI 40.0 or Higher) DM (Diabetes Mellitus) HTN (Hypertension) Hyperlipidemia DVT (Deep Venous Thrombosis) Chronic Sinusitis Past Surgical History Procedure Date Hb lap-bnd gastric banding sys Removal of gastric band Anesth,elbow area surgery RIGHT Hx tonsillectomy Current outpatient medications Medication Sig Fluticasone Propionate (FLONASE) 50 mcg/Actuation Nasal Mobile, Suspension inhale 1 spra y in each nostril by intranasal route once daily Insulin Glargine (LANTUS) 100 unit/mL Subcutaneous Solution 32 units once daily injecte d by subcutaneous route lisinopril 40 mg Oral Tablet take 1 tablet (40 mg) by oral route once daily Tramadol HCl (ULTRAM) 50 mg Oral Tablet take 1 tablet (50 mg) by oral route every 6 kori rs as needed warfarin (COUMADIN) 5 mg Oral Tablet take 3 tablet (15 mg) by oral route once daily zolpidem (AMBIEN) 10 mg Oral Tablet take 1 tablet (10 mg) by oral route once daily at b edtime as needed Allergies Allergen Reactions Adhesive Tape Hives Review of Systems Constitutional: Negative. Skin: Negative. HENT: Negative. Eyes: Negative. Cardiovascular: Negative. Respiratory: Negative. Gastrointestinal: Negative. Genitourinary: Negative. Musculoskeletal: Negative. Endo/Heme/Allergies: Negative. Neurological: Negative. Psychiatric: Negative. Physical Exam Constitutional: He is oriented. He appears not toxic, not dehydrated, not diaphoretic and n ot distressed. HENT: Head: Normocephalic. Eyes: Pupils equal, round, and reactive to light. Neck: Normal range of motion. Neck supple. Cardiovascular: Normal rate, regular rhythm, normal heart sounds and intact distal pulses. Pulmonary/Chest: Effort normal and breath sounds normal. Abdominal: Abdomen soft. He exhibits no distension and no mass. He exhibits no organomegaly . He has no rebound and no guarding. No tenderness present. Well-healed laparoscopy incisions Neurological: He is alert and oriented. Skin: He is not diaphoretic. Psychiatric: He displays normal mood, memory, affect, and judgment. A/P: 47 y.o. Man with BMI of 61 and multiple comorbidities from obesity. On schedule for gastric bypass surgery 03/19. Will check INR today and give lovenox preoperatively. Risk an d benefits of surgery including , leak, infection, and bleeding were explained to him a nd he wishes to proceed. documented in this enco unter Plan of Treatment Not on filedocumented as of this encounter Results [facility] - INR (PROTHROMBINTIME) (03/17/2008 2:13 PM PDT) + + + + + + | Component | Value | Ref Range | Performed | Pathologist | | | | | At | Signature | + + + + + + | [facility] | 2.40 (H)Comment: | 0.98 - 1.20 INR | [facility] | | | | PT INR Therapeutic [...] | + + + + + | [facility] DEPARTMENT OF | [address] | [place] [address] | | | PATHOLOGY | [address] | | | + + + + + | [facility] | [address] | [place] [address] | | | PATHOLOGY | [address] | | | + + + + + documented in this encounter Visit Diagnoses + + | Diagnosis | + + | DVT of leg (deep venous thrombosis) (HCC) - Primary Acute venous embolism and | | thrombosis of unspecified deep vessels of lower extremity | + + | Morbid obesity (HCC) Morbid obesity | + + | Status post bariatric surgery Bariatric surgery status | + + documented in this encounter
--- OUTSIDE RECORDS SUMMARY | ~2020-06-16 | XMS | Encounter Summary ---
Demographics + + + | Address | [address] | | | [place] [address] | + + + | Home Phone [...] + + | Author | [facility] | + + + | Organization | [...] [address] [place] | | | | | [address] | | + + + + + Care Team Providers + +------+ + | Care Ct Scan Special Procedures Technologist Name | Role | Phone | + +------+ + | Dhruv Villalpando MD | PCP | Unavailable | + +------+ + Reason for Visit + + + | Reason | Comments | + + + | Pre-op evaluation | | + + + Encounter Details +--------+---------+ + + + | Date | Type | Department | Care Team | Description | +--------+---------+ + + + | 03/17/ | Office | Preoperative | 1, [facility] [address] | Other Specified | | 2007 | Visit | Medicine Clinic at | [address] | Pre-Operative | | | | [facility] 4th Floor [address] | [place] [address] | Examination (Primary | | | | [address] | | Dx) | | | | Mailcode: CH4S | | | | | | [facility] | | | | | | and Healing, | | | | | | Building 1,4th Floor | | | | | | [place], [place] | | | | | | [address] | | | | | | [phone] | | | +--------+---------+ + + + [...] | Blood Pressure | 176/80 | 03/17/2008 2:48 PM | | | | | PDT | | + + + + + | Pulse | 74 | 03/17/2008 2:48 PM | | | | | PDT | | + + + + + | Temperature | 36.8 C (98.2 F) | 03/17/2008 2:48 PM | | | | | PDT | | + + + + + | Respiratory Rate | 12 | 03/17/2008 2:48 PM | | | | | PDT | | + + + + + | Oxygen Saturation | 98% | 03/17/2008 2:48 PM | | | | | PDT | | + + + + + | Inhaled Oxygen | - | - | | | Concentration | | | | + + + + + | Weight | 210.5 kg (464 lb) | 03/17/2008 2:48 PM | | | | | PDT | | + + + + + | Height | 185.4 cm (6' 1") | 03/17/2008 2:48 PM | | | | | PDT | | + + + + + | Body Mass Index | 61.22 | 03/17/2008 2:48 PM | | | | | PDT | | + + + + + documented in this encounter Progress Dhruv Vincent - 03/17/2008 2:49 PM PDTSee Scanned H&P. documented in this encounter Plan of Treatment + +------+--------+ + + | Name | Type | Priori | Associated Diagnoses | Order Schedule | | | | ty | | | + +------+--------+ + + | TYPE AND SCREEN | Lab | Routin | Other Specified | Ordered: 03/17/2008 | | | | e | Pre-Operative | | | | | | Examination | | + +------+--------+ + + documented as of this encounter [...] | + +--------+ + + + | COMPLETE METABOLIC | Routin | 03/17/2008 | Other Specified | Results for this | | SET | e | 2:53 PM | Pre-Operative | procedure are in the | | (NA,K,CL,CO2,BUN,CRE | | PDT | Examination | results section. | | AT,GLUC,CA,AST,ALT,B | | | | | | VASQUEZ TOTAL,ALK | | | | | | PHOS,ALB,PROT TOTAL) | | | | | + +--------+ + + + | CBC ONLY | Routin | 03/17/2008 | Other Specified | Results for this | | | e | 2:53 PM | Pre-Operative | procedure are in the | | | | PDT | Examination | results section. | + +--------+ + [...] view image for the detailed interpretation from [employer] results. | CARDIOLOGY | | | | + + + + + + + + | Performing | Address | City/State/Zipcode | Phone Number | | Organization | | | | + + + + + | [facility] | [address] | [place], [place] | | | CARDIOLOGY | [address] | [address] | | + + + + + | [facility] | [address] | [place], [place] | | | CARDIOLOGY | [address] [facility] | [phone] | | + + + + + CBC ONLY (03/17/2008 2:53 PM PDT) + + + + + + | Component | Value | Ref Range | Performed | Pathologist | | | | | At | Signature | + + + + + + | WHITE CELL | 7.4 | 4.4 - 11.0 K/cu | [facility] | | | COUNT | | mm | DEPARTMENT | | | | | | OF | | | | | | PATHOLOGY | | + + + + + + | RED CELL | 4.38 (L) | 4.50 - 5.90 | [facility] | | | COUNT | | M/cu mm | DEPARTMENT | | | | | | OF | | | | | | PATHOLOGY | | + + + + + + | HEMOGLOBIN | 13.9 | 13.5 - 17.5 | [facility] | | | | | g/dL | DEPARTMENT | | | | | | OF | | | | | | PATHOLOGY | | + + + + + + | HEMATOCRIT | 39.6 (L) | 41.0 - 53.0 % | [facility] | | | | | | DEPARTMENT | | | | | | OF | | | | | | PATHOLOGY | | + + + + + + | MCV | 90.5 | 80.0 - 96.0 fL | [facility] [...] + + + + | PLATELET | 211 | 150 - 400 K/cu | [facility] [...] | + + + + + | [facility] | [address] [facility] | [place] [address] | | | PATHOLOGY | [address] | | | + + + + + | [facility] | [address] [facility] | [place] [address] | | | PATHOLOGY | [address] | | | + + + + + COMPLETE METABOLIC SET (NA,K,CL,CO2,BUN,CREAT,GLUC,CA,AST,ALT,BILI TOTAL,ALK PHOS,ALB,PROT TOTAL) (03/17/2008 2:53 PM PDT) + +---------+ + + + | Component | Value | Ref Range | Performed | Pathologist | | | | | At | Signature | + +---------+ + + + | GLUCOSE, | 141 (H) | 60 - 99 mg/dL | [...] +---------+ + + + | TOTAL | 6.8 | 6.1 - 7.9 g/dL | [facility] | | | PROTEIN, | | | DEPARTMENT | | | PLASMA | | | OF | | | (LAB) | | | PATHOLOGY | | + +---------+ + + + | ALBUMIN, | 3.4 (L) | 3.5 - 4.7 g/dL | [facility] | | | PLASMA | | | DEPARTMENT | | | (LAB) | | | OF | | | | | | PATHOLOGY | | + +---------+ + + + | CALCIUM, | 8.9 | 8.5 - 10.5 | [facility] | | | PLASMA | | mg/dL | DEPARTMENT | | | (LAB) | | | OF | | | | | | PATHOLOGY | | + +---------+ + + + | BILIRUBIN | 1.2 | 0.3 - 1.2 mg/dL | [facility] | | | TOTAL | | | DEPARTMENT | | | | | | OF | | | | | | PATHOLOGY | | + +---------+ + + + | ALK PHOS | 66 | 53 - 128 U/L | [facility] | | | | | | DEPARTMENT | | | | | | OF | | | | | | PATHOLOGY | | + +---------+ + + + | AST(SGOT) | 44 (H) | 15 - 41 U/L | [facility] [...] +---------+ + + + | POTASSIUM, | 5.2 (H) | 3.5 - 5.1 | [facility] | [...] + + + | TOTAL CO2, | 24 | 23 - 29 mmol/L | [facility] | | | PLASMA | | | DEPARTMENT | | | (LAB) | | | OF | | | | | | PATHOLOGY | | + +---------+ + + + | ALT (SGPT) | 38 | 13 - 48 U/L | [facility] [...] | + +---------+ + + + | POTASSIUM | SL HEMO | | [facility] | | | CMNT | | | DEPARTMENT | | | | | | OF | | | | | | PATHOLOGY | | + +---------+ + + + + + | Specimen | + + | Blood - Blood | + + + + + | Narrative | Performed At | + + + | [id number] Estimated GFR > 60 mL/min/1.73 sq m if non- | [facility] | | Malagasy [id number] Estimated GFR > 60 mL/min/1.73 sq m if | DEPARTMENT OF | | [place]agasy GFR is estimated using the MDRD equation [...] | + + + + + | [facility] | [address] [facility] | [place] [address] | | | PATHOLOGY | [address] | | | + + + + + | [facility] | [facility] | [place] [address] | | | PATHOLOGY | [address] | | | + + + + + documented in this encounter Visit Diagnoses + + | Diagnosis | + + | Other specified pre-operative examination - Primary | + + documented in this encounter
--- OUTSIDE RECORDS SUMMARY | ~2020-06-16 | XMS | Encounter Summary ---
Demographics + + + | Address | [address] | | | [place] [address] | + + + | Home Phone | | + + + | Preferred Language | Unknown | + + + | Marital Status | Single | + + + | Advent Affiliation | CAT | + + + | Race | or | + + + | Ethnic Group | Not or | + + + Author + + + | Author | [facility] | + + + | Organization | [facility] | + + + | [...] [address] [place] | | | | | [address] | | + + + + + Care Team Providers + +------+ + | Care Bookkeeping Teacher Name | Role | Phone | + +------+ + | Dhruv Villalpando MD | PCP | Unavailable | + +------+ + Encounter Details +--------+------+ + + + | Date | Type | Department | Care Team | Description | +--------+------+ + + + | 11/18/ | Lab | Laboratory at [facility] | | Status Post Gastric | | 2008 | | [address] | | Bypass for Obesity | | | | [facility] | | | | | | and Healing, | | | | | | [address] | | | | | | [place], [place] | | | | | | [address] | | | | | | [phone] | | | +--------+------+ + + + [...] + | VITAMIN D, | Routin | 11/18/2008 | Status Post | Results for this | | 25-HYDROXY, SERUM | e | 11:41 AM | Gastric Bypass for | procedure are in the | | | | PST | Obesity | results section. | + +--------+ + + + | COMPLETE METABOLIC | Routin | 11/18/2008 | Status Post | Results for this | | SET | e | 11:41 AM | Gastric Bypass for | procedure are in the | | (NA,K,CL,CO2,BUN,CRE | | PST | Obesity | results section. | | AT,GLUC,CA,AST,ALT,B | | | | | | VASQUEZ TOTAL,ALK | | | | | | PHOS,ALB,PROT TOTAL) | | | | | + +--------+ + + + | CBC ONLY | Routin | 11/18/2008 | Status Post | Results for this | | | e | 11:41 AM | Gastric Bypass for | procedure are in the | | | | PST | Obesity | results section. | + +--------+ + + + | PTH, SERUM | Routin | 11/18/2008 | Status Post | Results for this | | | e | 11:41 AM | Gastric Bypass for | procedure are in the | | | | PST | Obesity | results section. | + +--------+ + + + | VITAMIN B-12 | Routin | 11/18/2008 | Status Post | Results for this | | | e | 11:41 AM | Gastric Bypass for | procedure are in the | | | | PST | Obesity | results section. | + +--------+ + + + documented in this encounter Results VITAMIN D, 25-HYDROXY, SERUM (11/18/2008 11:41 AM PST) + + + + + + | Component | Value | Ref Range | Performed | Pathologist | | | | | At | Signature | + + + + + + | VITAMIN D | 24 (L)Comment: TEST | 30 - 80 ng/mL [...] [facility] | | | | | | [facility],[address] | | | | | | [facility], [place] [address] | | | | | | [phone] | | | | | | madyson, Zack Real, | | | | | | - Geovanna. Director | | | | + + + + + + + + | Specimen | + + | Blood - Blood | + + + + + + + | Performing | Address | City/State/Zipcode | Phone Number | | Organization | | | | + + + + + | [facility] | [address] | [place], [place] | | | [facility] | | [address] | | + + + + + VITAMIN B-12, SERUM (11/18/2008 11:41 AM PST) + +-------+ + + + | Component | Value | Ref Range | Performed | Pathologist | | | | | At | Signature | + +-------+ + + + | VITAMIN | 547 | 180 - 914 pg/ml | | | | B12, SERUM | | | | | + +-------+ + + + + + | Specimen | + + | Blood - Blood | + + + + + | Narrative | Performed At | + + + | Reference Range change effective | | | 07/30/07 [facility] ([facility]) | | | [place] [address] [address] [facility] | | | [place] [address] | | + + + + + + + + | Performing | Address | City/State/Zipcode | Phone Number | | Organization | | | | + + + + + | [facility] | [address] | [place] [address] | | | LABORATORY | | | | + + + + + PTH, SERUM (11/18/2008 11:41 AM PST) + + + + + + | Component | Value | Ref Range | Performed | Pathologist | | | | | At | Signature | + + + + + + | PTH, SERUM | 43.0Comment: Test | 15.0 - 75.0 | | | | | performed by [facility] | pg/mL | | | | | [facility]. | | | | + + + + + + + + | Specimen | + + | Blood - Blood | + + + + + | Narrative | Performed At | + + + | [facility] ([facility]) | | | [place] [address] | | | [place] [address] | | + + + + + + + + | Performing | Address | City/State/Zipcode | Phone Number | | Organization | | | | + + + + + | [facility] | [address] | [place] [address] | | | LABORATORY | | | | + + + + + COMPLETE METABOLIC SET (NA,K,CL,CO2,BUN,CREAT,GLUC,CA,AST,ALT,BILI TOTAL,ALK PHOS,ALB,PROT TOTAL) (11/18/2008 11:41 AM PST) + +---------+ + + + | Component | Value | Ref Range | Performed | Pathologist | | | | | At | Signature | + +---------+ + + + | GLUCOSE, | 100 (H) | 60 - 99 mg/dL | [...] +---------+ + + + | CREATININE | 0.86 | 0.70 - 1.30 | [facility] | | | PLASMA | | mg/dL | DEPARTMENT | | | (LAB) | | | OF | | | | | | PATHOLOGY | | + +---------+ + + + | TOTAL | 6.1 | 6.1 - 7.9 g/dL | [facility] [...] + + | CALCIUM, | 8.8 | 8.6 - 10.2 | [facility] | | | PLASMA | | mg/dL | DEPARTMENT | | | (LAB) | | | OF | | | | | | PATHOLOGY | | + +---------+ + + + | BILIRUBIN | 0.8 | 0.3 - 1.2 mg/dL | [facility] | | | TOTAL | | | DEPARTMENT | | | | | | OF | | | | | | PATHOLOGY | | + +---------+ + + + | ALK PHOS | 57 | 53 - 128 U/L | [facility] | | | | | | DEPARTMENT | | | | | | OF | | | | | | PATHOLOGY | | + +---------+ + + + | AST(SGOT) | 22 | 15 - 41 U/L | [facility] | | | | | | DEPARTMENT | | | | | | OF | | | | | | PATHOLOGY | | + +---------+ + + + | SODIUM, | 141 | 134 - 143 | [facility] | | | PLASMA | | mmol/L | DEPARTMENT | | | (LAB) | | | OF | | | | | | PATHOLOGY | | + +---------+ + + + | POTASSIUM, | 3.5 | 3.4 - 5.0 | [facility] | | | PLASMA | | mmol/L | DEPARTMENT | | | (LAB) | | | OF | | | | | | PATHOLOGY | | + +---------+ + + + | CHLORIDE, | 104 | 97 - 108 mmol/L | [facility] | | | PLASMA | | | DEPARTMENT | | | (LAB) | | | OF | | | | | | PATHOLOGY | | + +---------+ + + + | TOTAL CO2, | 31 | 23 - 31 mmol/L | [facility] [...] Performed At | + + + | [id number] Estimated GFR > 60 mL/min/1.73 sq m if non- | [facility] | | Italian [id number] Estimated GFR > 60 mL/min/1.73 sq m if | DEPARTMENT OF | | Italian GFR is estimated using the MDRD equation [...] | | - Rapidly changing kidney function | | + + + + + + + + | Performing | Address | City/State/Zipcode | Phone Number | | Organization | | | | + + + + + | [facility] DEPARTMENT | [address] | [place] [address] | | | PATHOLOGY | [address] | | | + + + + + | [facility] | [address] [facility] | [place] [address] | | | PATHOLOGY | [address] | | | + + + + + CBC ONLY (11/18/2008 11:41 AM PST) + +-------+ + + + | Component | Value | Ref Range | Performed | Pathologist | | | | | At | Signature | + +-------+ + + + | WHITE CELL | 5.9 | 4.4 - 11.0 K/cu | [facility] | | | COUNT | | mm | DEPARTMENT | | | | | | OF | | | | | | PATHOLOGY | | + +-------+ + + + | RED CELL | 4.59 | 4.50 - 5.90 | [facility] | | | COUNT | | M/cu mm | DEPARTMENT | | | | | | OF | | | | | | PATHOLOGY | | + +-------+ + + + | HEMOGLOBIN | 14.7 | 13.5 - 17.5 | [facility] | | | | | g/dL | DEPARTMENT | | | | | | OF | | | | | | PATHOLOGY | | + +-------+ + + + | HEMATOCRIT | 42.5 | 41.0 - 53.0 % | [facility] | | | | | | DEPARTMENT | | | | | | OF | | | | | | PATHOLOGY | | + +-------+ + + + | MCV | 92.6 | 80.0 - 96.0 fL | [facility] | | | | | | DEPARTMENT | | | | | | OF | | | | | | PATHOLOGY | | + +-------+ + + + | MCHC | 34.5 | 33.4 - 35.5 | [facility] | | | | | g/dL | DEPARTMENT | | | | | | OF | | | | | | PATHOLOGY | | + +-------+ + + + | RDW | 14.0 | 11.5 - 15.0 % | [facility] | | | | | | DEPARTMENT | | | | | | OF | | | | | | PATHOLOGY | | + +-------+ + + + | PLATELET | 185 | 150 - 400 K/cu | [facility] [...] | + + + + + | [facility] | [address] | [place] [address] | | | PATHOLOGY | [address] | | | + + + + + | [facility] | [address] | [place] [address] | | | PATHOLOGY | [address] | | | + + + + + documented in this encounter Visit Diagnoses + + | Diagnosis | + + | Status post gastric bypass for obesity Bariatric surgery status | + + documented in this encounter"
--- OUTSIDE RECORDS SUMMARY | ~2020-06-16 | XMS | Encounter Summary ---
Demographics + + + | Address | [address] | | | [place] [address] | + + + | Home Phone [...] Author | [facility] | + + + | Organization | [facility] | + + + | [...] [address] | | | | | [address] | | + + + + + Care Team Providers + +------+ + | Care Sheet Catcher Name | Role | Phone | + [...] Description | +--------+---------+ + + + | 04/07/ | Office | [facility] | Grey Gaspar, | Status Post | | 2007 | Visit | [place] [address] | [address] | Bariatric Surgery; | | | | Ave Mailcode: [facility] | Willie Perdomo | Follow-Up Encounter | | | | [place] [facility] | [place], [place] | for Cochlear | | | | and Healing, | [address] | Prosthesis | | | | [place] [address], [facility] | [phone] | | | | | [place], [place] | | | | | | [address] | | | | | | [phone] | | | +--------+---------+ + + + [...] + + + | Blood Pressure | 141/64 | 04/07/2008 3:02 PM | | | | | PDT | | + + + + + | Pulse | 83 | 04/07/2008 3:02 PM | | | | | PDT | | + + + + + | Temperature | 35.6 C (96.1 F) | 04/07/2008 3:02 PM | | | | | PDT | | + + + + + | Respiratory Rate | 16 | 04/07/2008 3:02 PM | | | | | PDT | | + + + + + | Oxygen Saturation | - | - | | + + + + + | Inhaled Oxygen | - | - | | | Concentration | | | | + + + + + | Weight | 189.1 kg (416 lb | 04/07/2008 3:02 PM | | | | 14.4 oz) | PDT | | + + + + + | Height | - | - | | + + + + + | Body Mass Index | 55.25 | 03/19/2008 6:00 AM | | | | | PDT | | + + + + + documented in this encounter Mercedez Almanza - 04/07/2008 4:00 PM PDT 04/07/2008 BARIATRIC FOLLOW-UP Ghassan Benoit is a 48 y.o. male who underwent an open gastric bypass procedure with history of lap band removal on March 19, 2008. He has had some soft foods but not of a regular con sistency. He notes not feeling hungry now compared to his prior lap band. He did not fill the script last week provided for refill of Oxycodone. He has had a weight loss of 41 pound s. 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 He is not requiring insulin regularly and has had only 4 times since surgery that he has needed it. Current CBG range is 117-129. He is afraid of dumping syndrome and discussed foods/drinks that would likely cause that response. He is not hungry. He is on the B12 injection, dany ving that he has increased energy with the injection. He had 24 hours of lower crampy abdom inal pain with diarrhea that resolved. His was off the Coumadin for [address] Gonsalez, and then started 5 mg for 5 days, protime is due tomorrow. Refer to comorbities documentation flowsheet. He has improvement in his Type 2 Diabetes, n o longer on his Lantus. Medications: MVI: yes Calcium supplement: yes Vit D: yes B12: yes Actigall: yes Rantidine : yes Narcotics: None, in the last 3 days, and no withdrawal symptoms Symptoms: Nausea: None Dysphagia: None Vomiting: None Heartburn: None Abd Pain: None Constipation: None Diarrhea: None Physical exam: Last 1 Encounter Wt Readings: Date Wt 04/07/2008 189.105 kg (416 lbs 14.4 oz) There is no height on file for this encounter. General appearance: healthy, alert and cooperative Lungs: Percussion normal. Good diaphragmatic excursion. Lungs clear to auscultation bilater ally Cardiac: Rate, rhythm, regular, no murmur, gallop or bruits. No peripheral edema. Abdomen: obese, soft, nondistended, LLQ ecchymosis. Incision: wound edges well approximated without erythema, small imprints from the hosea o n the vertical staple line. Resolving ecchymosis LLQ. Impression: Doing well postop from open gastric bypass, 41 pound weight loss 3 weeks postop . Will advance diet, discussed eliceo soft intake, small feedings, protein intake, liquids from solids. Plan: Advance diet to eliceo full, small portions. Return to work March 15 with one week p art time, avoid fatigue and over working. His PCP will do labs in 1 week with his protime, CBC, CMP, Vit B12 and fax results to us. Return in 5 weeks for evaluation, may go to 2 month s if doing okay at home. Coumadin adjustment by his physician Dr. Gonsalez at [facility]. documented in this enco unter Plan of Treatment Not on filedocumented as of this encounter Visit Diagnoses + + | Diagnosis | + + | Status post bariatric surgery Bariatric surgery status | + + | Follow-up encounter for cochlear prosthesis Other specified aftercare following | | surgery | + + documented in this encounter"
--- OUTSIDE RECORDS SUMMARY | ~2020-06-16 | XMS | Encounter Summary ---
Demographics + + + | Address | [address] | | | [place] [address] | + + + | Home Phone | | + + + | Preferred Language | Unknown | + + + | Marital Status | Single | + + + | Taoist Affiliation | CAT | + + + | Race | or | + + + | Ethnic Group | Not or | + + + Author + + + | Author | [facility] | + + + | Organization | [...] [address] | | | | | [address] [place] | | | | | [address] | | + + + + + Care Team Providers + +------+ + | Care Coach Mechanic Name | Role | Phone | + +------+ + | Dhruv Villalpando MD | PCP | Unavailable | + +------+ + Encounter Details +--------+ + + + + | Date | Type | Department | Care Team | Description | +--------+ + + + + | 05/12/ | Telephone | [facility] | Mercedez Mao, | | | 2008 | | Center [address] | [facility] [address] [facility] | | | | | [place] Mailcode: [facility] | [facility] | | | | | [facility] | [place], [place] | | | | | and Healing, | [address] | | | | | [facility] | [phone] | | | | | Floor [place], [place] | | | | | | [address] | | | | | | [phone] | | | +--------+ + + + [...] Notes Telephone Encounter - Michael Jarrell - 03/19/2012 12:48 PM PDTThis encounter has been admin istratively closed with the authorization of the [facility] Committee. elephone Encounter - Kaylan Obrien Rn - 05/29/2009 12:08 PM PDTLVM with lab results. elephone Encounter - Vilma Mccord - 05/29/2009 10:34 AM PDTBilly is calling to get results from labs done on 04/13/09, results are in. Please call at home number. elephone En elbert - Cecilia Jara - 05/12/2009 4:40 PM PDTBilly Benoit calling wanting to know the results from his blood work from 04/13/09. He would like a call at [phone] Pain Scale: 0 Recent Surgery or Procedure: no Pharmacy: Pharmacy Preferences: [facility]ry [address] [place] [facility] [address] [facility] [place] [phone] documented in this encoun ter Plan of Treatment Not on filedocumented as of this encounter Visit Diagnoses Not on filedocumented in this encounter"
--- OUTSIDE RECORDS SUMMARY | ~2020-06-16 | XMS | Encounter Summary ---
Demographics + + + | Address | [address] | | | [place] [address] | + + + | Home Phone [...] + + | Author | [facility] | + + + | Organization | [facility] | + + + | Address [...] [address] | | | | | [address] | | + + + + + Care Team Providers + +------+ + | Care Registered Respiratory Therapist Name | Role | Phone | + +------+ + | Dhruv Villalpando MD | PCP | Unavailable | + +------+ + Encounter Details +--------+ + + + + | Date | Type | Department | Care Team | Description | +--------+ + + + + | 03/29/ | Prototype Special Build | [facility] | Omid Marie | DVT of Leg (Deep | | 2007 | | Center [address] | [place] [facility] | Venous Thrombosis) | | | | Ave Mailcode: [facility] | [facility] [place] | ([facility]) (Primary Dx) | | | | [facility] | [address] | | | | | and Healing, | [place] [address] | | | | | [facility] | [phone] | | | | | Floor [place], [place] | | | | | | [address] | | | | | | [phone] | | | +--------+ + + + [...] on filedocumented as of this encounter Results [facility] - INR (PROTHROMBINTIME) (03/31/2008 1:48 PM PDT) + + + + + + | Component | Value | Ref Range | Performed | Pathologist | | | | | At | Signature | + + + + + + | INR-[facility] | 3.50 (H)Comment: | 0.98 - 1.20 [...] | + + + + + | [facility] | [address] | [place] [address] | | | PATHOLOGY | [address] | | | + + + + + | [facility] | [address] | [place] [address] | | | PATHOLOGY | [address] [...]
--- OUTSIDE RECORDS SUMMARY | ~2020-06-16 | XMS | Encounter Summary ---
Demographics + + + | Address | [address] | | | [place] [address] | + + + | Home Phone | | + + + | Preferred Language | Unknown | + + + | Marital Status | Single | + + + | Worship Affiliation | CAT | + + + | Race | or | + + + | Ethnic Group | Not or | + + + Author + + + | Author | [facility] | + + + | Organization [...] [address] | | | | | [address] | | + + + + + Care Team Providers + +------+ + | Care Vice President Regulatory Name | Role | Phone | + +------+ + | Dhruv Villalpando MD | PCP | Unavailable | + +------+ + Encounter Details +--------+------+ + + + | Date | Type | Department | Care Team | Description | +--------+------+ + + + | 03/17/ | Lab | Laboratory at [facility] | | DVT of Leg (Deep | | 2007 | | [address] | | Venous Thrombosis) | | | | [facility] | | ([facility]) | | | | and Healing, | | | | | | [address] | | | | | | [place], [place] | | | | | | [address] | | | | | | [phone] | | | +--------+------+ + + + [...] + + | [facility] - INR | Urgent | 03/17/2008 | DVT of Leg (Deep | Results for this | | FINGERSTICK | | 2:13 PM | Venous Thrombosis) | procedure are in the | | | | PDT | ([facility]) | results section. | + +--------+ + + + documented in this encounter Results [facility] - INR (PROTHROMBINTIME) (03/17/2008 2:13 PM PDT) + + + + + + | Component | Value | Ref Range | Performed | Pathologist | | | | | At | Signature | + + + + + + | INR-[facility] | 2.40 (H)Comment: | 0.98 - 1.20 [...] | + + + + + | [facility] DEPARTMENT | [address] [facility] | [place] [address] | | | PATHOLOGY | [address] | | | + + + + + | [facility] DEPARTMENT | [facility] [facility] | [place] [address] | | | PATHOLOGY | [address] [...]
--- OUTSIDE RECORDS SUMMARY | ~2020-06-16 | XMS | Encounter Summary ---
Demographics + + + | Address | [address] | | | [place] [address] | + + + | Home Phone | | + + + | Preferred Language | Unknown | + + + | Marital Status | Single | + + + | Muslim Affiliation | CAT | + + + | Race | or | + + + | Ethnic Group | Not or | + + + Author + + + | Author | [facility] | + + + | Organization | [...] [address] [place] | | | | | [address] | | + + + + + Care Team Providers + +------+ + | Care Customer Agent Name | Role | Phone | + [...] Closed | | Gastroenterol | Diagnoses | Faigel, | Gas Endo | | | | ogy | Status post | MD Darryl | [facility] [address] | | | | | gastric | [address] | | | | | bypass for | [address] | [place] | | | | | obesity | [place], [place] | [address], [address] | | | | | Procedures | [address] | floor | | | | | CONSULT TO | | [place], [place] | | | | | GI PROCEDURE | | [address] | | | | | UNIT: EGD W | | Phone: | | | | | DILATION | | [phone] | | | | | | | Fax: | | | | | | | [phone] | +--------+--------+ + + + + Reason [...] | | | | | | | [facility] | | | | | | | [address] | | | | | | | [address] | | | | | | | ([facility]) | | | | | | | [place], | | | | | | | [place] [address] | | | | | | | Phone: | | | | | | | [phone] | | | | | | | Fax: | | | | | | | [phone] | +--------+--------+ + + + + Encounter Details +--------+ + + + + | Date | Type | Department | Care Team | Description | +--------+ + + + + | 08/05/ | Hospital | [place] [address] | Darryl Dasilva, | | | 2007 | Encounter | [address] | MD | | | | | [facility] | | | | | | [address] | | | | | | ([facility]) | | | | | | [place], [place] | | | | | | [address] | | | | | | [phone] | | | +--------+ + + + [...] + + + | Blood Pressure | 115/64 | 08/05/2008 9:26 AM | | | | | PDT | | + + + + + | Pulse | 54 | 08/05/2008 9:26 AM | | | | | PDT | | + + + + + | Temperature | 36.2 C (97.2 F) | 08/05/2008 8:56 AM | | | | | PDT | | + + + + + | Respiratory Rate | 16 | 08/05/2008 9:26 AM | | | | | PDT | | + + + + + | Oxygen Saturation | 100% | 08/05/2008 9:26 AM | | | | | PDT | | + + + + + | Inhaled Oxygen | - | - | | | Concentration | | | | + + + + + | Weight | - | - | | + + + + + | Height | - | - | | + + + + + | Body Mass Index | - | - | | + + + + + documented in this encounter Discharge Summaries Mayela Ya - 08/05/2008 10:20 AM PDT documented in this encounter Discharge Instructions Instructions Arelis Triplett RN - 08/05/2008Formatting of this note might be different from t ivon original. [facility] [place] [address] Toll Free ext: [phone] Home Care Instructions after EGD (Upper Endoscopy) [...] hours, or on weekends and holidays Hospital Tax Auditor and have the GI doctor client relationship executive paged. The provider who performed your procedure is: Dr. Dasilva Your Anastomotic (surgical area) site had a stricture (narrowing) which was dilated. We would like to repeat this procedure in 2 weeks. Please begin a c lear liquid diet the day before this procedure. Do not eat or drink anything after midnight before this procedure. Your primary care provider or referring provider [...] mouth once daily 30 minutes before breakfast RANITIDINE 150 MG TAB one tab twice per day for 3 months ZANTAC OR 2x daily documented in this [...] | | | | | | | Hardin, Suspension | | | | | | [...] this encounter Procedure Notes Other, Faculty - 08/05/2008 10:20 AM PDT Darryl Dasilva - 08/05/2008 8:23 AM PDTAssociat ed Order(s): PROCEDURE NOTE PROCEDURE NOTE: Subjective: Ghassan Benoit is a 48 y.o. male MR# [id number] presents today for EGD. PARQ h eld and all questions addressed. Objective: Vital Signs: Blood pressure 122/71, pulse 59, temperature 36.2 C (97.2 F), resp. rate 1 6, SpO2 97%. Neuro: patient is Patient oriented X3. Mental status clear and intact Mallampati Score: II Neck negative Respiratory Lungs clear to auscultation bilaterally with good air exchange Cardiac Regular Rate and Rhythm. Abdomen: soft, normal active bowel sounds, nontender, no masses, no organomegaly Medications: Meds reviewed Allergies: Allergies as of 06/30/2008 - reviewed 06/30/2008 Allergen Reaction Noted Adhesive tape Hives 08/13/2007 See procedure note 08/05/2008 ther, Faculty - 08/05/20 08 12:00 AM PDT documented in this encounter Miscellaneous Notes Scan - Other, Faculty - 08/05/2008 10:20 AM PDT Scan - Other, Faculty - 08/05/2008 10:20 A M PDT Scan - Other, Faculty - 08/05/2008 10:20 AM PDT documented in this encounter Plan of Treatment Not on filedocumented as of this encounter Procedures + +--------+ + + + | Procedure Name | Priori | Date/Time | Associated Diagnosis | Comments | | | ty | | | | + +--------+ + + + | PROCEDURE NOTE | Routin | 11/13/2015 | | Results for this | | | e | 2:30 PM | | procedure are in the | | | | PST | | results section. | + +--------+ + + + documented in this encounter Results PROCEDURE NOTE (11/13/2015 2:30 PM PST)documented in this encounter Visit Diagnoses + + [...] | fentanyl (aka SUBLIMAZE) | Given | 08/05/20 | 100 mcg | | Right | | injection 1 dose, Starting Tue | | 08 8:15 | | | Hand | | 08/05/08 at 0811, Until Tue | | AM PDT | | | | | 08/05/08 at 0843 | | | | | | + +--------+ +---------+------+--------+ +---+---+ | | | +---+---+ + +-------+ +------+---+--------+ | midazolam (aka VERSED) | Given | 08/05/20 | 5 mg | | Right | | injection 1 dose, Starting Tue | | 08 8:15 | | | Hand | | 08/05/08 at 0811, Until Tue | | AM PDT | | | | | 08/05/08 at 0844 | | | | | | + +-------+ +------+---+--------+ +---+---+ | | | +---+---+ documented in this encounter"
--- OUTSIDE RECORDS SUMMARY | ~2020-06-16 | XMS | Encounter Summary ---
Demographics + + + | Address | [address] | | | [place] [address] | + + + | Home Phone | | + + + | Preferred Language | Unknown | + + + | Marital Status | Single | + + + | Moravian Affiliation | CAT | + + + | Race | or | + + + | Ethnic Group | Not or | + + + Author + + + | Author | [facility] | + + + | Organization [...] [address] [place] | | | | | [address] | | + + + + + Care Team Providers + +------+ + | Care Director Hematology Name | Role | Phone | + +------+ + PCP | Unavailable | + +------+ + Encounter Details +--------+ + + + + | Date | Type | Department | Care Team | Description | +--------+ + + + + | 08/31/ | Discharge | UNKNOWN DEPARTMENT | Summary, Discharge | D/C Summary ODDS | | 2006 | Summary-Tra | [address] | | | | | nscribed | [address] | | | | | | [place], [place] | | | | | | [address] | | | +--------+ + + + [...] + + documented as of this encounter Discharge Summaries Michael Conway - 10/16/2007 1:10 PM [facility] [id number] CHRIS MCKINNON [id number] Admission Date: 08/27/2007 Discharge Date: 08/31/2007 Staff Physician: Grey Gaspar M.D. Principal Final Diagnosis: Infected Lap-Band. Secondary Diagnoses: 1. Type 2 diabetes mellitus. 2. Hypertension. 3. Morbid obesity. Principal Procedure: 1. Removal of Lap-Band and port on 08/27/2007. 2. Surgical wound exploration and ligation of bleeding vessel on 08/30/2007. History of Present Illness: Mr. Benoit is a 47-year-old male who had a history of Lap-Band placed in [place] in 2004 with subsequent infection, removal, and replacement. 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 Hospital Course: Mr. Benoit was admitted and taken to the operating room on August 27, 2007, for Lap-Band and port removal which proceeded without complications. Postoperatively, he was transferred to the keith and initially had some low urine output on postoperative day zero which responded well to fluid boluses. He was advanced to a clear liquid diet, and his PANTS PRESSER was weaned to oral medications on postoperative day #1. He was continued on an insulin drip postoperatively given his high-insulin requirements. On postoperative day #2, he was advanced to a regular diet without complication. However, he complained of increasing swelling in his midline underneath one of his incisions as well as pain in the mid abdomen. His hematocrit was noted to drop with serial checks, and a CT scan of the abdomen was performed which demonstrated a left-sided port site hematoma. He was transfused 2 units of packed red blood cells which did not increase his hematocrit. He was then taken back to the operating room on postoperative day #3 for exploration of the wound site and evacuation of hematoma. A bleeding vessel was identified and ligated. Postoperatively, he remained stable and was transferred to the keith. An Endocrine consult was obtained to convert his insulin to subcutaneous Lantus and aspart. He was also given a sliding scale to use at home. He was discharged home in stable condition. Discharge Medication(s): 1. Colace with senna 100 and 17.2 mg p.o. b.i.d., hold if loose stools. 2. Oxycodone 5 to 15 mg p.o. q.3-4 h. p.r.n. pain, dispensed 60, refills zero. 3. Multivitamin with minerals p.o. b.i.d. 4. Augmentin 875 mg p.o. b.i.d. for 10 days. 5. Lantus insulin 44 units subcutaneous at 6 p.m. nightly. 6. Aspart insulin 6 units subcutaneously t.i.d. with meals. 7. Sliding scale insulin as per coverage scale. Discharge Instruction(s): The patient was instructed to follow up with Dr. Gaspar in 2 weeks and continue his insulin as per his prescribed regimen. He was instructed to avoid heavy lifting for 4 weeks, no more than 10 pounds. He is instructed not to drive while taking oxycodone. Michael Conway M.D. Grey Gaspar M.D. [facility] / [id number] / [id number] / [id number] / [phone] Reviewed or Edited By Michael Conway M.D. on 10-03-2007 Electronically signed by Grey Gaspar 10-16-2007 01:09:14 PM documented in this en counter Plan of Treatment Not on filedocumented as of this encounter Visit Diagnoses Not on filedocumented in this encounter"
--- OUTSIDE RECORDS SUMMARY | ~2020-06-16 | XMS | Encounter Summary ---
Demographics + + + | Address | [address] | | | [place] [address] | + + + | Home Phone [...] + + | Author | [facility] | + + + | Organization | [facility] | + + + [...] [address] [place] | | | | | [address] | | + + + + + Care Team Providers + +------+ + | Care Dispatch Manager Name | Role | Phone | + +------+ + PCP | Unavailable | + +------+ + Reason for Visit + + + | Reason | Comments | + + + | Wound infection | lap band | + + + Consultation (Routine) +--------+--------+ + + + + | Status | Reason | Specialty | Diagnoses / | Referred By | Referred To | | | | | Procedures | Contact | Contact | +--------+--------+ + + + + | Closed | | Gastroenterol | Diagnoses | Non-[facility] | Hubert | | | | huber | | Epic Dept | MD Grey | | | | | Posttraumati | | [address] | | | | | c wound | | [address] | | | | | infection | | [address] [place], | | | | | not | | [place] | | | | | elsewhere | | [address] | | | | | classified | | Phone: | | | | | | | [phone] | | | | | | | Fax: | | | | | | | [phone] | +--------+--------+ + + + + Encounter Details +--------+---------+ + + + | Date | Type | Department | Care Team | Description | +--------+---------+ + + + | 08/13/ | Office | Dig[facility]ive Health | Grey Gsapar, | Wound Infection | | 2006 | Visit | Center [address] | [address] | (Primary Dx) | | | | Ave Mailcode: CH4S | [facility] | | | | | [facility] | [place], [place] | | | | | and Healing, | [address] | | | | | [facility] | [phone] | | | | | Floor [place], [place] | | | | | | [address] | | | | | | [phone] | | | +--------+---------+ + + + [...] + + + | Blood Pressure | 118/74 | 08/13/2007 4:32 PM | | | | | PST | | + + + + + | Pulse | 88 | 08/13/2007 4:32 PM | | | | | PST | | + + + + + | Temperature | 37.1 C (98.7 F) | 08/13/2007 4:32 PM | | | | | PST | | + + + + + | Respiratory Rate | 16 | 08/13/2007 4:32 PM | | | | | PST | | + + + + + | Oxygen Saturation | - | - | | + + + + + | Inhaled Oxygen | - | - | | | Concentration | | | | + + + + + | Weight | 175 kg (385 lb 11.2 | 08/13/2007 4:32 PM | | | | oz) | PST | | + + + + + | Height | 188 cm (6' 2") | 08/13/2007 4:32 PM | | | | | PST | | + + + + + | Body Mass Index | 49.52 | 08/13/2007 4:32 PM | | | | | PST | | + + + + + documented in this encounter Progress Notes Mercedez Mao - 08/28/2007 11:09 AM PSTThis is a correction to the original entry to no te that Ghassan Benoit is a gentleman, age [age] years old who presents for lap band infection an d evaluation for lap band and Port removal.Electronically signed by Mercedez Mao at 08/10 11:09 AM Mercedez Zapata - 08/13/2007 5:40 PM PST 08/13/2007 BARIATRIC INITIAL CONSULTATION Consulting Physician: Grey Gaspar M.D. Referring Physician: Bayron Galo Trudy Evans NP Patient Age: 47 y.o. Weight: Last 1 Encounter Wt Readings: Date Wt 08/13/2007 174.952 kg (385 lbs 11.2 oz) BMI: 49.52 Reason for Requested Consultation: Ghassan Benoit is a 47 y.o. female here to discuss surgical options due to a lap band infecti on, placed in [place] in 2004, with subsequent band infection, removal and replacement. He i s referred by the [facility]. He has been down to [facility] 3 times for t reatment. Dr. Vimal Corona has seen him in [facility] with recommendation to remove the band an d port, and perform a gastric bypass at the same time. He is currently not on antibiotics a nd seen at [facility] and Dr. Bayron Galo is [place] so that we could evaluate him and cu lture it. 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 He has spent $20,000 out of pocket for the band care since it was not a covered service. His weight related comorbidities improved are Type 2 Diabetes and Hypertension on Actos, off Lisinopril. History of present Illness: Onset of obesity at age - 47 years First diet attemps at age - high school Personally initiated diets Porter, Slimfast and Atkins Diet, some success Resulted in 40-50 lbs weight loss with 60-75 pounds weightregain. Programatic diets: Weight Watchers. Resulted in 0 weight loss with Regain due to always being hungry. Use of Redux or Phen/fen: Transthoracic ECHO Comorbidities include: No past medical history on file. No past surgical history on file. No current outpatient prescriptions on file. Review of patient's allergies indicates not on file.: History Social History Marital Status: Single Spouse Name: N/A Number of Children: N/A Years of Education: N/A Social History Main Topics Tobacco Use: Not on file Alcohol Use: Not on file Drug Use: Not on file Sexually Active: Not on file Other Topics Concern Not on file Social History Narrative No narrative on file No family history on file. Review of Systems: General: Recent onset of: fatigue and weight loss from 560 to 370 pounds consistent with t he lap band placement. Ears, Nose, Throat: Has experienced: sore throat and hoarseness, nasal congestion Respiratory: Has experienced: cough Gastrointestinal: Has experienced: abdominal pain Studies completed: Skin: Has recently ex perienced increased drainage with open left abdominal incision from his infected PORT site. OBJECTIVE BP 118/74 | Pulse 88 | Temp (Src) 98.7 F (37.1 C) (Oral) | Resp 16 | Wt 174.952 kg (385 lbs 11.2 oz) BMI is 49.52. Physical exam: General: healthy, alert, mild distress and cooperative Cardiac: Pulmonary: Abdomen: Obese, open draining 2 cm incision left abdomen with creamy pang drainage. Incisi on is very tender. Mild erythema. Dressing removed with stretch fabric due to allergy with latex in tape. Dimpling and mild induration at band site left abdomen. Laboratory Data: none at present due to seeing the patient at 5-6 pm. Previous Diagnostic Tests: none, new consult Impression: Patient meets and or exceeds NIH criteria for Morbid obesity with a BMI of 49. 52 and comorbidities related to obesity. His prior weight was over 700 pounds in 1990, then 560 pounds before the band was placed, and now 385 pounds. Plan: Obtain past medical records from Vale Trimble NP and Dr. Bayron Galo. I have some complete d history sheets from Dr. Zarate in [facility]. Lap band removal, schedule gastric bypass at a second date after healing with observation of his stomach at the time of band removal. Grupo ng lap band removal, will do endoscopy while asleep. Will plan lap band removal soon. He h as had excellent weight loss with the lap band and will plan on a gastric bypass. 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
--- OUTSIDE RECORDS SUMMARY | ~2020-06-16 | XMS | Encounter Summary ---
Demographics + + + | Address | [address] | | | [place] [address] | + + + | Home Phone | | + + + | Preferred Language | Unknown | + + + | Marital Status | Single | + + + | Catholic Affiliation | CAT | + + + | Race | or | + + + | Ethnic Group | Not or | + + + Author + + + | Author | [facility] | + + + | [...] [address] | | | | | [address] | | + + + + + Care Team Providers + +------+ + | Care Faculty Dean Name | Role | Phone | + +------+ + | Dhruv Villalpando MD | PCP | Unavailable | + +------+ + Reason for Visit + +--------+ + | Reason | Onset | Comments | | | Date | | + +--------+ + | Medication requested | 09/16/ | Fax Rx to PCP for B12 in the Liquid form | | | 2007 | | + +--------+ + Encounter Details +--------+ + + + + | Date | Type | Department | Care Team | Description | +--------+ + + + + | 09/16/ | Telephone | Dig[facility] | Grey Gaspar, | Medication requested | | 2007 | | [facility] [address] | [address] | (Fax Rx to PCP for | | | | Ave Mailcode: CH[address]S | [address] | B12 in the Liquid | | | | [facility] | [place], [place] | form ) | | | | and Healing, | [address] | | | | | Building | [phone] | | | | | Floor [place], [place] | | | | | | [address] | | | | | | [phone] | | | +--------+ + + + [...] Notes Telephone Encounter - Michael Jarrell - 04/09/2012 9:53 AM PDTThis encounter has been admin istratively closed with the authorization of the [facility] Committee. elephone Encounter - Edita Taylor - 09/16/2008 3:46 PM PSTBilly Cy calling to get his Rx fax to PCP for B 12 in the Liquid form. Pain Scale: na Recent Surgery or Procedure: no Pharmacy: Pharmacy Preferences: [address] [place] [address] documented in this enc ounter Plan of Treatment Not on filedocumented as of this encounter Visit Diagnoses Not on filedocumented in this encounter"
--- OUTSIDE RECORDS SUMMARY | ~2020-06-16 | XMS | Encounter Summary ---
Demographics + + + | Address | [address] | | | [place] [address] | + + + | Home Phone [...] + | Author | [facility] | + + + | Organization | [facility] | + + + | Address | [...] [address] | | | | | [address] | | + + + + + Care Team Providers + +------+ + | Care Map Maker Name | Role | Phone | + +------+ + PCP | Unavailable | + +------+ + Reason for Visit +--------+--------+ + | Reason | Onset | Comments | | | Date | | +--------+--------+ + | Other | 10/10/ | questions related to treatment for new DVT, surgery | | | 2007 | | +--------+--------+ + Encounter Details +--------+ + + + + | Date | Type | Department | Care Team | Description | +--------+ + + + + | 10/10/ | Telephone | [facility] | Mercedez Mao, | Other (questions | | 2007 | | Center [address] | [facility] [address] | related to treatment | | | | Ave Mailcode: CH6D | [address] | for new DVT, | | | | [facility] | [place], [place] | surgery) | | | | and Healing, | [address] | | | | | | [phone] | | | | | Floor [place], [place] | | | | | | [address] | | | | | | [phone] | | | +--------+ + + + [...] this encounter Miscellaneous Notes Telephone Encounter - Surendra Escobar - 10/11/2007 2:17 PM PSTPt. Req cancellation of Jose merchant appvenu worley as Dennis has not authorized a gastric bypass at this t paula. He will come Monday for wound check.Electronically signed by Surendra Escobar at 12/2007 2:17 PM PSTTelephone Encounter - Mercedez Mao - 10/10/2007 12:18 PM PSTMr. Turn er is calling from [facility] in [place]. He was hospitalized last Mon. For D VT from his thigh to his calf and continues on IV heparin infusion and Coumadin 10 mg po sarah ly. He stated that Dr. Oneill was going to fax over his chart notes. Lovenox was not used due to the difficulty of dosing with morbid obesity, his current weight is 390 pounds. He stated he was on a 2000 kcal diet at [facility]. He is taking 32 units of Lantus daily a nd no Aspart needed, CBG's well controlled. Last HgA1c was 4.9 per his report. He is askin g if we have heard from [facility] regarding the possible authorization for gastric b ypass. He had removal of his lap gastric band and port due to port infection. Two small ar eas continue to be packed with Nugauze daily. They are healing well, and have slight bleedi ng while on coumadin. His cell phone is [phone]. He has two appts next week with memb ers of the Bariatric Team. He is concerned about how long he needs to be on therapy for his clot and whether this will delay his gastric bypass, as well as the possible lack of [employer] money available for his surgery if the surgery is delayed. He would like to know if we have received his records and if they have been reviewed. He would like to know if he shou ld come for his appts next week in lieu of the current changes in his medical status. Will relay this message to Kaylan Merchant N.P. documented in this encounter Plan of Treatment Not on filedocumented as of this encounter Visit Diagnoses Not on filedocumented in this encounter"
--- OUTSIDE RECORDS SUMMARY | ~2020-06-16 | XMS | Encounter Summary ---
Demographics + + + | Address | [address] | | | [place] [address] | + + + | Home Phone [...] | Author | [facility] | + + + | Organization | [...] [place] | | | | | [address] | | + + + + + Care Team Providers + +------+ + | Care Clip Bolter And Wrapper Name | Role | Phone | + [...] Description | +--------+---------+ + + + | 11/17/ | Office | [facility] | Grey Giang, | Status Post Gastric | | 2008 | Visit | [place] [address] | [address] [facility] | Bypass for Obesity | | | | [place] Mailcode: [facility] | [address] | (Primary Dx) | | | | [facility] | [place], [place] | | | | | and Healing, | [address] | | | | | [place] [address], [facility] | [phone] | | | | | [place], [place] | | | | | | [address] | | | | | | [phone] | | | +--------+---------+ + + + [...] + + + | Blood Pressure | 140/68 | 11/17/2008 2:24 PM | | | | | PST | | + + + + + | Pulse | 68 | 11/17/2008 2:24 PM | | | | | PST | | + + + + + | Temperature | 36.6 C (97.8 F) | 11/17/2008 2:24 PM | | | | | PST | | + + + + + | Respiratory Rate | 16 | 11/17/2008 2:24 PM | | | | | PST | | + + + + + | Oxygen Saturation | - | - | | + + + + + | Inhaled Oxygen | - | - | | | Concentration | | | | + + + + + | Weight | 153.6 kg (338 lb 9.6 | 11/17/2008 2:24 PM | | | | oz) | PST | | + + + + + | Height | - | - | | + + + + + | Body Mass Index | 44.67 | 11/07/2008 11:30 AM | | | | | PST | | + + + + + documented in this encounter Progress Notes Grey Giang MD - 11/27/2008 10:52 AM PSTI performed a history and physical examinati on of the patient and discussed his management with the resident. I reviewed the resident s note and agree with the documented findings and plan of care. GREY GIANG MD [facility] [address] Mailcode: [place] [address] Marleen Farah, [facility] - 11/17/2008 3:22 PM PST Pt s/p open RYGBP on 03/16 with good wieght loss resolts. The patient did have a stricture at the gastojejunal anastamosis that has been successfuly dilated, with no stricture on rece nt EGD. The patient does have some delayed gastric emptying as seen by retained food in sto mach on multiple EGDs. He has not been doing much exercise and wondering if he may begin an exercise regimen. His diabetes has resolved, he still does have HTN and GERD and his med ications for these are unchanged. Current outpatient prescriptions prior to encounter Medication Sig Dispense Refill CALCIUM 500 WITH D ORAL None Entered fluticasone (FLONASE) 50 mcg/Actuation Nasal [place], Suspension as needed lisinopril 40 mg Oral Tablet take 1 tablet (40 mg) by oral route once daily metoprolol 25 mg Oral Tablet 1 Tab Oral TWO TIMES DAILY 60 0 multivitamin Oral Tablet take 1 tablet by oral route once daily with food Omeprazole 20 mg Oral Tablet, Delayed Release (E.C.) one by mouth once daily 30 minutes before breakfast 30 2 Syringe with Needle (Disp) 3 mL 22 x 1 1/2" Syringe to be used with vitamin B12 inject ions 1 11 ZANTAC OR 2x daily NAD Breathing comfortably Soft NT ND Incisions well healed, some slight laxity of the abd. Wall over left upper quadrant port si te Wwp A/P 8 months s/p open RYGBP - 6 months labs - may resume exercis - more frequent smaller meals may be better than large meal given his delayed gastric emtyi ng - F/u in 6 months documented in this encou nter Plan of Treatment Not on filedocumented as of this encounter Results VITAMIN D, 25-HYDROXY, SERUM [...] | | | | | | Laboratories,[address] [facility] | | | | | | [place], [facility] [address] | | | | | | [phone] | | | | | | Zack coughlin, | | | | | | - Lab. Director | | | | + + + + + + + + | Specimen | + + | Blood - Blood | + + + + + + + | Performing | Address | City/State/Zipcode | Phone Number | | Organization | | | | + + + + + | [facility] | [address] | [place], [place] | | | [facility] | | [address] | | + + + + + [...] change effective | | | 07/30/07 [facility] ([facility]) | | | [facility] [place] [address] | | | [place] [address] | | + + + + + + + + | Performing | Address | City/State/Zipcode | Phone Number | | Organization | | | | + + + + + | [facility] | [address] | [place] [address] | | | LABORATORY | | | [...] | | | | | performed by [facility] | pg/mL | | | | | [facility]. | | | | + + + + + + + + | Specimen | + + | Blood - Blood | + + + + + | Narrative | Performed At | + + + | [facility] ([facility]) | | | [facility] [address] | | | [place] [address] | | + + + + + + + + | Performing | Address | City/State/Zipcode | Phone Number | | Organization | | | | + + + + + | [facility] | [address] | [place] [address] | | | LABORATORY | | | [...] Performed At | + + + | [id number] Estimated GFR > 60 mL/min/1.73 sq m if non- | [facility] | | [place] [id number] Estimated GFR > 60 mL/min/1.73 sq m if | DEPARTMENT OF | | [place] GFR is estimated using the MDRD equation [...] | + + + + + | [facility] DEPARTMENT | [address] | [place] [address] | | | PATHOLOGY | [address] | | | + + + + + | [facility] DEPART[facility] OF | [address] | [place] [address] | | | PATHOLOGY | [address] [...] + + + + + | [facility] | [address] | [place] [address] | | | PATHOLOGY | [address] | | | + + + + + | [facility] | [address] | [place] [address] | | | PATHOLOGY | [address] | | | + + + + + documented in this encounter Visit Diagnoses + + | Diagnosis | + + | Status post gastric bypass for obesity - Primary Bariatric surgery status | + + documented in this encounter
--- OUTSIDE RECORDS SUMMARY | ~2020-06-16 | XMS | Encounter Summary ---
Demographics + + + | Address | [address] | | | [place] [address] | + + + | Home Phone [...] + + | Author | [facility] [facility] | + + + | Organization [...] [address] | | | | | [address] [place] | | | | | [address] | | + + + + + Care Team Providers + +------+ + | Care Hot Mill Observer Name | Role | Phone | + +------+ + PCP | Unavailable | + +------+ + Reason for Visit +---------+--------+ + | Reason | Onset | Comments | | | Date | | +---------+--------+ + | Fatigue | 11/16/ | | | | 2007 | | +---------+--------+ + Encounter Details +--------+ + + + + | Date | Type | Department | Care Team | Description | +--------+ + + + + | 11/16/ | Telephone | Dig[facility]ive Health | Grey Gaspar, | Fatigue | | 2007 | | Center [address] | [address] | | | | | [place] Mailcode: [facility] | [facility] | | | | | [facility] | [place], [place] | | | | | and [place], | [address] | | | | | [place] [address], [facility] | [phone] | | | | | [place], [place] | | | | | | [address] | | | | | | [phone] | | | +--------+ + + + [...] this encounter Miscellaneous Notes Telephone Encounter - Mercedez Mao - 11/16/2007 3:38 PM PSTBilly is reporting symptom s of fatigue, and symptoms of sinusitis. He is reporting always being hungry, never gets fu ll. With his past band, he had the restriction. After the band was removed, he is hungry a nd is concentrating on the protein foods. He continues on coumadin 10 mg daily, 2.3-2.7 INR . He feels like things are messed up. His DVT was in the back of his thigh to his ankle,e xpecting 6 months of Coumadin. He has some support hose, decreasing his swelling. He has b een struggling the last 3 months. He is working now. Number given for keshawn Patel.Elec tronically signed by Mercedez Mao at 11/16/2007 3:38 PM PSTTelephone Encounter - Layla Mclaughlin - 11/16/2007 12:52 PM PSTPatient Having excesive weight gain, has fatigue 24 hrs a day, joint pain all over. Patient approves confidential and detailed messages left on answ Ceoning machine and voicemail. Advised caller that they may not receive a call back from nurse or provider until the next business day. Caller understands and is agreeable to this. documented in this encoun ter Plan of Treatment Not on filedocumented as of this encounter Visit Diagnoses Not on filedocumented in this encounter"
--- OUTSIDE RECORDS SUMMARY | ~2020-06-16 | XMS | Encounter Summary ---
Demographics + + + | Address | [address] | | | [place] [address] | + + + | Home Phone | | + + + | Preferred Language | Unknown | + + + | Marital Status | Unknown | + + + | Anglican Affiliation | Unknown | + + + | Race | Unknown | + + + | Ethnic Group | Unknown | + + + Author + + + | Author | [facility] | | | and [place] | + + + | Organization | [facility] | | | and [place] | + + + | Address | Unknown | + + + | Phone | Unavailable | + + + Care Team Providers + +------+ + | Care Hedis Manager Name | Role | Phone | + +------+ + PCP | Unavailable | + +------+ + Encounter Details +--------+ + + + + | Date | Type | Department | Care Team | Description | +--------+ + + + + | 05/09/ | Hospital | [facility] | | | | 2007 - | Encounter | [facility] | | | | | | CENTER [address] | | | | 06/08/ | | [place] | | | | 2007 | | [address] | | | | | | [phone] | | | +--------+ + + + [...]
--- OUTSIDE RECORDS SUMMARY | ~2020-06-16 | XMS | Encounter Summary ---
Demographics + + + | Address | [address] | | | [place] [address] | + + + | Home Phone | | + + + | Preferred Language | Unknown | + + + | Marital Status | Single | + + + | Quaker Affiliation | CAT | + + + | Race | or | + + + | Ethnic Group | Not or | + + + Author + + + | Author | [facility] | + + + | Organization | [facility] | + + + | [...] [address] | | | | | [address] | | + + + + + Care Team Providers + +------+ + | Care Procurement Buyer Name | Role | Phone | + +------+ + | Dhruv Villalpando MD | PCP | Unavailable | + +------+ + Reason for Visit Consultation (Routine) +--------+--------+ + + + + [...] | | | | | | | [place], [place] | | | | | | | [address] | | | | | | | Phone: | | | | | | | [phone] | | | | | | | Fax: | | | | | | | [phone] | +--------+--------+ + + + + Encounter Details +--------+---------+ + + + | Date | Type | Department | Care Team | Description | +--------+---------+ + + + | 05/13/ | Office | Digestive Health | Kaylan Obrien ANP | Morbid Obesity | | 2007 | Visit | Center [address] | | ([facility]); DVT of Leg | | | | Ave Mailcode: [facility] | | (Deep Venous | | | | [facility] | | Thrombosis) ([facility]) | | | | and Healing, | | | | | | Building [address], [address]th | | | | | | Floor [place], [place] | | | | | | [address] | | | | | | [phone] | | | +--------+---------+ + + + [...] + + + | Blood Pressure | 164/86 | 02/19/2008 2:12 PM | | | | | PDT | | + + + + + | Pulse | 84 | 02/19/2008 2:12 PM | | | | | PDT | | + + + + + | Temperature | 36.4 C (97.5 F) | 02/19/2008 2:12 PM | | | | | PDT | | + + + + + | Respiratory Rate | 16 | 02/19/2008 2:12 PM | | | | | PDT | | + + + + + | Oxygen Saturation | - | - | | + + + + + | Inhaled Oxygen | - | - | | | Concentration | | | | + + + + + | Weight | 204.7 kg (451 lb 4.8 | 02/19/2008 2:12 PM | | | | oz) | PDT | | + + + + + | Height | 184.2 cm (6' 0.5") | 02/19/2008 2:12 PM | | | | | PDT | | + + + + + | Body Mass Index | 60.37 | 02/19/2008 2:12 PM | | | | | PDT | | + + + + + documented in this encounter Patient Instructions Patient Instructions Kaylan Obrien Rn - 02/19/2008 3:52 PM PDT1. Dietitian consultation to day. 2. Psychological evaluation today. 3. Labs: PTH, Vitamin D 25 hydroxy. 4. Sleep Study. 5. Once above is completed, we will submit for insurance authorization then schedule with the surgeon. 6. Attempt [place] [address] [email or web address] signed by Kaylan Obrien Rn at 02/19/2008 3:52 PM PDT documented in this encounter Progress Notes Kaylan Obrien Rn - 02/19/2008 2:50 PM PDTFormatting of this note might be different from ole degroot. 02/19/2008 BARIATRIC INITIAL CONSULTATION Consulting Provider: Kaylan Obrien NP Referring Provider: Dhruv Villalpando MD Reason for Requested Consultation: Initial evaluation for bariatric surgery. Ghassan Benoit is interested in Benjamin en y gastric bypass. History of Present Illness: He is a morbidly obese, 47 y.o. male with a BMI of 60, 451 l bs., and 6'1" who has failed prior attempts at sustained dietary/medical weight loss and felicitas ires surgical weight loss in order to achieve lasting weight loss. Duration of obesity: 40 years. Onset of obesity at age 7 First diet attempts at age 15 Personally initiated diets: low calorie, Slimfast and Atkins Diet Resulted in up to 60 lbs. weight loss with subsequent regain. Programmatic diets: None Physician Monitored diet: None Hx Lap Band in [place] 09/2005 and 188 lbs, but required removal due to infection in 08/2007 . Has had consistent weight gain since that time despite severe food restriction. Use of Redux or Phen/fen: no Comorbidities include: Type 2 diabetes, hypertension and hyperlipidemia ALLERGIES: Allergies Allergen Reactions Adhesive Tape Hives Current outpatient prescriptions : Fluticasone Propionate (FLONASE) 50 mcg/Actuation Nasal [place], Suspension, inhale 1 spray in each nostril by intranasal route once daily, Disp: , Rf l: Insulin Glargine (LANTUS) 100 unit/mL Subcutaneous Solution, 32 units once daily injected b y subcutaneous route, Disp: , Rfl: lisinopril 40 mg Oral Tablet, take 1 tablet (40 mg) by oral route once daily, Disp: , Rfl: Tramadol HCl (ULTRAM) 50 mg Oral Tablet, take 1 tablet (50 mg) by oral route every 6 hours as needed, Disp: , Rfl: warfarin (COUMADIN) 5 mg Oral Tablet, take 3 tablet (15 mg) by oral route once daily, Disp: , Rfl: History: Past Medical History Diagnosis Date Morbid Obesity (BMI 40.0 or Higher) DM (Diabetes Mellitus) HTN (Hypertension) Hyperlipidemia DVT (Deep Venous Thrombosis) Chronic Sinusitis Past Surgical History Procedure Date Hb lap-bnd gastric banding sys Removal of gastric band Anesth,elbow area surgery RIGHT Hx tonsillectomy History Social History Marital Status: Single Spouse Name: N/A Number of Children: 0 Years of Education: N/A Occupational History Customer Management Specialist Social History Main Topics Tobacco Use: Never Alcohol Use: Yes 1 beer a day. Drug Use: No Sexually Active: Not on file Other Topics Concern Not on file Social History Narrative No narrative on file Family History Problem Relation Additional Family History Brother x2 obesity Additional Family History Sister obesity Diabetes Mother Heart Father artificial valve Cancer Father renal cell Review of Systems: General: Fatigue which he attributes to his coumadin. Denies constitutional symptoms of w eakness, unintentional weight loss, fevers, chills, night sweats. Eyes/Ears/Nose/Throat: Denies visual changes, sore throat, dental pain, hoarseness, dyspha maryan, oral or tongue lesions. Respiratory: Denies shortness of breath, cough, wheezing or hemoptysis. Denies nocturnal s noring, daytime drowsiness or morning headaches. Denies history of asthma, COPD or sleep ap itzel. Cardiovascular: Hx postop LE DVT after removal of lap band. Is still on coumadin for at l east another month. Lower extremity edema, hypertension, and hyperlipidemia. Denies exerti onal chest pain, palpitations, syncope, orthopnea, or paroxysmal nocturnal dyspnea. Denies k nown history of CHF, LA, ischemic heart disease, PE, or pulmonary hypertension. States abl e to climb two flights of stairs. Neurologic: The patient denies any symptoms of neurological impairment or TIAs; denies dip lopia, dysphasia, or unilateral disturbance of motor or sensory function. Denies loss of bal ance or vertigo, persistent headaches, numbness or paresthesias. Musculoskeletal: Joint pain in knees. Gastrointestinal: Denies abdominal or flank pain, anorexia, nausea or vomiting, dysphagia, change in bowel habits, black or bloody stools. Denies history of ulcers or hernias. Denie s persistent reflux symptoms. Denies history of liver disease or jaundice. Genitourinary: Denies urinary incontinence. Denies history of kidney stones. Denies uret hral discharge, dysuria, hematuria or sores on the genitals. Denies lumps or pain in the nida ticles. Denies prostate sx. Skin: Intertrigenous skin infections. Denies recent rashes, sores, or skin changes. Psychological: Denies anxiety, depression, thoughts of suicide or hallucinations. Heme/Lymphatic: Denies history of anemia. The patient denies abnormal bruising, abnormal bleeding or enlarged lymph nodes. Metabolic: Hx DM improved since starting Lantus insulin. CBG ranging 90-100's. Denies sym ptoms of hypo or hyperthyroidism: no unexplained decreased or increased weight, no feeling c old/chilly or excessively warm, no diarrhea or constipation, no undue sweatiness, anxiety or palpitations. Denies history of gout. OBJECTIVE BP 164/86 | Pulse 84 | Temp (Src) 36.4 C (97.5 F) (Oral) | Resp 16 | Ht 1.842 m (6' 1") | Wt 204.708 kg (451 lbs 4.8 oz) Physical exam: General: Healthy, alert and cooperative. Neuro: Oriented x 3. CN III-XII grossly intact. No focal deficits. HEENT: Oropharynx clear without lesion or exudate. Neck: Neck supple. No adenopathy. Thyroid symmetric & normal size. Respiratory: Percussion normal. Good diaphragmatic excursion. Lungs clear to auscultation b ilaterally. Cardiac: Regular rate and rhythm, no murmur, gallop or bruits. No carotid bruits noted. Extremities: Wearing SHANTELLE hose. 1-2+ pitting LE edema and discoloration consistent with va scular insufficiency. Abdomen: Obese, hostile habitus, soft, nontender, no appreciable masses. Three well healed surgical scars left side of abdomen from lap band surgery and removal. Skin: No evidence of pannus infection. Psych: No problems noted. Laboratory Data: 12/11/07 Glucose mg/dl 125 H Creatinine mg/dl 0.93 Albumin g/dl 3.5 ALT IU/L 31 AST IU/L 26 Alkaline Phosphatase IU/L 52 Hematocrit % 44.9 HbA1c % 5.8 Triglycerides mg/dl 106 HDL mg/dl 24 L Total Cholesterol mg/dl 132 TSH uIU/ml 2.59 H. Pylori Negative Previous Diagnostic Tests: No current results available. Impression: Patient meets and or exceeds NIH criteria for morbid obesity with a BMI of 60 and comorbidities related to obesity including Type 2 diabetes, hypertension and hyperlipide timothy, which may be improved with bariatric surgery. Records have been reviewed from his [facility] and his PCP. He has attended the Public Informational Session in which risks and benefits of bariatric surgery were discussed. Discussion of realistic expectations of bariatric surg leona was held today. Plan: 1. Dietitian consultation today. 2. Psychological evaluation today. 3. Labs: PTH, Vitamin D 25 hydroxy. 4. Sleep Study. 5. Once above is completed, we will submit for insurance authorization then schedule with the surgeon. 6. Attempt weight loss. documented in this encoun ter Plan of [...] Su, | | | | | | [place] [address] | | | | | | [phone] | | | | | | | | | | | | [email or web address], | | | | | | Zack Real MD | | | | | | - Geovanna. Director | | | | | | [...] [facility] | [address] | [place], [place] | | | [facility] | | [address] | | + + + + + PTH, SERUM (02/19/2008 4:38 PM PDT) + + + + + + | Component | Value | Ref Range | Performed | Pathologist | | | | | At | Signature | + + + + + + | PTH, SERUM | 44.0Comment: Test | 15.0 - 75.0 | | | | | performed by Davon | pg/mL | | | | | [facility]. | | | | + + + + + + + + | Specimen | + + | Blood - Blood | + + + + + + + | Performing | Address | City/State/Zipcode | Phone Number | | Organization | | | | + + + + + | [facility] | [address] | [place] [address] | | | LABORATORY | | | [...] | + + + + + | [facility] | [address] | [place] [address] | | | PATHOLOGY | [address] | | | + + + + + | [facility] | [address] | [place] [address] | | | PATHOLOGY | [address] [...] extremity | + + documented in this encounter
--- OUTSIDE RECORDS SUMMARY | ~2020-06-16 | XMS | Encounter Summary ---
Demographics + + + | Address | [address] | | | [place] [address] | + + + | Home Phone | | + + + | Preferred Language | Unknown | + + + | Marital Status | Single | + + + | Lutheran Affiliation | CAT | + + + | Race | or | + + + | Ethnic Group | Not or | + + + Author + + + | Author | [facility] | + + + | Organization | [facility] | + + + | [...] [address] | | | | | [address] | | + + + + + Care Team Providers + +------+ + | Care Operations Manager/Coordinator Name | Role | Phone | + +------+ + | Dhruv Villalpando MD | PCP | Unavailable | + +------+ + Reason for Visit + + + | Reason | Comments | + + + | Morbid Obesity | | + + + Consultation (Routine) [...] | | | | | | | [place], [place] | | | | | | | [address] | | | | | | | Phone: | | | | | | | [phone] | | | | | | | Fax: | | | | | | | [phone] | +--------+--------+ + + + + Encounter Details +--------+---------+ + + + | Date | Type | Department | Care Team | Description | +--------+---------+ + + + | 02/18/ | Office | Dig[facility] | Rita Patel, KAY | Morbid Obesity (HCC) | | 2007 | Visit | Center at [facility] [address] | | (Primary Dx) | | | | [facility] | | | | | | for Health and | | | | | | [facility] | | | | | | [place], [place] | | | | | | [address] | | | | | | [phone] | | | +--------+---------+ + + + [...] + + + | Blood Pressure | - | - | | + + + + + | Pulse | - | - | | + + + + + | Temperature | - | - | | + + + + + | Respiratory Rate | - | - | | + + + + + | Oxygen Saturation | - | - | | + + + + + | Inhaled Oxygen | - | - | | | Concentration | | | | + + + + + | Weight | 203.2 kg (448 lb) | 02/20/2008 3:48 PM | | | | | PDT | | + + + + + | Height | 185.4 cm (6' 1") | 02/20/2008 3:48 PM | | | | | PDT | | + + + + + | Body Mass Index | 59.11 | 02/20/2008 3:48 PM | | | | | PDT | | + + + + + documented in this encounter Progress Notes Rita Patel - 02/20/2008 4:01 PM PDT Referring Provider: Suad PiedraNMaria M [facility]: Outpatient [facility] Clinic, Pre Bariatric Surgery Visit The patient referred by Kaylan Obrien, nurse practitioner, [facility], for diet consult prior to having Benjamin En Y gastric bypass surgery. Documented Time of Visit: 1:00 until 2:01. 61 minutes dida-fo-uogk consult with the adonay hall SUBJECTIVE: Patient Attended Public Meeting Questions/ Information desired today: Diet for RNY, has had Lap Band before, problems with infection and it had to be removed. Highest Wt >700 lbs. Goal, patient wants to have surgery to maintain wt loss, has gained 80 lbs since Aug 15 whe n Lap band was removed. 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 OBJECTIVE: 47 year old, male Last 1 Encounter Ht Readings: Date Ht 02/19/2008 1.854 m (6' 1") Last 1 Encounter Wt Readings: Date Wt 02/19/2008 203.211 kg (448 lbs) BMI: 59.11 Past Medical History: Diabetes Hypertension Hyperlipidemia Sleep Apnea Lap Band, removed Medications: See list in Epic snap shot Medications for Diabetes: Oral and Insulin Labs: pt states last A1C was 5.2% Nutrition Diagnosis: Obesity as evidenced by BMI of 59.11. Factors contributing to obesity: Lifestyle issues Lack of a regular physical activity program Large portions Intake of excessive empty calories Diabetes education pre and post surgery: Improve eating habits and portion control to improve glucose levels prior to surgery. Continue to take blood glucose levels before surgery and after surgery. Informed pt to work with MD on meds, report hypoglycemia to MD or DM educator. Pre-Surgery Diet: Provided written diet suggestions to help patient lose weight before surgery. Discussed behavior changes to practice before surgery to prepare for surgery. Slow down eating and stay away from fast food places. Post surgery diet education: Provided visual, verbal & written information on all aspects of bariatric surgery. Discusse d lifelong behavior changes, proper diet selections and exercise. Encouraged patient to f/u with dietitian pre or post surgery as needed. Setting up a plan for an eating schedule will be important. Education Provided: Provided and reviewed aninstructional handout with the patient on diet progression, sample menus, ideas, food items and vitamins and minerals needed for surgery. Emphasized the impor tance of a regular physical activity program of 30-60 minutes per day to maintain weight los s post surgery. Patient's Comprehension: The patient is: Receptive Stage of change: Preparation Barrier(s) to education: No Learning style: Patient is a Visual learner Information provided in writing, and used visual aids to demonstrate food portions Post surgery and size of stomach after surgery. Expected Outcome: I think the patient will do moderately if following all lifestyle and behavioral changes discussed today. GOAL: The patient's goal is to have weight loss surgery to maintain weight loss and improve other health conditions. 1. Continue to practice behavioral changes to prepare for surgery. 2. Increase physical activity. 3. Review all information provided for post surgery diet progression. 4. Call dietitian if she has any questions. 5. Follow up with dietitian as needed after surgery. 6. Contact information was provided. cc: Tracie Piedra [facility] documented in this encount er Plan of Treatment + + +--------+ + + | Name | Type | Priori | Associated Diagnoses | Order Schedule | | | | ty | | | + + +--------+ + + | MNT INITIAL | Procedures | Routin | Morbid Obesity | Ordered: 02/20/2008 | | ASSESSMNT X15MIN | | e | ([facility]) | | + + +--------+ + + documented as of this encounter Visit Diagnoses + + | Diagnosis | + + | Morbid obesity (HCC) - Primary Morbid obesity | + + documented in this encounter
--- OUTSIDE RECORDS SUMMARY | ~2020-06-16 | XMS | Encounter Summary ---
Demographics + + + | Address | [address] | | | [place] [address] | + + + | Home Phone | | + + + | Preferred Language | Unknown | + + + | Marital Status | Single | + + + | Nondenominational Affiliation | CAT | + + + | Race | or | + + + | Ethnic Group | Not or | + + + Author + + + | Author | [facility] | + + + | Organization | [facility] | + + + | [...] [address] [place] | | | | | [address] | | + + + + + Care Team Providers + +------+ + | Care Planting Machine Operator Name | Role | Phone | + +------+ + | Dhruv Villalpando MD | PCP | Unavailable | + +------+ + Encounter Details +--------+------+ + + + | Date | Type | Department | Care Team | Description | +--------+------+ + + + | 04/13/ | Lab | Laboratory at [facility] | | Status Post Gastric | | 2008 | | [address] | | Bypass for Obesity | | | | [facility] | | | | | | and Healing, | | | | | | [address] | | | | | | [place], [place] | | | | | | [address] | | | | | | [phone] | | | +--------+------+ + + + [...] + | VITAMIN D, | Routin | 04/13/2009 | Status Post | Results for this | | 25-HYDROXY, SERUM | e | 5:26 PM | Gastric Bypass for | procedure are in the | | | | PDT | Obesity | results section. | + +--------+ + + + | COMPLETE METABOLIC | Routin | 04/13/2009 | Status Post | Results for this | | SET | e | 5:26 PM | Gastric Bypass for | procedure are in the | | (NA,K,CL,CO2,BUN,CRE | | PDT | Obesity | results section. | | AT,GLUC,CA,AST,ALT,B | | | | | | VASQUEZ TOTAL,ALK | | | | | | PHOS,ALB,PROT TOTAL) | | | | | + +--------+ + + + | CBC ONLY | Routin | 04/13/2009 | Status Post | Results for this | | | e | 5:26 PM | Gastric Bypass for | procedure are in the | | | | PDT | Obesity | results section. | + +--------+ + + + | FERRITIN | Routin | 04/13/2009 | Status Post | Results for this | | | e | 5:26 PM | Gastric Bypass for | procedure are in the | | | | PDT | Obesity | results section. | + +--------+ + + + | PTH, SERUM | Routin | 04/13/2009 | Status Post | Results for this | | | e | 5:26 PM | Gastric Bypass for | procedure are in the | | | | PDT | Obesity | results section. | + +--------+ + + + | VITAMIN B-12 | Routin | 04/13/2009 | Status Post | Results for this | | | e | 5:26 PM | Gastric Bypass for | procedure are in the | | | | PDT | Obesity | results section. | + +--------+ + + + documented in this encounter Results FERRITIN, SERUM (04/13/2009 5:26 [...] | | | | | | performed Rigoberto | | | | | | [place], [place]. | | | | + + + + + + + + | Specimen | + + | Blood - Blood | + + + + + | Narrative | Performed At | + + + | [facility] [place] | [facility] | | [place] [address] [facility] | DEPARTMENT OF | | [place] [address] | PATHOLOGY | + + + + + + + + | Performing | Address | City/State/Zipcode | Phone Number | | Organization | | | | + + + + + | [facility] DEPARTMENT OF | [address] | [place] [address] | | | PATHOLOGY | [address] | | | + + + + + | [facility] DEPARTMENT OF | [address] | [place] [address] | | | PATHOLOGY | [address] [...] At | + + + | [facility] ([facility]) | [facility] | | [facility] [address] | DEPARTMENT OF | | [place] [address] | PATHOLOGY | + + + + + + + + | Performing | Address | City/State/Zipcode | Phone Number | | Organization | | | | + + + + + | [facility] DEPARTMENT OF | [address] | [facility] [place] [address] | | | PATHOLOGY | [address] | | | + + + + + | [facility] | [address] | [place] [address] | | | PATHOLOGY | [address] [...] At | + + + | [facility] ([facility]) [place] | CAR | | [place] [address] [facility] | DEPARTMENT OF | | [place] [address] | PATHOLOGY | + + + + + + + + | Performing | Address | City/State/Zipcode | Phone Number | | Organization | | | | + + + + + | [facility] DEPARTMENT OF | [address] | [place] [address] | | | PATHOLOGY | [address] | | | + + + + + | [facility] | [address] | [place] [address] | | | PATHOLOGY | [address] [...] | | | | | | Laboratories,[address] [facility] | | | | | | [place] [address] | | | | | | [phone]. | | | | | | Zack [...] + + + + | [facility] | [address] | [place] [address] | | | PATHOLOGY | [address] [...] Performed At | + + + | [id number] Estimated GFR > 60 mL/min/1.73 sq m if non- | [facility] | | [place] [id number] Estimated GFR > 60 mL/min/1.73 sq m if | DEPARTMENT OF | | [place] GFR is estimated using the MDRD equation [...] + + + + | [facility] | [facility] | [place] [address] | | | PATHOLOGY | [address] | | | + + + + + | [facility] | [facility] | [place] [address] | | | PATHOLOGY | [address] [...] + + + + + | [facility] DEPARTMENT OF | [address] | [place] [address] | | | PATHOLOGY | [address] | | | + + + + + | [facility] DEPARTMENT OF | [address] | [place] [address] | | | PATHOLOGY | [address] | | | + + + + + documented in this encounter Visit Diagnoses + + | Diagnosis | + + | Status post gastric bypass for obesity Bariatric surgery status | + + documented in this encounter"
--- OUTSIDE RECORDS SUMMARY | ~2020-06-16 | XMS | Encounter Summary ---
Demographics + + + | Address | [address] | | | [place] [address] | + + + | Home Phone [...] + + + | Author | [facility] | + + + [...] [address] [place] | | | | | [address] | | + + + + + Care Team Providers + +------+ + | Care Tour Driver Name | Role | Phone | + +------+ + PCP | Unavailable | + +------+ + Reason for Visit + + + | Reason | Comments | + + + | Follow-up encounter | | + + + Consultation (Routine) [...] | | | infection | | [address] [place], | | | | | not | | [place] | | | | | elsewhere | | [address] | | | | | classified | | Phone: | | | | | Procedures | | [phone] | | | | | [place] [address] [facility] | | Fax: | | | | | ADJ GST | | [phone] | | | | | BND/[place] | | | +--------+--------+ + + + + Encounter Details +--------+---------+ + + + | Date | Type | Department | Care Team | Description | +--------+---------+ + + + | 10/15/ | Office | Dig[facility]ive Health | Grey Gaspar, | Morbid Obesity | | 2007 | Visit | [place] [address] | [address] | ([facility]); DVT of Leg | | | | Ave Mailcode: CH[address]S | [address] | (Deep Venous | | | | [facility] | [place], [place] | Thrombosis) ([facility]) | | | | and Healing, | [address] | | | | | [place] [address] [facility] | [phone] | | | | | Floor [place], [place] | | | | | | [address] | | | | | | [phone] | | | +--------+---------+ + + + [...] + + + | Blood Pressure | 128/88 | 10/15/2007 3:34 PM | | | | | PST | | + + + + + | Pulse | 88 | 10/15/2007 3:34 PM | | | | | PST | | + + + + + | Temperature | 36.7 C (98.1 F) | 10/15/2007 3:34 PM | | | | | PST | | + + + + + | Respiratory Rate | 16 | 10/15/2007 3:34 PM | | | | | PST | | + + + + + | Oxygen Saturation | - | - | | + + + + + | Inhaled Oxygen | - | - | | | Concentration | | | | + + + + + | Weight | 183.3 kg (404 lb 3.2 | 10/15/2007 3:34 PM | | | | oz) | PST | | + + + + + | Height | - | - | | + + + + + | Body Mass Index | 51.2 | 09/25/2007 11:46 AM | | | | | PST | | + + + + + documented in this encounter Progress Notes Fazal Gold - 10/15/2007 4:51 PM PSTMrBen Benoit is here for follow up following his lap band removal. After he left [facility], he experienced a DVT in his left leg. He was hospitalize d for his DVT and was recently discharged from the hospital. He is on theurapuetic coumadin for his DVT. Overall he notes that his left leg would swell at the end of the day or if he lets it hang like sitting or driving. He states it helps to elevate his leg. Overall he i s now gaining weight since the lap band removal. He states over 30 lbs. He is trying to wa tch his diet very carefully but still is gaining weight. A big portion of his weight gain i s the fact that he has been hospitalized for the past several weeks. Overall his wounds are healing well. There is no erythema or purlent drainage. There is n o induration noted. The top wound is about 1 cm deep. The bottom wound is almost closed. Overall the patient will need to be stabilized on his coumadin to let his DVT organize. We will see him in 2 months time to reassess his progress. He also needs to aggressively lose or at least maintain his weight prior to his gastric bypass. The patient is to continue the packing BID for the top wound. He can cover the bottom woun d with gauze. Seen with Dr. Gaspar. Time spent with pt 20 minutes documented in this encounter Plan of Treatment [...]
[~2020-06-16 15:20] MED LIST: ANTISEPTIC SKI237 ML TOP; BACTRIM DS TAB1 EACH PO; FLOMAX0.4 MG; GABAPENTIN300 MG PO; KEFLEX500 MG PO; PERCOCET 10-321 EACH PO; PERCOCET 5-3251 EACH; PERCOCET 7.5-31 EACH PO; PYRIDIUM200 MG; SUPERVITE EC CAP1 MG PO; XARELTO20 MG
[2020-06-16] MEDS ORDERED: CARDIZEM CD240 MG PO (18:51)
[2020-06-16] MEDS ORDERED: GLUCOPHAGE500 MG PO (18:51)
--- NOTE | 2020-06-16 20:22 | EKG ---
[facility] [address] [facility] [address] [place] [address] Signed Atrial fibrillation with rapid ventricular response Cannot rule out Anterior infarct , age undetermined Abnormal ECG No previous ECGs available Confirmed by MELANIE ESPINOZA MD ([id number]) on 06/16/2020 8:22:42 PM Electronically Signed By: MELANIE ESPINOZA MD 06/16/202021 PATIENT NAME: AMY PEREZWesly Collado Electrocardiogram DATE OF : 64 PHYSICIAN: MELANIE ESPINOZA MD REPORT #: [id number] REPORT IS CONFIDENTIAL AND NOT TO BE RELEASED WITHOUT AUTHORIZATION
== END 2020-06-16 19:10 | disposition home or self-care (01) ==
LOC: ED 15:20
DX: I48.91 Unspecified atrial fibrillation (principal); E11.65 Type 2 diabetes mellitus with hyperglycemia; I10 Essential (primary) hypertension; Z91.040 Latex allergy status; Z91.048 Other nonmedicinal substance allergy status
CPT/HCPCS: 71045; 80053; 83735; 83880; 84132; 84484; 85025; 93005; 93010; 96374; 96376; 99285-25

== ENCOUNTER 2020-08-22 16:50 | Emergency (ER) | payer BC, OTHER ==
[~2020-08-22] VITALS: Ht 190.5 cm; Wt 176.9 kg
[~2020-08-22 16:50] MED LIST changes: +CARDIZEM CD240 MG PO; +GLUCOPHAGE500 MG PO
[2020-08-22] MEDS ORDERED: AMIODARONE HCL100 MG PO (16:59)
[2020-08-22] MEDS ORDERED: VITAMIN D325 MC2 PO (17:00)
[2020-08-22] MEDS ORDERED: LISINOPRIL20 MG PO (17:00)
[2020-08-22] MEDS ORDERED: QUIN B STRONG1 EACH PO (17:00)
[2020-08-22] MEDS ORDERED: LASIX20 MG PO (17:01)
[2020-08-22] MEDS ORDERED: ELIQUIS2.5 MG PO (17:03)
--- NOTE | 2020-08-24 13:11 | EKG ---
[facility] [address] [facility] [place] [address] Signed Atrial fibrillation Low voltage QRS Cannot rule out Anterior infarct (cited on or before 16-JUN-2020) Abnormal ECG When compared with ECG of 16-JUN-2020 15:30, Vent. rate has decreased BY 87 BPM Nonspecific T wave abnormality no longer evident in Inferior leads Confirmed by GENNARO PRIETO DO ([id number]) on 08/24/2020 1:10:56 PM Electronically Signed By: GENNARO PRIETO DO 08/24/20 1311 PATIENT NAME: PRATIBHA PEREZ Electrocardiogram DATE OF : 64 PHYSICIAN: GENNARO PRIETO DO REPORT #: [id number] REPORT IS CONFIDENTIAL AND NOT TO BE RELEASED WITHOUT AUTHORIZATION
== END 2020-08-22 20:01 | disposition home or self-care (01) ==
LOC: ED 16:50
DX: R07.89 Other chest pain (principal); E11.9 Type 2 diabetes mellitus without complications; I10 Essential (primary) hypertension; Z91.040 Latex allergy status; Z91.048 Other nonmedicinal substance allergy status; Z79.899 Other long term (current) drug therapy; Z79.84 Long term (current) use of oral hypoglycemic drugs
CPT/HCPCS: 71045; 80053; 83735; 84484; 85025; 85610; 93005; 93010; 99285-25

== ENCOUNTER 2021-09-27 15:32 | Emergency (ER) | payer OTHER, BC ==
[~2021-09-27] VITALS: Ht 190.5 cm; Wt 186.0 kg
[~2021-09-27 15:32] MED LIST changes: +AMIODARONE HCL100 MG PO; +ELIQUIS2.5 MG PO; +LASIX20 MG PO; +LISINOPRIL20 MG PO; +QUIN B STRONG1 EACH PO; +VITAMIN D325 MC2 PO
[2021-09-27] MEDS ORDERED: ARNICA (16:45)
--- NOTE | 2021-09-28 09:05 | EKG ---
[facility] [address] [facility] [place] [address] Signed Atrial fibrillation with a competing junctional pacemaker Low voltage QRS Cannot rule out Anterior infarct (cited on or before 16-JUN-2020) Abnormal ECG When compared with ECG of 22-AUG-2020 16:54, No significant change was found Confirmed by MELANIE ESPINOZA MD ([id number]) on 09/28/2021 9:05:39 AM Electronically Signed By: MELANIE ESPINOZA MD 09/28/21 0905 PATIENT NAME: PRATIBHA PEREZ Electrocardiogram DATE OF : 64 PHYSICIAN: MELANIE ESPINOZA MD REPORT #: [id number] REPORT IS CONFIDENTIAL AND NOT TO BE RELEASED WITHOUT AUTHORIZATION
== END 2021-09-27 19:29 | disposition home or self-care (01) ==
LOC: ED 15:32
DX: R55 Syncope and collapse (principal); S80.02XA Contusion of left knee, initial encounter; W01.10XA Fall on same level from slipping, tripping and stumbling with subsequent striking against unspecified object, initial encounter; E11.9 Type 2 diabetes mellitus without complications; I10 Essential (primary) hypertension; I48.91 Unspecified atrial fibrillation; Z91.048 Other nonmedicinal substance allergy status; Z91.040 Latex allergy status; Z79.899 Other long term (current) drug therapy
CPT/HCPCS: 70450; 80048; 85025; 93005; 93010; 93971; 99284-25

== ENCOUNTER 2022-12-25 16:52 | Emergency (ER) | payer BC, OTHER ==
[~2022-12-25] VITALS: Ht 188 cm; Wt 172.4 kg
[~2022-12-25 16:52] MED LIST changes: +ARNICA
[2022-12-25] MEDS ORDERED: ELIQUIS5 MG PO (17:25)
[2022-12-25] MEDS ORDERED: METFORMIN HCL500 MG PO (17:26)
[2022-12-25] MEDS ORDERED: LISINOPRIL10 MG PO (17:26)
[2022-12-25] MEDS ORDERED: OZEMPIC1 MG/0.71 SUB-Q (17:27)
[2022-12-25] MEDS ORDERED: AMIODARONE HCL200 MG PO (17:28)
[2022-12-25] MEDS ORDERED: DILTIAZEM ER240 M1 PO (18:19)
[2022-12-25] MEDS ORDERED: HYDROCODON-ACE1 EA10 PO (19:03)
--- NOTE | 2022-12-27 19:03 | EKG ---
[facility] [address] [place] [address] Signed Atrial fibrillation with rapid ventricular response Inferior infarct , age undetermined Anterolateral infarct (cited on or before 16-JUN-2020) Abnormal ECG When compared with ECG of 27-SEP-2021 18:36, Vent. rate has increased BY 37 BPM Questionable change in initial forces of Lateral leads Confirmed by Adi Beasley MD () on 12/27/2022 7:03:12 PM Electronically Signed By: ADI BEASLEY MD 12/27/221902 PATIENT NAME: PRATIBHA PEREZ Electrocardiogram DATE OF : 64 PHYSICIAN: ADI BEASLEY MD REPORT #: [id number] REPORT IS CONFIDENTIAL AND NOT TO BE RELEASED WITHOUT AUTHORIZATION
== END 2022-12-25 19:55 | disposition home or self-care (01) ==
LOC: ED 16:52
DX: S70.11XA Contusion of right thigh, initial encounter (principal); S70.01XA Contusion of right hip, initial encounter; N28.9 Disorder of kidney and ureter, unspecified; N20.0 Calculus of kidney; W10.8XXA Fall (on) (from) other stairs and steps, initial encounter; Z20.822 Contact with and (suspected) exposure to COVID-19; E11.9 Type 2 diabetes mellitus without complications; I10 Essential (primary) hypertension; I48.91 Unspecified atrial fibrillation; Z91.040 Latex allergy status; Z91.048 Other nonmedicinal substance allergy status; Z79.899 Other long term (current) drug therapy; Z79.84 Long term (current) use of oral hypoglycemic drugs
CPT/HCPCS: 36415; 70450; 71260; 72125; 74177; 80053; 82553; 85025; 86850; 86900; 86901; 93005; 93010; 99284-25; C9803; G0480; Q9967; U0003

== ENCOUNTER 2023-07-13 13:51 | Emergency (ER) | payer BC ==
[~2023-07-13] VITALS: Ht 188 cm; Wt 165.6 kg
[~2023-07-13 13:51] MED LIST changes: +AMIODARONE HCL200 MG PO; +DILTIAZEM ER240 M1 PO; +ELIQUIS5 MG PO; +HYDROCODON-ACE1 EA10 PO; +LISINOPRIL10 MG PO; +METFORMIN HCL500 MG PO; +OZEMPIC1 MG/0.71 SUB-Q
[2023-07-13 14:51] LABS: BASOPHILS 0.4 % (0-2); EOSINOPHILS 0.1 % (0-6); HEMATOCRIT 45.2 % (35.0-50.0); HEMOGLOBIN 14.9 g/dL (12.0-18.0); LYMPHOCYTES 12.2 % (24-44); MCH 32.9 (27-36); MCV 99.7 fl (81-99); MONOCYTES 6.4 % (0-12); NEUTROPHILS 80.9 % (39-80); PLATELET COUNT 174 K/uL (140-440); RBC 4.53 M/ul (4.3-5.7); RDW 14.4 (10.5-15.0)
[2023-07-13 15:07] LABS: ALBUMIN 3.9 g/dL (3.4-5.0); ALBUMIN/GLOBULIN RATIO 1.11 (1.1-2.4); ALCOHOL, MEDICAL <3 ng/dL (<3); ALKALINE PHOSPHATASE 118 U/L (46-116); ALT (SGPT) 45 U/L (14-59); ANION GAP 12.7 (7-21); AST (SGOT) 45 U/L (15-37); BILIRUBIN, TOTAL 1.6 ng/dL (0.2-1.0); BUN/CREATININE RATIO 10.71 (6.0-28.6); CALCIUM 9.1 mg/dL (8.5-10.1); CARBON DIOXIDE 29 mmol/L (21-32); CHLORIDE 101 mmol/L (98-107); CREATININE, SERUM 1.12 mg/dL (0.70-1.30); GLOMERULAR FILTRATION RATE,EST 75 mL/min (>60); POTASSIUM 3.7 mmol/L (3.5-5.1); PROTEIN, TOTAL 7.4 g/dL (6.4-8.2); UREA NITROGEN 12 mg/dL (7-18)
[2023-07-13 15:48] LABS: INFLUENZA B NAA NEGATIVE (NEGATIVE); RESPIRATORY SYNCYTIAL VIR NAA NEGATIVE (NEGATIVE)
[2023-07-13] MEDS ORDERED: TRAZODONE HCL50 MG PO (16:11)
[2023-07-13 16:20] VITALS: BP 172/85
--- NOTE | 2023-07-14 12:16 | EKG ---
[facility] [address] [facility] [place] [address] Signed Atrial fibrillation Inferior infarct (cited on or before 27-SEP-2021) Anterior infarct (cited on or before 16-JUN-2020) Abnormal ECG When compared with ECG of 25-DEC-2022 17:52, No significant change was found Confirmed by ZURI MADERA MD ([id number]) on 07/14/2023 12:16:41 PM Electronically Signed By: ZURI MADERA 07/14/23 1216 PATIENT NAME: PRATIBHA PEREZ ALFREDO Electrocardiogram DATE OF : 64 PHYSICIAN: ZURI MADERA REPORT #: [id number] REPORT IS CONFIDENTIAL AND NOT TO BE RELEASED WITHOUT AUTHORIZATION
== END 2023-07-13 16:15 | disposition home or self-care (01) ==
LOC: ED 13:51
PROVIDERS: Internal Medicine
DX: K29.20 Alcoholic gastritis without bleeding (principal); F32.A Depression, unspecified; S00.11XA Contusion of right eyelid and periocular area, initial encounter; W18.30XA Fall on same level, unspecified, initial encounter; Z20.822 Contact with and (suspected) exposure to COVID-19; E11.9 Type 2 diabetes mellitus without complications; I10 Essential (primary) hypertension; I48.91 Unspecified atrial fibrillation; Z91.040 Latex allergy status; Z91.048 Other nonmedicinal substance allergy status; Z79.899 Other long term (current) drug therapy; Z79.84 Long term (current) use of oral hypoglycemic drugs
CPT/HCPCS: 36415; 70450; 71045; 80053; 83690; 85025; 87502; 93005; 93010; 96374; 99284-25; C9803; G0480; J2405; J7030; U0002

== ENCOUNTER 2024-07-10 17:20 | Inpatient (IN) | payer BC ==
[~2024-07-10] VITALS: Ht 188 cm; Wt 162.8 kg
[~2024-07-10 17:20] MED LIST changes: +TRAZODONE HCL50 MG PO
[2024-07-10] MEDS ORDERED: VANCOMYCIN HCL/D5W 1 GM/270 ML PIGGYBACK KIT IV ONE (17:45)
[2024-07-10] MEDS ORDERED: PIPERACILLIN/TAZOBACTAM 3.375 GM in DEXTROSE 5% 100 ML IV ONE (17:45)
[2024-07-10 17:50] LABS: BASOPHILS 0.3 % (0-2); EOSINOPHILS 0.3 % (0-6); HEMATOCRIT 38.2 % (35.0-50.0); HEMOGLOBIN 13.1 g/dL (12.0-18.0); LYMPHOCYTES 6.6 % (24-44); MCH 34.4 (27-36); MCHC 34.2 g/dl (30-36); MCV 100.6 fl (81-99); MONOCYTES 9.1 % (0-12); NEUTROPHILS 83.7 % (39-80); PLATELET COUNT 245 K/uL (140-440); RBC 3.79 M/ul (4.3-5.7); RDW 14.1 (10.5-15.0)
[2024-07-10] MEDS ORDERED: FUROSEMIDE20 MG PO (17:59)
[2024-07-10 18:01] LABS: PARTIAL THROMBOPLASTIN TIME 32.8 Sec (22.9-41.3)
[2024-07-10 18:02] LABS: INR 1.31 (0.80-1.30); PROTIME 15.5 Sec (11.2-14.2)
[2024-07-10 18:06] LABS: ALBUMIN 3.1 g/dL (3.4-5.0); ALBUMIN/GLOBULIN RATIO 0.78 (1.1-2.4); ANION GAP 12.6 (7-21); BILIRUBIN, TOTAL 1.5 ng/dL (0.2-1.0); BUN/CREATININE RATIO 8.03 (6.0-28.6); CALCIUM 9.1 mg/dL (8.5-10.1); CREATININE, SERUM 1.12 mg/dL (0.70-1.30); POTASSIUM 4.6 mmol/L (3.5-5.1); PROTEIN, TOTAL 7.1 g/dL (6.4-8.2)
[2024-07-10 18:11] LABS: LACTIC ACID, BLOOD 5.5 mmol/L (0.4-2.0)
[2024-07-10] MEDS ORDERED: SODIUM CHLORIDE 0.9% 1,000 ML IV PRN ×2 (18:15)
[2024-07-10 18:55] LABS: ERYTHROCYTE SEDIMENTATION RATE 50
[2024-07-10 18:57] LABS: BILIRUBIN, URINE NEGATIVE (negative); BLOOD/HGB, URINE TRACE-I (Negative); KETONE, URINE NEGATIVE (Negative); LEUK ESTERASE, URINE NEGATIVE (negative); NITRITE, URINE NEGATIVE (negative)
[2024-07-10 19:03] LABS: INFLUENZA B NAA NEGATIVE (NEGATIVE); RESPIRATORY SYNCYTIAL VIR NAA NEGATIVE (NEGATIVE)
[2024-07-10 19:05] LABS: BACTERIA, URINE NONE SEEN /hpf (negative); CASTS, URINE NONE SEEN \\lpf; COLLECTION TYPE, URINE CLEAN CATCH; CRYSTALS, URINE NONE SEEN (0-1+); EPITHELIAL CELLS, URINE SQUAMOUS 3+ /lpf (0-1+); REFLEX CULTURE, URINE No (No); WHITE BLOOD CELLS, URINE 0-1 /HPF (0-5)
[2024-07-10] MEDS ORDERED: ACETAMINOPHEN 500 MG TAB PO ONE (20:00)
[2024-07-10] MEDS ORDERED: ACETAMINOPHEN 500 MG TAB PO PRN (20:15)
[2024-07-10] MEDS ORDERED: PROCHLORPERAZINE EDISYLATE 10 MG/2 ML VIAL IV PRN (20:15)
[2024-07-10] MEDS ORDERED: bisacodyL 10 MG SUPP PR PRN (20:15)
[2024-07-10] MEDS ORDERED: ondansetron HCL 4 MG/2 ML VIAL IV PRN (20:15)
[2024-07-10 20:58] VITALS: BP 131/75
[2024-07-10] MEDS ORDERED: MELATONIN 3 MG TAB PO PRN (21:00)
[2024-07-10] MEDS ORDERED: INSULIN LISPRO 100 UNIT/ML ML SUB-Q SCH (21:00)
[2024-07-10] MEDS ORDERED: IBLOOD GLUCOSE TEST STRIP 1 EA TEST VI SCH (21:00)
[2024-07-10] MEDS ORDERED: APIXABAN 5 MG TAB PO SCH (21:00)
[2024-07-10] MEDS ORDERED: dilTIAZem HCL 60 MG TAB PO SCH (21:00)
[2024-07-10] MEDS ORDERED: VANCOMYCIN HCL 2,000 MG in SODIUM CHLORIDE 0.9% 500 ML IV ONE (21:30)
[2024-07-10] MEDS ORDERED: VANCOMYCIN HCL 1,000 MG/20 ML VIAL ONE (22:04)
[2024-07-10 22:15] VITALS: BP 130/69
[2024-07-11] VITALS (11 sets, daily range): BP systolic 120–143; BP diastolic 70–763
[2024-07-11] MEDS ORDERED: PIPERACILLIN/TAZOBACTAM 4.5 GM VIAL ONE (01:38)
[2024-07-11] MEDS ORDERED: PIPERACILLIN/TAZOBACTAM 4.5 GM in DEXTROSE 5% 100 ML IV SCH (02:00)
[2024-07-11 05:33] LABS: BASOPHILS 0.7 % (0-2); EOSINOPHILS 1.6 % (0-6); HEMATOCRIT 32.1 % (35.0-50.0); HEMOGLOBIN 11.1 g/dL (12.0-18.0); LYMPHOCYTES 15.8 % (24-44); MCH 34.2 (27-36); MCHC 34.5 g/dl (30-36); MCV 99.1 fl (81-99); NEUTROPHILS 70.9 % (39-80); PLATELET COUNT 203 K/uL (140-440); RBC 3.23 M/ul (4.3-5.7); RDW 14.1 (10.5-15.0)
[2024-07-11 05:48] LABS: ALBUMIN 2.5 g/dL (3.4-5.0); ALBUMIN/GLOBULIN RATIO 0.76 (1.1-2.4); ANION GAP 8.5 (7-21); BILIRUBIN, TOTAL 0.8 ng/dL (0.2-1.0); BUN/CREATININE RATIO 7.14 (6.0-28.6); CALCIUM 8.2 mg/dL (8.5-10.1); CREATININE, SERUM 0.98 mg/dL (0.70-1.30); MAGNESIUM 1.5 mg/dL (1.8-2.4); POTASSIUM 3.5 mmol/L (3.5-5.1); PROTEIN, TOTAL 5.8 g/dL (6.4-8.2)
[2024-07-11] MEDS ORDERED: IBLOOD GLUCOSE TEST STRIP 1 EA TEST XX PRN (09:00)
[2024-07-11] MEDS ORDERED: DEXTROSE 5% 1,000 ML IV PRN (09:00)
[2024-07-11] MEDS ORDERED: AMIODARONE HCL 200 MG TAB PO SCH (09:00)
[2024-07-11] MEDS ORDERED: FUROSEMIDE 40 MG TAB PO SCH (09:00)
[2024-07-11] MEDS ORDERED: VANCOMYCIN HCL 1,250 MG in DEXTROSE 5% 250 ML IV SCH (09:00)
[2024-07-11] MEDS ORDERED: VANCOMYCIN PER PHARMACY PROTOCOL IV SCH (09:00)
[2024-07-11] MEDS ORDERED: DEXTROSE 50% 50 ML SYR IV PRN ×2 (09:00)
[2024-07-11] MEDS ORDERED: GLUCAGON,HUMAN RECOMBINANT 1 MG/ML VIAL SUB-Q PRN (09:00)
[2024-07-11] MEDS ORDERED: DAPTOmycin 500 MG/10 ML VIAL IV SCH (09:00)
[2024-07-11] MEDS ORDERED: HEParin SOD (PORCINE) 5,000 UNIT/ML SDV SUB-Q SCH (09:55)
[2024-07-11] MEDS ORDERED: MAGNESIUM SULFATE 2 GM/50 ML BAG IV ONE (10:00)
[2024-07-11] MEDS ORDERED: OZEMPIC2 MG/0.75 SUB-Q (10:59)
[2024-07-11] MEDS ORDERED: CEPHALEXIN500 MG PO (10:59)
[2024-07-11] MEDS ORDERED: FUROSEMIDE40 MG PO (11:01)
[2024-07-11] MEDS ORDERED: FLONASE ALLERG9.9 ML NAS (11:16)
[2024-07-11] MEDS ORDERED: PHARMACY RENAL DOSE ADJUSTMENT 1 DOSE MISC PO SCH (12:00)
[2024-07-11] MEDS ORDERED: MAGNESIUM SULFATE 50 ML IV ONE (13:49)
[2024-07-12] VITALS (11 sets, daily range): BP systolic 97–146; BP diastolic 69–80
[2024-07-12 05:26] LABS: BASOPHILS 0.9 % (0-2); EOSINOPHILS 1.9 % (0-6); HEMOGLOBIN 11.3 g/dL (12.0-18.0); LYMPHOCYTES 12.4 % (24-44); MCH 34.7 (27-36); MCHC 35.4 g/dl (30-36); MONOCYTES 6.9 % (0-12); NEUTROPHILS 77.9 % (39-80); PLATELET COUNT 228 K/uL (140-440); RBC 3.26 M/ul (4.3-5.7); RDW 13.9 (10.5-15.0)
[2024-07-12 05:34] LABS: ANION GAP 7.9 (7-21); BUN/CREATININE RATIO 7.69 (6.0-28.6); CALCIUM 8.6 mg/dL (8.5-10.1); CREATININE, SERUM 0.91 mg/dL (0.70-1.30); MAGNESIUM 1.5 mg/dL (1.8-2.4); POTASSIUM 3.9 mmol/L (3.5-5.1)
[2024-07-12] MEDS ORDERED: MAGNESIUM SULFATE 2 GM/50 ML BAG IV ONE (08:15)
[2024-07-12] MEDS ORDERED: APIXABAN 5 MG TAB PO SCH (09:50)
[2024-07-12] MEDS ORDERED: FUROSEMIDE 20 MG TAB PO SCH (09:55)
[2024-07-12] MEDS ORDERED: MAGNESIUM SULFATE 50 ML IV ONE (10:26)
--- NOTE | 2024-07-12 11:56 | EKG ---
[facility] [address] [facility] [place] [address] Signed Atrial fibrillation with rapid ventricular response Anterolateral infarct (cited on or before 16-JUN-2020) Abnormal ECG When compared with ECG of 13-JUL-2023 14:48, No significant change was found Confirmed by Genaro Polo MD ([id number]) on 07/12/2024 11:56:10 AM Electronically Signed By: GENARO POLO DO 07/12/24 1156 PATIENT NAME: PRATIBHA PEREZ Electrocardiogram DATE OF : 64 PHYSICIAN: GENARO POLO DO REPORT #: [id number] REPORT IS CONFIDENTIAL AND NOT TO BE RELEASED WITHOUT AUTHORIZATION
[2024-07-13] VITALS (9 sets, daily range): BP systolic 127–142; BP diastolic 62–89
[2024-07-13 05:16] LABS: BASOPHILS 0.7 % (0-2); EOSINOPHILS 2.2 % (0-6); HEMATOCRIT 34.8 % (35.0-50.0); HEMOGLOBIN 11.8 g/dL (12.0-18.0); LYMPHOCYTES 15.8 % (24-44); MONOCYTES 7.2 % (0-12); NEUTROPHILS 74.1 % (39-80); PLATELET COUNT 238 K/uL (140-440); RBC 3.48 M/ul (4.3-5.7)
[2024-07-13 05:26] LABS: ANION GAP 6.5 (7-21); BUN/CREATININE RATIO 7.44 (6.0-28.6); CALCIUM 8.6 mg/dL (8.5-10.1); CREATININE, SERUM 0.94 mg/dL (0.70-1.30); MAGNESIUM 1.4 mg/dL (1.8-2.4); POTASSIUM 4.5 mmol/L (3.5-5.1)
[2024-07-13] MEDS ORDERED: MAGNESIUM SULFATE 2 GM/50 ML BAG IV SCH (08:00)
[2024-07-13] MEDS ORDERED: POLYETHYLENE GLYCOL 3350 1 PACKET PO ONE (09:30)
[2024-07-13] MEDS ORDERED: levoFLOXacin 750 MG/150 ML BAG IV SCH (11:00)
[2024-07-13] MEDS ORDERED: lisinopriL 10 MG TAB PO SCH (12:18)
[2024-07-13] MEDS ORDERED: PIPERACILLIN/TAZOBACTAM 3.375 GM in DEXTROSE 5% 100 ML IV SCH (14:00)
[2024-07-14] VITALS (10 sets, daily range): BP systolic 121–154; BP diastolic 64–85
[2024-07-15] VITALS (9 sets, daily range): BP systolic 95–139; BP diastolic 55–90
[2024-07-15] MEDS ORDERED: PIPERACILLIN/TAZOBACTAM 3.375 GM VIAL ONE (05:16)
[2024-07-15] MEDS ORDERED: SALINE LOCK FLUSH 5 ML SYR IV PRN (10:45)
[2024-07-15] MEDS ORDERED: ALTEPLASE 2 MG/2 ML VIAL IV PRN (10:45)
[2024-07-16 06:05] VITALS: BP 136/65
[2024-07-16 09:50] VITALS: BP 145/87
[2024-07-16 09:53] VITALS: BP 145/87
[2024-07-16] MEDS ORDERED: DILTIAZEM ER240 M1 PO (10:29)
[2024-07-16] MEDS ORDERED: LEVOFLOXAC750 MG/150 IV (10:47)
[2024-07-16 13:31] VITALS: BP 134/78
== END 2024-07-16 14:22 | disposition home or self-care (01) | DRG 872 ==
LOC: ED 17:20 → MS 20:27
PROVIDERS: Emergency Medicine; ADMIT Student in an Organized Health Care Education/Training Program; ATTEND Student in an Organized Health Care Education/Training Program
DX: A41.9 Sepsis, unspecified organism (principal); L02.612 Cutaneous abscess of left foot; I82.512 Chronic embolism and thrombosis of left femoral vein; I82.552 Chronic embolism and thrombosis of left peroneal vein; L03.116 Cellulitis of left lower limb; E11.69 Type 2 diabetes mellitus with other specified complication; E11.42 Type 2 diabetes mellitus with diabetic polyneuropathy; I48.91 Unspecified atrial fibrillation; E11.621 Type 2 diabetes mellitus with foot ulcer; E11.65 Type 2 diabetes mellitus with hyperglycemia; L97.522 Non-pressure chronic ulcer of other part of left foot with fat layer exposed; I10 Essential (primary) hypertension; I87.8 Other specified disorders of veins; E66.9 Obesity, unspecified; Z88.8 Allergy status to other drugs, medicaments and biological substances; Z91.040 Latex allergy status; Z79.01 Long term (current) use of anticoagulants; Z98.890 Other specified postprocedural states; Z98.84 Bariatric surgery status; Z79.811 Long term (current) use of aromatase inhibitors; Z79.899 Other long term (current) drug therapy; Z90.89 Acquired absence of other organs
CPT/HCPCS: 36415; 36569; 51701; 71045; 73630; 80048; 80053; 81001; 83036; 83605; 83735; 85025; 85610; 85651; 85730; 86140; 87040; 87070; 87075; 87077; 87186; 87205; 87502; 93005; 93010; 93971; 96368; 99285-25; A9270; C1751; J1644; J1815; J1956; J2543; J3370; J3475; J7030; J7040; U0002

== ENCOUNTER 2024-10-27 17:26 | Emergency (ER) | payer OTHER, BC ==
[~2024-10-27] VITALS: Ht 188 cm; Wt 147.9 kg
[~2024-10-27 17:26] MED LIST changes: +CEPHALEXIN500 MG PO; +FLONASE ALLERG9.9 ML NAS; +FUROSEMIDE20 MG PO; +FUROSEMIDE40 MG PO; +LEVOFLOXAC750 MG/150 IV; +OZEMPIC2 MG/0.75 SUB-Q
[2024-10-27] MEDS ORDERED: HYDROCODONE BIT/ACETAMINOPHEN 5/325 MG 1 TAB HOME.PACK PO ONE (19:15)
[2024-10-27] MEDS ORDERED: HYDROCODONE/ACETA 5/325 TAB PO ONE (19:30)
[2024-10-27] MEDS ORDERED: HYDROCODON-ACE1 EA11 PO (19:47)
[2024-10-27 20:09] LABS: BASOPHILS 0.2 % (0-2); EOSINOPHILS 0.6 % (0-6); HEMOGLOBIN 14.6 g/dL (12.0-18.0); LYMPHOCYTES 13.9 % (24-44); MCH 34.7 (27-36); MCHC 34.8 g/dl (30-36); MCV 99.6 fl (81-99); NEUTROPHILS 77.3 % (39-80); PLATELET COUNT 183 K/uL (140-440); RBC 4.22 M/ul (4.3-5.7); RDW 15.6 (10.5-15.0)
[2024-10-27 20:22] LABS: ALBUMIN 3.4 g/dL (3.4-5.0); ALBUMIN/GLOBULIN RATIO 1.03 (1.1-2.4); BILIRUBIN, TOTAL 0.6 ng/dL (0.2-1.0); BUN/CREATININE RATIO 10.46 (6.0-28.6); CALCIUM 8.7 mg/dL (8.5-10.1); CREATININE, SERUM 0.86 mg/dL (0.70-1.30); PROTEIN, TOTAL 6.7 g/dL (6.4-8.2)
[2024-10-27] MEDS ORDERED: LEVOFLOXACIN500 MG PO (20:48)
[2024-10-27 21:09] VITALS: BP 165/86
--- NOTE | 2024-10-28 15:15 | EKG ---
[facility] [address] [facility] [place] [address] Signed Atrial fibrillation with rapid ventricular response Possible Anterior infarct (cited on or before 16-JUN-2020) Abnormal ECG When compared with ECG of 10-JUL-2024 17:42, Questionable change in initial forces of Lateral leads Confirmed by Pato Hamilton MD ([id number]) on 10/28/2024 3:15:48 PM Electronically Signed By: PATO HAMILTON MD 10/28/24 1515 PATIENT NAME: PRATIBHA PEREZ Electrocardiogram DATE OF : 64 PHYSICIAN: PATO HAMILTON MD REPORT #: [id number] REPORT IS CONFIDENTIAL AND NOT TO BE RELEASED WITHOUT AUTHORIZATION
== END 2024-10-27 21:15 | disposition home or self-care (01) ==
LOC: ED 17:26
PROVIDERS: Emergency Medicine
DX: S82.392A Other fracture of lower end of left tibia, initial encounter for closed fracture (principal); S82.832A Other fracture of upper and lower end of left fibula, initial encounter for closed fracture; E11.9 Type 2 diabetes mellitus without complications; I10 Essential (primary) hypertension; I48.91 Unspecified atrial fibrillation; Z86.718 Personal history of other venous thrombosis and embolism; Z91.048 Other nonmedicinal substance allergy status; Z91.040 Latex allergy status; Z79.01 Long term (current) use of anticoagulants; Z79.85 Long-term (current) use of injectable non-insulin antidiabetic drugs; Z79.899 Other long term (current) drug therapy; V58.4XXA Person boarding or alighting a pick-up truck or van injured in noncollision transport accident, initial encounter
CPT/HCPCS: 29125; 36415; 73560; 73610; 73700; 80053; 85025; 93005; 93010; 99284-25; A9270

== ENCOUNTER 2024-11-04 10:42 | Day surgery (SDC) | payer BC ==
[~2024-11-04] VITALS: Ht 188 cm; Wt 154.5 kg
[~2024-11-04 10:42] MED LIST changes: +CEFAZOLIN SODIUM 3 GM/30 ML SYR IV SCH; +HYDROCODON-ACE1 EA11 PO; +IBLOOD GLUCOSE TEST STRIP 1 EA TEST VI PRN; +LACTATED RINGER'S 1,000 ML IV SCH; +LEVOFLOXACIN500 MG PO; +LIDOCAINE HCL 1% 5 ML SDV INJ ONE; +TRANEXAMIC ACID IN NACL,ISO-OS 1,000 MG/100 ML PIGGYBACK IV SCH
[2024-11-04 11:16] VITALS: BP 137/71
[2024-11-04] MEDS ORDERED: LIDOCAINE HCL 2% 5 ML SDV ONE (12:32)
[2024-11-04] MEDS ORDERED: fentaNYL citrate 100 MCG/2 ML VIAL ONE (12:32)
[2024-11-04] MEDS ORDERED: propofoL 200 MG/20 ML VIAL ONE (12:40)
[2024-11-04] MEDS ORDERED: ePHEDrine sulfate 50 MG/ML AMP ONE (13:25)
[2024-11-04] MEDS ORDERED: ondansetron HCL 4 MG/2 ML VIAL ONE (13:53)
[2024-11-04] MEDS ORDERED: SEVOFLURANE 250 ML BTL INH ONE (13:58)
[2024-11-04] MEDS ORDERED: ondansetron HCL 4 MG/2 ML VIAL IV PRN (14:15)
[2024-11-04] MEDS ORDERED: NALOXONE HCL 0.4 MG SYR IV PRN (14:15)
[2024-11-04] MEDS ORDERED: fentaNYL citrate 50 MCG/ML SDV IV PRN (14:15)
[2024-11-04] MEDS ORDERED: HYDROCODONE/ACETA 7.5/325 TAB PO PRN (14:15)
[2024-11-04] MEDS ORDERED: HYDROmorphone HCL 1 MG/ML SYR IV PRN (14:15)
[2024-11-04] MEDS ORDERED: IBLOOD GLUCOSE TEST STRIP 1 EA TEST VI PRN (14:15)
[2024-11-04] MEDS ORDERED: HYDROCODON-ACE1 EA11 PO (14:21)
[2024-11-04 15:04] VITALS: BP 132/58
--- NOTE | 2024-11-04 15:19 | NUR ---
Patient returns to room 4 from PACU. Report taken from JENIFER Patterson. Patient reports pain 6/10 currently. Denies any nausea/vomiting. He has been sipping on water. He has an ice pack to his left ankle. Strong pulse anterior foot. Dressing is clean, dry, and intact. vital signs obtained. pudding given to patient and after eating he still denies nausea/vomiting. Patient medicated with ordered oral pain medication at this time. I explained expectations for the next hour and what criteria needs to be met in order to go home and he expressed understanding. Urinal given to patient. He denies any other needs at this time. Bed in lowest position, call light within reach.
--- NOTE | 2024-11-04 15:29 | NUR ---
11/04/24 1529 Angela Quick 1409 PT ARRIVED IN PACU WIDE AWAKE AND C/O L ANKLE PAIN 9/10. MANUSCRIPT READER AT BEDSIDE ELEVATING L LEG WITH PILLOWS AND PLACING ICE. 1420 SITTING UP IN BED SIPPING ON WATER. 1430 FENTANYL 50MCG GIVEN IV FOR 9/10 L ANKLE PAIN. 1439 PAIN DOWN TO 7/10. FENTANYL 50MCG GIVEN IV. CONTINUES TO VISIT WITH STAFF. 1450 PAIN DOWN TO 6/10. 1500 TO DS. REPORT GIVEN TO RN.
--- NOTE | 2024-11-04 15:52 | NUR ---
rounding on patient. he states that his pain is about the same but he has a shooting, fire pain to the medial side of his ankle. I assessed the ankle and there is no active bleeding. the dressing is not too tight. patient winces every time I attempt to move the dressing touching the surgical site. he describes the pain as a burning and "surges". Educated about nerve pain. vital signs obtained. He still denies the urge to urinate. ice packs in place to left ankle. dressing still intact. some slight bleeding noted to the inside of the dressing. patient requesting orange juice. no other needs stated at this time. call light within reach. bed in lowest position
[2024-11-04 16:00] VITALS: BP 137/76
[2024-11-04 16:55] VITALS: BP 129/56
--- NOTE | 2024-11-04 16:55 | NUR ---
Hourly rounding on patient. Patient has met all discharge criteria at this time. Patient was allowed to get dressed at this time.
--- NOTE | 2024-11-04 17:00 | NUR ---
Patient is dressed. IV removed. discharge instructions were reviewed in detail with patient and he expressed understanding. I reiterated mutliple times that patient is not to bear weight on his leg until he is cleared by dr. alejo and he stated that he understood. Patient was then dischared via wheelchair where he was taken home by a friend.
--- NOTE | 2024-11-08 07:04 | OR ---
[facility] [address] [place], [place] [address] Signed DATE OF OPERATION: 11/04/2024 SURGEON: Lexis Daigle MD PREOPERATIVE DIAGNOSIS: Left distal tib-fib fracture. POSTOPERATIVE DIAGNOSIS: Left distal tib-fib fracture. PROCEDURE PERFORMED: Open reduction and internal fixation distal fibula. CDC ASSOCIATE: None. ANESTHESIA: General. BLOOD LOSS: Minimal. TOURNIQUET TIME: Zero. IMPLANTS: 3.8 x 130 Fibulock with two screws. BRIEF HISTORY: Ghassan is a 64-year-old gentleman with severe peripheral vascular disease and prior abscesses as well as gangrenous toes. He did have a distal tib-fib fracture that was too low for an IM rupert on the tibia. He had walked on it for several days and it remained stable. The lateral malleolus had shifted. Due to the severe vascular disease in his legs and the likelihood of infection if we try to fix the distal tibia, I discussed with him the possibility of just fixing the fibula through the Fibulock, which would involve three small incisions. He elected to proceed. I also consulted foot and ankle specialist who agreed with my plan. Risks, benefits, and alternatives of this were discussed with Ghassan at length and he understood and wished to proceed. DESCRIPTION OF PROCEDURE: Electronically Signed By: LEXIS DAIGLE MD 11/08/24 0704 PATIENT NAME: GHASSAN PEREZ OPERATIVE REPORT DATE OF : 64 REPORT #: [id number] PHYSICIAN: LEXIS DAIGLE MD PCP: LALA OBREGON MD REPORT IS CONFIDENTIAL AND NOT TO BE RELEASED WITHOUT AUTHORIZATION [facility] [address] [place], [place] [address] Signed Once consent was obtained, he was taken to the operating room. After adequate anesthesia, he was placed on the operating table. All downside pressure points were well padded. The left leg was prepped and draped in a standard sterile fashion. The fibula was then marked out using image intensifier. A 1 cm incision was made distal to the fibula and blunt dissection was taken down to the tip of the fibula. The 1st guide pin was then advanced from the tip of the fibula after reduction of the fracture. I did not use any percutaneous clamps. The 1st large reamer was then used to open up the distal fibula. This was then exchanged for the long IM reamer, which was checked on image intensifier and biplanar views to ascertain it was center-center in the bone. We then reamed up to 4 mm. We selected 3.8 x 130, placed through the distal awl across the fracture engaging the body of the fibula. It was then advanced until it was flushed with the bottom of the fibula. Two screws were placed, one in the distal portion of the fracture, one at the fracture itself. These were done through separate stab incisions. Prior to this, we did deploy the pins proximally. We then removed the insertion handle, cleaned all three wounds quite well with normal saline and stapled them. They were then dressed with Allevyn dressings, ABD, and Yusuf wrap. He was placed back into his fracture boot. He tolerated the procedure well. All sponge, needle, and instrument counts were correct. Lexis Daigle MD BA/MODL /[id number] Copies: ~ Electronically Signed By: LEXIS DAIGLE MD 11/08/24 0704 PATIENT NAME: GHASSAN PEREZ OPERATIVE REPORT DATE OF : 64 REPORT #: [id number] PHYSICIAN: LEXIS DAIGLE MD PCP: LALA OBREGON MD REPORT IS CONFIDENTIAL AND NOT TO BE RELEASED WITHOUT AUTHORIZATION
== END 2024-11-04 17:05 | disposition home or self-care (01) ==
LOC: DS 10:42
PROVIDERS: ATTEND Specialist
PROC: 0QSK04Z Reposition Left Fibula with Internal Fixation Device, Open Approach (ICD-10-PCS; principal; 2024-11-04 13:45)
DX: S82.62XA Displaced fracture of lateral malleolus of left fibula, initial encounter for closed fracture (principal); S82.392A Other fracture of lower end of left tibia, initial encounter for closed fracture; X58.XXXA Exposure to other specified factors, initial encounter; I48.91 Unspecified atrial fibrillation; E11.9 Type 2 diabetes mellitus without complications; Z79.01 Long term (current) use of anticoagulants; Z79.85 Long-term (current) use of injectable non-insulin antidiabetic drugs; Z79.899 Other long term (current) drug therapy; Z91.040 Latex allergy status; Z91.048 Other nonmedicinal substance allergy status; Z88.1 Allergy status to other antibiotic agents
CPT/HCPCS: 01480; 73600; A9270; C1713; C1769; J0690; J2003; J2405; J2704; J3010; J7121

== ENCOUNTER 2024-12-25 19:48 | Emergency (ER) | payer BC ==
[~2024-12-25] VITALS: Ht 188 cm; Wt 156.3 kg
[~2024-12-25 19:48] MED LIST changes: -CEFAZOLIN SODIUM 3 GM/30 ML SYR IV SCH; -IBLOOD GLUCOSE TEST STRIP 1 EA TEST VI PRN; -LACTATED RINGER'S 1,000 ML IV SCH; -LIDOCAINE HCL 1% 5 ML SDV INJ ONE; -TRANEXAMIC ACID IN NACL,ISO-OS 1,000 MG/100 ML PIGGYBACK IV SCH
[2024-12-25 20:21] LABS: BASOPHILS 0.3 % (0-2); EOSINOPHILS 0.5 % (0-6); HEMATOCRIT 39.6 % (35.0-50.0); HEMOGLOBIN 13.7 g/dL (12.0-18.0); LYMPHOCYTES 11.5 % (24-44); MCH 32.9 (27-36); MCHC 34.5 g/dl (30-36); MCV 95.2 fl (81-99); MONOCYTES 6.1 % (0-12); NEUTROPHILS 81.6 % (39-80); PLATELET COUNT 198 K/uL (140-440); RBC 4.16 M/ul (4.3-5.7); RDW 13.7 (10.5-15.0)
[2024-12-25 20:30] LABS: ALBUMIN 3.2 g/dL (3.4-5.0); ALBUMIN/GLOBULIN RATIO 0.86 (1.1-2.4); ANION GAP 13.1 (7-21); BILIRUBIN, TOTAL 1.3 mg/dL (0.2-1.0); BUN/CREATININE RATIO 10.98 (6.0-28.6); CALCIUM 8.7 mg/dL (8.5-10.1); CREATININE, SERUM 0.91 mg/dL (0.70-1.30); POTASSIUM 4.1 mmol/L (3.5-5.1); PROTEIN, TOTAL 6.9 g/dL (6.4-8.2)
[2024-12-25] MEDS ORDERED: dilTIAZem HCL 25 MG/5 ML VIAL IV ONE (20:30)
[2024-12-25] MEDS ORDERED: TRIMETHOPRIM/SULFAMETHOXAZOLE 1 EA TAB PO ONE (20:30)
[2024-12-25] MEDS ORDERED: BACTRIM DS TAB1 EACH PO (21:42)
[2024-12-25] MEDS ORDERED: HYDROCODON-ACE1 EA11 PO (21:42)
[2024-12-25] MEDS ORDERED: HYDROCODONE/ACETA 7.5/325 TAB PO ONE (21:45)
[2024-12-25] MEDS ORDERED: dilTIAZem HCL 240 MG CAPCR PO ONE (21:45)
[2024-12-25 22:06] VITALS: BP 136/85
--- NOTE | 2024-12-27 10:50 | EKG ---
[facility] [address] [facility] [place] [address] Signed Atrial fibrillation with rapid ventricular response Possible Anterior infarct (cited on or before 16-JUN-2020) Abnormal ECG When compared with ECG of 27-OCT-2024 20:21, T wave inversion no longer evident in Lateral leads Confirmed by Pato Hamilton MD ([id number]) on 12/27/2024 10:49:53 AM Electronically Signed By: PATO HAMILTON MD 12/27/24 1050 PATIENT NAME: PRATIBHA PEREZ Electrocardiogram DATE OF : 64 PHYSICIAN: PATO HAMILTON MD REPORT #: [id number] REPORT IS CONFIDENTIAL AND NOT TO BE RELEASED WITHOUT AUTHORIZATION
== END 2024-12-25 22:05 | disposition home or self-care (01) ==
LOC: ED 19:48
PROVIDERS: Internal Medicine
DX: J34.0 Abscess, furuncle and carbuncle of nose (principal); I48.91 Unspecified atrial fibrillation; I10 Essential (primary) hypertension; E11.9 Type 2 diabetes mellitus without complications; Z79.899 Other long term (current) drug therapy; Z91.048 Other nonmedicinal substance allergy status; Z91.040 Latex allergy status; Z88.1 Allergy status to other antibiotic agents
CPT/HCPCS: 36415; 80053; 85025; 93005; 93010; 96374; 99283-25; A9270